=== PATIENT | female | born 1935 | race Caucasian/White ===

== ENCOUNTER 2017-06-22 13:38 | Inpatient (IN) | payer MEDICARE, BC ==
--- NOTE | 2017-06-22 13:47 | EDM.PDOC ---
ED HPI GENERAL MEDICAL PROBLEM - General Chief Complaint: General Stated Complaint: WEAK Time Seen by Provider: 06/22/17 13:38 Source of Information: Reports: Patient History Limitations: Reports: No Limitations - History of Present Illness INITIAL COMMENTS - FREE TEXT/NARRATIVE: HISTORY AND PHYSICAL: History of present illness: [Patient presents to the emergency room complaining of rectal bleeding. She has been taking Excedrin on and off for the past week for headache and muscle and joint aches and pains. Yesterday she wasn't feeling very well and had several episodes of blood in her stools. She has had blood in her stools today but to a lesser extent. She does not take any blood thinners. She has been prescribed aspirin 81 mg daily which she does not take. She has had some upset stomach and loose stools which are not unusual for her. She denies fever and chills. She's had no chest pain, no new shortness of breath or difficulty breathing. She has a history of COPD and wears 4 L of oxygen at home. Took some Immodium yesterday to slow down the loose stools, but had a couple of loose stools this morning. Follows regularly with Dr. Monge and last saw him 2-3 weeks ago for regular checkup.] Review of systems: As per history of present illness and below otherwise all systems reviewed and negative. Past medical history: As per history of present illness and as reviewed below otherwise noncontributory. Surgical history: As per history of present illness and as reviewed below otherwise noncontributory. Social history: No reported history of drug or alcohol abuse. Family history: As per history of present illness and as reviewed below otherwise noncontributory. Physical exam: HEENT: Atraumatic, normocephalic. Oral mucous membranes are pink and moist. Throat is clear, no lymphadenopathy. Lungs: Crackles are appreciated in right lung rankin. Left lung is clear to auscultation. Heart: S1S2, regular rate and rhythm. Abdomen: Bowel sounds are hyperactive. Abdomen is soft, nondistended. Mild TTP over lower abdomen. Negative for masses, guarding and rebound. Negative for costovertebral tenderness. Pelvis: Stable nontender. Genitourinary: Deferred. Rectal: Normal sphincter tone. dry stool caked to buttocks. SFOB positive. Extremities: Atraumatic. No cyanosis or edema to feet or lower legs. Neurovascular unremarkable. Neuro: Awake, alert, oriented. Motor and sensory unremarkable throughout. Exam nonfocal. Psych is alert and oriented. Interacts with examiner appropriately. Diagnostics: [CBC, CMP, UA, EKG, chest x-ray, PT/INR, troponin] Therapeutics: [NS at 125mL/hour, Protonix 80mg IV, Flagyl 500 mg IV, Cipro 400 mg IV] Impression: [colitis abdominal pain elevated lactate] Plan: [White blood cell count 11.5, hemoglobin 10.4 which is stable for patient. Previous records show hemoglobin between 10 and 11 during the last year. Troponin negative. Lactate 2.1. CT abdomen and pelvis shows thickening of the colonic wall indicating colitis. Cipro and Flagyl were started in the ER. Patient's condition and diagnostics are reviewed with Dr. Bethel Gentile who agrees to accept for inpatient admission. Patient is in agreement with today's plan. ] Definitive disposition and diagnosis as appropriate pending reevaluation and review of above. - Related Data Allergies Allergy/AdvReac Type Severity Reaction Status Date / Time morphine Allergy Cannot Verified 06/22/17 13:46 Remember Beef Containing Products AdvReac unknown Verified 06/22/17 14:16 pork derived (porcine) AdvReac unknown Verified 06/22/17 14:16 wheat AdvReac unknown Verified 06/22/17 14:16 Home Meds: Home Meds Benazepril/Hydrochlorothiazide [Lotensin HCT 20-25 MG] 0.5 tab PO DAILY [History] Fluticasone/Salmeterol [Advair Diskus 100-50] 1 puff IH BID 07/10/16 [History] Furosemide 20 mg PO DAILY PRN 07/10/16 [History] Ipratropium [place] 2 sprays NASBOTH TID 07/10/16 [History] Ipratropium [Atrovent HFA] 2 puff IH QID 07/10/16 [History] Iron Ps Cmplx/Vit B12/Fa [Poly-Iron 150 Forte] 150 mg PO DAILY 07/10/16 [History ] Levalbuterol Tartrate [Xopenex Hfa] 2 puff IH QID 07/10/16 [History] Montelukast [Singulair] 10 mg PO BEDTIME 07/10/16 [History] Sertraline [Zoloft] 100 mg PO DAILY 07/10/16 [History] Zolpidem [Ambien] 5 mg PO BEDTIME 07/10/16 [History] Docusate Sodium [Colace] 100 mg PO DAILY PRN #14 cap 07/11/16 [Rx] Mirtazapine [Remeron] 15 mg PO BEDTIME #20 tablet 07/11/16 [Rx] Past Medical History HEENT History: Reports: Impaired Vision Cardiovascular History: Reports: Hypertension Respiratory History: Reports: COPD, Pneumonia, Recurrent Gastrointestinal History: Reports: Diverticulosis, GERD [employer] History: Reports: Endocrine/Metabolic History: Reports: Diabetes, Type II Oncologic (Cancer) History: Reports: Other (See Below) Other Oncologic History: uterus - Past Surgical History Female Surgical History: Reports: Hysterectomy Social & Family History - Family History Family Medical History: Noncontributory HEENT: Reports: Impaired Vision Cardiac: Reports: DC OBGYN: Reports: Musculoskeletal: Reports: Arthritis Neurological: Reports: Parkinson's Oncologic: Reports: Breast, Colon - Tobacco Use Smoking Status *Q: Never Smoker Second Hand Smoke Exposure: No - Caffeine Use Caffeine Use: Reports: Coffee - Alcohol Use Days Per Week of Alcohol Use: 0 - Recreational Drug Use Recreational Drug Use: No - Living Situation & Occupation Living situation: Reports: Alone, Assisted Living Occupation: Retired ED ROS GENERAL - Review of Systems Review Of Systems: ROS reveals no pertinent complaints other than HPI. ED EXAM, GENERAL - Physical Exam Exam: See Below Course - Vital Signs Last Recorded V/S: Last Vital Signs Temp 98.4 F 06/22/17 14:30 Pulse 88 06/22/17 16:38 Resp 18 06/22/17 14:30 BP 132/81 06/22/17 16:38 Pulse Ox 98 06/22/17 14:30 - Orders/Labs/Meds Orders: Active Orders 24 hr Category Date Time Status EKG Documentation Completion [RC] STAT Care 06/22/17 13:48 Active Abdomen Pelvis w Cont [CT] Stat Exams 06/22/17 15:30 Taken Chest 2V [CR] Stat Exams 06/22/17 13:49 Taken UA W/MICROSCOPIC [URIN] Stat Lab 06/22/17 13:49 Uncollected Ciprofloxacin in D5W [Cipro in D5W 400 MG/200 ML] 400 Med 06/22/17 18:00 Ordered mg Premix Bag 1 bag IV Q12H Sodium Chloride 0.9% [Normal Saline] 1,000 ml Med 06/22/17 14:16 Active IV STAT Sodium Chloride 0.9% [Saline Flush] Med 06/22/17 13:48 Active 10 ml FLUSH ASDIRECTED PRN Sodium Chloride 0.9% [Saline Flush] Med 06/22/17 13:48 Active 2.5 ml FLUSH ASDIRECTED PRN metroNIDAZOLE/Normal Saline [Flagyl 500 MG in NS 100 ML Med 06/22/17 17:57 Ordered ] 500 mg Premix Bag 1 bag IV ONETIME Saline Lock Insert [OM.PC] Stat Oth 06/22/17 13:48 Ordered Medication Orders Sodium Chloride (Normal Saline) 1,000 mls @ 125 mls/hr IV STAT ONE Stop: 06/22/17 22:15 Last Admin: 06/22/17 14:25 Dose: 125 mls/hr Ciprofloxacin/Dextrose 400 mg/ (Premix) 200 mls @ 200 mls/hr IV Q12H [place] Metronidazole 500 mg/ Premix 100 mls @ 100 mls/hr IV ONETIME ONE Stop: 06/22/17 18:56 Sodium Chloride (Saline Flush) 10 ml FLUSH ASDIRECTED PRN PRN Reason: Keep Vein Open Sodium Chloride (Saline Flush) 2.5 ml FLUSH ASDIRECTED PRN PRN Reason: Keep Vein Open Labs: Laboratory Tests 06/22/17 06/22/17 06/22/17 Range/Units 14:00 14:00 14:00 WBC 11.51 H (4.0-11.0) K/uL RBC 3.30 L (4.30-5.90) M/uL Hgb 10.4 L (12.0-16.0) g/dL Hct 33.2 L (36.0-46.0) % MCV 100.6 H (80.0-98.0) fL MCH 31.5 (27.0-32.0) pg MCHC 31.3 (31.0-37.0) g/dL RDW Std Deviation 47.4 (28.0-62.0) fl RDW Coeff of Carmen 13 (11.0-15.0) % Plt Count 172 (150-400) K/uL MPV 11.40 (7.40-12.00) fL Neut % (Auto) 83.2 H (48.0-80.0) % Lymph % (Auto) 11.1 L (16.0-40.0) % [place] % (Auto) 5.3 (0.0-15.0) % Eos % (Auto) 0.3 (0.0-7.0) % Baso % (Auto) 0.1 (0.0-1.5) % Neut # (Auto) 9.6 H (1.4-5.7) K/uL Lymph # (Auto) 1.3 (0.6-2.4) K/uL [place] # (Auto) 0.6 (0.0-0.8) K/uL Eos # (Auto) 0.0 (0.0-0.7) K/uL Baso # (Auto) 0.0 (0.0-0.1) K/uL Nucleated RBC % 0.0 /100WBC Nucleated RBCs # 0 K/uL INR 0.95 (0.86-1.11) Lactate (0.20-2.00) mmol/L Sodium 138 (136-146) mmol/L Potassium 3.9 (3.5-5.1) mmol/L Chloride 98 (98-110) mmol/L Carbon Dioxide 32 H (21-31) mmol/L BUN 27 H (6.0-23.0) mg/dL Creatinine 0.8 (0.6-1.5) mg/dL Est Cr Clr Drug Dosing 36.86 mL/min Estimated GFR (MDRD) > 60.0 ml/min Glucose 152 H (60-110) mg/dL Calcium 9.9 (8.8-10.8) mg/dL Total Bilirubin 0.3 (0.1-1.5) mg/dL AST 17 (5-40) IU/L ALT 11 (8-54) IU/L Alkaline Phosphatase 51 (40-150) Troponin I (0.0-0.29) NG/ML Total Protein 7.3 (6.0-8.0) g/dL Albumin 3.6 (3.4-4.8) g/dL Globulin 3.7 H (2.0-3.5) g/dL Albumin/Globulin Ratio 1.0 L (1.3-2.8) Blood Type Antibody Screen 06/22/17 06/22/17 06/22/17 Range/Units 14:00 14:00 14:36 WBC (4.0-11.0) K/uL RBC (4.30-5.90) M/uL Hgb (12.0-16.0) g/dL Hct (36.0-46.0) % MCV (80.0-98.0) fL MCH (27.0-32.0) pg MCHC (31.0-37.0) g/dL RDW Std Deviation (28.0-62.0) fl RDW Coeff of Carmen (11.0-15.0) % Plt Count (150-400) K/uL MPV (7.40-12.00) fL Neut % (Auto) (48.0-80.0) % Lymph % (Auto) (16.0-40.0) % [place] % (Auto) (0.0-15.0) % Eos % (Auto) (0.0-7.0) % Baso % (Auto) (0.0-1.5) % Neut # (Auto) (1.4-5.7) K/uL Lymph # (Auto) (0.6-2.4) K/uL [place] # (Auto) (0.0-0.8) K/uL Eos # (Auto) (0.0-0.7) K/uL Baso # (Auto) (0.0-0.1) K/uL Nucleated RBC % /100WBC Nucleated RBCs # K/uL INR (0.86-1.11) Lactate 2.1 H (0.20-2.00) mmol/L Sodium (136-146) mmol/L Potassium (3.5-5.1) mmol/L Chloride (98-110) mmol/L Carbon Dioxide (21-31) mmol/L BUN (6.0-23.0) mg/dL Creatinine (0.6-1.5) mg/dL Est Cr Clr Drug Dosing mL/min Estimated GFR (MDRD) ml/min Glucose (60-110) mg/dL Calcium (8.8-10.8) mg/dL Total Bilirubin (0.1-1.5) mg/dL AST (5-40) IU/L ALT (8-54) IU/L Alkaline Phosphatase (40-150) Troponin I < 0.10 (0.0-0.29) NG/ML Total Protein (6.0-8.0) g/dL Albumin (3.4-4.8) g/dL Globulin (2.0-3.5) g/dL Albumin/Globulin Ratio (1.3-2.8) Blood Type O POSITIVE Antibody Screen NEGATIVE Meds: Medications Generic Name Dose Route Start Last Admin Trade Name Freq PRN Reason Stop Dose Admin Sodium Chloride 1,000 mls @ 125 mls/hr 06/22/17 14:16 06/22/17 14:25 Normal Saline IV 06/22/17 22:15 125 mls/hr STAT ONE Administration Ciprofloxacin/Dextrose 400 mg/ 200 mls @ 200 mls/hr 06/22/17 18:00 Premix IV Q12H [place] Metronidazole 500 mg/ Premix 100 mls @ 100 mls/hr 06/22/17 17:57 IV 06/22/17 18:56 ONETIME ONE Sodium Chloride 10 ml 06/22/17 13:48 Saline Flush FLUSH ASDIRECTED PRN Keep Vein Open Sodium Chloride 2.5 ml 06/22/17 13:48 Saline Flush FLUSH ASDIRECTED PRN Keep Vein Open Discontinued Medications Generic Name Dose Route Start Last Admin Trade Name Harshq PRN Reason Stop Dose Admin Iopamidol 70 ml 06/22/17 15:42 06/22/17 16:25 Isovue-370 (76%) IVPUSH 06/22/17 15:43 70 ml ONETIME STA Administration Pantoprazole Sodium 80 mg 06/22/17 14:16 06/22/17 14:26 Protonix Iv IVPUSH 06/22/17 14:17 80 mg .BOLUS ONE Administration Departure - Departure Time of Disposition: 18:02 Disposition: Admitted As Inpatient 64 Condition: Fair Clinical Impression: Colitis - Discharge Information Referrals: PCP,None [Primary Care Provider] - Forms: ED Department Discharge - My Orders Last 24 Hours: My Active Orders 06/22/17 13:48 EKG Documentation Completion [RC] STAT Sodium Chloride 0.9% [Saline Flush] 10 ml FLUSH ASDIRECTED PRN Sodium Chloride 0.9% [Saline Flush] 2.5 ml FLUSH ASDIRECTED PRN Saline Lock Insert [OM.PC] Stat 06/22/17 13:49 Chest 2V [CR] Stat UA W/MICROSCOPIC [URIN] Stat 06/22/17 14:16 Sodium Chloride 0.9% [Normal Saline] 1,000 ml IV STAT 06/22/17 15:30 Abdomen Pelvis w Cont [CT] Stat 06/22/17 17:57 metroNIDAZOLE/Normal Saline [Flagyl 500 MG in NS 100 ML] 500 mg Premix Bag 1 bag IV ONETIME 06/22/17 18:00 Ciprofloxacin in D5W [Cipro in D5W 400 MG/200 ML] 400 mg Premix Bag 1 bag IV Q12H - Assessment/Plan Last 24 Hours: My Active Orders 06/22/17 13:48 EKG Documentation Completion [RC] STAT Sodium Chloride 0.9% [Saline Flush] 10 ml FLUSH ASDIRECTED PRN Sodium Chloride 0.9% [Saline Flush] 2.5 ml FLUSH ASDIRECTED PRN Saline Lock Insert [OM.PC] Stat 06/22/17 13:49 Chest 2V [CR] Stat UA W/MICROSCOPIC [URIN] Stat 06/22/17 14:16 Sodium Chloride 0.9% [Normal Saline] 1,000 ml IV STAT 06/22/17 15:30 Abdomen Pelvis w Cont [CT] Stat 06/22/17 17:57 metroNIDAZOLE/Normal Saline [Flagyl 500 MG in NS 100 ML] 500 mg Premix Bag 1 bag IV ONETIME 06/22/17 18:00 Ciprofloxacin in D5W [Cipro in D5W 400 MG/200 ML] 400 mg Premix Bag 1 bag IV Q12H
[2017-06-22] MEDS ORDERED: Sodium Chloride 0.9% 10 ML Syringe FLUSH PRN (13:48)
[2017-06-22] MEDS ORDERED: Sodium Chloride 0.9% 2.5 ML Syringe FLUSH PRN (13:48)
[2017-06-22] MEDS ORDERED: Pantoprazole 40 MG Vial IVPUSH ONE (14:16)
[2017-06-22] MEDS ORDERED: Sodium Chloride 0.9% 1,000 ML IV ONE (14:16)
[2017-06-22 14:35] LABS: CHLORIDE,CL 98 mmol/L (98-110); SODIUM,NA 138 mmol/L (136-146)
[2017-06-22] MEDS ORDERED: Iopamidol 755 Mg/ML 100 ML Bottle IVPUSH STA (15:42)
[2017-06-22] MEDS ORDERED: metroNIDAZOLE/Normal Saline 500 MG in Premix Bag 1 BAG IV ONE (17:57)
[2017-06-22] MEDS ORDERED: Ciprofloxacin in D5W 400 MG in Premix Bag 1 BAG IV SCH ×4 (18:00→20:30)
[2017-06-22] MEDS ORDERED: Ondansetron 4 MG Tab.DIS PO PRN (19:17)
[2017-06-22] MEDS ORDERED: Acetaminophen 325 MG Tab PO PRN (19:17)
[2017-06-22] MEDS ORDERED: Temazepam 15 MG Cap PO PRN (19:17)
[2017-06-22] MEDS ORDERED: Docusate Sodium 100 MG Cap PO PRN (19:21)
[2017-06-22] MEDS ORDERED: Albuterol/Ipratropium 3.0-0.5 MG/3 ML Neb Soln NEB PRN (19:23)
[2017-06-22] MEDS ORDERED: metroNIDAZOLE/Normal Saline 500 MG in Premix Bag 1 BAG IV SCH (19:30)
[2017-06-22] MEDS: Fluticasone/Salmeterol 100-50 MCG Inhalation Powder 14/Diskus INH SCH (20:20)
[2017-06-22] MEDS: Ipratropium 12.9 GM Inhaler INH SCH (20:21)
[2017-06-22] MEDS: Mirtazapine 15 MG Tab PO SCH (20:55)
--- NOTE | 2017-06-22 22:27 | PCM.HP ---
H&P History of Present Illness - General Date of Service: 06/22/17 Admit Problem/Dx: Admission Diagnosis/Problem Admission Diagnosis/Problem Colitis Source of Information: Patient, Provider - History of Present Illness Initial Comments - Free Text/Narative: She presented to the ED with recent large bloody diarrheal stool. She was noted on CT scanning to have evidence of colitis. She has had slight abdominal cramping but denies "pain". no fever no vomiting. she reports that her outpatient attending physician is Dr Monge. - Related Data Allergies/Adverse Reactions: Allergies Allergy/AdvReac Type Severity Reaction Status Date / Time morphine Allergy Cannot Verified 06/22/17 13:46 Remember Beef Containing Products AdvReac unknown Verified 06/22/17 14:16 pork derived (porcine) AdvReac unknown Verified 06/22/17 14:16 wheat AdvReac unknown Verified 06/22/17 14:16 Home Medications: Home Meds Benazepril/Hydrochlorothiazide [Lotensin HCT 20-25 MG] 0.5 tab PO DAILY [History] Fluticasone/Salmeterol [Advair Diskus 100-50] 1 puff IH BID 07/10/16 [History] Furosemide 20 mg PO DAILY PRN 07/10/16 [History] Ipratropium [place] 2 sprays NASBOTH TID 07/10/16 [History] Ipratropium [Atrovent HFA] 2 puff IH QID 07/10/16 [History] Iron Ps Cmplx/Vit B12/Fa [Poly-Iron 150 Forte] 150 mg PO DAILY 07/10/16 [History ] Levalbuterol Tartrate [Xopenex Hfa] 2 puff IH QID 07/10/16 [History] Montelukast [Singulair] 10 mg PO BEDTIME 07/10/16 [History] Sertraline [Zoloft] 100 mg PO DAILY 07/10/16 [History] Zolpidem [Ambien] 5 mg PO BEDTIME 07/10/16 [History] Docusate Sodium [Colace] 100 mg PO DAILY PRN #14 cap 07/11/16 [Rx] Mirtazapine [Remeron] 15 mg PO BEDTIME #20 tablet 07/11/16 [Rx] Past Medical History HEENT History: Reports: Cataract, Impaired Vision Cardiovascular History: Reports: Hypertension Respiratory History: Reports: COPD, Pneumonia, Recurrent Gastrointestinal History: Reports: Diverticulosis, GERD Genitourinary History: Reports: UTI, Recurrent [employer] History: Reports: Neurological History: Denies: Alzheimers Disease, MS Psychiatric History: Reports: Depression Endocrine/Metabolic History: Reports: Diabetes, Type II Oncologic (Cancer) History: Reports: Other (See Below) Other Oncologic History: uterus - Past Surgical History HEENT Surgical History: Reports: Cataract Surgery Female Surgical History: Reports: Hysterectomy Social & Family History - Family History Family Medical History: Noncontributory HEENT: Reports: Impaired Vision Cardiac: Reports: PA Respiratory: Reports: None GI: Reports: None OBGYN: Reports: Musculoskeletal: Reports: Arthritis Neurological: Reports: Parkinson's Psychiatric: Reports: Depression Dermatologic: Reports: None Oncologic: Reports: Breast, Colon - Tobacco Use Smoking Status *Q: Never Smoker Second Hand Smoke Exposure: No - Caffeine Use Caffeine Use: Reports: Coffee - Alcohol Use Days Per Week of Alcohol Use: 0 - Recreational Drug Use Recreational Drug Use: No - Living Situation & Occupation Living situation: Reports: Alone, Assisted Living Occupation: Retired H&P Review of Systems - Review of Systems: Review Of Systems: See Below General: Denies: Fever, Chills HEENT: Reports: Post Nasal Drip, Sinus Congestion Pulmonary: Reports: Cough Cardiovascular: Denies: Chest Pain, Palpitations Gastrointestinal: Reports: Bloody Stool. Denies: Abdominal Pain, Distension, Hematemesis, Hematochezia, Melena Genitourinary: Denies: Dysuria, Frequency, Burning Skin: Denies: Jaundice Psychiatric: Denies: Confusion Neurological: Denies: Dizziness, Headache Review of Systems Comment:: she notes periods of LE edema treated with diuretics. Exam - Exam Exam: See Below - Vital Signs Vital Signs: Last Vital Signs Temp 98.2 F 06/22/17 20:00 Pulse 81 06/22/17 20:00 Resp 16 06/22/17 20:00 BP 138/71 06/22/17 20:00 Pulse Ox 96 06/22/17 20:00 Weight: 44.452 kg - Exam HEENT: EOMI, Mucosa Moist & Goodman Lungs: Clear to Auscultation, Normal Respiratory Effort, Other (scattered crackles) Cardiovascular: Regular Rate, Regular Rhythm GI/Abdominal Exam: Soft, Non-Tender. No: Distended, Guarding, Rigid, Rebound, Tender (Female) Exam: Deferred Rectal (Female) Exam: Deferred, Heme + Stool (as per ED provider) Extremities: No Pedal Edema - Patient Data Result Diagrams: 06/22/17 14:00 06/22/17 14:00 *Q Meaningful Use (ADM) - VTE *Q VTE Criteria *Q: - Stroke *Q Stroke Criteria *Q: - AMI *Q AMI Criteria *Q: - Problem List (1) GI bleed SNOMED Code(s): 12259976 ICD Code: K92.2 - GASTROINTESTINAL HEMORRHAGE, UNSPECIFIED Status: Acute Current Visit: Yes (2) Colitis SNOMED Code(s): 51225771 ICD Code: K52.9 - NONINFECTIVE GASTROENTERITIS AND COLITIS, UNSPECIFIED Status: Acute Current Visit: Yes (3) History of COPD SNOMED Code(s): 259819916 ICD Code: Z87.09 - PERSONAL HISTORY OF OTHER DISEASES OF THE RESPIRATORY SYSTEM Status: Acute Current Visit: Yes (4) URI (upper respiratory infection) SNOMED Code(s): 51632913 ICD Code: J06.9 - ACUTE UPPER RESPIRATORY INFECTION, UNSPECIFIED Status: Acute Current Visit: Yes (5) COPD exacerbation SNOMED Code(s): 131574593, 764992200 ICD Code: J44.1 - CHRONIC OBSTRUCTIVE PULMONARY DISEASE W (ACUTE) EXACERBATION Status: Acute Current Visit: Yes Problem List Initiated/Reviewed/Updated: Yes Orders Last 24hrs: Active Orders 24 hr Category Date Time Status Antiembolic Devices [RC] PER UNIT ROUTINE Care 06/22/17 19:18 Active Oxygen Therapy [RC] PRN Care 06/22/17 19:17 Active RT Aerosol Therapy [RC] ASDIRECTED Care 06/22/17 19:24 Active VTE/DVT Education [RC] PER UNIT ROUTINE Care 06/22/17 19:17 Active Vital Signs [RC] Q4H Care 06/22/17 19:17 Active Full Liquid Diet [DIET] Diet 06/22/17 Dinner Active BASIC METABOLIC PANEL,BMP [CHEM] AM Lab 06/23/17 05:11 Ordered BASIC METABOLIC PANEL,BMP [CHEM] AM Lab 06/24/17 05:11 Ordered BASIC METABOLIC PANEL,BMP [CHEM] AM Lab 06/25/17 05:11 Ordered CBC WITH AUTO DIFF [HEME] AM Lab 06/23/17 05:11 Ordered CBC WITH AUTO DIFF [HEME] AM Lab 06/24/17 05:11 Ordered CBC WITH AUTO DIFF [HEME] AM Lab 06/25/17 05:11 Ordered MAGNESIUM [CHEM] AM Lab 06/23/17 05:11 Ordered Acetaminophen [Tylenol] Med 06/22/17 19:17 Active 650 mg PO Q4H PRN Albuterol/Ipratropium [DuoNeb 3.0-0.5 MG/3 ML] Med 06/22/17 19:23 Active 3 ml NEB Q4HRRT PRN Benazepril [Lotensin] Med 06/23/17 09:00 Active 10 mg PO DAILY Ciprofloxacin in D5W [Cipro in D5W 400 MG/200 ML] 400 Med 06/22/17 20:30 Active mg Premix Bag 1 bag IV Q12H Docusate Sodium [Colace] Med 06/22/17 19:21 Active 100 mg PO DAILY PRN Fluticasone/Salmeterol [Advair Diskus 100-50] Med 06/22/17 21:00 Active 1 puff INH BID Hydrochlorothiazide Med 06/23/17 09:00 Active 12.5 mg PO DAILY Ipratropium [place] Med 06/22/17 22:00 Pending 2 sprays NASBOTH TID Ipratropium [Atrovent HFA] Med 06/22/17 21:00 Active 0 gm INH QIDRT Mirtazapine [Remeron] Med 06/22/17 21:00 Active 15 mg PO BEDTIME Ondansetron [Zofran ODT] Med 06/22/17 19:17 Active 4 mg PO Q4H PRN Sertraline [Zoloft] Med 06/23/17 09:00 Active 100 mg PO DAILY Temazepam [Restoril] Med 06/22/17 19:17 Active 15 mg PO BEDTIME PRN Zaleplon [Sonata] Med 06/22/17 21:00 Active 5 mg PO BEDTIME metroNIDAZOLE/Normal Saline [Flagyl 500 MG in NS 100 ML Med 06/23/17 00:00 Active ] 500 mg Premix Bag 1 bag IV QID Sequential Compression Device [OM.PC] Per Unit Routine Oth 06/22/17 19:17 Ordered Resuscitation Status Routine Resus Stat 06/22/17 19:17 Ordered Medication Orders Acetaminophen (Tylenol) 650 mg PO Q4H PRN PRN Reason: Pain (Mild 1-3)/fever Albuterol/Ipratropium (Duoneb 3.0-0.5 Mg/3 Ml) 3 ml NEB Q4HRRT PRN PRN Reason: Wheezing Benazepril HCl (Lotensin) 10 mg PO DAILY [facility] Docusate Sodium (Colace) 100 mg PO DAILY PRN PRN Reason: Constipation Hydrochlorothiazide (Hydrochlorothiazide) 12.5 mg PO DAILY [facility] Metronidazole 500 mg/ Premix 100 mls @ 100 mls/hr IV QID [place] Ciprofloxacin/Dextrose 400 mg/ (Premix) 200 mls @ 200 mls/hr IV Q12H [facility] Last Admin: 06/22/17 20:55 Dose: 200 mls/hr Ipratropium [place] (Atrovent Hfa) 0 gm INH QIDRT [facility] Last Admin: 06/22/17 20:21 Dose: 2 mdi Mirtazapine (Remeron) 15 mg PO BEDTIME [facility] Last Admin: 06/22/17 20:55 Dose: 15 mg Non-Formulary Medication (Ipratropium [place]) 2 sprays NASBOTH TID [facility] Ondansetron HCl (Zofran Odt) 4 mg PO Q4H PRN PRN Reason: nausea, able to take PO Fluticasone/Salmeterol (Advair Diskus 100-50) 1 puff INH BID [facility] Last Admin: 06/22/17 20:20 Dose: 1 diskus Sertraline HCl (Zoloft) 100 mg PO DAILY [facility] Sodium Chloride (Saline Flush) 10 ml FLUSH ASDIRECTED PRN PRN Reason: Keep Vein Open Sodium Chloride (Saline Flush) 2.5 ml FLUSH ASDIRECTED PRN PRN Reason: Keep Vein Open Temazepam (Restoril) 15 mg PO BEDTIME PRN PRN Reason: Sleep Zaleplon (Sonata) 5 mg PO BEDTIME [facility] Last Admin: 06/22/17 20:55 Dose: 5 mg Assessment/Plan Comment:: admit to inpatient duonebs antibiotics monitor cbc anticipate discharge Friday or Friday. Bethel Gentile MD
[2017-06-22] MEDS: IPRATROPIUM BROMIDE NASBOTH SCH (23:22)
[2017-06-22] MEDS: Albuterol/Ipratropium 3.0-0.5 MG/3 ML Neb Soln NEB SCH ×2 (23:30→23:37)
[2017-06-22] MEDS: metroNIDAZOLE/Normal Saline 500 MG in Premix Bag 1 BAG IV SCH (23:33)
[2017-06-23] MEDS: Sodium Chloride 0.9% 1,000 ML IV SCH (00:47)
[2017-06-23] MEDS: metroNIDAZOLE/Normal Saline 500 MG in Premix Bag 1 BAG IV SCH ×4 (05:46→23:58)
[2017-06-23] MEDS ORDERED: Ciprofloxacin in D5W 200 MG in Premix Bag 1 BAG IV SCH ×2 (06:00)
[2017-06-23 06:09] LABS: CHLORIDE,CL 104 mmol/L (98-110); SODIUM,NA 140 mmol/L (136-146)
[2017-06-23] MEDS: Ipratropium 12.9 GM Inhaler INH SCH ×2 (06:18→10:33)
[2017-06-23] MEDS: Fluticasone/Salmeterol 100-50 MCG Inhalation Powder 14/Diskus INH SCH ×2 (08:36→21:20)
[2017-06-23] MEDS: Albuterol/Ipratropium 3.0-0.5 MG/3 ML Neb Soln NEB SCH ×2 (08:36→13:48)
[2017-06-23] MEDS: Benazepril 10 MG Tab PO SCH (08:55)
[2017-06-23] MEDS: Hydrochlorothiazide 12.5 MG Cap PO SCH (08:57)
[2017-06-23] MEDS: Sertraline 100 MG Tab PO SCH (08:58)
[2017-06-23] MEDS: IPRATROPIUM BROMIDE NASBOTH SCH ×2 (08:59→15:23)
[2017-06-23] MEDS ORDERED: Levofloxacin/Dextrose 5%-Water 500 MG in Premix Bag 1 BAG IV SCH (09:00)
[2017-06-23] MEDS ORDERED: Magnesium Sulfate/Water 4 GM in Premix Bag 1 BAG IV ONE (10:18)
--- NOTE | 2017-06-23 14:18 | PCM.PN ---
- General Info Date of Service: 06/23/17 Subjective Update: no recurrence of bloody diarrhea - Patient Data Vitals - Most Recent: Last Vital Signs Temp 96.9 F 06/23/17 12:00 Pulse 80 06/23/17 12:00 Resp 20 06/23/17 12:00 BP 123/74 06/23/17 12:00 Pulse Ox 95 06/23/17 12:00 Weight - Most Recent: 44.452 kg I&O - Last 24 Hours: Intake & Output 06/22/17 06/23/17 06/23/17 22:59 06:59 14:59 Intake Total 300 1650 100 Output Total 300 Balance 300 1350 100 Lab Results Last 24 Hours: Laboratory Results - last 24 hr 06/23/17 06/23/17 06/23/17 Range/Units 04:55 04:55 04:55 WBC 9.38 (4.0-11.0) K/uL RBC 2.96 L (4.30-5.90) M/uL Hgb 9.3 L (12.0-16.0) g/dL Hct 30.1 L (36.0-46.0) % MCV 101.7 H (80.0-98.0) fL MCH 31.4 (27.0-32.0) pg MCHC 30.9 L (31.0-37.0) g/dL RDW Std Deviation 47.9 (28.0-62.0) fl RDW Coeff of Carmen 13 (11.0-15.0) % Plt Count 144 L (150-400) K/uL MPV 11.20 (7.40-12.00) fL Neut % (Auto) 80.8 H (48.0-80.0) % Lymph % (Auto) 12.8 L (16.0-40.0) % [place] % (Auto) 5.5 (0.0-15.0) % Eos % (Auto) 0.7 (0.0-7.0) % Baso % (Auto) 0.2 (0.0-1.5) % Neut # (Auto) 7.6 H (1.4-5.7) K/uL Lymph # (Auto) 1.2 (0.6-2.4) K/uL [place] # (Auto) 0.5 (0.0-0.8) K/uL Eos # (Auto) 0.1 (0.0-0.7) K/uL Baso # (Auto) 0.0 (0.0-0.1) K/uL Nucleated RBC % 0.0 /100WBC Nucleated RBCs # 0 K/uL Lactate 0.6 (0.20-2.00) mmol/L Sodium 140 (136-146) mmol/L Potassium 3.8 (3.5-5.1) mmol/L Chloride 104 (98-110) mmol/L Carbon Dioxide 30 (21-31) mmol/L BUN 16 (6.0-23.0) mg/dL Creatinine 0.7 (0.6-1.5) mg/dL Est Cr Clr Drug Dosing 41.98 mL/min Estimated GFR (MDRD) > 60.0 ml/min Glucose 91 (60-110) mg/dL Calcium 8.8 (8.8-10.8) mg/dL Magnesium 1.2 L (1.5-2.3) mEq/L Urine Color Urine Appearance Urine pH (5.0-8.0) Ur Specific [place] (1.001-1.035) Urine Protein (NEGATIVE) mg/dL Urine Glucose (UA) (NEGATIVE) mg/dL Urine Ketones (NEGATIVE) mg/dL Urine Occult Blood (NEGATIVE) Urine Nitrite (NEGATIVE) Urine Bilirubin (NEGATIVE) Urine Urobilinogen (<2.0) EU/dL Ur Leukocyte Esterase (NEGATIVE) Urine RBC (0-2/HPF) Urine WBC (0-5/HPF) Ur Epithelial Cells (NONE-FEW) Urine Bacteria (NEGATIVE) Urine Mucus (NONE-MOD) 06/23/17 Range/Units 08:45 WBC (4.0-11.0) K/uL RBC (4.30-5.90) M/uL Hgb (12.0-16.0) g/dL Hct (36.0-46.0) % MCV (80.0-98.0) fL MCH (27.0-32.0) pg MCHC (31.0-37.0) g/dL RDW Std Deviation (28.0-62.0) fl RDW Coeff of Carmen (11.0-15.0) % Plt Count (150-400) K/uL MPV (7.40-12.00) fL Neut % (Auto) (48.0-80.0) % Lymph % (Auto) (16.0-40.0) % [place] % (Auto) (0.0-15.0) % Eos % (Auto) (0.0-7.0) % Baso % (Auto) (0.0-1.5) % Neut # (Auto) (1.4-5.7) K/uL Lymph # (Auto) (0.6-2.4) K/uL [place] # (Auto) (0.0-0.8) K/uL Eos # (Auto) (0.0-0.7) K/uL Baso # (Auto) (0.0-0.1) K/uL Nucleated RBC % /100WBC Nucleated RBCs # K/uL Lactate (0.20-2.00) mmol/L Sodium (136-146) mmol/L Potassium (3.5-5.1) mmol/L Chloride (98-110) mmol/L Carbon Dioxide (21-31) mmol/L BUN (6.0-23.0) mg/dL Creatinine (0.6-1.5) mg/dL Est Cr Clr Drug Dosing mL/min Estimated GFR (MDRD) ml/min Glucose (60-110) mg/dL Calcium (8.8-10.8) mg/dL Magnesium (1.5-2.3) mEq/L Urine Color YELLOW Urine Appearance CLEAR Urine pH 5.5 (5.0-8.0) Ur Specific [place] 1.010 (1.001-1.035) Urine Protein NEGATIVE (NEGATIVE) mg/dL Urine Glucose (UA) NEGATIVE (NEGATIVE) mg/dL Urine Ketones NEGATIVE (NEGATIVE) mg/dL Urine Occult Blood NEGATIVE (NEGATIVE) Urine Nitrite NEGATIVE (NEGATIVE) Urine Bilirubin NEGATIVE (NEGATIVE) Urine Urobilinogen 0.2 (<2.0) EU/dL Ur Leukocyte Esterase NEGATIVE (NEGATIVE) Urine RBC NONE SEEN (0-2/HPF) Urine WBC 0-2 (0-5/HPF) Ur Epithelial Cells OCCASIONAL (NONE-FEW) Urine Bacteria RARE (NEGATIVE) Urine Mucus LIGHT (NONE-MOD) Med Orders - Current: Current Medications Acetaminophen (Tylenol) 650 mg PO Q4H PRN PRN Reason: Pain (Mild 1-3)/fever Last Admin: 06/23/17 00:52 Dose: 650 mg Benazepril HCl (Lotensin) 10 mg PO DAILY [facility] Last Admin: 06/23/17 08:55 Dose: 10 mg Docusate Sodium (Colace) 100 mg PO DAILY PRN PRN Reason: Constipation Hydrochlorothiazide (Hydrochlorothiazide) 12.5 mg PO DAILY [facility] Last Admin: 06/23/17 08:57 Dose: 12.5 mg Metronidazole 500 mg/ Premix 100 mls @ 100 mls/hr IV QID [facility] Last Admin: 06/23/17 13:00 Dose: 100 mls/hr Levofloxacin/Dextrose 250 mg/ (Premix) 50 mls @ 50 mls/hr IV DAILY [facility] Sodium Chloride (Normal Saline) 1,000 mls @ 75 mls/hr IV ASDIRECTED [facility] Last Admin: 06/23/17 00:47 Dose: 75 mls/hr Levalbuterol HCl (Xopenex) 1.25 mg NEB BID [facility] Mirtazapine (Remeron) 15 mg PO BEDTIME [facility] Last Admin: 06/22/17 20:55 Dose: 15 mg (Ipratropium Bradner 2 Sprays)Own Med 2 sprays NASBOTH TID [facility] Last Admin: 06/23/17 08:59 Dose: Not Given Ondansetron HCl (Zofran Odt) 4 mg PO Q4H PRN PRN Reason: nausea, able to take PO Fluticasone/Salmeterol (Advair Diskus 100-50) 1 puff INH BID [facility] Last Admin: 06/23/17 08:36 Dose: 1 puff Sertraline HCl (Zoloft) 100 mg PO DAILY [facility] Last Admin: 06/23/17 08:58 Dose: 100 mg Sodium Chloride (Saline Flush) 10 ml FLUSH ASDIRECTED PRN PRN Reason: Keep Vein Open Sodium Chloride (Saline Flush) 2.5 ml FLUSH ASDIRECTED PRN PRN Reason: Keep Vein Open Temazepam (Restoril) 15 mg PO BEDTIME PRN PRN Reason: Sleep Zaleplon (Sonata) 5 mg PO BEDTIME [facility] Last Admin: 06/22/17 20:55 Dose: 5 mg Discontinued Medications Albuterol/Ipratropium (Duoneb 3.0-0.5 Mg/3 Ml) 3 ml NEB Q4HRRT PRN PRN Reason: Wheezing Albuterol/Ipratropium (Duoneb 3.0-0.5 Mg/3 Ml) 3 ml NEB Q6HRRT [facility] Last Admin: 06/23/17 13:48 Dose: Not Given Sodium Chloride (Normal Saline) 1,000 mls @ 125 mls/hr IV STAT ONE Stop: 06/22/17 22:15 Last Admin: 06/22/17 14:25 Dose: 125 mls/hr Ciprofloxacin/Dextrose 400 mg/ (Premix) 200 mls @ 200 mls/hr IV Q12H [facility] Last Admin: 06/22/17 22:11 Dose: Not Given Metronidazole 500 mg/ Premix 100 mls @ 100 mls/hr IV ONETIME ONE Stop: 06/22/17 18:56 Last Admin: 06/22/17 18:54 Dose: 100 mls/hr Ciprofloxacin/Dextrose 200 mg/ (Premix) 100 mls @ 100 mls/hr IV Q12H [facility] Metronidazole 500 mg/ Premix 100 mls @ 100 mls/hr IV QID [facility] Ciprofloxacin/Dextrose 400 mg/ (Premix) 200 mls @ 200 mls/hr IV Q12H [facility] Last Admin: 06/22/17 20:55 Dose: 200 mls/hr Levofloxacin/Dextrose 500 mg/ (Premix) 100 mls @ 100 mls/hr IV Q24H [facility] Stop: 06/23/17 09:59 Last Admin: 06/23/17 08:49 Dose: 100 mls/hr Magnesium Sulfate 4 gm/ Premix 100 mls @ 50 mls/hr IV ONETIME ONE Stop: 06/23/17 12:17 Last Admin: 06/23/17 10:47 Dose: 50 mls/hr Iopamidol (Isovue-370 (76%)) 70 ml IVPUSH ONETIME STA Stop: 06/22/17 15:43 Last Admin: 06/22/17 16:25 Dose: 70 ml Ipratropium Bradner (Atrovent Hfa) 0 gm INH QIDRT [facility] Last Admin: 06/23/17 10:33 Dose: 2 puff Pantoprazole Sodium (Protonix Iv) 80 mg IVPUSH .BOLUS ONE Stop: 06/22/17 14:17 Last Admin: 06/22/17 14:26 Dose: 80 mg - Exam General: Alert, Oriented, Cooperative Neck: Supple Lungs: Rhonchi (faint diffuse rhonchi) GI/Abdominal Exam: Soft, Non-Tender - Problem List & Annotations (1) GI bleed SNOMED Code(s): 06954510 Code(s): K92.2 - GASTROINTESTINAL HEMORRHAGE, UNSPECIFIED Status: Acute Current Visit: Yes (2) Colitis SNOMED Code(s): 68932412 Code(s): K52.9 - NONINFECTIVE GASTROENTERITIS AND COLITIS, UNSPECIFIED Status: Acute Current Visit: Yes (3) History of COPD SNOMED Code(s): 401510703 Code(s): Z87.09 - PERSONAL HISTORY OF OTHER DISEASES OF THE RESPIRATORY SYSTEM Status: Acute Current Visit: Yes (4) URI (upper respiratory infection) SNOMED Code(s): 30852244 Code(s): J06.9 - ACUTE UPPER RESPIRATORY INFECTION, UNSPECIFIED Status: Acute Current Visit: Yes (5) COPD exacerbation SNOMED Code(s): 803815316, 989768245 Code(s): J44.1 - CHRONIC OBSTRUCTIVE PULMONARY DISEASE W (ACUTE) EXACERBATION Status: Acute Current Visit: Yes - Problem List Review Problem List Initiated/Reviewed/Updated: Yes - My Orders Last 24 Hours: My Active Orders 06/22/17 19:17 Oxygen Therapy [RC] PRN VTE/DVT Education [RC] PER UNIT ROUTINE Vital Signs [RC] Q4H Acetaminophen [Tylenol] 650 mg PO Q4H PRN Ondansetron [Zofran ODT] 4 mg PO Q4H PRN Temazepam [Restoril] 15 mg PO BEDTIME PRN Sequential Compression Device [OM.PC] Per Unit Routine Resuscitation Status Routine 06/22/17 19:18 Antiembolic Devices [RC] Q12H 06/22/17 19:21 Docusate Sodium [Colace] 100 mg PO DAILY PRN 06/22/17 21:00 Fluticasone/Salmeterol [Advair Diskus 100-50] 1 puff INH BID Mirtazapine [Remeron] 15 mg PO BEDTIME Zaleplon [Sonata] 5 mg PO BEDTIME 06/22/17 22:00 Ipratropium Bradner 2 sprays NASBOTH TID 06/22/17 23:30 Sodium Chloride 0.9% [Normal Saline] 1,000 ml IV ASDIRECTED 06/22/17 Dinner Full Liquid Diet [DIET] 06/23/17 00:00 metroNIDAZOLE/Normal Saline [Flagyl 500 MG in NS 100 ML] 500 mg Premix Bag 1 bag IV QID 06/23/17 09:00 Benazepril [Lotensin] 10 mg PO DAILY Hydrochlorothiazide 12.5 mg PO DAILY Sertraline [Zoloft] 100 mg PO DAILY 06/23/17 14:16 RT Aerosol Therapy [RC] ASDIRECTED 06/23/17 21:00 Levalbuterol HCl [Xopenex] 1.25 mg NEB BID 06/24/17 05:11 BASIC METABOLIC PANEL,BMP [CHEM] AM CBC WITH AUTO DIFF [HEME] AM COMPREHENSIVE METABOLIC PN,CMP [CHEM] AM MAGNESIUM [CHEM] AM 06/24/17 09:00 Levofloxacin/Dextrose 5%-Water [Levaquin in D5W 250 MG/50 ML] 250 mg Premix Bag 1 bag IV DAILY 06/25/17 05:11 BASIC METABOLIC PANEL,BMP [CHEM] AM CBC WITH AUTO DIFF [HEME] AM - Assessment Assessment:: change to xopenex as per her request anticipated discharge home on Friday Bethel Gentile MD - Plan Plan:: admit to inpatient duonebs antibiotics monitor cbc anticipate discharge Friday or Friday. Bethel Gentile MD
--- NOTE | 2017-06-23 16:52 | CR ---
EXAM DATE: 06/22/17 PATIENT'S AGE: 82 Patient: VIDAL SMITH Facility: [place], [place] Site . Site : 1935 Study: XRay Chest [id number]/17/2017 4:27:01 PM Ordering Physician: Doctor Guillory Final Report: INDICATION: Shortness of Breath HISTORY: Shortness of breath. COMPARISON: 07/10/2016. TECHNIQUE: Chest, 2 views. FINDINGS: Lungs are hyperinflated, particularly at the left lung base. Cylindrical bronchiectasis with bronchial wall thickening bilaterally. No pneumothorax. The central airway is normal. Bowel gas pattern is within normal limits in the upper abdomen. Osseous structures are intact. IMPRESSION: Stable exam when compared with 07/10/2016. Dictated by Blaise Starr MD @ 06/22/2017 4:52:32 PM Dictated by: Blaise Starr MD @ 06/22/2017 16:52:43 (Electronic Signature) Report Signed by Proxy. [facility] THROAT HOSPITALAubrey
--- NOTE | 2017-06-23 16:54 | CT ---
EXAM DATE: 06/22/17 PATIENT'S AGE: 82 Patient: VIDAL SMITH Facility: [place], [place] Site . Site : 1935 Study: CT Abdomen/Pelvis [id number] w cont-06/22/2017 4:30:52 PM Ordering Physician: Doctor Guillory Final Report: INDICATION: Rectal Bleeding, History of Diverticulitis HISTORY: Rectal bleeding. Prior diverticulitis. COMPARISON: CT of the abdomen and pelvis 07/10/2016. TECHNIQUE: CT of the abdomen and pelvis. 70 cc of Isovue-370 IV. Coronal/sagittal reconstruction images. FINDINGS: Lung bases: No pleural or pericardial effusion. Moderate size hiatal hernia. Arterial, including coronary artery, calcifications. Marked varicose bronchiectasis, with mucus plugging, bronchial wall thickening, and chronic atelectasis in the left lower lobe, medial basilar segment. These findings are similar to 07/10/2016. No basilar pneumothorax. Abdomen/pelvis: No solid hepatic mass. Hepatic morphology is normal. Mild intrahepatic biliary dilatation. This is similar to previous. Large, bilateral renal cysts. Symmetric nephrograms. No perinephric fluid collection. Tiny calculus in the left kidney, lower pole, measuring 2-3 mm on image 64, series 201. No adrenal mass. No pancreatic mass or pancreatic duct dilation. No glandular atrophy. Urinary bladder is normal. Uterus appears surgically absent. No adnexal mass. Extensive colonic diverticulosis. There is wall thickening present about the splenic flexure. This is also seen in the descending colon. This is seen best on series 201, image 69. No pneumatosis or portal venous gas. No transition point to indicate a mechanical small bowel or colonic obstruction. Moderate arterial calcifications. No abdominal aortic aneurysm. The DEANNA is patent proximally. The celiac axis and SMA are patent. There is no abdominal or pelvic lymphadenopathy by size criteria. The bone windows demonstrate a chronic appearing fracture of the left superior/ inferior pubic rami. These were present previously. Diffuse osteopenia. The fracture involves the anterior column of the left acetabulum, and this is stable. Degenerative changes throughout the endplates of the thoracolumbar spine. Multilevel degenerative disc disease, with endplate sclerosis and disc height loss. IMPRESSION: 1. Colonic wall thickening. This is seen about the splenic flexure and descending colon. 2. This could be infectious colitis. Ischemic colitis is not excluded, particularly given the watershed distribution. There is moderate atherosclerotic plaque in the abdominal aorta. Visceral artery branches are patent proximally. Suggest correlation with lactate levels. 3. No pneumatosis or portal venous gas. No extraluminal gas or drainable fluid collection. 4. Cylindrical bronchiectasis, with chronic atelectasis at the left lung base, stable. Dictated by Blaise Starr MD @ 06/22/2017 5:01:54 PM Dictated by: Blaise Starr MD @ 06/22/2017 17:02:13 (Electronic Signature) Report Signed by Proxy. RAMANDEEP
[2017-06-23] MEDS: Levalbuterol HCl 0.63 MG/3 ML Neb NEB SCH (21:20)
[2017-06-23] MEDS: Mirtazapine 15 MG Tab PO SCH (21:43)
[2017-06-24] MEDS: Sodium Chloride 0.9% 1,000 ML IV SCH (01:02)
[2017-06-24] MEDS: metroNIDAZOLE/Normal Saline 500 MG in Premix Bag 1 BAG IV SCH ×2 (05:38→11:51)
[2017-06-24 05:55] LABS: CHLORIDE,CL 104 mmol/L (98-110); SODIUM,NA 140 mmol/L (136-146)
[2017-06-24] MEDS: IPRATROPIUM BROMIDE NASBOTH SCH ×2 (06:03→07:33)
[2017-06-24] MEDS ORDERED: Levofloxacin/Dextrose 5%-Water 250 MG in Premix Bag 1 BAG IV SCH (09:00)
[2017-06-24] MEDS: Benazepril 10 MG Tab PO SCH (09:00)
[2017-06-24] MEDS: Levalbuterol HCl 0.63 MG/3 ML Neb NEB SCH (09:21)
[2017-06-24] MEDS: Fluticasone/Salmeterol 100-50 MCG Inhalation Powder 14/Diskus INH SCH (09:23)
[2017-06-24] MEDS: Sertraline 100 MG Tab PO SCH (09:28)
[2017-06-24] MEDS: Hydrochlorothiazide 12.5 MG Cap PO SCH (09:28)
[2017-06-24] MEDS ORDERED: Magnesium Sulfate/Water 2 GM in Premix Bag 1 BAG IV ONE (14:18)
--- NOTE | 2017-06-24 14:32 | PCM.DCSUM1 ---
Discharge Summary - Hospital Course Brief History: she was admitted with bloody diarrhea. Colitis was noted on CT scanning. - Discharge Data Discharge Date: 06/24/17 Discharge Disposition: Home, Self-Care 01 Condition: Fair - Discharge Diagnosis/Problem(s) (1) GI bleed SNOMED Code(s): 78867926 ICD Code: K92.2 - GASTROINTESTINAL HEMORRHAGE, UNSPECIFIED Status: Acute Current Visit: Yes (2) Colitis SNOMED Code(s): 17330940 ICD Code: K52.9 - NONINFECTIVE GASTROENTERITIS AND COLITIS, UNSPECIFIED Status: Acute Current Visit: Yes (3) History of COPD SNOMED Code(s): 074767830 ICD Code: Z87.09 - PERSONAL HISTORY OF OTHER DISEASES OF THE RESPIRATORY SYSTEM Status: Acute Current Visit: Yes (4) URI (upper respiratory infection) SNOMED Code(s): 81700543 ICD Code: J06.9 - ACUTE UPPER RESPIRATORY INFECTION, UNSPECIFIED Status: Acute Current Visit: Yes (5) COPD exacerbation SNOMED Code(s): 213215426, 555221985 ICD Code: J44.1 - CHRONIC OBSTRUCTIVE PULMONARY DISEASE W (ACUTE) EXACERBATION Status: Acute Current Visit: Yes - Patient Summary/Data Consults: Consultations 06/24/17 14:19 Consult to Home Care [Consult to Home Health] [CONS] Routine Hospital Course: she was treated with metronidazole and levaquin. Her gross rectal bleeding and diarrhea have stopped and she feels much better at discharge. Her Hg is 9. 1 at discharge. She will be discharged on home care as she cannot get out of the house except with great difficulty due to general debility. - Discharge Plan Prescriptions/Med Rec: Ciprofloxacin HCl [Cipro] 250 mg PO BID #14 tablet metroNIDAZOLE [Flagyl] 500 mg PO Q8H #21 tablet Home Medications: Home Meds Benazepril/Hydrochlorothiazide [Lotensin HCT 20-25 MG] 0.5 tab PO DAILY [History] Fluticasone/Salmeterol [Advair Diskus 100-50] 1 puff IH BID 07/10/16 [History] Furosemide 20 mg PO DAILY PRN 07/10/16 [History] Ipratropium Sedan 2 sprays NASBOTH TID 07/10/16 [History] Ipratropium [Atrovent HFA] 2 puff IH QID 07/10/16 [History] Iron Ps Cmplx/Vit B12/Fa [Poly-Iron 150 Forte] 150 mg PO DAILY 07/10/16 [History ] Levalbuterol Tartrate [Xopenex Hfa] 2 puff IH QID 07/10/16 [History] Montelukast [Singulair] 10 mg PO BEDTIME 07/10/16 [History] Sertraline [Zoloft] 100 mg PO DAILY 07/10/16 [History] Zolpidem [Ambien] 5 mg PO BEDTIME 07/10/16 [History] Docusate Sodium [Colace] 100 mg PO DAILY PRN #14 cap 07/11/16 [Rx] Mirtazapine [Remeron] 15 mg PO BEDTIME #20 tablet 07/11/16 [Rx] Ciprofloxacin HCl [Cipro] 250 mg PO BID #14 tablet 06/24/17 [Rx] metroNIDAZOLE [Flagyl] 500 mg PO Q8H #21 tablet 06/24/17 [Rx] Patient Handouts: Colitis, Ciprofloxacin tablets, Metronidazole tablets or capsules Referrals: [facility] [Outside] Kirt Monge MD [Ordering Only Provider] - 06/27/17 8:30 am - Patient Data Vitals - Most Recent: Last Vital Signs Temp 98 F 06/24/17 12:00 Pulse 63 06/24/17 12:00 Resp 20 06/24/17 12:00 BP 122/58 L 06/24/17 12:00 Pulse Ox 97 06/24/17 12:00 Weight - Most Recent: 44.452 kg I&O - Last 24 hours: Intake & Output 06/23/17 06/24/17 06/24/17 22:59 06:59 14:59 Intake Total 1590 380 150 Output Total 900 502 Balance 690 -122 150 Lab Results - Last 24 hrs: Laboratory Results - last 24 hr 06/23/17 06/24/17 06/24/17 Range/Units 21:28 05:20 05:20 WBC 7.45 (4.0-11.0) K/uL RBC 2.85 L (4.30-5.90) M/uL Hgb 9.1 L (12.0-16.0) g/dL Hct 28.8 L (36.0-46.0) % MCV 101.1 H (80.0-98.0) fL MCH 31.9 (27.0-32.0) pg MCHC 31.6 (31.0-37.0) g/dL RDW Std Deviation 46.5 (28.0-62.0) fl RDW Coeff of Carmen 13 (11.0-15.0) % Plt Count 149 L (150-400) K/uL MPV 10.90 (7.40-12.00) fL Neut % (Auto) 76.2 (48.0-80.0) % Lymph % (Auto) 15.8 L (16.0-40.0) % [place] % (Auto) 6.8 (0.0-15.0) % Eos % (Auto) 1.1 (0.0-7.0) % Baso % (Auto) 0.1 (0.0-1.5) % Neut # (Auto) 5.7 (1.4-5.7) K/uL Lymph # (Auto) 1.2 (0.6-2.4) K/uL [place] # (Auto) 0.5 (0.0-0.8) K/uL Eos # (Auto) 0.1 (0.0-0.7) K/uL Baso # (Auto) 0.0 (0.0-0.1) K/uL Nucleated RBC % 0.0 /100WBC Nucleated RBCs # 0 K/uL Sodium 140 (136-146) mmol/L Potassium 4.2 (3.5-5.1) mmol/L Chloride 104 (98-110) mmol/L Carbon Dioxide 33 H (21-31) mmol/L BUN 13 (6.0-23.0) mg/dL Creatinine 0.6 (0.6-1.5) mg/dL Est Cr Clr Drug Dosing 48.98 mL/min Estimated GFR (MDRD) > 60.0 ml/min Glucose 67 (60-110) mg/dL POC Glucose 104 (60-110) mg/dL Calcium 8.7 L (8.8-10.8) mg/dL Magnesium 1.4 L (1.5-2.3) mEq/L Total Bilirubin 0.2 (0.1-1.5) mg/dL AST 13 (5-40) IU/L ALT 8 (8-54) IU/L Alkaline Phosphatase 37 L (40-150) Total Protein 5.8 L (6.0-8.0) g/dL Albumin 2.9 L (3.4-4.8) g/dL Globulin 2.9 (2.0-3.5) g/dL Albumin/Globulin Ratio 1.0 L (1.3-2.8) 06/24/17 Range/Units 06:10 WBC (4.0-11.0) K/uL RBC (4.30-5.90) M/uL Hgb (12.0-16.0) g/dL Hct (36.0-46.0) % MCV (80.0-98.0) fL MCH (27.0-32.0) pg MCHC (31.0-37.0) g/dL RDW Std Deviation (28.0-62.0) fl RDW Coeff of Carmen (11.0-15.0) % Plt Count (150-400) K/uL MPV (7.40-12.00) fL Neut % (Auto) (48.0-80.0) % Lymph % (Auto) (16.0-40.0) % [place] % (Auto) (0.0-15.0) % Eos % (Auto) (0.0-7.0) % Baso % (Auto) (0.0-1.5) % Neut # (Auto) (1.4-5.7) K/uL Lymph # (Auto) (0.6-2.4) K/uL [place] # (Auto) (0.0-0.8) K/uL Eos # (Auto) (0.0-0.7) K/uL Baso # (Auto) (0.0-0.1) K/uL Nucleated RBC % /100WBC Nucleated RBCs # K/uL Sodium (136-146) mmol/L Potassium (3.5-5.1) mmol/L Chloride (98-110) mmol/L Carbon Dioxide (21-31) mmol/L BUN (6.0-23.0) mg/dL Creatinine (0.6-1.5) mg/dL Est Cr Clr Drug Dosing mL/min Estimated GFR (MDRD) ml/min Glucose (60-110) mg/dL POC Glucose 84 (60-110) mg/dL Calcium (8.8-10.8) mg/dL Magnesium (1.5-2.3) mEq/L Total Bilirubin (0.1-1.5) mg/dL AST (5-40) IU/L ALT (8-54) IU/L Alkaline Phosphatase (40-150) Total Protein (6.0-8.0) g/dL Albumin (3.4-4.8) g/dL Globulin (2.0-3.5) g/dL Albumin/Globulin Ratio (1.3-2.8) Med Orders - Current: Current Medications Acetaminophen (Tylenol) 650 mg PO Q4H PRN PRN Reason: Pain (Mild 1-3)/fever Last Admin: 06/23/17 00:52 Dose: 650 mg Benazepril HCl (Lotensin) 10 mg PO DAILY [facility] Last Admin: 06/24/17 09:00 Dose: 10 mg Docusate Sodium (Colace) 100 mg PO DAILY PRN PRN Reason: Constipation Hydrochlorothiazide (Hydrochlorothiazide) 12.5 mg PO DAILY [facility] Last Admin: 06/24/17 09:28 Dose: 12.5 mg Metronidazole 500 mg/ Premix 100 mls @ 100 mls/hr IV QID [facility] Last Admin: 06/24/17 11:51 Dose: 100 mls/hr Levofloxacin/Dextrose 250 mg/ (Premix) 50 mls @ 50 mls/hr IV DAILY [facility] Last Admin: 06/24/17 08:07 Dose: 50 mls/hr Sodium Chloride (Normal Saline) 1,000 mls @ 75 mls/hr IV ASDIRECTED [facility] Last Admin: 06/24/17 01:02 Dose: 75 mls/hr Magnesium Sulfate 2 gm/ Premix 50 mls @ 50 mls/hr IV ONETIME ONE Stop: 06/24/17 15:17 Levalbuterol HCl (Xopenex) 1.25 mg NEB BID [facility] Last Admin: 06/24/17 09:21 Dose: 0.63 mg Mirtazapine (Remeron) 15 mg PO BEDTIME [facility] Last Admin: 06/23/17 21:43 Dose: 15 mg (Ipratropium Sedan 2 Sprays)Own Med 2 sprays NASBOTH TID [facility] Last Admin: 06/24/17 07:33 Dose: Not Given Ondansetron HCl (Zofran Odt) 4 mg PO Q4H PRN PRN Reason: nausea, able to take PO Fluticasone/Salmeterol (Advair Diskus 100-50) 1 puff INH BID [facility] Last Admin: 06/24/17 09:23 Dose: 1 inhalation Sertraline HCl (Zoloft) 100 mg PO DAILY [facility] Last Admin: 06/24/17 09:28 Dose: 100 mg Sodium Chloride (Saline Flush) 10 ml FLUSH ASDIRECTED PRN PRN Reason: Keep Vein Open Sodium Chloride (Saline Flush) 2.5 ml FLUSH ASDIRECTED PRN PRN Reason: Keep Vein Open Temazepam (Restoril) 15 mg PO BEDTIME PRN PRN Reason: Sleep Zaleplon (Sonata) 5 mg PO BEDTIME [facility] Last Admin: 06/23/17 21:43 Dose: 5 mg Discontinued Medications Albuterol/Ipratropium (Duoneb 3.0-0.5 Mg/3 Ml) 3 ml NEB Q4HRRT PRN PRN Reason: Wheezing Albuterol/Ipratropium (Duoneb 3.0-0.5 Mg/3 Ml) 3 ml NEB Q6HRRT [facility] Last Admin: 06/23/17 13:48 Dose: Not Given Sodium Chloride (Normal Saline) 1,000 mls @ 125 mls/hr IV STAT ONE Stop: 06/22/17 22:15 Last Admin: 06/22/17 14:25 Dose: 125 mls/hr Ciprofloxacin/Dextrose 400 mg/ (Premix) 200 mls @ 200 mls/hr IV Q12H [facility] Last Admin: 06/22/17 22:11 Dose: Not Given Metronidazole 500 mg/ Premix 100 mls @ 100 mls/hr IV ONETIME ONE Stop: 06/22/17 18:56 Last Admin: 06/22/17 18:54 Dose: 100 mls/hr Ciprofloxacin/Dextrose 200 mg/ (Premix) 100 mls @ 100 mls/hr IV Q12H [facility] Metronidazole 500 mg/ Premix 100 mls @ 100 mls/hr IV QID [facility] Ciprofloxacin/Dextrose 400 mg/ (Premix) 200 mls @ 200 mls/hr IV Q12H [facility] Last Admin: 06/22/17 20:55 Dose: 200 mls/hr Levofloxacin/Dextrose 500 mg/ (Premix) 100 mls @ 100 mls/hr IV Q24H [facility] Stop: 06/23/17 09:59 Last Admin: 06/23/17 08:49 Dose: 100 mls/hr Magnesium Sulfate 4 gm/ Premix 100 mls @ 50 mls/hr IV ONETIME ONE Stop: 06/23/17 12:17 Last Admin: 06/23/17 10:47 Dose: 50 mls/hr Iopamidol (Isovue-370 (76%)) 70 ml IVPUSH ONETIME STA Stop: 06/22/17 15:43 Last Admin: 06/22/17 16:25 Dose: 70 ml Ipratropium Sedan (Atrovent Hfa) 0 gm INH QIDRT [facility] Last Admin: 06/23/17 10:33 Dose: 2 puff Pantoprazole Sodium (Protonix Iv) 80 mg IVPUSH .BOLUS ONE Stop: 06/22/17 14:17 Last Admin: 06/22/17 14:26 Dose: 80 mg *Q Meaningful Use (DIS) - VTE *Q VTE Criteria *Q: - Stroke *Q Stroke Criteria *Q: - AMI *Q AMI Criteria *Q:
[2017-06-24 16:05] VITALS: BP 117/59
== END 2017-06-24 16:30 | disposition home or self-care (01) | DRG 378 ==
LOC: MW.ED 13:38 → MW.MS 18:02
PROVIDERS: ADMIT Family Medicine; ATTEND Family Medicine
DX: K92.2 Gastrointestinal hemorrhage, unspecified (principal); J44.9 Chronic obstructive pulmonary disease, unspecified; J44.1 Chronic obstructive pulmonary disease with (acute) exacerbation; K52.9 Noninfective gastroenteritis and colitis, unspecified; Z99.81 Dependence on supplemental oxygen; J06.9 Acute upper respiratory infection, unspecified; I10 Essential (primary) hypertension; F32.9 Major depressive disorder, single episode, unspecified; E11.9 Type 2 diabetes mellitus without complications; Z79.899 Other long term (current) drug therapy; Z88.5 Allergy status to narcotic agent
CPT/HCPCS: 36415; 71020; 74177; 80053; 83605; 84484; 85025; 85610; 86850; 86900; 86901; 93005; 96361; 96375; 99285; C9113; J7040; Q9967; 80048; 81001; 82962; 83735; 94640; 94664; 96365; 96374; 99283; A9270-GY; J0744; J1956; J3475

== ENCOUNTER 2017-08-27 16:05 | Inpatient (IN) | payer MEDICARE, BC ==
[2017-08-27] MEDS ORDERED: Levofloxacin/Dextrose 5%-Water 750 MG in Premix Bag 1 BAG IV ONE (16:09)
[2017-08-27] MEDS ORDERED: methylPREDNISolone Sodium Succinate 125 MG/2 ML SDV IVPUSH ONE (16:09)
[2017-08-27] MEDS ORDERED: Sodium Chloride 0.9% 10 ML Syringe FLUSH PRN ×2 (16:09→18:22)
[2017-08-27] MEDS ORDERED: Sodium Chloride 0.9% 2.5 ML Syringe FLUSH PRN ×2 (16:09→18:22)
[2017-08-27] MEDS ORDERED: Albuterol/Ipratropium 3.0-0.5 MG/3 ML Neb Soln NEB ONE (16:09)
--- NOTE | 2017-08-27 16:14 | EDM.PDOC ---
ED HPI GENERAL MEDICAL PROBLEM - General Stated Complaint: CHEST PAIN Time Seen by Provider: 08/27/17 16:07 - History of Present Illness INITIAL COMMENTS - FREE TEXT/NARRATIVE: HISTORY AND PHYSICAL: History of present illness: Patient is an 82-year-old female history of advanced COPD who is on 5 L per nasal cannula O2 was sent from the clinic for shortness of breath and low oxygen saturations patient states Clinic was concerned about possible pneumonia patient has had no reported fever chills nausea vomiting she denies chest pain or other concern she is somewhat poor historian due to advanced age Review of systems: As per history of present illness and below otherwise all systems reviewed and negative. Past medical history: As per history of present illness and as reviewed below otherwise noncontributory. Surgical history: As per history of present illness and as reviewed below otherwise noncontributory. Social history: No reported history of drug or alcohol abuse. Family history: As per history of present illness and as reviewed below otherwise noncontributory. Physical exam: HEENT: Atraumatic, normocephalic, pupils reactive, negative for scleral icterus , mucous membranes moist, throat clear, neck supple, nontender, trachea midline. Lungs: Coarse bilaterally markedly diminished with [place] for wheezing, breath sounds equal bilaterally, chest nontender. Heart: S1S2, regular, negative for clicks, rubs, or JVD. Abdomen: Soft, nondistended, nontender. Negative for masses or hepatosplenomegaly. Negative for costovertebral tenderness. Pelvis: Stable nontender. Genitourinary: Deferred. Rectal: Deferred. Extremities: Atraumatic, negative for cords or calf pain. Neurovascular unremarkable. Neuro: Awake, alert, follows commands and moves all extremities limited grossly nonfocal exam Diagnostics: CBC CMP PT/INR troponin blood culture 2 UA urine culture ABG chest x-ray EKG Therapeutics: IV O2 monitor Solu-Medrol 125 mg IV Levaquin 750 mg IV albuterol ipratropium nebulizer Impression: #1 COPD with acute exacerbation #2 rule out pneumonia Definitive disposition and diagnosis as appropriate pending reevaluation and review of above. - Related Data Allergies Allergy/AdvReac Type Severity Reaction Status Date / Time morphine Allergy Cannot Verified 08/27/17 16:22 Remember Beef Containing Products AdvReac unknown Verified 08/27/17 16:22 pork derived (porcine) AdvReac unknown Verified 08/27/17 16:22 wheat AdvReac unknown Verified 08/27/17 16:22 Home Meds: Home Meds Benazepril/Hydrochlorothiazide [Lotensin HCT 20-25 MG] 0.5 tab PO DAILY [History] Fluticasone/Salmeterol [Advair Diskus 100-50] 1 puff IH BID 07/10/16 [History] Furosemide 20 mg PO DAILY PRN 07/10/16 [History] Ipratropium [place] 2 sprays NASBOTH TID 07/10/16 [History] Ipratropium [Atrovent HFA] 2 puff IH QID 07/10/16 [History] Iron Ps Cmplx/Vit B12/Fa [Poly-Iron 150 Forte] 150 mg PO DAILY 07/10/16 [History ] Levalbuterol Tartrate [Xopenex Hfa] 2 puff IH QID 07/10/16 [History] Montelukast [Singulair] 10 mg PO BEDTIME 07/10/16 [History] Sertraline [Zoloft] 100 mg PO DAILY 07/10/16 [History] Zolpidem [Ambien] 5 mg PO BEDTIME 07/10/16 [History] Docusate Sodium [Colace] 100 mg PO DAILY PRN #14 cap 07/11/16 [Rx] Mirtazapine [Remeron] 15 mg PO BEDTIME #20 tablet 07/11/16 [Rx] Ciprofloxacin HCl [Cipro] 250 mg PO BID #14 tablet 06/24/17 [Rx] metroNIDAZOLE [Flagyl] 500 mg PO Q8H #21 tablet 06/24/17 [Rx] Past Medical History HEENT History: Reports: Cataract, Impaired Vision Cardiovascular History: Reports: Hypertension Respiratory History: Reports: COPD, Pneumonia, Recurrent Gastrointestinal History: Reports: Diverticulosis, GERD Genitourinary History: Reports: UTI, Recurrent 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: Psychiatric History: Reports: Depression Endocrine/Metabolic History: Reports: Diabetes, Type II Oncologic (Cancer) History: Reports: Other (See Below) Other Oncologic History: uterus - Past Surgical History HEENT Surgical History: Reports: Cataract Surgery Female Surgical History: Reports: Hysterectomy Social & Family History - Family History Family Medical History: Noncontributory HEENT: Reports: Impaired Vision Cardiac: Reports: [place] Respiratory: Reports: None GI: Reports: None OBGYN: Reports: Musculoskeletal: Reports: Arthritis Neurological: Reports: Parkinson's Psychiatric: Reports: Depression Dermatologic: Reports: None Oncologic: Reports: Breast, Colon - Tobacco Use Smoking Status *Q: Never Smoker Second Hand Smoke Exposure: No - Caffeine Use Caffeine Use: Reports: Coffee - Alcohol Use Days Per Week of Alcohol Use: 0 - Recreational Drug Use Recreational Drug Use: No - Living Situation & Occupation Living situation: Reports: Alone, Assisted Living Occupation: Retired ED ROS GENERAL - Review of Systems Review Of Systems: ROS reveals no pertinent complaints other than HPI. ED EXAM, GENERAL - Physical Exam Exam: See Below (See dictation) Course - Vital Signs Last Recorded V/S: Last Vital Signs Temp 36.7 C 08/27/17 16:23 Pulse 88 08/27/17 16:23 Resp 20 08/27/17 16:23 BP 171/99 H 08/27/17 16:23 Pulse Ox 78 L 08/27/17 16:23 - Orders/Labs/Meds Orders: Active Orders 24 hr Category Date Time Status Cardiac Monitoring [RC] . DIRECTED Care 08/27/17 16:08 Active EKG Documentation Completion [RC] STAT Care 08/27/17 16:08 Active Oxygen Therapy, ED [RC] ASDIRECTED Care 08/27/17 16:08 Active RT Aerosol Therapy [RC] ASDIRECTED Care 08/27/17 16:09 Active Chest 1V Frontal [CR] Stat Exams 08/27/17 16:09 Taken COMPREHENSIVE METABOLIC PN,CMP [CHEM] Stat Lab 08/27/17 16:26 Received CULTURE BLOOD [BC] Stat Lab 08/27/17 16:17 Received CULTURE BLOOD [BC] Stat Lab 08/27/17 16:26 Received CULTURE URINE [RM] Stat Lab 08/27/17 16:08 Uncollected INFLUENZA A+B AG SCREEN [RM] Stat Lab 08/27/17 16:54 Ordered TROPONIN I [CHEM] Stat Lab 08/27/17 16:26 Received TYPE AND SCREEN [BBK] Stat Lab 08/27/17 16:17 Received UA W/MICROSCOPIC [URIN] Stat Lab 08/27/17 16:08 Uncollected Levofloxacin/Dextrose 5%-Water [Levaquin in D5W 750 MG/ Med 08/27/17 16:09 Active 150 ML] 750 mg Premix Bag 1 bag IV ONETIME Sodium Chloride 0.9% [Normal Saline] 1,000 ml Med 08/27/17 16:15 Active IV STAT Sodium Chloride 0.9% [Saline Flush] Med 08/27/17 16:09 Active 10 ml FLUSH ASDIRECTED PRN Sodium Chloride 0.9% [Saline Flush] Med 08/27/17 16:09 Active 2.5 ml FLUSH ASDIRECTED PRN Blood Culture x2 Reflex Set [OM.PC] Stat Oth 08/27/17 16:08 Ordered Saline Lock Insert [OM.PC] Stat Oth 08/27/17 16:08 Ordered Medication Orders Levofloxacin/Dextrose 750 mg/ (Premix) 150 mls @ 100 mls/hr IV ONETIME ONE Stop: 08/27/17 17:38 Last Admin: 08/27/17 16:21 Dose: 100 mls/hr Sodium Chloride (Normal Saline) 1,000 mls @ 125 mls/hr IV STAT COUNT INCLUDES THE [facility] Last Admin: 08/27/17 16:21 Dose: 125 mls/hr Sodium Chloride (Saline Flush) 10 ml FLUSH ASDIRECTED PRN PRN Reason: Keep Vein Open Sodium Chloride (Saline Flush) 2.5 ml FLUSH ASDIRECTED PRN PRN Reason: Keep Vein Open Labs: Laboratory Tests 08/27/17 08/27/17 08/27/17 Range/Units 16:26 16:26 16:26 WBC 9.44 (4.0-11.0) K/uL RBC 3.23 L (4.30-5.90) M/uL Hgb 10.3 L (12.0-16.0) g/dL Hct 32.5 L (36.0-46.0) % MCV 100.6 H (80.0-98.0) fL MCH 31.9 (27.0-32.0) pg MCHC 31.7 (31.0-37.0) g/dL RDW Std Deviation 47.5 (28.0-62.0) fl RDW Coeff of Carmen 13 (11.0-15.0) % Plt Count 196 (150-400) K/uL MPV 11.50 (7.40-12.00) fL Neut % (Auto) 79.5 (48.0-80.0) % Lymph % (Auto) 7.7 L (16.0-40.0) % [place]cer % (Auto) 12.4 (0.0-15.0) % Eos % (Auto) 0.2 (0.0-7.0) % Baso % (Auto) 0.2 (0.0-1.5) % Neut # (Auto) 7.5 H (1.4-5.7) K/uL Lymph # (Auto) 0.7 (0.6-2.4) K/uL [place]cer # (Auto) 1.2 H (0.0-0.8) K/uL Eos # (Auto) 0.0 (0.0-0.7) K/uL Baso # (Auto) 0.0 (0.0-0.1) K/uL Nucleated RBC % 0.0 /100WBC Nucleated RBCs # 0 K/uL INR 0.94 (0.86-1.11) ABG pH (7.35-7.45) ABG pCO2 (35-45) mmHG ABG pO2 (75-100) mmHG ABG HCO3 (22-26) mEq/L ABG Total CO2 ABG Base Excess (-2.0-2.0) B-Natriuretic Peptide 78 (<100) PG/ML 08/27/17 Range/Units 16:32 WBC (4.0-11.0) K/uL RBC (4.30-5.90) M/uL Hgb (12.0-16.0) g/dL Hct (36.0-46.0) % MCV (80.0-98.0) fL MCH (27.0-32.0) pg MCHC (31.0-37.0) g/dL RDW Std Deviation (28.0-62.0) fl RDW Coeff of Carmen (11.0-15.0) % Plt Count (150-400) K/uL MPV (7.40-12.00) fL Neut % (Auto) (48.0-80.0) % Lymph % (Auto) (16.0-40.0) % [place] % (Auto) (0.0-15.0) % Eos % (Auto) (0.0-7.0) % Baso % (Auto) (0.0-1.5) % Neut # (Auto) (1.4-5.7) K/uL Lymph # (Auto) (0.6-2.4) K/uL Mercer # (Auto) (0.0-0.8) K/uL Eos # (Auto) (0.0-0.7) K/uL Baso # (Auto) (0.0-0.1) K/uL Nucleated RBC % /100WBC Nucleated RBCs # K/uL INR (0.86-1.11) ABG pH 7.344 L (7.35-7.45) ABG pCO2 65 H (35-45) mmHG ABG pO2 128 H (75-100) mmHG ABG HCO3 36 H (22-26) mEq/L ABG Total CO2 33.7 ABG Base Excess 8.2 H (-2.0-2.0) B-Natriuretic Peptide (<100) PG/ML Meds: Medications Generic Name Dose Route Start Last Admin Trade Name Freq PRN Reason Stop Dose Admin Levofloxacin/Dextrose 750 mg/ 150 mls @ 100 mls/hr 08/27/17 16:09 08/27/17 16 :21 Premix IV 08/27/17 17:38 100 mls/hr ONETIME ONE Administration Sodium Chloride 1,000 mls @ 125 mls/hr 08/27/17 16:15 08/27/17 16:21 Normal Saline IV 125 mls/hr STAT CONRADO Administration Sodium Chloride 10 ml 08/27/17 16:09 Saline Flush FLUSH ASDIRECTED PRN Keep Vein Open Sodium Chloride 2.5 ml 08/27/17 16:09 Saline Flush FLUSH ASDIRECTED PRN Keep Vein Open Discontinued Medications Generic Name Dose Route Start Last Admin Trade Name Freq PRN Reason Stop Dose Admin Albuterol/Ipratropium 3 ml 08/27/17 16:09 08/27/17 16:36 Duoneb 3.0-0.5 Mg/3 Ml NEB 08/27/17 16:10 3 ml ONETIME ONE Administration Methylprednisolone Sodium Succinate 125 mg 08/27/17 16:09 08/27/17 16:21 Solu-Medrol IVPUSH 08/27/17 16:10 125 mg ONETIME ONE Administration Departure - Departure Time of Disposition: 16:57 Disposition: Refer to Observation Condition: Fair Clinical Impression: COPD exacerbation - Discharge Information - My Orders Last 24 Hours: My Active Orders 08/27/17 16:08 Cardiac Monitoring [RC] . DIRECTED EKG Documentation Completion [RC] STAT Oxygen Therapy, ED [RC] ASDIRECTED CULTURE URINE [RM] Stat UA W/MICROSCOPIC [URIN] Stat Blood Culture x2 Reflex Set [OM.PC] Stat Saline Lock Insert [OM.PC] Stat 08/27/17 16:09 RT Aerosol Therapy [RC] ASDIRECTED Chest 1V Frontal [CR] Stat Levofloxacin/Dextrose 5%-Water [Levaquin in D5W 750 MG/150 ML] 750 mg Premix Bag 1 bag IV ONETIME Sodium Chloride 0.9% [Saline Flush] 10 ml FLUSH ASDIRECTED PRN Sodium Chloride 0.9% [Saline Flush] 2.5 ml FLUSH ASDIRECTED PRN 08/27/17 16:15 Sodium Chloride 0.9% [Normal Saline] 1,000 ml IV STAT 08/27/17 16:17 CULTURE BLOOD [BC] Stat TYPE AND SCREEN [BBK] Stat 08/27/17 16:26 COMPREHENSIVE METABOLIC PN,CMP [CHEM] Stat CULTURE BLOOD [BC] Stat TROPONIN I [CHEM] Stat 08/27/17 16:54 INFLUENZA A+B AG SCREEN [RM] Stat - Assessment/Plan Last 24 Hours: My Active Orders 08/27/17 16:08 Cardiac Monitoring [RC] . DIRECTED EKG Documentation Completion [RC] STAT Oxygen Therapy, ED [RC] ASDIRECTED CULTURE URINE [RM] Stat UA W/MICROSCOPIC [URIN] Stat Blood Culture x2 Reflex Set [OM.PC] Stat Saline Lock Insert [OM.PC] Stat 08/27/17 16:09 RT Aerosol Therapy [RC] ASDIRECTED Chest 1V Frontal [CR] Stat Levofloxacin/Dextrose 5%-Water [Levaquin in D5W 750 MG/150 ML] 750 mg Premix Bag 1 bag IV ONETIME Sodium Chloride 0.9% [Saline Flush] 10 ml FLUSH ASDIRECTED PRN Sodium Chloride 0.9% [Saline Flush] 2.5 ml FLUSH ASDIRECTED PRN 08/27/17 16:15 Sodium Chloride 0.9% [Normal Saline] 1,000 ml IV STAT 08/27/17 16:17 CULTURE BLOOD [BC] Stat TYPE AND SCREEN [BBK] Stat 08/27/17 16:26 COMPREHENSIVE METABOLIC PN,CMP [CHEM] Stat CULTURE BLOOD [BC] Stat TROPONIN I [CHEM] Stat 08/27/17 16:54 INFLUENZA A+B AG SCREEN [RM] Stat
[2017-08-27] MEDS ORDERED: Sodium Chloride 0.9% 1,000 ML IV SCH (16:15)
[2017-08-27 16:57] LABS: CHLORIDE,CL 91 mmol/L (98-110); SODIUM,NA 131 mmol/L (136-146)
[2017-08-27] MEDS ORDERED: Acetaminophen 325 MG Tab PO PRN (18:22)
[2017-08-27] MEDS ORDERED: Fluticasone Propionate Nasal Spray 16 GM Bottle NAS PRN (18:28)
--- NOTE | 2017-08-27 18:30 | PCM.HP ---
H&P History of Present Illness - General Date of Service: 08/27/17 Admit Problem/Dx: sob , severe hypoxia in the 70% Source of Information: Family History Limitations: Reports: Respiratory Distress - History of Present Illness Initial Comments - Free Text/Narative: Patient 82 years old female presented to [facility] sent from the doctors office due to respiratory distress, wheezing and hypoxia in the 70%. Her symptoms started few days ago and were progressively getting worse. Patient history is limited due to respiratory distress. had cough , wheezing , no fever, generalized weakness Onset of Symptoms: Reports: Gradual Duration of Symptoms: Reports: Day(s): - Related Data Allergies/Adverse Reactions: Allergies Allergy/AdvReac Type Severity Reaction Status Date / Time morphine Allergy Cannot Verified 08/27/17 16:22 Remember Beef Containing Products AdvReac unknown Verified 08/27/17 16:22 pork derived (porcine) AdvReac unknown Verified 08/27/17 16:22 wheat AdvReac unknown Verified 08/27/17 16:22 Home Medications: Home Meds Benazepril/Hydrochlorothiazide [Lotensin HCT 20-25 MG] 0.5 tab PO DAILY [History] Fluticasone/Salmeterol [Advair Diskus 100-50] 1 puff IH BID 07/10/16 [History] Furosemide 20 mg PO DAILY PRN 07/10/16 [History] Ipratropium [Atrovent HFA] 2 puff IH QID 07/10/16 [History] Iron Ps Cmplx/Vit B12/Fa [Poly-Iron 150 Forte] 150 mg PO DAILY 07/10/16 [History ] Levalbuterol Tartrate [Xopenex Hfa] 2 puff IH QID 07/10/16 [History] Montelukast [Singulair] 10 mg PO BEDTIME 07/10/16 [History] Sertraline [Zoloft] 100 mg PO DAILY 07/10/16 [History] Zolpidem [Ambien] 5 mg PO BEDTIME 07/10/16 [History] Fluticasone Propionate 1 spray NASBOTH BID PRN 08/27/17 [History] Mirtazapine [Remeron] 45 mg PO BEDTIME 08/27/17 [History] Past Medical History HEENT History: Reports: Cataract, Impaired Vision Cardiovascular History: Reports: Hypertension Respiratory History: Reports: COPD, Pneumonia, Recurrent Gastrointestinal History: Reports: Diverticulosis, GERD Genitourinary History: Reports: UTI, Recurrent 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: Psychiatric History: Reports: Depression Endocrine/Metabolic History: Reports: Diabetes, Type II Oncologic (Cancer) History: Reports: Other (See Below) Other Oncologic History: uterus - Past Surgical History HEENT Surgical History: Reports: Cataract Surgery Female Surgical History: Reports: Hysterectomy Social & Family History - Family History Family Medical History: Noncontributory HEENT: Reports: Impaired Vision Cardiac: Reports: [place] Respiratory: Reports: None GI: Reports: None OBGYN: Reports: Musculoskeletal: Reports: Arthritis Neurological: Reports: Parkinson's Psychiatric: Reports: Depression Dermatologic: Reports: None Oncologic: Reports: Breast, Colon - Tobacco Use Smoking Status *Q: Never Smoker Second Hand Smoke Exposure: No - Caffeine Use Caffeine Use: Reports: Coffee - Alcohol Use Days Per Week of Alcohol Use: 0 - Recreational Drug Use Recreational Drug Use: No - Living Situation & Occupation Living situation: Reports: Alone, Assisted Living Occupation: Retired H&P Review of Systems - Review of Systems: Review Of Systems: See Below General: Reports: Weakness HEENT: Reports: No Symptoms Pulmonary: Reports: Shortness of Breath, Wheezing, Cough Cardiovascular: Reports: Dyspnea on Exertion, Blood Pressure Problem Gastrointestinal: Reports: No Symptoms Genitourinary: Reports: No Symptoms Musculoskeletal: Reports: No Symptoms Skin: Reports: No Symptoms Psychiatric: Reports: No Symptoms Neurological: Reports: No Symptoms Hematologic/Lymphatic: Reports: No Symptoms Immunologic: Reports: No Symptoms Exam - Exam Exam: See Below - Vital Signs Vital Signs: Last Vital Signs Temp 98.0 F 08/27/17 16:23 Pulse 90 08/27/17 17:00 Resp 20 08/27/17 17:00 BP 127/72 08/27/17 17:00 Pulse Ox 94 L 08/27/17 17:00 Weight: 100 lb 15.547 oz - Exam Quality Assessment: Supplemental Oxygen General: Alert, Oriented, Severe Distress HEENT: Conjunctiva Clear Neck: Supple Lungs: Decreased Breath Sounds, Wheezing Cardiovascular: Regular Rate, Normal S1, Normal S2 GI/Abdominal Exam: Normal Bowel Sounds, Non-Tender, No Organomegaly, No Distention, No Abnormal Bruit - Patient Data Result Diagrams: 08/27/17 16:26 08/27/17 16:26 *Q Meaningful Use (ADM) - VTE *Q VTE Criteria *Q: - Stroke *Q Stroke Criteria *Q: - AMI *Q AMI Criteria *Q: - Problem List (1) COPD with acute exacerbation SNOMED Code(s): 930644338 ICD Code: J44.1 - CHRONIC OBSTRUCTIVE PULMONARY DISEASE W (ACUTE) EXACERBATION Status: Acute Current Visit: Yes (2) Respiratory failure with hypoxia and hypercapnia SNOMED Code(s): 70611116 ICD Code: J96.91 - RESPIRATORY FAILURE, UNSPECIFIED WITH HYPOXIA; J96.92 - RESPIRATORY FAILURE, UNSPECIFIED WITH HYPERCAPNIA Status: Acute Current Visit: Yes (3) Pneumonia SNOMED Code(s): 967369306 ICD Code: J18.9 - PNEUMONIA, UNSPECIFIED ORGANISM Status: Acute Current Visit: Yes Problem List Initiated/Reviewed/Updated: Yes Orders Last 24hrs: Active Orders 24 hr Category Date Time Status Patient Status [ADT] Routine ADT 08/27/17 18:22 Ordered Antiembolic Devices [RC] PER UNIT ROUTINE Care 08/27/17 18:27 Ordered Bedrest Bedside Commode [RC] ASDIRECTED Care 08/27/17 18:22 Ordered Oxygen Therapy [RC] PRN Care 08/27/17 18:22 Ordered Pulse Oximetry [RC] CONTINUOUS Care 08/27/17 18:24 Ordered VTE/DVT Education [RC] PER UNIT ROUTINE Care 08/27/17 18:22 Ordered Vital Signs [RC] Q4H Care 08/27/17 18:22 Ordered 2 Gram Sodium Diet [DIET] Diet 08/27/17 Dinner Ordered CBC W/O DIFF,HEMOGRAM [HEME] AM Lab 08/28/17 05:11 Ordered CBC W/O DIFF,HEMOGRAM [HEME] AM Lab 08/29/17 05:11 Ordered CBC W/O DIFF,HEMOGRAM [HEME] AM Lab 08/30/17 05:11 Ordered CBC W/O DIFF,HEMOGRAM [HEME] AM Lab 08/31/17 05:11 Ordered COMPREHENSIVE METABOLIC PN,CMP [CHEM] AM Lab 08/28/17 05:11 Ordered COMPREHENSIVE METABOLIC PN,CMP [CHEM] AM Lab 08/29/17 05:11 Ordered COMPREHENSIVE METABOLIC PN,CMP [CHEM] AM Lab 08/30/17 05:11 Ordered COMPREHENSIVE METABOLIC PN,CMP [CHEM] AM Lab 08/31/17 05:11 Ordered COMPREHENSIVE METABOLIC PN,CMP [CHEM] AM Lab 09/01/17 05:11 Ordered CULTURE SPUTUM + SMEAR [RM] Stat Lab 08/27/17 18:22 Uncollected Acetaminophen [Tylenol] Med 08/27/17 18:22 Ordered 650 mg PO Q4H PRN Benazepril/Hydrochlorothiazide Med 08/28/17 09:00 Ordered 0.5 tab PO DAILY Fluticasone Propionate [Flonase] Med 08/27/17 18:28 Ordered 1 spray [place] BID PRN Fluticasone/Salmeterol [Advair Diskus 100-50] Med 08/27/17 21:00 Ordered 1 puff INH BID Iron Ps Cmplx/Vit B12/Fa [Poly-Iron 150 Forte] Med 08/28/17 09:00 Ordered 150 mg PO DAILY Levalbuterol Tartrate [Xopenex Hfa] Med 08/28/17 00:00 Ordered 2 puff IH QID Mirtazapine [Remeron] Med 08/27/17 21:00 Ordered 45 mg PO BEDTIME Montelukast [Singulair] Med 08/27/17 21:00 Ordered 10 mg PO BEDTIME Sertraline [Zoloft] Med 08/28/17 09:00 Ordered 100 mg PO DAILY Sodium Chloride 0.9% [Saline Flush] Med 08/27/17 18:22 Ordered 10 ml FLUSH ASDIRECTED PRN Sodium Chloride 0.9% [Saline Flush] Med 08/27/17 18:22 Ordered 2.5 ml FLUSH ASDIRECTED PRN Zolpidem Med 08/27/17 21:00 Ordered 5 mg PO BEDTIME Peripheral IV Insertion Adult [OM.PC] Routine Oth 08/27/17 18:22 Ordered Saline Lock Insert [OM.PC] Routine Oth 08/27/17 18:22 Ordered Sequential Compression Device [OM.PC] Per Unit Routine Oth 08/27/17 18:24 Ordered Resuscitation Status Routine Resus Stat 08/27/17 18:22 Ordered Medication Orders Sodium Chloride (Normal Saline) 1,000 mls @ 125 mls/hr IV STAT CONRADO Last Admin: 08/27/17 16:21 Dose: 125 mls/hr Sodium Chloride (Saline Flush) 10 ml FLUSH ASDIRECTED PRN PRN Reason: Keep Vein Open Sodium Chloride (Saline Flush) 2.5 ml FLUSH ASDIRECTED PRN PRN Reason: Keep Vein Open CXr possible pneumonia- f/up official report Assessment/Plan Comment:: respiratory failure hypoxic and hypercarbic- COPD exac Possible pneumonia Depression Plan: admit patient to medical floor, bipap 12/5 , titrate fi O2 to maintain O2 sat 89 -91, solumedrol 60 mg iv q 6h , duoneb neb treatment, levaquin 750 mg iv q 48 h , BCtimes 2 , sputum cx and gram stain for depression/anxiety- will continue with Zoloft as per home dosages Dvt prof: heparin sq
[2017-08-27] MEDS ORDERED: FLU Vacc QS 2017-18 (36mos UP)/PF 60 MCG/0.5 ML Syringe IM ONE (19:45)
[2017-08-27] MEDS ORDERED: Albuterol 0.083% 2.5 MG/3 ML Neb Soln NEB PRN (20:44)
[2017-08-27] MEDS: Montelukast 10 MG Tab PO SCH (20:55)
[2017-08-27] MEDS: Mirtazapine 15 MG Tab PO SCH (20:55)
[2017-08-27] MEDS: Fluticasone/Salmeterol 100-50 MCG Inhalation Powder 14/Diskus INH SCH (22:00)
[2017-08-27] MEDS: methylPREDNISolone Sodium Succinate 40 MG/1 ML SDV IVPUSH SCH (22:56)
[2017-08-28] MEDS: methylPREDNISolone Sodium Succinate 40 MG/1 ML SDV IVPUSH SCH ×2 (04:55→22:13)
[2017-08-28 05:35] LABS: CHLORIDE,CL 94 mmol/L (98-110); SODIUM,NA 135 mmol/L (136-146)
--- NOTE | 2017-08-28 07:49 | PCM.SN ---
- Free Text/Narrative Note: Called by RT as they have been unsuccessful at obtaining ABG. Lt radial artery was palpated, site was cleaned with alcohol swab, needle was introduced into Lt radial artery 0.75mL of blood was obtained. Gauze pressure dressing placed and secured with tape.
[2017-08-28] MEDS: Iron Polysaccharides Complex 150 MG Cap PO SCH (10:29)
[2017-08-28] MEDS: Benazepril 10 MG Tab PO SCH (10:29)
[2017-08-28] MEDS: Hydrochlorothiazide 12.5 MG Cap PO SCH (10:29)
[2017-08-28] MEDS: Sertraline 100 MG Tab PO SCH (10:29)
[2017-08-28] MEDS: methylPREDNISolone Sodium Succinate 125 MG/2 ML SDV IVPUSH SCH ×3 (10:30→21:36)
[2017-08-28] MEDS: Fluticasone/Salmeterol 100-50 MCG Inhalation Powder 14/Diskus INH SCH ×2 (11:48→20:27)
[2017-08-28] MEDS: LEVALBUTEROL TARTRATE INH SCH ×5 (17:53→23:10)
[2017-08-28] MEDS: Insulin Aspart 100 Units/ML 3 ML Pen SUBCUT SCH ×2 (18:00→20:55)
--- NOTE | 2017-08-28 19:10 | PCM.PN ---
- General Info Date of Service: 08/28/17 Admission Dx/Problem (Free Text): Patient breathing improved. She was changed from BIPAP to o2 on NC , titrated down to 2 liters during the course of the day.Cxr showes no pneumonia, bronchiectasis and emphysema - Review of Systems General: Reports: No Symptoms HEENT: Reports: No Symptoms Pulmonary: Reports: Shortness of Breath, Cough, Sputum (white), Wheezing Cardiovascular: Reports: No Symptoms Gastrointestinal: Reports: No Symptoms Genitourinary: Reports: No Symptoms Musculoskeletal: Reports: No Symptoms Neurological: Reports: No Symptoms Psychiatric: Reports: No Symptoms - Patient Data Vitals - Most Recent: Last Vital Signs Temp 98.6 F 08/28/17 12:00 Pulse 95 08/28/17 12:00 Resp 24 H 08/28/17 12:00 BP 111/63 08/28/17 12:00 Pulse Ox 94 L 08/28/17 12:00 Weight - Most Recent: 100 lb 15.547 oz Lab Results Last 24 Hours: Laboratory Results - last 24 hr 08/27/17 08/28/17 08/28/17 Range/Units 21:36 04:52 04:52 WBC 8.21 (4.0-11.0) K/uL RBC 3.30 L (4.30-5.90) M/uL Hgb 10.3 L (12.0-16.0) g/dL Hct 32.8 L (36.0-46.0) % MCV 99.4 H (80.0-98.0) fL MCH 31.2 (27.0-32.0) pg MCHC 31.4 (31.0-37.0) g/dL RDW Std Deviation 46.3 (28.0-62.0) fl RDW Coeff of Carmen 13 (11.0-15.0) % Plt Count 208 (150-400) K/uL MPV 11.40 (7.40-12.00) fL Nucleated RBC % 0.0 /100WBC Nucleated RBCs # 0 K/uL ABG pH (7.35-7.45) ABG pCO2 (35-45) mmHG ABG pO2 (75-100) mmHG ABG HCO3 (22-26) mEq/L ABG Total CO2 ABG Base Excess (-2.0-2.0) Sodium 135 L (136-146) mmol/L Potassium 5.0 (3.5-5.1) mmol/L Chloride 94 L (98-110) mmol/L Carbon Dioxide 32 H (21-31) mmol/L BUN 21 (6.0-23.0) mg/dL Creatinine 0.7 (0.6-1.5) mg/dL Est Cr Clr Drug Dosing 42.97 mL/min Estimated GFR (MDRD) > 60.0 ml/min Glucose 139 H (60-110) mg/dL POC Glucose 115 H (60-110) mg/dL Calcium 9.5 (8.8-10.8) mg/dL Total Bilirubin 0.2 (0.1-1.5) mg/dL AST 14 (5-40) IU/L ALT 15 (8-54) IU/L Alkaline Phosphatase 65 (40-150) Total Protein 7.1 (6.0-8.0) g/dL Albumin 3.3 L (3.4-4.8) g/dL Globulin 3.8 H (2.0-3.5) g/dL Albumin/Globulin Ratio 0.9 L (1.3-2.8) Urine Color Urine Appearance Urine pH (5.0-8.0) Ur Specific [place] (1.001-1.035) Urine Protein (NEGATIVE) mg/dL Urine Glucose (UA) (NEGATIVE) mg/dL Urine Ketones (NEGATIVE) mg/dL Urine Occult Blood (NEGATIVE) Urine Nitrite (NEGATIVE) Urine Bilirubin (NEGATIVE) Urine Urobilinogen (<2.0) EU/dL Ur Leukocyte Esterase (NEGATIVE) Urine RBC (0-2/HPF) Urine WBC (0-5/HPF) Ur Epithelial Cells (NONE-FEW) Urine Bacteria (NEGATIVE) 08/28/17 08/28/17 08/28/17 Range/Units 06:00 07:40 08:45 WBC (4.0-11.0) K/uL RBC (4.30-5.90) M/uL Hgb (12.0-16.0) g/dL Hct (36.0-46.0) % MCV (80.0-98.0) fL MCH (27.0-32.0) pg MCHC (31.0-37.0) g/dL RDW Std Deviation (28.0-62.0) fl RDW Coeff of Carmen (11.0-15.0) % Plt Count (150-400) K/uL MPV (7.40-12.00) fL Nucleated RBC % /100WBC Nucleated RBCs # K/uL ABG pH 7.393 (7.35-7.45) ABG pCO2 58 H (35-45) mmHG ABG pO2 83 (75-100) mmHG ABG HCO3 36 H (22-26) mEq/L ABG Total CO2 33.3 ABG Base Excess 9.1 H (-2.0-2.0) Sodium (136-146) mmol/L Potassium (3.5-5.1) mmol/L Chloride (98-110) mmol/L Carbon Dioxide (21-31) mmol/L BUN (6.0-23.0) mg/dL Creatinine (0.6-1.5) mg/dL Est Cr Clr Drug Dosing mL/min Estimated GFR (MDRD) ml/min Glucose (60-110) mg/dL POC Glucose 130 H (60-110) mg/dL Calcium (8.8-10.8) mg/dL Total Bilirubin (0.1-1.5) mg/dL AST (5-40) IU/L ALT (8-54) IU/L Alkaline Phosphatase (40-150) Total Protein (6.0-8.0) g/dL Albumin (3.4-4.8) g/dL Globulin (2.0-3.5) g/dL Albumin/Globulin Ratio (1.3-2.8) Urine Color YELLOW Urine Appearance CLEAR Urine pH 5.5 (5.0-8.0) Ur Specific [place] 1.020 (1.001-1.035) Urine Protein NEGATIVE (NEGATIVE) mg/dL Urine Glucose (UA) NEGATIVE (NEGATIVE) mg/dL Urine Ketones NEGATIVE (NEGATIVE) mg/dL Urine Occult Blood NEGATIVE (NEGATIVE) Urine Nitrite NEGATIVE (NEGATIVE) Urine Bilirubin NEGATIVE (NEGATIVE) Urine Urobilinogen 0.2 (<2.0) EU/dL Ur Leukocyte Esterase NEGATIVE (NEGATIVE) Urine RBC 0-2 (0-2/HPF) Urine WBC 0-3 (0-5/HPF) Ur Epithelial Cells FEW (NONE-FEW) Urine Bacteria FEW (NEGATIVE) 11/23/17 11/23/17 Range/Units 11:09 17:13 WBC (4.0-11.0) K/uL RBC (4.30-5.90) M/uL Hgb (12.0-16.0) g/dL Hct (36.0-46.0) % MCV (80.0-98.0) fL MCH (27.0-32.0) pg MCHC (31.0-37.0) g/dL RDW Std Deviation (28.0-62.0) fl RDW Coeff of Carmen (11.0-15.0) % Plt Count (150-400) K/uL MPV (7.40-12.00) fL Nucleated RBC % /100WBC Nucleated RBCs # K/uL ABG pH (7.35-7.45) ABG pCO2 (35-45) mmHG ABG pO2 (75-100) mmHG ABG HCO3 (22-26) mEq/L ABG Total CO2 ABG Base Excess (-2.0-2.0) Sodium (136-146) mmol/L Potassium (3.5-5.1) mmol/L Chloride (98-110) mmol/L Carbon Dioxide (21-31) mmol/L BUN (6.0-23.0) mg/dL Creatinine (0.6-1.5) mg/dL Est Cr Clr Drug Dosing mL/min Estimated GFR (MDRD) ml/min Glucose (60-110) mg/dL POC Glucose 203 H 156 H (60-110) mg/dL Calcium (8.8-10.8) mg/dL Total Bilirubin (0.1-1.5) mg/dL AST (5-40) IU/L ALT (8-54) IU/L Alkaline Phosphatase (40-150) Total Protein (6.0-8.0) g/dL Albumin (3.4-4.8) g/dL Globulin (2.0-3.5) g/dL Albumin/Globulin Ratio (1.3-2.8) Urine Color Urine Appearance Urine pH (5.0-8.0) Ur Specific [place] (1.001-1.035) Urine Protein (NEGATIVE) mg/dL Urine Glucose (UA) (NEGATIVE) mg/dL Urine Ketones (NEGATIVE) mg/dL Urine Occult Blood (NEGATIVE) Urine Nitrite (NEGATIVE) Urine Bilirubin (NEGATIVE) Urine Urobilinogen (<2.0) EU/dL Ur Leukocyte Esterase (NEGATIVE) Urine RBC (0-2/HPF) Urine WBC (0-5/HPF) Ur Epithelial Cells (NONE-FEW) Urine Bacteria (NEGATIVE) Catalino Results Last 24 Hours: Microbiology 08/28/17 11:10 Gram Stain - Preliminary Sputum - Expectorated Med Orders - Current: Current Medications Acetaminophen (Tylenol) 650 mg PO Q4H PRN PRN Reason: Pain (Mild 1-3)/fever Albuterol (Proventil Neb Soln) 2.5 mg NEB Q4H PRN PRN Reason: Wheezing Benazepril HCl (Lotensin) 10 mg PO DAILY [facility] Last Admin: 08/28/17 10:29 Dose: 10 mg Fluticasone Propionate (Flonase) 0 gm CHINEDU BID PRN PRN Reason: nose Hydrochlorothiazide (Hydrochlorothiazide) 12.5 mg PO DAILY [facility] Last Admin: 08/28/17 10:29 Dose: 12.5 mg Levofloxacin/Dextrose 750 mg/ (Premix) 150 mls @ 100 mls/hr IV Q48H [facility] Insulin Aspart (Novolog) 0 unit SUBCUT QIDACANDBED [facility] PRN Reason: Protocol Last Admin: 08/28/17 18:00 Dose: 2 units Methylprednisolone Sodium Succinate (Solu-Medrol) 60 mg IVPUSH Q6H [facility] Last Admin: 08/28/17 17:05 Dose: 60 mg Mirtazapine (Remeron) 45 mg PO BEDTIME [facility] Last Admin: 08/27/17 20:55 Dose: 45 mg Montelukast Sodium (Singulair) 10 mg PO BEDTIME [facility] Last Admin: 08/27/17 20:55 Dose: 10 mg Levalbuterol Tartrate [Xopenex Hfa] 2 Puff 1 each INH QID [facility] Last Admin: 08/28/17 17:56 Dose: Not Given Polysaccharide Iron Complex (Ferrex 150) 150 mg PO DAILY [facility] Last Admin: 08/28/17 10:29 Dose: 150 mg Fluticasone/Salmeterol (Advair Diskus 100-50) 0 puff INH BID [facility] Last Admin: 08/28/17 11:48 Dose: 1 puff Sertraline HCl (Zoloft) 100 mg PO DAILY [facility] Last Admin: 08/28/17 10:29 Dose: 100 mg Sodium Chloride (Saline Flush) 10 ml FLUSH ASDIRECTED PRN PRN Reason: Keep Vein Open Sodium Chloride (Saline Flush) 2.5 ml FLUSH ASDIRECTED PRN PRN Reason: Keep Vein Open Zaleplon (Sonata) 5 mg PO BEDTIME [facility] Last Admin: 08/27/17 20:55 Dose: 5 mg Discontinued Medications Albuterol/Ipratropium (Duoneb 3.0-0.5 Mg/3 Ml) 3 ml NEB ONETIME ONE Stop: 08/27/17 16:10 Last Admin: 08/27/17 16:36 Dose: 3 ml Levofloxacin/Dextrose 750 mg/ (Premix) 150 mls @ 100 mls/hr IV ONETIME ONE Stop: 08/27/17 17:38 Last Admin: 08/27/17 16:21 Dose: 100 mls/hr Sodium Chloride (Normal Saline) 1,000 mls @ 125 mls/hr IV STAT [facility] Last Admin: 08/27/17 16:21 Dose: 125 mls/hr Influenza Virus Vaccine (Pharmacy To Dose - Influenza Vaccine) 1 each IM ONETIME ONE Stop: 08/27/17 19:39 Influenza Virus Vaccine (Fluarix Quad [id number]) 60 mcg IM .ONCE ONE Stop: 08/27/17 19:46 Methylprednisolone Sodium Succinate (Solu-Medrol) 125 mg IVPUSH ONETIME ONE Stop: 08/27/17 16:10 Last Admin: 08/27/17 16:21 Dose: 125 mg Methylprednisolone Sodium Succinate (Solu-Medrol) 60 mg IVPUSH Q6H [facility] Last Admin: 08/28/17 04:55 Dose: 60 mg Sodium Chloride (Saline Flush) 10 ml FLUSH ASDIRECTED PRN PRN Reason: Keep Vein Open Sodium Chloride (Saline Flush) 2.5 ml FLUSH ASDIRECTED PRN PRN Reason: Keep Vein Open - Exam Quality Assessment: Supplemental Oxygen General: Alert, Oriented, Cooperative HEENT: Pupils Equal, Pupils Reactive Neck: Supple, Trachea Midline Lungs: Clear to Auscultation, Normal Respiratory Effort, Decreased Breath Sounds , Wheezing Cardiovascular: Regular Rate, Regular Rhythm, No Murmurs GI/Abdominal Exam: Normal Bowel Sounds, Soft, Non-Tender, No Distention, No Abnormal Bruit Back Exam: Normal Inspection Skin: Warm, Dry Neurological: No New Focal Deficit Psy/Mental Status: Alert - Problem List & Annotations (1) COPD with acute exacerbation SNOMED Code(s): 715504807 Code(s): J44.1 - CHRONIC OBSTRUCTIVE PULMONARY DISEASE W (ACUTE) EXACERBATION Status: Acute Current Visit: Yes (2) Respiratory failure with hypoxia and hypercapnia SNOMED Code(s): 12835713 Code(s): J96.91 - RESPIRATORY FAILURE, UNSPECIFIED WITH HYPOXIA; J96.92 - RESPIRATORY FAILURE, UNSPECIFIED WITH HYPERCAPNIA Status: Acute Current Visit: Yes (3) Pneumonia SNOMED Code(s): 054325547 Code(s): J18.9 - PNEUMONIA, UNSPECIFIED ORGANISM Status: Acute Current Visit: Yes (4) Bronchiectasis SNOMED Code(s): 17529733 Code(s): J47.9 - BRONCHIECTASIS, UNCOMPLICATED Status: Acute Current Visit: Yes - Problem List Review Problem List Initiated/Reviewed/Updated: Yes - My Orders Last 24 Hours: My Active Orders 08/27/17 18:22 Patient Status [ADT] Routine Bedrest Bedside Commode [RC] ASDIRECTED Oxygen Therapy [RC] PRN VTE/DVT Education [RC] PER UNIT ROUTINE Vital Signs [RC] Q4H Acetaminophen [Tylenol] 650 mg PO Q4H PRN Sodium Chloride 0.9% [Saline Flush] 10 ml FLUSH ASDIRECTED PRN Sodium Chloride 0.9% [Saline Flush] 2.5 ml FLUSH ASDIRECTED PRN Peripheral IV Insertion Adult [OM.PC] Routine Saline Lock Insert [OM.PC] Routine Resuscitation Status Routine 08/27/17 18:24 Pulse Oximetry [RC] CONTINUOUS Sequential Compression Device [OM.PC] Per Unit Routine 08/27/17 18:27 Antiembolic Devices [RC] PER UNIT ROUTINE 08/27/17 18:28 Fluticasone Propionate [Flonase] 0 gm CHINEDU BID PRN 08/27/17 18:32 BIPAP Adult [RT BiPAP/CPAP] [RC] ASDIRECTED 08/27/17 20:23 Accu Check [Blood Glucose Check, Bedside] [RC] QIDACANDBED 08/27/17 20:44 Albuterol [Proventil Neb Soln] 2.5 mg NEB Q4H PRN 08/27/17 20:45 RT Aerosol Therapy [RC] ASDIRECTED 08/27/17 21:00 Fluticasone/Salmeterol [Advair Diskus 100-50] 0 puff INH BID Mirtazapine [Remeron] 45 mg PO BEDTIME Montelukast [Singulair] 10 mg PO BEDTIME Zaleplon [Sonata] 5 mg PO BEDTIME 08/28/17 00:00 Patient's Own Medication [Ptom] 1 each INH QID 08/28/17 09:00 Benazepril [Lotensin] 10 mg PO DAILY Hydrochlorothiazide 12.5 mg PO DAILY Iron Polysaccharides Complex [Ferrex 150] 150 mg PO DAILY Sertraline [Zoloft] 100 mg PO DAILY 08/28/17 10:00 methylPREDNISolone Sod Succ [Solu-MEDROL] 60 mg IVPUSH Q6H 08/28/17 11:10 CULTURE SPUTUM + SMEAR [RM] Stat 08/28/17 17:00 Insulin Aspart [NovoLOG] See Protocol SUBCUT QIDACANDBED 08/29/17 05:11 CBC W/O DIFF,HEMOGRAM [HEME] AM COMPREHENSIVE METABOLIC PN,CMP [CHEM] AM 08/29/17 16:00 Levofloxacin/Dextrose 5%-Water [Levaquin in D5W 750 MG/150 ML] 750 mg Premix Bag 1 bag IV Q48H 08/30/17 05:11 CBC W/O DIFF,HEMOGRAM [HEME] AM COMPREHENSIVE METABOLIC PN,CMP [CHEM] AM 08/31/17 05:11 CBC W/O DIFF,HEMOGRAM [HEME] AM COMPREHENSIVE METABOLIC PN,CMP [CHEM] AM 09/01/17 05:11 COMPREHENSIVE METABOLIC PN,CMP [CHEM] AM - Plan Plan:: respiratory failure hypoxic and hypercarbic- Chronic hypercarbic respiratory failure COPD exac Bronchiectasis Depression Plan: improving respiratory failuretitrate fi O2 to maintain O2 sat 89-91, taper solumedrol to 40mg iv q 8h , duoneb neb treatment, levaquin 750 mg iv q 48 h, BCtimes 2 neg day 1, sputum cx pending and gram stain no growth, influenza negative for depression/anxiety- will continue with Zoloft as per home dosages Dvt prof: heparin sq
[2017-08-28] MEDS: Mirtazapine 15 MG Tab PO SCH (20:26)
[2017-08-28] MEDS: Montelukast 10 MG Tab PO SCH (20:27)
[2017-08-29] MEDS: LEVALBUTEROL TARTRATE INH SCH ×2 (05:08→12:47)
[2017-08-29] MEDS: methylPREDNISolone Sodium Succinate 40 MG/1 ML SDV IVPUSH SCH (05:08)
[2017-08-29 06:10] LABS: CHLORIDE,CL 95 mmol/L (98-110); SODIUM,NA 137 mmol/L (136-146)
[2017-08-29] MEDS: Insulin Aspart 100 Units/ML 3 ML Pen SUBCUT SCH ×2 (06:36→11:23)
[2017-08-29 08:45] VITALS: BP 140/75
[2017-08-29] MEDS: Sertraline 100 MG Tab PO SCH (08:47)
[2017-08-29] MEDS: Iron Polysaccharides Complex 150 MG Cap PO SCH (08:47)
[2017-08-29] MEDS: Hydrochlorothiazide 12.5 MG Cap PO SCH (08:47)
[2017-08-29] MEDS: Benazepril 10 MG Tab PO SCH (08:48)
[2017-08-29] MEDS: Fluticasone/Salmeterol 100-50 MCG Inhalation Powder 14/Diskus INH SCH (09:06)
--- NOTE | 2017-08-29 11:14 | CR ---
EXAM DATE: 08/27/17 PATIENT'S AGE: 82 Patient: VIDAL SMITH Facility: [place], [place] Site . Site : [id number] Study: XRay Chest [id number]/22/2017 4:52:55 PM Ordering Physician: Vanesa Valentin Final Report: INDICATION: Chest pain and shortness of breath. COMPARISON: 06/22/2017. FINDINGS/IMPRESSION: Unchanged pulmonary hyperexpansion consistent with chronic obstructive pulmonary disease. Stable mild interstitial scarring in the lung apices and bronchiectasis and scarring of the right lung base. No definite acute infiltrates suggestive of pneumonia. Stable cardiomediastinal contour. Diffuse osteopenia with spinal and shoulder degenerative changes, as before. Dictated by Semaj Napier MD @ 08/27/2017 5:31:45 PM Dictated by: Semaj Napier MD @ 08/27/2017 17:32:00 (Electronic Signature) Report Signed by Proxy. [facility], [place]
[2017-08-29] MEDS ORDERED: Levofloxacin/Dextrose 5%-Water 750 MG in Premix Bag 1 BAG IV SCH (16:00)
--- NOTE | 2017-09-12 08:30 | PCM.DCSUM1 ---
<Gabriella Talavera - Last Filed: 09/12/17 08:41> Discharge Summary - Hospital Course Free Text/Narrative:: 82 years old female presented to ER a sent from the doctors office due to respiratory distress, wheezing and hypoxia in the 70%. Her symptoms started few days ago and were progressively getting worse. Patient history is limited due to respiratory distress. had cough , wheezing , no fever, generalized weakness. She was placed on BIPAP where her breathing improved. She was changed from BIPAP to o2 on NC , titrated down to 2 liters during the course of the day and eventually saturations have improved greater than 90%. CBC, BMP, UA unremarkable. ABG showed respiratory alkalosis. CXR did not reveal pneumonia, bronchiectasis and emphysema. She was discharged with Levaquin and prednisone x 5 days for copd exacerbation. She is to follow up with PCP - Discharge Data Discharge Date: 08/29/17 Discharge Disposition: Home, Self-Care 01 Condition: Good - Patient Instructions Diet: Regular Diet as Tolerated Activity: As Tolerated Driving: Do Not Drive Notify Provider of: Fever, Increased Pain, Swelling and Redness, Drainage, Nausea and/or Vomiting - Discharge Plan Home Medications: Home Meds Azithromycin 500 mg PO DAILY 10/09/17 [History] Fluticasone Propionate [Flovent] 1 puff IH BID 10/09/17 [History] Fluticasone/Salmeterol [Advair Diskus 100-50] 1 puff INH BID 10/09/17 [History] Ipratropium [Atrovent 0.06% Nasal [place]] 15 ml .XX 10/09/17 [History] Ipratropium [Atrovent HFA] 17 mcg INH QID 10/09/17 [History] Iron Polysaccharide Complex [Poly-Iron] 150 mg PO DAILY 10/09/17 [History] Levalbuterol Tartrate [Xopenex Hfa] 2 puff INH QID 10/09/17 [History] Mirtazapine 45 mg PO BEDTIME 10/09/17 [History] Montelukast [Singulair] 10 mg PO BEDTIME 10/09/17 [History] Sertraline [Zoloft] 100 mg PO DAILY 10/09/17 [History] Patient Handouts: Chronic Obstructive Pulmonary Disease Exacerbation, Easy-to- Read, Chronic Obstructive Pulmonary Disease, [id number], Prednisone tablets Forms: ED Department Discharge Referrals: Kirt Monge MD [Primary Care Provider] - - General Info Date of Service: 08/29/17 Subjective Update: She was seen and examined by Dr. Brantley Functional Status: Reports: Pain Controlled, Tolerating Diet - Review of Systems General: Reports: No Symptoms HEENT: Reports: No Symptoms Pulmonary: Reports: Shortness of Breath (improved.) Cardiovascular: Reports: No Symptoms Gastrointestinal: Reports: No Symptoms Genitourinary: Reports: No Symptoms Musculoskeletal: Reports: No Symptoms Skin: Reports: No Symptoms Neurological: Reports: No Symptoms Psychiatric: Reports: No Symptoms - Patient Data Vitals - Most Recent: Last Vital Signs Temp 98.2 F 08/29/17 08:00 Pulse 67 08/29/17 08:00 Resp 18 08/29/17 08:00 BP 140/75 08/29/17 08:48 Pulse Ox 100 08/29/17 08:00 Weight - Most Recent: 101 lb 6.602 oz Med Orders - Current: Current Medications Discontinued Medications Acetaminophen (Tylenol) 650 mg PO Q4H PRN PRN Reason: Pain (Mild 1-3)/fever Albuterol (Proventil Neb Soln) 2.5 mg NEB Q4H PRN PRN Reason: Wheezing Albuterol/Ipratropium (Duoneb 3.0-0.5 Mg/3 Ml) 3 ml NEB ONETIME ONE Stop: 08/27/17 16:10 Last Admin: 08/27/17 16:36 Dose: 3 ml Benazepril HCl (Lotensin) 10 mg PO DAILY [facility] Last Admin: 08/29/17 08:48 Dose: 10 mg Fluticasone Propionate (Flonase) 0 gm CHINEDU BID PRN PRN Reason: nose Hydrochlorothiazide (Hydrochlorothiazide) 12.5 mg PO DAILY [facility] Last Admin: 08/29/17 08:47 Dose: 12.5 mg Levofloxacin/Dextrose 750 mg/ (Premix) 150 mls @ 100 mls/hr IV ONETIME ONE Stop: 08/27/17 17:38 Last Admin: 08/27/17 16:21 Dose: 100 mls/hr Sodium Chloride (Normal Saline) 1,000 mls @ 125 mls/hr IV STAT [facility] Last Admin: 08/27/17 16:21 Dose: 125 mls/hr Levofloxacin/Dextrose 750 mg/ (Premix) 150 mls @ 100 mls/hr IV Q48H [facility] Influenza Virus Vaccine (Pharmacy To Dose - Influenza Vaccine) 1 each IM ONETIME ONE Stop: 08/27/17 19:39 Influenza Virus Vaccine (Fluarix Quad 9832-6950) 60 mcg IM .ONCE ONE Stop: 08/27/17 19:46 Insulin Aspart (Novolog) 0 unit SUBCUT QIDACANDBED [facility] PRN Reason: Protocol Last Admin: 08/29/17 11:23 Dose: Not Given Methylprednisolone Sodium Succinate (Solu-Medrol) 125 mg IVPUSH ONETIME ONE Stop: 08/27/17 16:10 Last Admin: 08/27/17 16:21 Dose: 125 mg Methylprednisolone Sodium Succinate (Solu-Medrol) 60 mg IVPUSH Q6H [facility] Last Admin: 08/28/17 04:55 Dose: 60 mg Methylprednisolone Sodium Succinate (Solu-Medrol) 60 mg IVPUSH Q6H [facility] Last Admin: 08/28/17 21:36 Dose: 60 mg Methylprednisolone Sodium Succinate (Solu-Medrol) 40 mg IVPUSH Q8H [facility] Last Admin: 08/29/17 05:08 Dose: 40 mg Mirtazapine (Remeron) 45 mg PO BEDTIME [facility] Last Admin: 08/28/17 20:26 Dose: 45 mg Montelukast Sodium (Singulair) 10 mg PO BEDTIME [facility] Last Admin: 08/28/17 20:27 Dose: 10 mg Levalbuterol Tartrate [Xopenex Hfa] 2 Puff 1 each INH QID [facility] Last Admin: 08/29/17 12:47 Dose: Not Given Polysaccharide Iron Complex (Ferrex 150) 150 mg PO DAILY [facility] Last Admin: 08/29/17 08:47 Dose: 150 mg Fluticasone/Salmeterol (Advair Diskus 100-50) 0 puff INH BID [facility] Last Admin: 08/29/17 09:06 Dose: 1 puff Sertraline HCl (Zoloft) 100 mg PO DAILY [facility] Last Admin: 08/29/17 08:47 Dose: 100 mg Sodium Chloride (Saline Flush) 10 ml FLUSH ASDIRECTED PRN PRN Reason: Keep Vein Open Sodium Chloride (Saline Flush) 2.5 ml FLUSH ASDIRECTED PRN PRN Reason: Keep Vein Open Sodium Chloride (Saline Flush) 10 ml FLUSH ASDIRECTED PRN PRN Reason: Keep Vein Open Sodium Chloride (Saline Flush) 2.5 ml FLUSH ASDIRECTED PRN PRN Reason: Keep Vein Open Zaleplon (Sonata) 5 mg PO BEDTIME [facility] Last Admin: 08/28/17 20:26 Dose: 5 mg - Exam General: Reports: Alert, Oriented HEENT: Reports: Pupils Equal, EOMI Lungs: Reports: Decreased Breath Sounds Cardiovascular: Reports: Regular Rate, Regular Rhythm GI/Abdominal Exam: Normal Bowel Sounds, Soft Back Exam: Reports: Normal Inspection Extremities: Normal Inspection Skin: Reports: Warm, Dry Neurological: Reports: No New Focal Deficit Psy/Mental Status: Reports: Alert *Q Meaningful Use (DIS) - VTE *Q VTE Criteria *Q: - Stroke *Q Stroke Criteria *Q: - AMI *Q AMI Criteria *Q: <Danielle Brantley - Last Filed: 10/10/17 15:54> Discharge Summary - Hospital Course Free Text/Narrative:: During her hospitalization patient also received steroids and antibiotics . Patient seen and examined and discussed with resident. Agree with discharge summary. - Discharge Diagnosis/Problem(s) (1) COPD with acute exacerbation SNOMED Code(s): 334863772 ICD Code: J44.1 - CHRONIC OBSTRUCTIVE PULMONARY DISEASE W (ACUTE) EXACERBATION Status: Acute (2) Respiratory failure with hypoxia and hypercapnia SNOMED Code(s): 72340255 ICD Code: J96.91 - RESPIRATORY FAILURE, UNSPECIFIED WITH HYPOXIA; J96.92 - RESPIRATORY FAILURE, UNSPECIFIED WITH HYPERCAPNIA Status: Acute (3) Pneumonia SNOMED Code(s): 285474756 ICD Code: J18.9 - PNEUMONIA, UNSPECIFIED ORGANISM Status: Acute (4) Bronchiectasis SNOMED Code(s): 91692398 ICD Code: J47.9 - BRONCHIECTASIS, UNCOMPLICATED Status: Acute - Patient Data Vitals - Most Recent: Last Vital Signs Temp 98.2 F 08/29/17 08:00 Pulse 67 08/29/17 08:00 Resp 18 08/29/17 08:00 BP 140/75 08/29/17 08:48 Pulse Ox 100 08/29/17 08:00 Med Orders - Current: Current Medications Discontinued Medications Acetaminophen (Tylenol) 650 mg PO Q4H PRN PRN Reason: Pain (Mild 1-3)/fever Albuterol (Proventil Neb Soln) 2.5 mg NEB Q4H PRN PRN Reason: Wheezing Albuterol/Ipratropium (Duoneb 3.0-0.5 Mg/3 Ml) 3 ml NEB ONETIME ONE Stop: 08/27/17 16:10 Last Admin: 08/27/17 16:36 Dose: 3 ml Benazepril HCl (Lotensin) 10 mg PO DAILY [facility] Last Admin: 08/29/17 08:48 Dose: 10 mg Fluticasone Propionate (Flonase) 0 gm CHINEDU BID PRN PRN Reason: nose Hydrochlorothiazide (Hydrochlorothiazide) 12.5 mg PO DAILY [facility] Last Admin: 08/29/17 08:47 Dose: 12.5 mg Levofloxacin/Dextrose 750 mg/ (Premix) 150 mls @ 100 mls/hr IV ONETIME ONE Stop: 08/27/17 17:38 Last Admin: 08/27/17 16:21 Dose: 100 mls/hr Sodium Chloride (Normal Saline) 1,000 mls @ 125 mls/hr IV STAT [facility] Last Admin: 08/27/17 16:21 Dose: 125 mls/hr Levofloxacin/Dextrose 750 mg/ (Premix) 150 mls @ 100 mls/hr IV Q48H [facility] Influenza Virus Vaccine (Pharmacy To Dose - Influenza Vaccine) 1 each IM ONETIME ONE Stop: 08/27/17 19:39 Influenza Virus Vaccine (Fluarix Quad [id number]) 60 mcg IM .ONCE ONE Stop: 08/27/17 19:46 Insulin Aspart (Novolog) 0 unit SUBCUT QIDACANDBED [facility] PRN Reason: Protocol Last Admin: 08/29/17 11:23 Dose: Not Given Methylprednisolone Sodium Succinate (Solu-Medrol) 125 mg IVPUSH ONETIME ONE Stop: 08/27/17 16:10 Last Admin: 08/27/17 16:21 Dose: 125 mg Methylprednisolone Sodium Succinate (Solu-Medrol) 60 mg IVPUSH Q6H [facility] Last Admin: 08/28/17 04:55 Dose: 60 mg Methylprednisolone Sodium Succinate (Solu-Medrol) 60 mg IVPUSH Q6H [facility] Last Admin: 08/28/17 21:36 Dose: 60 mg Methylprednisolone Sodium Succinate (Solu-Medrol) 40 mg IVPUSH Q8H [facility] Last Admin: 08/29/17 05:08 Dose: 40 mg Mirtazapine (Remeron) 45 mg PO BEDTIME [facility] Last Admin: 08/28/17 20:26 Dose: 45 mg Montelukast Sodium (Singulair) 10 mg PO BEDTIME [facility] Last Admin: 08/28/17 20:27 Dose: 10 mg Levalbuterol Tartrate [Xopenex Hfa] 2 Puff 1 each INH QID [facility] Last Admin: 08/29/17 12:47 Dose: Not Given Polysaccharide Iron Complex (Ferrex 150) 150 mg PO DAILY [facility] Last Admin: 08/29/17 08:47 Dose: 150 mg Fluticasone/Salmeterol (Advair Diskus 100-50) 0 puff INH BID [facility] Last Admin: 08/29/17 09:06 Dose: 1 puff Sertraline HCl (Zoloft) 100 mg PO DAILY [facility] Last Admin: 08/29/17 08:47 Dose: 100 mg Sodium Chloride (Saline Flush) 10 ml FLUSH ASDIRECTED PRN PRN Reason: Keep Vein Open Sodium Chloride (Saline Flush) 2.5 ml FLUSH ASDIRECTED PRN PRN Reason: Keep Vein Open Sodium Chloride (Saline Flush) 10 ml FLUSH ASDIRECTED PRN PRN Reason: Keep Vein Open Sodium Chloride (Saline Flush) 2.5 ml FLUSH ASDIRECTED PRN PRN Reason: Keep Vein Open Zaleplon (Sonata) 5 mg PO BEDTIME [facility] Last Admin: 08/28/17 20:26 Dose: 5 mg *Q Meaningful Use (DIS) - VTE *Q VTE Criteria *Q: - Stroke *Q Stroke Criteria *Q: - AMI *Q AMI Criteria *Q:
== END 2017-08-29 12:40 | disposition home or self-care (01) | DRG 190 ==
LOC: MW.ED 16:05 → MW.MS 17:25 → UNDOADMIN 17:39 → MW.MS 17:39
PROVIDERS: ADMIT Internal Medicine; ATTEND Internal Medicine
DX: J44.0 Chronic obstructive pulmonary disease with (acute) lower respiratory infection (principal); J18.9 Pneumonia, unspecified organism; J96.91 Respiratory failure, unspecified with hypoxia; J96.92 Respiratory failure, unspecified with hypercapnia; J44.1 Chronic obstructive pulmonary disease with (acute) exacerbation; J47.9 Bronchiectasis, uncomplicated; I10 Essential (primary) hypertension; F32.9 Major depressive disorder, single episode, unspecified; E11.9 Type 2 diabetes mellitus without complications; Z79.899 Other long term (current) drug therapy; Z88.5 Allergy status to narcotic agent
CPT/HCPCS: 36415; 36600; 71010; 80053; 82803; 83880; 84484; 85025; 85610; 86850; 86900; 86901; 87040 ×2; 87804 ×2; 93005; 94640; 96365; 96375; 99285; J1956; J2930; J7040; 81001; 82962; 85027; 87070; 87077; 87086; 87205; 94660; 99283; A9270-GY; J1815-GY; J2920

== ENCOUNTER 2017-10-09 09:41 | Emergency (ER) | payer MEDICARE, BC ==
[2017-10-09] MEDS ORDERED: Albuterol/Ipratropium 3.0-0.5 MG/3 ML Neb Soln NEB ONE (10:28)
[2017-10-09] MEDS ORDERED: Sodium Chloride 0.9% 2.5 ML Syringe FLUSH PRN (10:28)
[2017-10-09] MEDS ORDERED: Sodium Chloride 0.9% 10 ML Syringe FLUSH PRN (10:28)
--- NOTE | 2017-10-09 10:34 | EDM.PDOC ---
ED HPI GENERAL MEDICAL PROBLEM - General Chief Complaint: Cardiovascular Problem Stated Complaint: HIGH BP Time Seen by Provider: 10/09/17 10:15 - History of Present Illness INITIAL COMMENTS - FREE TEXT/NARRATIVE: HISTORY AND PHYSICAL: History of present illness: The patient is an 82-year-old female who follows at [facility] and has a long-standing history of COPD and chronic prednisone use who presents with daughter with complaints of profound generalized weakness and malaise and increased cough productive of phlegm occasionally. The patient always has a chronic cough but this seems to be worse over the last several weeks but she has not had any documented fevers. She uses home O2 regularly and does not feel increasing shortness of breath with the cough. The patient was admitted here over and placed on antibiotics at that time and discharged home on Levaquin and finished and she is currently on Zithromax which was ordered by her provider Dr. Monge, in which she started yesterday. The daughter was under the understanding that she had been on antibiotics before this course of Zithromax but the patient says that she was only on antibiotics after discharge from the hospitalization in August. The patient is very hard of hearing and is able to provide a history and the daughter is less informative than the patient. She is not having any chest pain no sore throat or runny nose no abdominal pain no vomiting or diarrhea but the patient has had a very poor by mouth intake in general. She is not falling she is not lightheaded or dizzy she is not passing out and her weakness is generalized with no focality. The patient does treatments at home for her COPD has not change that regimen. Patient is on chronic oxygen therapy at home at 5 L. There was also some concern about elevated blood pressure at home although her blood pressures here are normal. The patient did not get her influenza vaccine this year Review of systems: As per history of present illness and below otherwise all systems reviewed and negative. Past medical history: As per history of present illness and as reviewed below otherwise noncontributory. Surgical history: As per history of present illness and as reviewed below otherwise noncontributory. Social history: No reported history of drug or alcohol abuse. Family history: As per history of present illness and as reviewed below otherwise noncontributory. Physical exam: General: Well-developed thin frail female who is speaking without breathlessness and her cough is very harsh in the ER. Vital signs reviewed by me. HEENT: Atraumatic, normocephalic, pupils reactive, negative for conjunctival pallor or scleral icterus, mucous membranes moist, throat clear, neck supple, nontender, trachea midline. Lungs: Coarse breath sounds and rhonchi bilaterally with no stridor and no discrete wheezing, diminished breath sounds in the bases but breath sounds equal bilaterally, chest nontender. Heart: S1S2, regular rate and rhythm no overt murmurs Abdomen: Soft, nondistended, nontender. Negative for masses or hepatosplenomegaly. Negative for costovertebral tenderness. Pelvis: Stable nontender. Genitourinary: Deferred. Rectal: Deferred. Extremities: Atraumatic, negative for cords or calf pain. Neurovascular unremarkable. Trace pedal edema bilaterally but no leg asymmetry Neuro: Awake, alert, oriented. Cranial nerves II through XII unremarkable. Cerebellum unremarkable. Motor and sensory unremarkable throughout. Exam nonfocal. Back: There is thoracic kyphosis noted but no midline step-offs tenderness or defects of the thoracic or lumbar spine Diagnostics: EKG CBC CMP chest x-ray lactic acid magnesium level influenza Therapeutics: IV O2 monitor DuoNeb magnesium orally Hb today is 9.8 and this is compared to one performed on August 29 which was 10.2. I discussed all testing results with the patient and daughter at bedside and also contacted Dottie at home health to inform her of today's events. The patient does not have any criteria for admission at this time as she is at her baseline vital sign status she has no evidence of pneumonia on chest x-ray and her labs are all doing well. Aside from the harsh cough that she has had for several weeks she has no new finding except generalized weakness and malaise and some anorexia. I stressed to her and her daughter the need for small bites of food and hydration throughout the day and need to continue her home medications. We have scheduled an appointment with her provider at [facility], Dr. Monge, for tomorrow at 3:30 PM so that he can evaluate the patient himself and be better able to direct home health with her care at home. The patient and daughter are comfortable with this care plan. Impression: Generalized weakness/anorexia, history of COPD with chronic cough Definitive disposition and diagnosis as appropriate pending reevaluation and review of above. - Related Data Allergies Allergy/AdvReac Type Severity Reaction Status Date / Time morphine Allergy Cannot Verified 10/09/17 09:54 Remember Beef Containing Products AdvReac unknown Verified 10/09/17 09:54 pork derived (porcine) AdvReac unknown Verified 10/09/17 09:54 wheat AdvReac unknown Verified 10/09/17 09:54 Home Meds: Home Meds Azithromycin 500 mg PO DAILY 10/09/17 [History] Fluticasone Propionate [Flovent] 1 puff IH BID 10/09/17 [History] Fluticasone/Salmeterol [Advair Diskus 100-50] 1 puff INH BID 10/09/17 [History] Ipratropium [Atrovent 0.06% Nasal [place]] 15 ml .XX 10/09/17 [History] Ipratropium [Atrovent HFA] 17 mcg INH QID 10/09/17 [History] Iron Polysaccharide Complex [Poly-Iron] 150 mg PO DAILY 10/09/17 [History] Levalbuterol Tartrate [Xopenex Hfa] 2 puff INH QID 10/09/17 [History] Mirtazapine 45 mg PO BEDTIME 10/09/17 [History] Montelukast [Singulair] 10 mg PO BEDTIME 10/09/17 [History] Sertraline [Zoloft] 100 mg PO DAILY 10/09/17 [History] Past Medical History HEENT History: Reports: Cataract, Impaired Vision Cardiovascular History: Reports: Hypertension Respiratory History: Reports: COPD, Pneumonia, Recurrent Gastrointestinal History: Reports: Diverticulosis, GERD Genitourinary History: Reports: UTI, Recurrent MACHINE [employer] History: Reports: Psychiatric History: Reports: Depression Endocrine/Metabolic History: Reports: Diabetes, Type II Oncologic (Cancer) History: Reports: Other (See Below) Other Oncologic History: uterus - Past Surgical History HEENT Surgical History: Reports: Cataract Surgery Female Surgical History: Reports: Hysterectomy Social & Family History - Family History Family Medical History: Noncontributory HEENT: Reports: Impaired Vision Cardiac: Reports: OR Respiratory: Reports: None GI: Reports: None OBGYN: Reports: Musculoskeletal: Reports: Arthritis Neurological: Reports: Parkinson's Psychiatric: Reports: Depression Dermatologic: Reports: None Oncologic: Reports: Breast, Colon - Tobacco Use Smoking Status *Q: Never Smoker Second Hand Smoke Exposure: No - Caffeine Use Caffeine Use: Reports: Coffee - Alcohol Use Days Per Week of Alcohol Use: 0 - Recreational Drug Use Recreational Drug Use: No - Living Situation & Occupation Living situation: Reports: Alone, Assisted Living Occupation: Retired ED ROS GENERAL - Review of Systems Review Of Systems: ROS reveals no pertinent complaints other than HPI. ED EXAM, GENERAL - Physical Exam Exam: See Below (see dictation) Course - Vital Signs Last Recorded V/S: Last Vital Signs Temp 37.1 C 10/09/17 09:54 Pulse 75 10/09/17 09:54 Resp 18 10/09/17 09:54 BP 121/63 10/09/17 09:54 Pulse Ox 97 10/09/17 10:25 - Orders/Labs/Meds Orders: Active Orders 24 hr Category Date Time Status Cardiac Monitoring [RC] . DIRECTED Care 10/09/17 10:25 Active EKG Documentation Completion [RC] STAT Care 10/09/17 10:11 Active EKG Documentation Completion [RC] STAT Care 10/09/17 10:25 Active Oxygen Therapy, ED [RC] ASDIRECTED Care 10/09/17 10:25 Active Pulse Oximetry [RC] ASDIRECTED Care 10/09/17 10:25 Active RT Aerosol Therapy [RC] ASDIRECTED Care 10/09/17 10:28 Active Sodium Chloride 0.9% [Saline Flush] Med 10/09/17 10:28 Active 10 ml FLUSH ASDIRECTED PRN Sodium Chloride 0.9% [Saline Flush] Med 10/09/17 10:28 Active 2.5 ml FLUSH ASDIRECTED PRN Saline Lock Insert [OM.PC] Stat Oth 10/09/17 10:25 Ordered Medication Orders Sodium Chloride (Saline Flush) 10 ml FLUSH ASDIRECTED PRN PRN Reason: Keep Vein Open Last Admin: 10/09/17 10:42 Dose: 10 ml Sodium Chloride (Saline Flush) 2.5 ml FLUSH ASDIRECTED PRN PRN Reason: Keep Vein Open Last Admin: 10/09/17 10:42 Dose: 2.5 ml Labs: Laboratory Tests 10/09/17 10/09/17 10/09/17 Range/Units 09:52 10:28 10:28 WBC 9.53 (4.0-11.0) K/uL RBC 3.22 L (4.30-5.90) M/uL Hgb 9.8 L (12.0-16.0) g/dL Hct 31.4 L (36.0-46.0) % MCV 97.5 (80.0-98.0) fL MCH 30.4 (27.0-32.0) pg MCHC 31.2 (31.0-37.0) g/dL RDW Std Deviation 50.1 (28.0-62.0) fl RDW Coeff of Carmen 14 (11.0-15.0) % Plt Count 285 (150-400) K/uL MPV 10.50 (7.40-12.00) fL Neut % (Auto) 87.2 H (48.0-80.0) % Lymph % (Auto) 8.8 L (16.0-40.0) % [place] % (Auto) 3.8 (0.0-15.0) % Eos % (Auto) 0.1 (0.0-7.0) % Baso % (Auto) 0.1 (0.0-1.5) % Neut # (Auto) 8.3 H (1.4-5.7) K/uL Lymph # (Auto) 0.8 (0.6-2.4) K/uL [place] # (Auto) 0.4 (0.0-0.8) K/uL Eos # (Auto) 0.0 (0.0-0.7) K/uL Baso # (Auto) 0.0 (0.0-0.1) K/uL Nucleated RBC % 0.0 /100WBC Nucleated RBCs # 0 K/uL Lactate (0.20-2.00) mmol/L Sodium 139 (136-146) mmol/L Potassium 3.8 (3.5-5.1) mmol/L Chloride 93 L (98-110) mmol/L Carbon Dioxide 38 H (21-31) mmol/L BUN 11 (6.0-23.0) mg/dL Creatinine 0.7 (0.6-1.5) mg/dL Est Cr Clr Drug Dosing 38.56 mL/min Estimated GFR (MDRD) > 60.0 ml/min Glucose 98 (60-110) mg/dL POC Glucose 119 H (60-110) mg/dL Calcium 9.5 (8.8-10.8) mg/dL Magnesium 1.3 L (1.5-2.3) mEq/L Total Bilirubin 0.4 (0.1-1.5) mg/dL AST 24 (5-40) IU/L ALT 16 (8-54) IU/L Alkaline Phosphatase 51 (40-150) Total Protein 7.3 (6.0-8.0) g/dL Albumin 3.2 L (3.4-4.8) g/dL Globulin 4.1 H (2.0-3.5) g/dL Albumin/Globulin Ratio 0.8 L (1.3-2.8) 10/09/17 Range/Units 10:28 WBC (4.0-11.0) K/uL RBC (4.30-5.90) M/uL Hgb (12.0-16.0) g/dL Hct (36.0-46.0) % MCV (80.0-98.0) fL MCH (27.0-32.0) pg MCHC (31.0-37.0) g/dL RDW Std Deviation (28.0-62.0) fl RDW Coeff of Carmen (11.0-15.0) % Plt Count (150-400) K/uL MPV (7.40-12.00) fL Neut % (Auto) (48.0-80.0) % Lymph % (Auto) (16.0-40.0) % [place] % (Auto) (0.0-15.0) % Eos % (Auto) (0.0-7.0) % Baso % (Auto) (0.0-1.5) % Neut # (Auto) (1.4-5.7) K/uL Lymph # (Auto) (0.6-2.4) K/uL [place] # (Auto) (0.0-0.8) K/uL Eos # (Auto) (0.0-0.7) K/uL Baso # (Auto) (0.0-0.1) K/uL Nucleated RBC % /100WBC Nucleated RBCs # K/uL Lactate 1.0 (0.20-2.00) mmol/L Sodium (136-146) mmol/L Potassium (3.5-5.1) mmol/L Chloride (98-110) mmol/L Carbon Dioxide (21-31) mmol/L BUN (6.0-23.0) mg/dL Creatinine (0.6-1.5) mg/dL Est Cr Clr Drug Dosing mL/min Estimated GFR (MDRD) ml/min Glucose (60-110) mg/dL POC Glucose (60-110) mg/dL Calcium (8.8-10.8) mg/dL Magnesium (1.5-2.3) mEq/L Total Bilirubin (0.1-1.5) mg/dL AST (5-40) IU/L ALT (8-54) IU/L Alkaline Phosphatase (40-150) Total Protein (6.0-8.0) g/dL Albumin (3.4-4.8) g/dL Globulin (2.0-3.5) g/dL Albumin/Globulin Ratio (1.3-2.8) Meds: Medications Generic Name Dose Route Start Last Admin Trade Name Freq PRN Reason Stop Dose Admin Sodium Chloride 10 ml 10/09/17 10:28 10/09/17 10:42 Saline Flush FLUSH 10 ml ASDIRECTED PRN Administration Keep Vein Open Sodium Chloride 2.5 ml 10/09/17 10:28 10/09/17 10:42 Saline Flush FLUSH 2.5 ml ASDIRECTED PRN Administration Keep Vein Open Discontinued Medications Generic Name Dose Route Start Last Admin Trade Name Freq PRN Reason Stop Dose Admin Albuterol/Ipratropium 3 ml 10/09/17 10:28 10/09/17 10:39 Duoneb 3.0-0.5 Mg/3 Ml NEB 10/09/17 10:29 3 ml ONETIME ONE Administration Levalbuterol HCl Confirm 10/09/17 10:41 Xopenex Administered 10/09/17 10:42 Dose 1.25 mg .ROUTE .STK-MED ONE Departure - Departure Time of Disposition: 12:18 Disposition: Home, Self-Care 01 Condition: Good Clinical Impression: Generalized weakness, History of COPD Referrals: PCP,None [Primary Care Provider] - Forms: ED Department Discharge Additional Instructions: The following information is given to patients seen in the emergency department who are being discharged to home. This information is to outline your options for follow-up care. We provide all patients seen in our emergency department with a follow-up referral. The need for follow-up, as well as the timing and circumstances, are variable depending upon the specifics of your emergency department visit. If you don't have a primary care physician on staff, we will provide you with a referral. We always advise you to contact your personal physician following an emergency department visit to inform them of the circumstance of the visit and for follow-up with them and/or the need for any referrals to a consulting specialist. The emergency department will also refer you to a specialist when appropriate. This referral assures that you have the opportunity for followup care with a specialist. All of these measure are taken in an effort to provide you with optimal care, which includes your followup. Under all circumstances we always encourage you to contact your private physician who remains a resource for coordinating your care. When calling for followup care, please make the office aware that this follow-up is from your recent emergency room visit. If for any reason you are refused follow-up, please contact the [facility] emergency department at and ask to speak to the emergency department charge nurse. [address] [place] [address] Please continue all of your home medications and try to push sips of fluid and small bites of food as much as you can as we discussed. You have an appointment tomorrow , Friday , at [facility] with Dr. Monge at 3:30 PM. Return to ER as needed and as discussed. Please also remember that home health was contacted and are aware of your workup and your discharge home. They're also aware that you have an appointment with your provider tomorrow. Please bring all of the discharge papers you are given here today to your appointment with your provider tomorrow. - My Orders Last 24 Hours: My Active Orders 10/09/17 10:11 EKG Documentation Completion [RC] STAT 10/09/17 10:25 Cardiac Monitoring [RC] . DIRECTED EKG Documentation Completion [RC] STAT Oxygen Therapy, ED [RC] ASDIRECTED Pulse Oximetry [RC] ASDIRECTED Saline Lock Insert [OM.PC] Stat 10/09/17 10:28 RT Aerosol Therapy [RC] ASDIRECTED Sodium Chloride 0.9% [Saline Flush] 10 ml FLUSH ASDIRECTED PRN Sodium Chloride 0.9% [Saline Flush] 2.5 ml FLUSH ASDIRECTED PRN - Assessment/Plan Last 24 Hours: My Active Orders 10/09/17 10:11 EKG Documentation Completion [RC] STAT 10/09/17 10:25 Cardiac Monitoring [RC] . DIRECTED EKG Documentation Completion [RC] STAT Oxygen Therapy, ED [RC] ASDIRECTED Pulse Oximetry [RC] ASDIRECTED Saline Lock Insert [OM.PC] Stat 10/09/17 10:28 RT Aerosol Therapy [RC] ASDIRECTED Sodium Chloride 0.9% [Saline Flush] 10 ml FLUSH ASDIRECTED PRN Sodium Chloride 0.9% [Saline Flush] 2.5 ml FLUSH ASDIRECTED PRN
[2017-10-09] MEDS ORDERED: Levalbuterol HCl 1.25 MG/0.5 ML Neb ONE (10:41)
[2017-10-09 11:08] LABS: CHLORIDE,CL 93 mmol/L (98-110); SODIUM,NA 139 mmol/L (136-146)
--- NOTE | 2017-10-09 11:26 | CR ---
EXAMINATION: Two-view chest (PA and Lateral views). HISTORY: Shortness of breath. FINDINGS: The trachea is midline. The cardiomediastinal silhouette is within normal limits. No pulmonary infilt rates, effusions or pneumothorax. Chronic appearing scarring noted within the right lung base. Chroni c interstitial prominence and hyperinflation otherwise noted. Small to moderate hiatal hernia. Osseous structures appear osteopenic. IMPRESSION: No acute cardiopulmonary process.
[2017-10-09] MEDS ORDERED: Magnesium Oxide 400 MG Tab PO ONE (12:21)
[2017-10-09 12:59] VITALS: BP 127/70
== END 2017-10-09 12:30 | disposition home or self-care (01) ==
LOC: MW.ED 09:41
DX: R53.1 Weakness (principal); I10 Essential (primary) hypertension; J44.9 Chronic obstructive pulmonary disease, unspecified; F32.9 Major depressive disorder, single episode, unspecified; E11.9 Type 2 diabetes mellitus without complications; M40.204 Unspecified kyphosis, thoracic region; Z79.899 Other long term (current) drug therapy; Z88.5 Allergy status to narcotic agent; Z91.018 Allergy to other foods
CPT/HCPCS: 36415; 71046; 80053; 82962; 83605; 83735; 85025; 87804; 93005; 94640; 99285; A9270; 99284

== ENCOUNTER 2019-10-26 09:57 | Inpatient (IN) | payer MEDICARE, BC ==
[2019-10-26] MEDS ORDERED: methylPREDNISolone Sodium Succinate 125 MG/2 ML SDV IVPUSH ONE (10:22)
[2019-10-26] MEDS ORDERED: Sodium Chloride 0.9% 2.5 ML Syringe FLUSH PRN (10:22)
[2019-10-26] MEDS ORDERED: Sodium Chloride 0.9% 10 ML Syringe FLUSH PRN (10:22)
[2019-10-26] MEDS ORDERED: Albuterol/Ipratropium 3.0-0.5 MG/3 ML Neb Soln NEB ONE (10:22)
[2019-10-26 10:54] LABS: BLOOD UREA NITROGEN,BUN 21 mg/dL (7.0-18.0); CARBON DIOXIDE,CO2 36.3 mmol/L (21.0-32.0); CHLORIDE,CL 100 mmol/L (98-107); GLUCOSE RANDOM 162 mg/dL (74-106); POTASSIUM,K 4.1 mmol/L (3.5-5.1); SODIUM,NA 143 mmol/L (136-145)
[2019-10-26] MEDS ORDERED: cefTRIAXone 1 GM in Sodium Chloride 0.9% 50 ML IV ONE (11:32)
[2019-10-26] MEDS ORDERED: Sodium Chloride 0.9% 1,000 ML IV ONE (11:37)
--- NOTE | 2019-10-26 11:42 | CR ---
Chest: AP view of the chest was obtained. Comparison: Prior chest x-ray of 10/09/17. Tortuous thoracic aorta is noted. Moderately large hiatal hernia is seen. Lungs show no acute parenchymal change. Chronic rotator cuff tear noted within the right shoulder. Bony structures are osteopenic. Calcified nodule is noted within the right lung base. Impression: 1. Findings as noted above. 2. Nothing acute is appreciated. Diagnostic code #2 This report was dictated in [place] Standard Time
[2019-10-26] MEDS ORDERED: Azithromycin 500 MG in Sodium Chloride 0.9% 250 ML IV SCH (11:45)
--- NOTE | 2019-10-26 12:10 | EDM.PDOC ---
ED HPI GENERAL MEDICAL PROBLEM - General Chief Complaint: Respiratory Problem Stated Complaint: HARD TIME BREATHING Time Seen by Provider: 10/26/19 10:07 Source of Information: Reports: Patient - History of Present Illness INITIAL COMMENTS - FREE TEXT/NARRATIVE: Patient is chronic COPD patient is on home oxygen on 4 L all the time complaining of increased shortness of breath x4 days with productive cough and increased respiratory distress in the last 24 hours came in with low pulse oximetry reading of 84% on 4 L oxygen with severe respiratory distress. Positive productive cough no recent admission to hospital. Have her flu shot. Eyes chest pain. Denies any cardiac history. Denies any fever chills nausea vomiting or any GI symptoms. Denies any abdominal pain. 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: Oxygen - Related Data Allergies Allergy/AdvReac Type Severity Reaction Status Date / Time morphine Allergy Cannot Verified 10/26/19 14:28 Remember Beef Containing Products AdvReac unknown Verified 10/26/19 14:28 pork derived (porcine) AdvReac unknown Verified 10/26/19 14:28 wheat AdvReac unknown Verified 10/26/19 14:28 Home Meds: Home Meds Fluticasone Propionate [Flovent] 1 spray NASBOTH BID 10/09/17 [History] Fluticasone/Salmeterol [Advair Diskus 100-50] 1 puff INH BID 10/09/17 [History] Ipratropium [Atrovent 0.06% Nasal [place]] 2 sprays NASBOTH TID PRN 10/09/17 [ History] Levalbuterol Tartrate [Xopenex Hfa] 2 inh INH QID 10/09/17 [History] Mirtazapine 45 mg PO BEDTIME 10/09/17 [History] Montelukast [Singulair] 10 mg PO BEDTIME 10/09/17 [History] Sertraline [Zoloft] 100 mg PO DAILY 10/09/17 [History] Furosemide 20 mg PO DAILY PRN 04/10/19 [History] Ipratropium [Atrovent HFA] 35.2 mcg INH Q6H 04/10/19 [History] Iron Polysaccharide Complex [Iferex 150] 150 mg PO DAILY 04/10/19 [History] Past Medical History HEENT History: Reports: Cataract, Impaired Vision Cardiovascular History: Reports: Hypertension Respiratory History: Reports: COPD, Pneumonia, Recurrent Other Respiratory History: on home 02 at 5liters/min via nasal cannula Gastrointestinal History: Reports: Diverticulosis, GERD Genitourinary History: Reports: UTI, Recurrent 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: Neurological History: Reports: Other (See Below) Other Neuro History: "mini" stroke Psychiatric History: Reports: Depression Endocrine/Metabolic History: Reports: Diabetes, Type II Other Endocrine/Metabolic History: low blood sugar Oncologic (Cancer) History: Reports: Uterine Other Oncologic History: uterus - Infectious Disease History Infectious Disease History: Reports: Chicken Pox, Measles - Past Surgical History HEENT Surgical History: Reports: Cataract Surgery Female Surgical History: Reports: Hysterectomy Neurological Surgical History: Reports: None Social & Family History - Family History Family Medical History: Noncontributory HEENT: Reports: Impaired Vision Cardiac: Reports: [place] Respiratory: Reports: None GI: Reports: None OBGYN: Reports: Musculoskeletal: Reports: Arthritis Neurological: Reports: Parkinson's Psychiatric: Reports: Depression Dermatologic: Reports: None Oncologic: Reports: Breast, Colon - Tobacco Use Smoking Status *Q: Never Smoker - Caffeine Use Caffeine Use: Reports: None - Recreational Drug Use Recreational Drug Use: No - Living Situation & Occupation Living situation: Reports: Alone, Assisted Living Occupation: Retired ED ROS GENERAL - Review of Systems Review Of Systems: See Below Constitutional: Reports: Chills, Malaise, Weakness, Fatigue, Weight Loss HEENT: Reports: No Symptoms Respiratory: Reports: Shortness of Breath, Wheezing, Cough, Sputum Cardiovascular: Reports: No Symptoms GI/Abdominal: Reports: No Symptoms : Reports: No Symptoms Musculoskeletal: Reports: No Symptoms Skin: Reports: No Symptoms Neurological: Reports: No Symptoms Immunologic: Reports: No Symptoms ED EXAM, GENERAL - Physical Exam Exam: See Below Exam Limited By: No Limitations General Appearance: Anxious, Moderate Distress Ears: Normal External Exam, Normal Canal, Hearing Grossly Normal, Normal TMs Ear Exam: Bilateral Ear: Auricle Normal, Canal Normal, TM normal Throat/Mouth: Normal Inspection Head: Atraumatic, Normocephalic Neck: Normal Inspection, Supple, Non-Tender, Full Range of Motion Respiratory/Chest: Rhonchi, Wheezing, Other (Bilateral wheezing with rhonchi and productive cough) Cardiovascular: Normal Peripheral Pulses, Regular Rate, Rhythm, No Edema, No JVD , No Murmur GI/Abdominal: Normal Bowel Sounds, Soft, Non-Tender Extremities: Normal Inspection Neurological: Alert, Oriented, CN II-XII Intact, Normal Cognition Psychiatric: Normal Affect Skin Exam: Warm, Dry EKG INTERPRETATION EKG Date: 10/26/19 Rhythm: NSR [place]: Normal P-Wave: Present QRS: Normal ST-T: Normal Course - Vital Signs Last Recorded V/S: Last Vital Signs Temp 97.9 F 10/27/19 04:43 Pulse 71 10/27/19 04:43 Resp 19 10/27/19 04:43 BP 162/84 H 10/27/19 04:43 Pulse Ox 98 10/27/19 04:43 - Orders/Labs/Meds Orders: Active Orders 24 hr Category Date Time Status CULTURE BLOOD [BC] Stat Lab 10/26/19 10:41 Ordered CULTURE BLOOD [BC] Stat Lab 10/26/19 10:41 Ordered Azithromycin [Zithromax] 500 mg Med 10/26/19 11:45 Active Sodium Chloride 0.9% [Normal Saline (AdvBag)] 250 ml IV ONETIME Sodium Chloride 0.9% [Saline Flush] Med 10/26/19 10:22 Active 10 ml FLUSH ASDIRECTED PRN Sodium Chloride 0.9% [Saline Flush] Med 10/26/19 10:22 Active 2.5 ml FLUSH ASDIRECTED PRN Saline Lock Insert [OM.PC] Stat Oth 10/26/19 10:22 Ordered Medication Orders Acetaminophen (Tylenol) 650 mg PO Q6H PRN PRN Reason: Pain (Mild 1-3)/fever Last Admin: 10/26/19 23:17 Dose: 650 mg Albuterol/Ipratropium (Duoneb 3.0-0.5 Mg/3 Ml) 3 ml NEB Q4HRRT PRN PRN Reason: Wheezing Azithromycin 500 mg/ Sodium (Chloride) 250 mls @ 250 mls/hr IV ONETIME [place] Last Admin: 10/26/19 13:05 Dose: 250 mls/hr Ceftriaxone Sodium 1 gm/ (Sodium Chloride) 50 mls @ 100 mls/hr IV Q24H [place] Azithromycin 500 mg/ Sodium (Chloride) 250 mls @ 250 mls/hr IV Q24H [facility] Methylprednisolone Sodium Succinate (Solu-Medrol) 125 mg IV DAILY [facility] Montelukast Sodium (Singulair) 10 mg PO BEDTIME [facility] Last Admin: 10/26/19 20:28 Dose: 10 mg Sertraline HCl (Zoloft) 100 mg PO DAILY [facility] Sodium Chloride (Saline Flush) 10 ml FLUSH ASDIRECTED PRN PRN Reason: Keep Vein Open Last Admin: 10/26/19 10:39 Dose: 10 ml Sodium Chloride (Saline Flush) 2.5 ml FLUSH ASDIRECTED PRN PRN Reason: Keep Vein Open Last Admin: 10/26/19 10:39 Dose: 2.5 ml Labs: Laboratory Tests 10/26/19 10/26/19 10/26/19 Range/Units 10:08 10:08 10:08 WBC 16.91 H (4.0-11.0) K/uL RBC 3.71 L (4.30-5.90) M/uL Hgb 11.3 L (12.0-16.0) g/dL Hct 38.3 (36.0-46.0) % MCV 103.2 H (80.0-98.0) fL MCH 30.5 (27.0-32.0) pg MCHC 29.5 L (31.0-37.0) g/dL RDW Std Deviation 50.9 (28.0-62.0) fl RDW Coeff of Carmen 14 (11.0-15.0) % Plt Count 190 (150-400) K/uL MPV 11.70 (7.40-12.00) fL Neut % (Auto) 86.5 H (48.0-80.0) % Lymph % (Auto) 9.5 L (16.0-40.0) % [place] % (Auto) 3.7 (0.0-15.0) % Eos % (Auto) 0.2 (0.0-7.0) % Baso % (Auto) 0.1 (0.0-1.5) % Neut # (Auto) 14.6 H (1.4-5.7) K/uL Lymph # (Auto) 1.6 (0.6-2.4) K/uL [place] # (Auto) 0.6 (0.0-0.8) K/uL Eos # (Auto) 0.0 (0.0-0.7) K/uL Baso # (Auto) 0.0 (0.0-0.1) K/uL Nucleated RBC % 0.0 /100WBC Nucleated RBCs # 0 K/uL ABG pH (7.35-7.45) ABG pCO2 (35-45) mmHG ABG pO2 (75-100) mmHG ABG HCO3 (22-26) mEq/L ABG Total CO2 ABG Base Excess (-2.0-2.0) Lactate 3.9 H* (0.20-2.00) mmol/L Sodium 143 (136-145) mmol/L Potassium 4.1 (3.5-5.1) mmol/L Chloride 100 (98-107) mmol/L Carbon Dioxide 36.3 H (21.0-32.0) mmol/L BUN 21 H (7.0-18.0) mg/dL Creatinine 0.8 (0.6-1.0) mg/dL Est Cr Clr Drug Dosing 36.15 mL/min Estimated GFR (MDRD) > 60.0 ml/min Glucose 162 H (74-106) mg/dL Calcium 10.0 (8.5-10.1) mg/dL Total Bilirubin 0.5 (0.2-1.0) mg/dL AST 20 (15-37) IU/L ALT 23 (14-63) IU/L Alkaline Phosphatase 55 (46-116) U/L Troponin I < 0.050 (0.000-0.056) ng/mL Total Protein 7.8 (6.4-8.2) g/dL Albumin 3.4 (3.4-5.0) g/dL Globulin 4.4 H (2.6-4.0) g/dL Albumin/Globulin Ratio 0.8 L (0.9-1.6) 10/26/19 Range/Units 10:44 WBC (4.0-11.0) K/uL RBC (4.30-5.90) M/uL Hgb (12.0-16.0) g/dL Hct (36.0-46.0) % MCV (80.0-98.0) fL MCH (27.0-32.0) pg MCHC (31.0-37.0) g/dL RDW Std Deviation (28.0-62.0) fl RDW Coeff of Carmen (11.0-15.0) % Plt Count (150-400) K/uL MPV (7.40-12.00) fL Neut % (Auto) (48.0-80.0) % Lymph % (Auto) (16.0-40.0) % [place] % (Auto) (0.0-15.0) % Eos % (Auto) (0.0-7.0) % Baso % (Auto) (0.0-1.5) % Neut # (Auto) (1.4-5.7) K/uL Lymph # (Auto) (0.6-2.4) K/uL [place] # (Auto) (0.0-0.8) K/uL Eos # (Auto) (0.0-0.7) K/uL Baso # (Auto) (0.0-0.1) K/uL Nucleated RBC % /100WBC Nucleated RBCs # K/uL ABG pH 7.384 (7.35-7.45) ABG pCO2 62 H (35-45) mmHG ABG pO2 168 H (75-100) mmHG ABG HCO3 37 H (22-26) mEq/L ABG Total CO2 34.7 ABG Base Excess 10.3 H (-2.0-2.0) Lactate (0.20-2.00) mmol/L Sodium (136-145) mmol/L Potassium (3.5-5.1) mmol/L Chloride (98-107) mmol/L Carbon Dioxide (21.0-32.0) mmol/L BUN (7.0-18.0) mg/dL Creatinine (0.6-1.0) mg/dL Est Cr Clr Drug Dosing mL/min Estimated GFR (MDRD) ml/min Glucose (74-106) mg/dL Calcium (8.5-10.1) mg/dL Total Bilirubin (0.2-1.0) mg/dL AST (15-37) IU/L ALT (14-63) IU/L Alkaline Phosphatase (46-116) U/L Troponin I (0.000-0.056) ng/mL Total Protein (6.4-8.2) g/dL Albumin (3.4-5.0) g/dL Globulin (2.6-4.0) g/dL Albumin/Globulin Ratio (0.9-1.6) Meds: Medications Generic Name Dose Route Start Last Admin Trade Name Harshq PRN Reason Stop Dose Admin Acetaminophen 650 mg 10/26/19 14:16 10/26/19 23:17 Tylenol PO 650 mg Q6H PRN Administration Pain (Mild 1-3)/fever Albuterol/Ipratropium 3 ml 10/26/19 14:14 Duoneb 3.0-0.5 Mg/3 Ml NEB Q4HRRT PRN Wheezing Azithromycin 500 mg/ Sodium 250 mls @ 250 mls/hr 10/26/19 11:45 10/26/19 13: 05 Chloride IV 250 mls/hr ONETIME [place] Administration Ceftriaxone Sodium 1 gm/ 50 mls @ 100 mls/hr 10/27/19 12:00 Sodium Chloride IV Q24H [facility] Azithromycin 500 mg/ Sodium 250 mls @ 250 mls/hr 10/27/19 12:30 Chloride IV Q24H [facility] Methylprednisolone Sodium Succinate 125 mg 10/27/19 09:00 Solu-Medrol IV DAILY [facility] Montelukast Sodium 10 mg 10/26/19 21:00 10/26/19 20:28 Singulair PO 10 mg BEDTIME [facility] Administration Sertraline HCl 100 mg 10/27/19 09:00 Zoloft PO DAILY [facility] Sodium Chloride 10 ml 10/26/19 10:22 10/26/19 10:39 Saline Flush FLUSH 10 ml ASDIRECTED PRN Administration Keep Vein Open Sodium Chloride 2.5 ml 10/26/19 10:22 10/26/19 10:39 Saline Flush FLUSH 2.5 ml ASDIRECTED PRN Administration Keep Vein Open Discontinued Medications Generic Name Dose Route Start Last Admin Trade Name Ella PRN Reason Stop Dose Admin Albuterol/Ipratropium 3 ml 10/26/19 10:22 10/26/19 10:39 Duoneb 3.0-0.5 Mg/3 Ml NEB 10/26/19 10:23 3 ml ONETIME ONE Administration Ceftriaxone Sodium 1 gm/ 50 mls @ 100 mls/hr 10/26/19 11:32 10/26/19 11:49 Sodium Chloride IV 10/26/19 12:01 100 mls/hr ONETIME ONE Administration Sodium Chloride 1,000 mls @ 999 mls/hr 10/26/19 11:37 10/26/19 11:49 Normal Saline IV 10/26/19 12:37 999 mls/hr .Bolus ONE Administration Influenza Virus Vaccine 1 each 10/26/19 13:50 Pharmacy To Dose - Influenza Vaccine IM 10/26/19 13:51 ONETIME ONE Influenza Virus Vaccine 180 mcg 10/26/19 14:00 Fluzone High-Dose 2018- Syringe IM 10/26/19 14:01 .ONCE ONE Methylprednisolone Sodium Succinate 125 mg 10/26/19 10:22 10/26/19 10:39 Solu-Medrol IVPUSH 10/26/19 10:23 125 mg ONETIME ONE Administration Departure - Departure Time of Disposition: 11:58 Disposition: Admitted As Inpatient 64 Condition: Fair Clinical Impression: COPD exacerbation, Pneumonia - Discharge Information Sepsis Event Note - Evaluation Sepsis Screening Result: No Definite Risk - Focused Exam Date Exam was Performed: 10/27/19 Time Exam was Performed: 07:21 - My Orders Last 24 Hours: My Active Orders 10/26/19 10:41 CULTURE BLOOD [BC] Stat CULTURE BLOOD [BC] Stat 10/26/19 11:45 Azithromycin [Zithromax] 500 mg Sodium Chloride 0.9% [Normal Saline (AdvBag)] 250 ml IV ONETIME - Assessment/Plan Last 24 Hours: My Active Orders 10/26/19 10:41 CULTURE BLOOD [BC] Stat CULTURE BLOOD [BC] Stat 10/26/19 11:45 Azithromycin [Zithromax] 500 mg Sodium Chloride 0.9% [Normal Saline (AdvBag)] 250 ml IV ONETIME
[2019-10-26] MEDS ORDERED: Albuterol/Ipratropium 3.0-0.5 MG/3 ML Neb Soln NEB PRN (14:14)
--- NOTE | 2019-10-26 14:26 | PCM.HP.2 ---
H&P History of Present Illness - General Date of Service: 10/26/19 Admit Problem/Dx: Admission Diagnosis/Problem Admission Diagnosis/Problem COPD with acute lower respiratory infection - History of Present Illness Initial Comments - Free Text/Narative: 84 yo female with pmh of oxygen dependent COPD who presents with several day history of shortness of breath and productive cough. Patient believes she has a pneumonia. In the ED she was noted to be in respiratory distress and satting 84% on 4 L NC with Heart rate in the 110s. She was given solumedrol, Rocephin, Azithromycin, duonebs and a liter of fluid. She responded quickly to treatment with improvement in her dyspnea and tachycardia. - Related Data Allergies/Adverse Reactions: Allergies Allergy/AdvReac Type Severity Reaction Status Date / Time morphine Allergy Cannot Verified 10/26/19 10:16 Remember Beef Containing Products AdvReac unknown Verified 10/26/19 10:16 pork derived (porcine) AdvReac unknown Verified 10/26/19 10:16 wheat AdvReac unknown Verified 10/26/19 10:16 Home Medications: Home Meds Fluticasone Propionate [Flovent] 1 puff IH BID 10/09/17 [History] Fluticasone/Salmeterol [Advair Diskus 100-50] 1 puff INH BID 10/09/17 [History] Ipratropium [Atrovent 0.06% Nasal [place]] 34 mcg INH QID 10/09/17 [History] Levalbuterol Tartrate [Xopenex Hfa] 90 mcg INH QID 10/09/17 [History] Mirtazapine 45 mg PO BEDTIME 10/09/17 [History] Montelukast [Singulair] 10 mg PO BEDTIME 10/09/17 [History] Sertraline [Zoloft] 100 mg PO DAILY 10/09/17 [History] Erythromycin Base [Erythromycin 0.5% Ophth Oint] 1 applic EYEBOTH BEDTIME [History] Furosemide 20 mg PO DAILY PRN 04/10/19 [History] Ipratropium [Atrovent HFA] 35.2 mcg INH Q6H 04/10/19 [History] Iron Polysaccharide Complex [Iferex 150] 150 mg PO DAILY 04/10/19 [History] Midodrine 2.5 mg PO BID 04/10/19 [History] predniSONE [Prednisone] 3 tab PO DAILY 04/10/19 [History] Past Medical History HEENT History: Reports: Cataract, Impaired Vision Cardiovascular History: Reports: Hypertension Respiratory History: Reports: COPD, Pneumonia, Recurrent Other Respiratory History: on home 02 at 5liters/min via nasal cannula Gastrointestinal History: Reports: Diverticulosis, GERD Genitourinary History: Reports: UTI, Recurrent 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: Neurological History: Reports: Other (See Below) Other Neuro History: "mini" stroke Psychiatric History: Reports: Depression Endocrine/Metabolic History: Reports: Diabetes, Type II Other Endocrine/Metabolic History: low blood sugar Immunologic History: Reports: None Oncologic (Cancer) History: Reports: Uterine Other Oncologic History: uterus Dermatologic History: Reports: Melanoma - Infectious Disease History Infectious Disease History: Reports: Chicken Pox, Measles - Past Surgical History HEENT Surgical History: Reports: Cataract Surgery Female Surgical History: Reports: Hysterectomy Neurological Surgical History: Reports: None Social & Family History - Family History Family Medical History: Noncontributory HEENT: Reports: Impaired Vision Cardiac: Reports: [place] Respiratory: Reports: None GI: Reports: None OBGYN: Reports: Musculoskeletal: Reports: Arthritis Neurological: Reports: Parkinson's Psychiatric: Reports: Depression Dermatologic: Reports: None Oncologic: Reports: Breast, Colon - Tobacco Use Smoking Status *Q: Never Smoker Second Hand Smoke Exposure: No - Caffeine Use Caffeine Use: Reports: None - Recreational Drug Use Recreational Drug Use: No - Living Situation & Occupation Living situation: Reports: Alone, Assisted Living Occupation: Retired H&P Review of Systems - Review of Systems: Review Of Systems: Comprehensive ROS is negative, except as noted in HPI. Exam - Exam Exam: See Below - Vital Signs Vital Signs: Last Vital Signs Temp 37.2 C 10/26/19 12:12 Pulse 76 10/26/19 13:00 Resp 18 10/26/19 13:00 BP 124/73 10/26/19 13:00 Pulse Ox 99 10/26/19 13:00 Weight: 39.417 kg - Exam General: Alert, Oriented HEENT: Mucosa Moist & [place] Neck: Supple Lungs: Normal Respiratory Effort, Wheezing Cardiovascular: Regular Rate, Regular Rhythm Extremities: Non-Tender, No Pedal Edema Skin: Warm, Dry, Intact - Patient Data Lab Results Last 24 hrs: Laboratory Results - last 24 hr 10/26/19 10/26/19 10/26/19 Range/Units 10:08 10:08 10:08 WBC 16.91 H (4.0-11.0) K/uL RBC 3.71 L (4.30-5.90) M/uL Hgb 11.3 L (12.0-16.0) g/dL Hct 38.3 (36.0-46.0) % MCV 103.2 H (80.0-98.0) fL MCH 30.5 (27.0-32.0) pg MCHC 29.5 L (31.0-37.0) g/dL RDW Std Deviation 50.9 (28.0-62.0) fl RDW Coeff of Carmen 14 (11.0-15.0) % Plt Count 190 (150-400) K/uL MPV 11.70 (7.40-12.00) fL Neut % (Auto) 86.5 H (48.0-80.0) % Lymph % (Auto) 9.5 L (16.0-40.0) % [place] % (Auto) 3.7 (0.0-15.0) % Eos % (Auto) 0.2 (0.0-7.0) % Baso % (Auto) 0.1 (0.0-1.5) % Neut # (Auto) 14.6 H (1.4-5.7) K/uL Lymph # (Auto) 1.6 (0.6-2.4) K/uL [place] # (Auto) 0.6 (0.0-0.8) K/uL Eos # (Auto) 0.0 (0.0-0.7) K/uL Baso # (Auto) 0.0 (0.0-0.1) K/uL Nucleated RBC % 0.0 /100WBC Nucleated RBCs # 0 K/uL ABG pH (7.35-7.45) ABG pCO2 (35-45) mmHG ABG pO2 (75-100) mmHG ABG HCO3 (22-26) mEq/L ABG Total CO2 ABG Base Excess (-2.0-2.0) Lactate 3.9 H* (0.20-2.00) mmol/L Sodium 143 (136-145) mmol/L Potassium 4.1 (3.5-5.1) mmol/L Chloride 100 (98-107) mmol/L Carbon Dioxide 36.3 H (21.0-32.0) mmol/L BUN 21 H (7.0-18.0) mg/dL Creatinine 0.8 (0.6-1.0) mg/dL Est Cr Clr Drug Dosing 36.15 mL/min Estimated GFR (MDRD) > 60.0 ml/min Glucose 162 H (74-106) mg/dL Calcium 10.0 (8.5-10.1) mg/dL Total Bilirubin 0.5 (0.2-1.0) mg/dL AST 20 (15-37) IU/L ALT 23 (14-63) IU/L Alkaline Phosphatase 55 (46-116) U/L Troponin I < 0.050 (0.000-0.056) ng/mL Total Protein 7.8 (6.4-8.2) g/dL Albumin 3.4 (3.4-5.0) g/dL Globulin 4.4 H (2.6-4.0) g/dL Albumin/Globulin Ratio 0.8 L (0.9-1.6) 10/26/19 Range/Units 10:44 WBC (4.0-11.0) K/uL RBC (4.30-5.90) M/uL Hgb (12.0-16.0) g/dL Hct (36.0-46.0) % MCV (80.0-98.0) fL MCH (27.0-32.0) pg MCHC (31.0-37.0) g/dL RDW Std Deviation (28.0-62.0) fl RDW Coeff of Carmen (11.0-15.0) % Plt Count (150-400) K/uL MPV (7.40-12.00) fL Neut % (Auto) (48.0-80.0) % Lymph % (Auto) (16.0-40.0) % [place] % (Auto) (0.0-15.0) % Eos % (Auto) (0.0-7.0) % Baso % (Auto) (0.0-1.5) % Neut # (Auto) (1.4-5.7) K/uL Lymph # (Auto) (0.6-2.4) K/uL [place] # (Auto) (0.0-0.8) K/uL Eos # (Auto) (0.0-0.7) K/uL Baso # (Auto) (0.0-0.1) K/uL Nucleated RBC % /100WBC Nucleated RBCs # K/uL ABG pH 7.384 (7.35-7.45) ABG pCO2 62 H (35-45) mmHG ABG pO2 168 H (75-100) mmHG ABG HCO3 37 H (22-26) mEq/L ABG Total CO2 34.7 ABG Base Excess 10.3 H (-2.0-2.0) Lactate (0.20-2.00) mmol/L Sodium (136-145) mmol/L Potassium (3.5-5.1) mmol/L Chloride (98-107) mmol/L Carbon Dioxide (21.0-32.0) mmol/L BUN (7.0-18.0) mg/dL Creatinine (0.6-1.0) mg/dL Est Cr Clr Drug Dosing mL/min Estimated GFR (MDRD) ml/min Glucose (74-106) mg/dL Calcium (8.5-10.1) mg/dL Total Bilirubin (0.2-1.0) mg/dL AST (15-37) IU/L ALT (14-63) IU/L Alkaline Phosphatase (46-116) U/L Troponin I (0.000-0.056) ng/mL Total Protein (6.4-8.2) g/dL Albumin (3.4-5.0) g/dL Globulin (2.6-4.0) g/dL Albumin/Globulin Ratio (0.9-1.6) Result Diagrams: 10/26/19 10:08 10/26/19 10:08 [place] Results Last 24 hrs: Microbiology 10/26/19 10:10 Influenza Type A Antigen Screen - Final Nasopharyngeal Swab NEGATIVE INFLUENZA A VIRUS AG REFERENCE RANGE: NEGATIVE Influenza Type B Antigen Screen - Final NEGATIVE INFLUENZA B VIRUS AG REFERENCE RANGE: NEGATIVE Sepsis Event Note - Evaluation Sepsis Screening Result: No Definite Risk - Focused Exam Vital Signs: Vital Signs Temp Pulse Resp BP Pulse Ox 10/26/19 13:00 76 18 124/73 99 10/26/19 12:12 37.2 C 94 16 162/84 H 95 10/26/19 12:00 36.1 C 81 20 117/58 L 97 10/26/19 11:30 89 18 154/70 H 98 10/26/19 11:00 86 20 117/75 99 10/26/19 10:45 86 20 122/74 99 10/26/19 10:30 85 22 H 115/65 98 10/26/19 10:13 36.1 C 116 H 35 H 151/86 H 88 L Date Exam was Performed: 10/26/19 Time Exam was Performed: 14:18 Problem List Initiated/Reviewed/Updated: Yes Orders Last 24hrs: Active Orders 24 hr Category Date Time Status Admission Status [Patient Status] [ADT] Stat ADT 10/26/19 11:52 Active Antiembolic Devices [RC] PER UNIT ROUTINE Care 10/26/19 14:16 Ordered Influenza Vaccine Charge [RC] .DISCHARGE Care 10/26/19 13:50 Active Oxygen Therapy [RC] PRN Care 10/26/19 14:16 Ordered RT Aerosol Therapy [RC] ASDIRECTED Care 10/26/19 14:15 Ordered Up ad [place] [RC] ASDIRECTED Care 10/26/19 14:16 Ordered VTE/DVT Education [RC] PER UNIT ROUTINE Care 10/26/19 14:16 Ordered Vital Signs [RC] Q4H Care 10/26/19 14:16 Ordered Regular Diet [DIET] Diet 10/26/19 Breakfast Ordered BASIC METABOLIC PANEL,BMP [CHEM] AM Lab 10/27/19 05:11 Ordered CBC WITH AUTO DIFF [HEME] AM Lab 10/27/19 05:11 Ordered CULTURE BLOOD [BC] Stat Lab 10/26/19 10:41 Ordered CULTURE BLOOD [BC] Stat Lab 10/26/19 10:41 Ordered LACTIC ACID,WHOLE BLOOD [BG] Q6H Lab 10/26/19 15:00 Ordered LACTIC ACID,WHOLE BLOOD [BG] Q6H Lab 10/26/19 21:00 Ordered LACTIC ACID,WHOLE BLOOD [BG] Q6H Lab 10/27/19 03:00 Ordered LACTIC ACID,WHOLE BLOOD [BG] Q6H Lab 10/27/19 09:00 Ordered Acetaminophen [Tylenol] Med 10/26/19 14:16 Ordered 650 mg PO Q6H PRN Albuterol/Ipratropium [DuoNeb 3.0-0.5 MG/3 ML] Med 10/26/19 14:14 Ordered 3 ml NEB Q4HRRT PRN Azithromycin [Zithromax] Med 10/27/19 12:00 Ordered 500 mg IV Q24H Azithromycin [Zithromax] 500 mg Med 10/26/19 11:45 Active Sodium Chloride 0.9% [Normal Saline (AdvBag)] 250 ml IV ONETIME Montelukast [Singulair] Med 10/26/19 21:00 Ordered 10 mg PO BEDTIME Sertraline [Zoloft] Med 10/27/19 09:00 Ordered 100 mg PO DAILY Sodium Chloride 0.9% [Saline Flush] Med 10/26/19 10:22 Active 10 ml FLUSH ASDIRECTED PRN Sodium Chloride 0.9% [Saline Flush] Med 10/26/19 10:22 Active 2.5 ml FLUSH ASDIRECTED PRN cefTRIAXone [Rocephin] 1 gm Med 10/27/19 12:00 Ordered Sodium Chloride 0.9% [Normal Saline] 50 ml IV Q24H methylPREDNISolone Sod Succ [Solu-MEDROL] Med 10/27/19 09:00 Ordered 125 mg IV DAILY Saline Lock Insert [OM.PC] Stat Oth 10/26/19 10:22 Ordered Sequential Compression Device [OM.PC] Per Unit Routine Oth 10/26/19 14:16 Ordered Resuscitation Status Routine Resus Stat 10/26/19 14:16 Ordered Medication Orders Acetaminophen (Tylenol) 650 mg PO Q6H PRN PRN Reason: Pain (Mild 1-3)/fever Albuterol/Ipratropium (Duoneb 3.0-0.5 Mg/3 Ml) 3 ml NEB Q4HRRT PRN PRN Reason: Wheezing Azithromycin (Zithromax) 500 mg IV Q24H [facility] Azithromycin 500 mg/ Sodium (Chloride) 250 mls @ 250 mls/hr IV ONETIME [facility] Last Admin: 10/26/19 13:05 Dose: 250 mls/hr Ceftriaxone Sodium 1 gm/ (Sodium Chloride) 50 mls @ 100 mls/hr IV Q24H [facility] Methylprednisolone Sodium Succinate (Solu-Medrol) 125 mg IV DAILY [facility] Montelukast Sodium (Singulair) 10 mg PO BEDTIME [facility] Sertraline HCl (Zoloft) 100 mg PO DAILY [facility] Sodium Chloride (Saline Flush) 10 ml FLUSH ASDIRECTED PRN PRN Reason: Keep Vein Open Last Admin: 10/26/19 10:39 Dose: 10 ml Sodium Chloride (Saline Flush) 2.5 ml FLUSH ASDIRECTED PRN PRN Reason: Keep Vein Open Last Admin: 10/26/19 10:39 Dose: 2.5 ml Assessment/Plan Comment:: 84 yo female admitted for pneumonia with COPD exacerbation. We will treat with Rocephin, Azithromycin, duonebs, and solumedrol. We will wean supplemental oxygen as tolerated and trend her lactic acid.
[2019-10-26] MEDS: Montelukast 10 MG Tab PO SCH (20:28)
[2019-10-26] MEDS: Acetaminophen 325 MG Tab PO PRN (23:17)
[2019-10-27 05:53] LABS: BLOOD UREA NITROGEN,BUN 20 mg/dL (7.0-18.0); CARBON DIOXIDE,CO2 38.8 mmol/L (21.0-32.0); CHLORIDE,CL 107 mmol/L (98-107); GLUCOSE RANDOM 94 mg/dL (74-106); POTASSIUM,K 3.9 mmol/L (3.5-5.1); SODIUM,NA 145 mmol/L (136-145)
[2019-10-27] MEDS: Sertraline 100 MG Tab PO SCH (09:00)
[2019-10-27] MEDS: methylPREDNISolone Sodium Succinate 125 MG/2 ML SDV IV SCH (09:00)
--- NOTE | 2019-10-27 09:07 | PCM.PN ---
- General Info Date of Service: 10/27/19 Subjective Update: Patient reports she feels better but doesn't think she is ready to go home yet. Oxygen use down to 3 L but patient feels like she needs more. Oxygen sat was check and she was 86%, so oxygen was increased. Reports at home she uses 5-6 L. No fever and white count resolved. Eating and drinking ok. - Review of Systems General: Reports: No Symptoms HEENT: Reports: No Symptoms Pulmonary: Reports: Wheezing Cardiovascular: Reports: No Symptoms Gastrointestinal: Reports: No Symptoms Genitourinary: Reports: No Symptoms Musculoskeletal: Reports: No Symptoms Skin: Reports: No Symptoms Neurological: Reports: No Symptoms Psychiatric: Reports: No Symptoms - Patient Data Vitals - Most Recent: Last Vital Signs Temp 97.9 F 10/27/19 04:43 Pulse 71 10/27/19 04:43 Resp 19 10/27/19 04:43 BP 162/84 H 10/27/19 04:43 Pulse Ox 98 10/27/19 04:43 Weight - Most Recent: 39.417 kg I&O - Last 24 Hours: Intake & Output 10/26/19 10/27/19 10/27/19 22:59 06:59 14:59 Intake Total 400 Output Total 300 Balance 100 Lab Results Last 24 Hours: Laboratory Results - last 24 hr 10/26/19 10/26/19 10/26/19 Range/Units 10:08 10:08 10:08 WBC 16.91 H (4.0-11.0) K/uL RBC 3.71 L (4.30-5.90) M/uL Hgb 11.3 L (12.0-16.0) g/dL Hct 38.3 (36.0-46.0) % MCV 103.2 H (80.0-98.0) fL MCH 30.5 (27.0-32.0) pg MCHC 29.5 L (31.0-37.0) g/dL RDW Std Deviation 50.9 (28.0-62.0) fl RDW Coeff of Carmen 14 (11.0-15.0) % Plt Count 190 (150-400) K/uL MPV 11.70 (7.40-12.00) fL Neut % (Auto) 86.5 H (48.0-80.0) % Lymph % (Auto) 9.5 L (16.0-40.0) % [place] % (Auto) 3.7 (0.0-15.0) % Eos % (Auto) 0.2 (0.0-7.0) % Baso % (Auto) 0.1 (0.0-1.5) % Neut # (Auto) 14.6 H (1.4-5.7) K/uL Lymph # (Auto) 1.6 (0.6-2.4) K/uL [place] # (Auto) 0.6 (0.0-0.8) K/uL Eos # (Auto) 0.0 (0.0-0.7) K/uL Baso # (Auto) 0.0 (0.0-0.1) K/uL Nucleated RBC % 0.0 /100WBC Nucleated RBCs # 0 K/uL ABG pH (7.35-7.45) ABG pCO2 (35-45) mmHG ABG pO2 (75-100) mmHG ABG HCO3 (22-26) mEq/L ABG Total CO2 ABG Base Excess (-2.0-2.0) Lactate 3.9 H* (0.20-2.00) mmol/L Sodium 143 (136-145) mmol/L Potassium 4.1 (3.5-5.1) mmol/L Chloride 100 (98-107) mmol/L Carbon Dioxide 36.3 H (21.0-32.0) mmol/L BUN 21 H (7.0-18.0) mg/dL Creatinine 0.8 (0.6-1.0) mg/dL Est Cr Clr Drug Dosing 36.15 mL/min Estimated GFR (MDRD) > 60.0 ml/min Glucose 162 H (74-106) mg/dL Calcium 10.0 (8.5-10.1) mg/dL Total Bilirubin 0.5 (0.2-1.0) mg/dL AST 20 (15-37) IU/L ALT 23 (14-63) IU/L Alkaline Phosphatase 55 (46-116) U/L Troponin I < 0.050 (0.000-0.056) ng/mL Total Protein 7.8 (6.4-8.2) g/dL Albumin 3.4 (3.4-5.0) g/dL Globulin 4.4 H (2.6-4.0) g/dL Albumin/Globulin Ratio 0.8 L (0.9-1.6) 10/26/19 10/26/19 10/27/19 Range/Units 10:44 14:53 05:00 WBC 7.49 (4.0-11.0) K/uL RBC 3.13 L (4.30-5.90) M/uL Hgb 9.6 L (12.0-16.0) g/dL Hct 31.9 L (36.0-46.0) % MCV 101.9 H (80.0-98.0) fL MCH 30.7 (27.0-32.0) pg MCHC 30.1 L (31.0-37.0) g/dL RDW Std Deviation 50.1 (28.0-62.0) fl RDW Coeff of Carmen 14 (11.0-15.0) % Plt Count 140 L (150-400) K/uL MPV 11.50 (7.40-12.00) fL Neut % (Auto) 77.0 (48.0-80.0) % Lymph % (Auto) 17.8 (16.0-40.0) % [place] % (Auto) 4.7 (0.0-15.0) % Eos % (Auto) 0.4 (0.0-7.0) % Baso % (Auto) 0.1 (0.0-1.5) % Neut # (Auto) 5.8 H (1.4-5.7) K/uL Lymph # (Auto) 1.3 (0.6-2.4) K/uL [place] # (Auto) 0.4 (0.0-0.8) K/uL Eos # (Auto) 0.0 (0.0-0.7) K/uL Baso # (Auto) 0.0 (0.0-0.1) K/uL Nucleated RBC % 0.0 /100WBC Nucleated RBCs # 0 K/uL ABG pH 7.384 (7.35-7.45) ABG pCO2 62 H (35-45) mmHG ABG pO2 168 H (75-100) mmHG ABG HCO3 37 H (22-26) mEq/L ABG Total CO2 34.7 ABG Base Excess 10.3 H (-2.0-2.0) Lactate 0.7 (0.20-2.00) mmol/L Sodium (136-145) mmol/L Potassium (3.5-5.1) mmol/L Chloride (98-107) mmol/L Carbon Dioxide (21.0-32.0) mmol/L BUN (7.0-18.0) mg/dL Creatinine (0.6-1.0) mg/dL Est Cr Clr Drug Dosing mL/min Estimated GFR (MDRD) ml/min Glucose (74-106) mg/dL Calcium (8.5-10.1) mg/dL Total Bilirubin (0.2-1.0) mg/dL AST (15-37) IU/L ALT (14-63) IU/L Alkaline Phosphatase (46-116) U/L Troponin I (0.000-0.056) ng/mL Total Protein (6.4-8.2) g/dL Albumin (3.4-5.0) g/dL Globulin (2.6-4.0) g/dL Albumin/Globulin Ratio (0.9-1.6) 10/27/19 Range/Units 05:00 WBC (4.0-11.0) K/uL RBC (4.30-5.90) M/uL Hgb (12.0-16.0) g/dL Hct (36.0-46.0) % MCV (80.0-98.0) fL MCH (27.0-32.0) pg MCHC (31.0-37.0) g/dL RDW Std Deviation (28.0-62.0) fl RDW Coeff of Carmen (11.0-15.0) % Plt Count (150-400) K/uL MPV (7.40-12.00) fL Neut % (Auto) (48.0-80.0) % Lymph % (Auto) (16.0-40.0) % [place] % (Auto) (0.0-15.0) % Eos % (Auto) (0.0-7.0) % Baso % (Auto) (0.0-1.5) % Neut # (Auto) (1.4-5.7) K/uL Lymph # (Auto) (0.6-2.4) K/uL [place] # (Auto) (0.0-0.8) K/uL Eos # (Auto) (0.0-0.7) K/uL Baso # (Auto) (0.0-0.1) K/uL Nucleated RBC % /100WBC Nucleated RBCs # K/uL ABG pH (7.35-7.45) ABG pCO2 (35-45) mmHG ABG pO2 (75-100) mmHG ABG HCO3 (22-26) mEq/L ABG Total CO2 ABG Base Excess (-2.0-2.0) Lactate (0.20-2.00) mmol/L Sodium 145 (136-145) mmol/L Potassium 3.9 (3.5-5.1) mmol/L Chloride 107 (98-107) mmol/L Carbon Dioxide 38.8 H (21.0-32.0) mmol/L BUN 20 H (7.0-18.0) mg/dL Creatinine 0.5 L (0.6-1.0) mg/dL Est Cr Clr Drug Dosing 50.26 mL/min Estimated GFR (MDRD) > 60.0 ml/min Glucose 94 (74-106) mg/dL Calcium 8.9 (8.5-10.1) mg/dL Total Bilirubin (0.2-1.0) mg/dL AST (15-37) IU/L ALT (14-63) IU/L Alkaline Phosphatase (46-116) U/L Troponin I (0.000-0.056) ng/mL Total Protein (6.4-8.2) g/dL Albumin (3.4-5.0) g/dL Globulin (2.6-4.0) g/dL Albumin/Globulin Ratio (0.9-1.6) [place] Results Last 24 Hours: Microbiology 10/26/19 10:10 Influenza Type A Antigen Screen - Final Nasopharyngeal Swab NEGATIVE INFLUENZA A VIRUS AG REFERENCE RANGE: NEGATIVE Influenza Type B Antigen Screen - Final NEGATIVE INFLUENZA B VIRUS AG REFERENCE RANGE: NEGATIVE Med Orders - Current: Current Medications Acetaminophen (Tylenol) 650 mg PO Q6H PRN PRN Reason: Pain (Mild 1-3)/fever Last Admin: 01/21/20 23:17 Dose: 650 mg Albuterol/Ipratropium (Duoneb 3.0-0.5 Mg/3 Ml) 3 ml NEB Q6HR [place] Azithromycin 500 mg/ Sodium (Chloride) 250 mls @ 250 mls/hr IV ONETIME [facility] Last Admin: 10/26/19 13:05 Dose: 250 mls/hr Ceftriaxone Sodium 1 gm/ (Sodium Chloride) 50 mls @ 100 mls/hr IV Q24H [facility] Azithromycin 500 mg/ Sodium (Chloride) 250 mls @ 250 mls/hr IV Q24H [facility] Methylprednisolone Sodium Succinate (Solu-Medrol) 125 mg IV DAILY [facility] Last Admin: 10/27/19 09:00 Dose: 125 mg Montelukast Sodium (Singulair) 10 mg PO BEDTIME [facility] Last Admin: 10/26/19 20:28 Dose: 10 mg Sertraline HCl (Zoloft) 100 mg PO DAILY [facility] Last Admin: 10/27/19 09:00 Dose: 100 mg Sodium Chloride (Saline Flush) 10 ml FLUSH ASDIRECTED PRN PRN Reason: Keep Vein Open Last Admin: 10/26/19 10:39 Dose: 10 ml Sodium Chloride (Saline Flush) 2.5 ml FLUSH ASDIRECTED PRN PRN Reason: Keep Vein Open Last Admin: 10/26/19 10:39 Dose: 2.5 ml Discontinued Medications Albuterol/Ipratropium (Duoneb 3.0-0.5 Mg/3 Ml) 3 ml NEB ONETIME ONE Stop: 10/26/19 10:23 Last Admin: 10/26/19 10:39 Dose: 3 ml Albuterol/Ipratropium (Duoneb 3.0-0.5 Mg/3 Ml) 3 ml NEB Q4HRRT PRN PRN Reason: Wheezing Last Admin: 10/27/19 08:21 Dose: 3 ml Ceftriaxone Sodium 1 gm/ (Sodium Chloride) 50 mls @ 100 mls/hr IV ONETIME ONE Stop: 10/26/19 12:01 Last Admin: 10/26/19 11:49 Dose: 100 mls/hr Sodium Chloride (Normal Saline) 1,000 mls @ 999 mls/hr IV .Bolus ONE Stop: 10/26/19 12:37 Last Admin: 10/26/19 11:49 Dose: 999 mls/hr Influenza Virus Vaccine (Pharmacy To Dose - Influenza Vaccine) 1 each IM ONETIME ONE Stop: 10/26/19 13:51 Influenza Virus Vaccine (Fluzone High-Dose Syringe) 180 mcg IM .ONCE ONE Stop: 10/26/19 14:01 Methylprednisolone Sodium Succinate (Solu-Medrol) 125 mg IVPUSH ONETIME ONE Stop: 10/26/19 10:23 Last Admin: 10/26/19 10:39 Dose: 125 mg - Exam Quality Assessment: Supplemental Oxygen General: Alert, Oriented, Cooperative Lungs: Normal Respiratory Effort, Wheezing Cardiovascular: Regular Rate, Regular Rhythm GI/Abdominal Exam: Normal Bowel Sounds, Soft, Non-Tender, No Distention Extremities: No Pedal Edema Skin: Warm, Intact Neurological: No New Focal Deficit Psy/Mental Status: Alert, Normal Affect, Normal Mood Sepsis Event Note - Evaluation Sepsis Screening Result: No Definite Risk - Focused Exam Vital Signs: Vital Signs Temp Pulse Resp BP Pulse Ox 10/27/19 04:43 97.9 F 71 19 162/84 H 98 10/27/19 00:22 97.6 F 79 20 125/72 96 Date Exam was Performed: 10/27/19 Time Exam was Performed: 11:21 - Problem List Review Problem List Initiated/Reviewed/Updated: Yes - My Orders Last 24 Hours: My Active Orders 10/27/19 12:00 Albuterol/Ipratropium [DuoNeb 3.0-0.5 MG/3 ML] 3 ml NEB Q6HR - Plan Plan:: 1. Acute on chronic hypoxic respiratory failure secondary to COPD and pneumonia - Very wheezy on exam, changed duonebs to scheduled, patient reports she does neb treatments at home twice daily. Continue Rocephin, Azithromycin, and Solumedrol. 2. Depression- continue home sertraline.
[2019-10-27] MEDS: cefTRIAXone 1 GM in Sodium Chloride 0.9% 50 ML IV SCH (11:57)
[2019-10-27] MEDS ORDERED: Azithromycin 500 MG Vial IV SCH (12:00)
[2019-10-27] MEDS: Albuterol/Ipratropium 3.0-0.5 MG/3 ML Neb Soln NEB SCH ×3 (12:27→23:00)
[2019-10-27] MEDS: Azithromycin 500 MG in Sodium Chloride 0.9% 250 ML IV SCH (12:45)
[2019-10-27] MEDS: Enoxaparin 30 MG/0.3 ML Syringe SUBCUT SCH (12:46)
[2019-10-27] MEDS: Montelukast 10 MG Tab PO SCH (20:17)
[2019-10-28] MEDS: Acetaminophen 325 MG Tab PO PRN ×2 (02:24→15:57)
[2019-10-28] MEDS: Albuterol/Ipratropium 3.0-0.5 MG/3 ML Neb Soln NEB SCH ×3 (05:47→18:13)
[2019-10-28 06:41] LABS: BLOOD UREA NITROGEN,BUN 16 mg/dL (7.0-18.0); CARBON DIOXIDE,CO2 37.5 mmol/L (21.0-32.0); CHLORIDE,CL 104 mmol/L (98-107); GLUCOSE RANDOM 115 mg/dL (74-106); POTASSIUM,K 3.8 mmol/L (3.5-5.1); SODIUM,NA 145 mmol/L (136-145)
[2019-10-28] MEDS ORDERED: Furosemide 20 MG Tab PO PRN (08:30)
--- NOTE | 2019-10-28 08:49 | PCM.PN ---
- General Info Date of Service: 10/28/19 Subjective Update: Patient reports her breathing is a little better but she feels very weak. She requires assistance to get to bedside commode. BP running high, denies chest pain. Reports lots of sinus congestion which is draining States her and her son think it would be best if she went to [place] for rehab. - Review of Systems General: Reports: No Symptoms HEENT: Reports: No Symptoms Pulmonary: Reports: Shortness of Breath, Cough, Wheezing Cardiovascular: Reports: No Symptoms Gastrointestinal: Reports: No Symptoms Genitourinary: Reports: No Symptoms Musculoskeletal: Reports: No Symptoms Skin: Reports: No Symptoms Neurological: Reports: No Symptoms Psychiatric: Reports: No Symptoms - Patient Data Vitals - Most Recent: Last Vital Signs Temp 98.5 F 10/28/19 07:32 Pulse 77 10/28/19 07:32 Resp 16 10/28/19 07:32 BP 193/93 H 10/28/19 07:32 Pulse Ox 97 10/28/19 07:32 Weight - Most Recent: 39.417 kg I&O - Last 24 Hours: Intake & Output 10/27/19 10/28/19 10/28/19 22:59 06:59 14:59 Intake Total 180 300 Balance 180 300 Lab Results Last 24 Hours: Laboratory Results - last 24 hr 10/28/19 10/28/19 Range/Units 06:14 06:14 WBC 9.29 (4.0-11.0) K/uL RBC 3.30 L (4.30-5.90) M/uL Hgb 10.2 L (12.0-16.0) g/dL Hct 34.1 L (36.0-46.0) % MCV 103.3 H (80.0-98.0) fL MCH 30.9 (27.0-32.0) pg MCHC 29.9 L (31.0-37.0) g/dL RDW Std Deviation 50.2 (28.0-62.0) fl RDW Coeff of Carmen 13 (11.0-15.0) % Plt Count 171 (150-400) K/uL MPV 11.40 (7.40-12.00) fL Neut % (Auto) 70.5 (48.0-80.0) % Lymph % (Auto) 22.5 (16.0-40.0) % [place] % (Auto) 6.5 (0.0-15.0) % Eos % (Auto) 0.3 (0.0-7.0) % Baso % (Auto) 0.2 (0.0-1.5) % Neut # (Auto) 6.6 H (1.4-5.7) K/uL Lymph # (Auto) 2.1 (0.6-2.4) K/uL [place] # (Auto) 0.6 (0.0-0.8) K/uL Eos # (Auto) 0.0 (0.0-0.7) K/uL Baso # (Auto) 0.0 (0.0-0.1) K/uL Nucleated RBC % 0.0 /100WBC Nucleated RBCs # 0 K/uL Sodium 145 (136-145) mmol/L Potassium 3.8 (3.5-5.1) mmol/L Chloride 104 (98-107) mmol/L Carbon Dioxide 37.5 H (21.0-32.0) mmol/L BUN 16 (7.0-18.0) mg/dL Creatinine 0.6 (0.6-1.0) mg/dL Est Cr Clr Drug Dosing 41.88 mL/min Estimated GFR (MDRD) > 60.0 ml/min Glucose 115 H (74-106) mg/dL Calcium 9.0 (8.5-10.1) mg/dL Med Orders - Current: Current Medications Acetaminophen (Tylenol) 650 mg PO Q6H PRN PRN Reason: Pain (Mild 1-3)/fever Last Admin: 10/28/19 02:24 Dose: 650 mg Albuterol/Ipratropium (Duoneb 3.0-0.5 Mg/3 Ml) 3 ml NEB Q6HR [facility] Last Admin: 10/28/19 05:47 Dose: 3 ml Enoxaparin Sodium (Lovenox) 30 mg SUBCUT Q24H [facility] Last Admin: 10/27/19 12:46 Dose: 30 mg Furosemide (Lasix) 20 mg PO DAILY PRN PRN Reason: Edema Guaifenesin (Mucinex) 600 mg PO BID [facility] Ceftriaxone Sodium 1 gm/ (Sodium Chloride) 50 mls @ 100 mls/hr IV Q24H [facility] Last Admin: 10/27/19 11:57 Dose: 100 mls/hr Azithromycin 500 mg/ Sodium (Chloride) 250 mls @ 250 mls/hr IV Q24H [facility] Last Admin: 10/27/19 12:45 Dose: 250 mls/hr Methylprednisolone Sodium Succinate (Solu-Medrol) 125 mg IV DAILY [facility] Last Admin: 10/27/19 09:00 Dose: 125 mg Montelukast Sodium (Singulair) 10 mg PO BEDTIME [facility] Last Admin: 10/27/19 20:17 Dose: 10 mg Sertraline HCl (Zoloft) 100 mg PO DAILY [facility] Last Admin: 10/27/19 09:00 Dose: 100 mg Sodium Chloride (Saline Flush) 10 ml FLUSH ASDIRECTED PRN PRN Reason: Keep Vein Open Last Admin: 10/26/19 10:39 Dose: 10 ml Sodium Chloride (Saline Flush) 2.5 ml FLUSH ASDIRECTED PRN PRN Reason: Keep Vein Open Last Admin: 10/26/19 10:39 Dose: 2.5 ml Discontinued Medications Albuterol/Ipratropium (Duoneb 3.0-0.5 Mg/3 Ml) 3 ml NEB ONETIME ONE Stop: 10/26/19 10:23 Last Admin: 10/26/19 10:39 Dose: 3 ml Albuterol/Ipratropium (Duoneb 3.0-0.5 Mg/3 Ml) 3 ml NEB Q4HRRT PRN PRN Reason: Wheezing Last Admin: 10/27/19 08:21 Dose: 3 ml Azithromycin 500 mg/ Sodium (Chloride) 250 mls @ 250 mls/hr IV ONETIME [facility] Last Admin: 10/26/19 13:05 Dose: 250 mls/hr Ceftriaxone Sodium 1 gm/ (Sodium Chloride) 50 mls @ 100 mls/hr IV ONETIME ONE Stop: 10/26/19 12:01 Last Admin: 10/26/19 11:49 Dose: 100 mls/hr Sodium Chloride (Normal Saline) 1,000 mls @ 999 mls/hr IV .Bolus ONE Stop: 10/26/19 12:37 Last Admin: 10/26/19 11:49 Dose: 999 mls/hr Influenza Virus Vaccine (Pharmacy To Dose - Influenza Vaccine) 1 each IM ONETIME ONE Stop: 10/26/19 13:51 Influenza Virus Vaccine (Fluzone High-Dose Syringe) 180 mcg IM .ONCE ONE Stop: 10/26/19 14:01 Methylprednisolone Sodium Succinate (Solu-Medrol) 125 mg IVPUSH ONETIME ONE Stop: 10/26/19 10:23 Last Admin: 10/26/19 10:39 Dose: 125 mg - Exam Quality Assessment: Supplemental Oxygen General: Alert, Oriented, Cooperative Lungs: Normal Respiratory Effort, Wheezing Cardiovascular: Regular Rate, Regular Rhythm GI/Abdominal Exam: Normal Bowel Sounds, Soft, Non-Tender, No Distention Extremities: No Pedal Edema Skin: Warm, Dry, Other (pressure ulcer sacrum) Neurological: No New Focal Deficit Psy/Mental Status: Alert, Normal Affect, Normal Mood Sepsis Event Note - Evaluation Sepsis Screening Result: No Definite Risk - Focused Exam Vital Signs: Vital Signs Temp Pulse Resp BP Pulse Ox 10/28/19 07:32 98.5 F 77 16 193/93 H 97 10/28/19 04:55 96.6 F 73 18 190/93 H 99 10/27/19 23:02 98.7 F 85 20 180/88 H 91 L Date Exam was Performed: 10/28/19 Time Exam was Performed: 10:54 - Problem List Review Problem List Initiated/Reviewed/Updated: Yes - My Orders Last 24 Hours: My Active Orders 10/27/19 12:00 Albuterol/Ipratropium [DuoNeb 3.0-0.5 MG/3 ML] 3 ml NEB Q6HR 10/27/19 17:50 Consult to Physical Therapy [PT Evaluation and Treatment] [CONS] Routine 10/28/19 08:30 Furosemide [Lasix] 20 mg PO DAILY PRN 10/28/19 09:00 guaiFENesin [Mucinex] 600 mg PO BID - Plan Plan:: 1. Acute on chronic hypoxic respiratory failure secondary to COPD and pneumonia - Still wheezy on exam, changed duonebs to scheduled, patient reports she does neb treatments at home twice daily. Increase Solumedrol to BID. Continue Rocephin, Azithromycin. 2. Depression- continue home sertraline. 3. HTN- resume home lasix and start lisinopril 10 mg.
[2019-10-28] MEDS: Sertraline 100 MG Tab PO SCH (08:56)
[2019-10-28] MEDS: guaiFENesin 600 MG Tab.ER PO SCH ×2 (08:57→20:56)
[2019-10-28] MEDS: methylPREDNISolone Sodium Succinate 125 MG/2 ML SDV IV SCH ×2 (09:02→20:56)
[2019-10-28] MEDS ORDERED: Sodium Chloride 0.9% 50 ML ONE (11:08)
[2019-10-28] MEDS: Lisinopril 10 MG Tab PO SCH (11:18)
[2019-10-28] MEDS: Furosemide 20 MG Tab PO SCH (11:22)
[2019-10-28] MEDS: cefTRIAXone 1 GM in Sodium Chloride 0.9% 50 ML IV SCH (11:26)
[2019-10-28] MEDS: Azithromycin 500 MG in Sodium Chloride 0.9% 250 ML IV SCH (12:47)
[2019-10-28] MEDS: Enoxaparin 30 MG/0.3 ML Syringe SUBCUT SCH (12:54)
[2019-10-28] MEDS: Montelukast 10 MG Tab PO SCH (20:56)
[2019-10-29] MEDS: Albuterol/Ipratropium 3.0-0.5 MG/3 ML Neb Soln NEB SCH ×4 (00:24→17:59)
[2019-10-29 06:31] LABS: BLOOD UREA NITROGEN,BUN 20 mg/dL (7.0-18.0); CARBON DIOXIDE,CO2 38.6 mmol/L (21.0-32.0); CHLORIDE,CL 103 mmol/L (98-107); GLUCOSE RANDOM 136 mg/dL (74-106); POTASSIUM,K 3.7 mmol/L (3.5-5.1); SODIUM,NA 143 mmol/L (136-145)
[2019-10-29] MEDS: Sertraline 100 MG Tab PO SCH (09:42)
[2019-10-29] MEDS: guaiFENesin 600 MG Tab.ER PO SCH ×2 (09:42→20:39)
[2019-10-29] MEDS: Furosemide 20 MG Tab PO SCH (09:43)
[2019-10-29] MEDS: methylPREDNISolone Sodium Succinate 125 MG/2 ML SDV IV SCH ×2 (09:43→20:40)
[2019-10-29] MEDS: Lisinopril 10 MG Tab PO SCH (09:43)
--- NOTE | 2019-10-29 10:33 | PCM.PN ---
- General Info Date of Service: 10/29/19 Subjective Update: Patient reports feeling better but becomes very short of breath with activity. Reported diarrhea yesterday, Cdiff studies negative, others pending, still has diarrhea. Eating and drinking without issue. - Review of Systems General: Reports: No Symptoms HEENT: Reports: No Symptoms Pulmonary: Reports: Shortness of Breath Cardiovascular: Reports: No Symptoms Gastrointestinal: Reports: Diarrhea. Denies: Abdominal Pain, Nausea, Vomiting Genitourinary: Reports: No Symptoms Musculoskeletal: Reports: No Symptoms Skin: Reports: No Symptoms Neurological: Reports: No Symptoms Psychiatric: Reports: No Symptoms - Patient Data Vitals - Most Recent: Last Vital Signs Temp 98.2 F 10/29/19 08:00 Pulse 79 10/29/19 08:00 Resp 12 10/29/19 08:00 BP 162/80 H 10/29/19 09:43 Pulse Ox 92 L 10/29/19 08:00 Weight - Most Recent: 39.417 kg I&O - Last 24 Hours: Intake & Output 10/28/19 10/29/19 10/29/19 22:59 06:59 14:59 Intake Total 477 200 Output Total 450 550 Balance 27 -350 Lab Results Last 24 Hours: Laboratory Results - last 24 hr 10/29/19 10/29/19 Range/Units 05:50 05:50 WBC 4.70 (4.0-11.0) K/uL RBC 3.21 L (4.30-5.90) M/uL Hgb 9.7 L (12.0-16.0) g/dL Hct 32.1 L (36.0-46.0) % MCV 100.0 H (80.0-98.0) fL MCH 30.2 (27.0-32.0) pg MCHC 30.2 L (31.0-37.0) g/dL RDW Std Deviation 48.8 (28.0-62.0) fl RDW Coeff of Carmen 13 (11.0-15.0) % Plt Count 153 (150-400) K/uL MPV 11.80 (7.40-12.00) fL Neut % (Auto) 83.6 H (48.0-80.0) % Lymph % (Auto) 12.8 L (16.0-40.0) % [place] % (Auto) 3.6 (0.0-15.0) % Eos % (Auto) 0.0 (0.0-7.0) % Baso % (Auto) 0.0 (0.0-1.5) % Neut # (Auto) 3.9 (1.4-5.7) K/uL Lymph # (Auto) 0.6 (0.6-2.4) K/uL [place] # (Auto) 0.2 (0.0-0.8) K/uL Eos # (Auto) 0.0 (0.0-0.7) K/uL Baso # (Auto) 0.0 (0.0-0.1) K/uL Nucleated RBC % 0.0 /100WBC Nucleated RBCs # 0 K/uL Sodium 143 (136-145) mmol/L Potassium 3.7 (3.5-5.1) mmol/L Chloride 103 (98-107) mmol/L Carbon Dioxide 38.6 H (21.0-32.0) mmol/L BUN 20 H (7.0-18.0) mg/dL Creatinine 0.4 L (0.6-1.0) mg/dL Est Cr Clr Drug Dosing 62.82 mL/min Estimated GFR (MDRD) > 60.0 ml/min Glucose 136 H (74-106) mg/dL Calcium 9.1 (8.5-10.1) mg/dL [place] Results Last 24 Hours: Microbiology 10/28/19 16:20 C. difficile Antigen & Toxins A,B - Final Stool / Feces Med Orders - Current: Current Medications Acetaminophen (Tylenol) 650 mg PO Q6H PRN PRN Reason: Pain (Mild 1-3)/fever Last Admin: 10/28/19 15:57 Dose: 650 mg Albuterol/Ipratropium (Duoneb 3.0-0.5 Mg/3 Ml) 3 ml NEB Q6HR [facility] Last Admin: 10/29/19 05:47 Dose: 3 ml Enoxaparin Sodium (Lovenox) 30 mg SUBCUT Q24H [facility] Last Admin: 10/28/19 12:54 Dose: 30 mg Furosemide (Lasix) 20 mg PO DAILY [facility] Last Admin: 10/29/19 09:43 Dose: 20 mg Guaifenesin (Mucinex) 600 mg PO BID [facility] Last Admin: 10/29/19 09:42 Dose: 600 mg Ceftriaxone Sodium 1 gm/ (Sodium Chloride) 50 mls @ 100 mls/hr IV Q24H [facility] Last Admin: 10/28/19 11:26 Dose: 100 mls/hr Azithromycin 500 mg/ Sodium (Chloride) 250 mls @ 250 mls/hr IV Q24H [facility] Last Admin: 10/28/19 12:47 Dose: 250 mls/hr Lisinopril (Prinivil) 10 mg PO DAILY [facility] Last Admin: 10/29/19 09:43 Dose: 10 mg Methylprednisolone Sodium Succinate (Solu-Medrol) 125 mg IV BID [facility] Last Admin: 10/29/19 09:43 Dose: 125 mg Montelukast Sodium (Singulair) 10 mg PO BEDTIME [facility] Last Admin: 10/28/19 20:56 Dose: 10 mg Sertraline HCl (Zoloft) 100 mg PO DAILY [facility] Last Admin: 10/29/19 09:42 Dose: 100 mg Sodium Chloride (Saline Flush) 10 ml FLUSH ASDIRECTED PRN PRN Reason: Keep Vein Open Last Admin: 10/26/19 10:39 Dose: 10 ml Sodium Chloride (Saline Flush) 2.5 ml FLUSH ASDIRECTED PRN PRN Reason: Keep Vein Open Last Admin: 10/26/19 10:39 Dose: 2.5 ml Discontinued Medications Albuterol/Ipratropium (Duoneb 3.0-0.5 Mg/3 Ml) 3 ml NEB ONETIME ONE Stop: 10/26/19 10:23 Last Admin: 10/26/19 10:39 Dose: 3 ml Albuterol/Ipratropium (Duoneb 3.0-0.5 Mg/3 Ml) 3 ml NEB Q4HRRT PRN PRN Reason: Wheezing Last Admin: 10/27/19 08:21 Dose: 3 ml Furosemide (Lasix) 20 mg PO DAILY PRN PRN Reason: Edema Azithromycin 500 mg/ Sodium (Chloride) 250 mls @ 250 mls/hr IV ONETIME [facility] Last Admin: 10/26/19 13:05 Dose: 250 mls/hr Ceftriaxone Sodium 1 gm/ (Sodium Chloride) 50 mls @ 100 mls/hr IV ONETIME ONE Stop: 10/26/19 12:01 Last Admin: 10/26/19 11:49 Dose: 100 mls/hr Sodium Chloride (Normal Saline) 1,000 mls @ 999 mls/hr IV .Bolus ONE Stop: 10/26/19 12:37 Last Admin: 10/26/19 11:49 Dose: 999 mls/hr Sodium Chloride (Normal Saline) Confirm Administered Dose 50 mls @ as directed .ROUTE .STK-MED ONE Stop: 10/28/19 11:09 Last Admin: 10/28/19 11:32 Dose: Not Given Influenza Virus Vaccine (Pharmacy To Dose - Influenza Vaccine) 1 each IM ONETIME ONE Stop: 10/26/19 13:51 Influenza Virus Vaccine (Fluzone High-Dose Syringe) 180 mcg IM .ONCE ONE Stop: 10/26/19 14:01 Methylprednisolone Sodium Succinate (Solu-Medrol) 125 mg IVPUSH ONETIME ONE Stop: 10/26/19 10:23 Last Admin: 10/26/19 10:39 Dose: 125 mg Methylprednisolone Sodium Succinate (Solu-Medrol) 125 mg IV DAILY [place]RADO Last Admin: 10/28/19 09:02 Dose: 125 mg - Exam Quality Assessment: Supplemental Oxygen General: Alert, Oriented Lungs: Wheezing Cardiovascular: Regular Rate, Regular Rhythm GI/Abdominal Exam: Normal Bowel Sounds, Soft, Non-Tender, No Distention Extremities: No Pedal Edema Skin: Warm, Dry, Intact Neurological: No New Focal Deficit Psy/Mental Status: Alert, Normal Affect, Normal Mood Sepsis Event Note - Evaluation Sepsis Screening Result: No Definite Risk - Focused Exam Vital Signs: Vital Signs Temp Pulse Resp BP BP Pulse Ox 10/29/19 09:43 162/80 H 10/29/19 08:00 98.2 F 79 12 177/100 H 92 L 10/29/19 04:54 98.1 F 79 24 H 176/92 H 99 10/29/19 00:37 97.2 F 82 22 H 179/87 H 95 Date Exam was Performed: 10/29/19 Time Exam was Performed: 10:30 - Problem List Review Problem List Initiated/Reviewed/Updated: Yes - Plan Plan:: 1. Acute on chronic hypoxic respiratory failure secondary to COPD and pneumonia - Still wheezy on exam, continue scheduled duonebs and solumedrol bid. Continue Rocephin, Azithromycin. 2. Depression- continue home sertraline. 3. HTN- continue lasix and lisinopril 4. Diarrhea- Cdiff negative, other studies pending, already being treated with Azithromycin which would cover Campylobacter. Will have Imodium prn.
[2019-10-29] MEDS ORDERED: Lisinopril 10 MG Tab PO ONE (11:27)
[2019-10-29] MEDS: Enoxaparin 30 MG/0.3 ML Syringe SUBCUT SCH (12:16)
[2019-10-29] MEDS: cefTRIAXone 1 GM in Sodium Chloride 0.9% 50 ML IV SCH (12:19)
[2019-10-29] MEDS: Azithromycin 500 MG in Sodium Chloride 0.9% 250 ML IV SCH (13:31)
[2019-10-29] MEDS: Montelukast 10 MG Tab PO SCH (20:39)
[2019-10-30] MEDS: Acetaminophen 325 MG Tab PO PRN (00:53)
[2019-10-30] MEDS: Albuterol/Ipratropium 3.0-0.5 MG/3 ML Neb Soln NEB SCH ×4 (06:11→17:28)
[2019-10-30 06:44] LABS: BLOOD UREA NITROGEN,BUN 23 mg/dL (7.0-18.0); CARBON DIOXIDE,CO2 41.8 mmol/L (21.0-32.0); CHLORIDE,CL 104 mmol/L (98-107); GLUCOSE RANDOM 124 mg/dL (74-106); POTASSIUM,K 4.2 mmol/L (3.5-5.1); SODIUM,NA 146 mmol/L (136-145)
[2019-10-30] MEDS: Sertraline 100 MG Tab PO SCH (10:25)
[2019-10-30] MEDS: guaiFENesin 600 MG Tab.ER PO SCH ×2 (10:25→20:27)
[2019-10-30] MEDS: Furosemide 20 MG Tab PO SCH (10:25)
[2019-10-30] MEDS: Lisinopril 10 MG Tab PO SCH (10:26)
[2019-10-30] MEDS: methylPREDNISolone Sodium Succinate 125 MG/2 ML SDV IV SCH ×2 (10:27→20:28)
--- NOTE | 2019-10-30 12:33 | PCM.PN ---
- General Info Date of Service: 10/30/19 - Review of Systems Systems Review Comment:: feeling better, dyspnea on exertion improving. - Patient Data Vitals - Most Recent: Last Vital Signs Temp 36.3 C 10/30/19 11:41 Pulse 70 10/30/19 11:41 Resp 18 10/30/19 11:41 BP 178/108 H 10/30/19 11:41 Pulse Ox 91 L 10/30/19 11:41 Weight - Most Recent: 40.9 kg I&O - Last 24 Hours: Intake & Output 10/29/19 10/30/19 10/30/19 22:59 06:59 14:59 Intake Total 1020 300 Output Total 100 Balance 1020 200 Lab Results Last 24 Hours: Laboratory Results - last 24 hr 10/30/19 10/30/19 Range/Units 06:10 06:10 WBC 5.58 (4.0-11.0) K/uL RBC 3.40 L (4.30-5.90) M/uL Hgb 10.4 L (12.0-16.0) g/dL Hct 34.2 L (36.0-46.0) % MCV 100.6 H (80.0-98.0) fL MCH 30.6 (27.0-32.0) pg MCHC 30.4 L (31.0-37.0) g/dL RDW Std Deviation 48.8 (28.0-62.0) fl RDW Coeff of Carmen 14 (11.0-15.0) % Plt Count 177 (150-400) K/uL MPV 11.80 (7.40-12.00) fL Neut % (Auto) 77.0 (48.0-80.0) % Lymph % (Auto) 17.6 (16.0-40.0) % [place] % (Auto) 5.4 (0.0-15.0) % Eos % (Auto) 0.0 (0.0-7.0) % Baso % (Auto) 0.0 (0.0-1.5) % Neut # (Auto) 4.3 (1.4-5.7) K/uL Lymph # (Auto) 1.0 (0.6-2.4) K/uL [place] # (Auto) 0.3 (0.0-0.8) K/uL Eos # (Auto) 0.0 (0.0-0.7) K/uL Baso # (Auto) 0.0 (0.0-0.1) K/uL Nucleated RBC % 0.0 /100WBC Nucleated RBCs # 0 K/uL Sodium 146 H (136-145) mmol/L Potassium 4.2 (3.5-5.1) mmol/L Chloride 104 (98-107) mmol/L Carbon Dioxide 41.8 H (21.0-32.0) mmol/L BUN 23 H (7.0-18.0) mg/dL Creatinine 0.6 (0.6-1.0) mg/dL Est Cr Clr Drug Dosing 41.88 mL/min Estimated GFR (MDRD) > 60.0 ml/min Glucose 124 H (74-106) mg/dL Calcium 9.7 (8.5-10.1) mg/dL [place] Results Last 24 Hours: Microbiology 10/26/19 11:11 Aerobic Blood Culture - Preliminary Blood NO GROWTH AFTER 4 DAYS Anaerobic Blood Culture - Preliminary NO GROWTH AFTER 4 DAYS 10/26/19 10:08 Aerobic Blood Culture - Preliminary Blood - Venous NO GROWTH AFTER 4 DAYS Anaerobic Blood Culture - Preliminary 10/28/19 12:20 Shiga Toxin I & II - Final Stool / Feces Med Orders - Current: Current Medications Acetaminophen (Tylenol) 650 mg PO Q6H PRN PRN Reason: Pain (Mild 1-3)/fever Last Admin: 10/30/19 00:53 Dose: 650 mg Albuterol/Ipratropium (Duoneb 3.0-0.5 Mg/3 Ml) 3 ml NEB Q6HR [facility] Last Admin: 10/30/19 12:06 Dose: 3 ml Enoxaparin Sodium (Lovenox) 30 mg SUBCUT Q24H [facility] Last Admin: 10/29/19 12:16 Dose: 30 mg Furosemide (Lasix) 20 mg PO DAILY [facility] Last Admin: 10/30/19 10:25 Dose: 20 mg Guaifenesin (Mucinex) 600 mg PO BID [facility] Last Admin: 10/30/19 10:25 Dose: 600 mg Ceftriaxone Sodium 1 gm/ (Sodium Chloride) 50 mls @ 100 mls/hr IV Q24H [facility] Last Admin: 10/29/19 12:19 Dose: 100 mls/hr Azithromycin 500 mg/ Sodium (Chloride) 250 mls @ 250 mls/hr IV Q24H [facility] Last Admin: 10/29/19 13:31 Dose: 250 mls/hr Vancomycin HCl 0.75 gm/ Sodium (Chloride) 250 mls @ 166.667 mls/hr IV Q24H [facility] Last Admin: 10/30/19 10:34 Dose: 166.667 mls/hr Lisinopril (Prinivil) 20 mg PO DAILY [facility] Last Admin: 10/30/19 10:26 Dose: 20 mg Methylprednisolone Sodium Succinate (Solu-Medrol) 125 mg IV BID [facility] Last Admin: 10/30/19 10:27 Dose: 125 mg Montelukast Sodium (Singulair) 10 mg PO BEDTIME [facility] Last Admin: 10/29/19 20:39 Dose: 10 mg Sertraline HCl (Zoloft) 100 mg PO DAILY [facility] Last Admin: 10/30/19 10:25 Dose: 100 mg Sodium Chloride (Saline Flush) 10 ml FLUSH ASDIRECTED PRN PRN Reason: Keep Vein Open Last Admin: 10/26/19 10:39 Dose: 10 ml Sodium Chloride (Saline Flush) 2.5 ml FLUSH ASDIRECTED PRN PRN Reason: Keep Vein Open Last Admin: 10/26/19 10:39 Dose: 2.5 ml Discontinued Medications Albuterol/Ipratropium (Duoneb 3.0-0.5 Mg/3 Ml) 3 ml NEB ONETIME ONE Stop: 10/26/19 10:23 Last Admin: 10/26/19 10:39 Dose: 3 ml Albuterol/Ipratropium (Duoneb 3.0-0.5 Mg/3 Ml) 3 ml NEB Q4HRRT PRN PRN Reason: Wheezing Last Admin: 10/27/19 08:21 Dose: 3 ml Furosemide (Lasix) 20 mg PO DAILY PRN PRN Reason: Edema Azithromycin 500 mg/ Sodium (Chloride) 250 mls @ 250 mls/hr IV ONETIME [facility] Last Admin: 10/26/19 13:05 Dose: 250 mls/hr Ceftriaxone Sodium 1 gm/ (Sodium Chloride) 50 mls @ 100 mls/hr IV ONETIME ONE Stop: 10/26/19 12:01 Last Admin: 01/21/20 11:49 Dose: 100 mls/hr Sodium Chloride (Normal Saline) 1,000 mls @ 999 mls/hr IV .Bolus ONE Stop: 10/26/19 12:37 Last Admin: 10/26/19 11:49 Dose: 999 mls/hr Sodium Chloride (Normal Saline) Confirm Administered Dose 50 mls @ as directed .ROUTE .STK-MED ONE Stop: 10/28/19 11:09 Last Admin: 10/28/19 11:32 Dose: Not Given Influenza Virus Vaccine (Pharmacy To Dose - Influenza Vaccine) 1 each IM ONETIME ONE Stop: 10/26/19 13:51 Influenza Virus Vaccine (Fluzone High-Dose Syringe) 180 mcg IM .ONCE ONE Stop: 10/26/19 14:01 Lisinopril (Prinivil) 10 mg PO DAILY [facility] Last Admin: 10/29/19 09:43 Dose: 10 mg Lisinopril (Prinivil) 10 mg PO ONETIME ONE Stop: 10/29/19 11:28 Last Admin: 10/29/19 12:18 Dose: 10 mg Methylprednisolone Sodium Succinate (Solu-Medrol) 125 mg IVPUSH ONETIME ONE Stop: 10/26/19 10:23 Last Admin: 10/26/19 10:39 Dose: 125 mg Methylprednisolone Sodium Succinate (Solu-Medrol) 125 mg IV DAILY [facility] Last Admin: 10/28/19 09:02 Dose: 125 mg Vancomycin HCl (Pharmacy To Dose - Vancomycin) 1 dose .XX ASDIRECTED [facility] - Exam General: Alert, Oriented Neck: Supple Lungs: Wheezing Cardiovascular: Regular Rate, Regular Rhythm GI/Abdominal Exam: Soft, Non-Tender Extremities: Non-Tender, No Pedal Edema Skin: Warm, Dry, Intact Neurological: No New Focal Deficit Sepsis Event Note - Evaluation Sepsis Screening Result: No Definite Risk - Focused Exam Vital Signs: Vital Signs Temp Pulse Resp BP BP Pulse Ox Pulse Ox 10/30/19 11:41 36.3 C 70 18 178/108 H 91 L 10/30/19 10:27 94 L 10/30/19 10:26 142/89 H 10/30/19 08:00 37.1 C 83 12 174/96 H 91 L 10/30/19 05:00 95 10/30/19 03:20 36.4 C 79 20 177/77 H 100 Date Exam was Performed: 10/30/19 Time Exam was Performed: 12:30 - Problem List Review Problem List Initiated/Reviewed/Updated: Yes - My Orders Last 24 Hours: My Active Orders 10/29/19 12:43 Discontinue Telemetry Monitoring [Cardiac Monitoring Discontinue] [RC] Click to Edit 10/30/19 10:00 Vancomycin 0.75 gm Sodium Chloride 0.9% [Normal Saline] 250 ml IV Q24H 11/02/19 09:30 VANCOMYCIN TROUGH [CHEM] Routine - Plan Plan:: 84 yo female admitted for COPD exacerbation and pneumonia. We will continue solumedrol ,duonebs. Haja is on Rocephin and azithromycin, She did have 1/ 4 BC grow out spencer positive cocci but this is likely a contaminate.
[2019-10-30] MEDS: cefTRIAXone 1 GM in Sodium Chloride 0.9% 50 ML IV SCH (12:45)
[2019-10-30] MEDS: Enoxaparin 30 MG/0.3 ML Syringe SUBCUT SCH (12:56)
[2019-10-30] MEDS: Azithromycin 500 MG in Sodium Chloride 0.9% 250 ML IV SCH (13:26)
[2019-10-30] MEDS: Montelukast 10 MG Tab PO SCH (20:27)
[2019-10-31] MEDS: Albuterol/Ipratropium 3.0-0.5 MG/3 ML Neb Soln NEB SCH ×4 (00:30→17:52)
[2019-10-31 07:32] LABS: BLOOD UREA NITROGEN,BUN 22 mg/dL (7.0-18.0); CARBON DIOXIDE,CO2 43.4 mmol/L (21.0-32.0); CHLORIDE,CL 103 mmol/L (98-107); GLUCOSE RANDOM 117 mg/dL (74-106); POTASSIUM,K 3.9 mmol/L (3.5-5.1); SODIUM,NA 145 mmol/L (136-145)
[2019-10-31] MEDS ORDERED: Loperamide 2 MG Cap PO PRN (07:57)
[2019-10-31] MEDS: methylPREDNISolone Sodium Succinate 125 MG/2 ML SDV IV SCH ×2 (08:28→21:02)
[2019-10-31] MEDS: Lisinopril 10 MG Tab PO SCH (08:28)
[2019-10-31] MEDS: Furosemide 20 MG Tab PO SCH (08:28)
[2019-10-31] MEDS: guaiFENesin 600 MG Tab.ER PO SCH ×2 (08:28→21:02)
[2019-10-31] MEDS: Sertraline 100 MG Tab PO SCH (08:28)
--- NOTE | 2019-10-31 08:48 | PCM.PN ---
- General Info Date of Service: 10/31/19 Subjective Update: Patient reports improvement in breathing but still gets winded when ambulating to bathroom. Still has diarrhea, stool studies negative thus far. Reports eating and drinking fine. - Review of Systems General: Reports: No Symptoms HEENT: Reports: No Symptoms Pulmonary: Reports: Shortness of Breath Cardiovascular: Reports: No Symptoms Gastrointestinal: Reports: No Symptoms Genitourinary: Reports: No Symptoms Musculoskeletal: Reports: No Symptoms Skin: Reports: No Symptoms Neurological: Reports: No Symptoms Psychiatric: Reports: No Symptoms - Patient Data Vitals - Most Recent: Last Vital Signs Temp 98.4 F 10/31/19 07:00 Pulse 87 10/31/19 07:00 Resp 20 10/31/19 07:00 BP 184/96 H 10/31/19 08:28 Pulse Ox 91 L 10/31/19 07:00 Weight - Most Recent: 40.9 kg I&O - Last 24 Hours: Intake & Output 10/30/19 10/31/19 10/31/19 22:59 06:59 14:59 Intake Total 930 400 Output Total 300 200 Balance 630 200 Lab Results Last 24 Hours: Laboratory Results - last 24 hr 10/31/19 10/31/19 Range/Units 07:11 07:11 WBC 5.71 (4.0-11.0) K/uL RBC 3.45 L (4.30-5.90) M/uL Hgb 10.7 L (12.0-16.0) g/dL Hct 34.7 L (36.0-46.0) % MCV 100.6 H (80.0-98.0) fL MCH 31.0 (27.0-32.0) pg MCHC 30.8 L (31.0-37.0) g/dL RDW Std Deviation 49.5 (28.0-62.0) fl RDW Coeff of Carmen 14 (11.0-15.0) % Plt Count 159 (150-400) K/uL MPV 11.80 (7.40-12.00) fL Neut % (Auto) 71.6 (48.0-80.0) % Lymph % (Auto) 21.0 (16.0-40.0) % [place] % (Auto) 7.4 (0.0-15.0) % Eos % (Auto) 0.0 (0.0-7.0) % Baso % (Auto) 0.0 (0.0-1.5) % Neut # (Auto) 4.1 (1.4-5.7) K/uL Lymph # (Auto) 1.2 (0.6-2.4) K/uL [place] # (Auto) 0.4 (0.0-0.8) K/uL Eos # (Auto) 0.0 (0.0-0.7) K/uL Baso # (Auto) 0.0 (0.0-0.1) K/uL Nucleated RBC % 0.0 /100WBC Nucleated RBCs # 0 K/uL Sodium 145 (136-145) mmol/L Potassium 3.9 (3.5-5.1) mmol/L Chloride 103 (98-107) mmol/L Carbon Dioxide 43.4 H (21.0-32.0) mmol/L BUN 22 H (7.0-18.0) mg/dL Creatinine 0.5 L (0.6-1.0) mg/dL Est Cr Clr Drug Dosing 52.15 mL/min Estimated GFR (MDRD) > 60.0 ml/min Glucose 117 H (74-106) mg/dL Calcium 9.3 (8.5-10.1) mg/dL [place] Results Last 24 Hours: Microbiology 10/26/19 10:08 Aerobic Blood Culture - Preliminary Blood - Venous NO GROWTH AFTER 4 DAYS Anaerobic Blood Culture - Preliminary 10/26/19 11:11 Aerobic Blood Culture - Preliminary Blood NO GROWTH AFTER 4 DAYS Anaerobic Blood Culture - Preliminary NO GROWTH AFTER 4 DAYS 10/28/19 12:20 Shiga Toxin I & II - Final Stool / Feces Med Orders - Current: Current Medications Acetaminophen (Tylenol) 650 mg PO Q6H PRN PRN Reason: Pain (Mild 1-3)/fever Last Admin: 10/30/19 00:53 Dose: 650 mg Albuterol/Ipratropium (Duoneb 3.0-0.5 Mg/3 Ml) 3 ml NEB Q6HR [facility] Last Admin: 10/31/19 06:02 Dose: 3 ml Enoxaparin Sodium (Lovenox) 30 mg SUBCUT Q24H [facility] Last Admin: 10/30/19 12:56 Dose: 30 mg Furosemide (Lasix) 20 mg PO DAILY [facility] Last Admin: 10/31/19 08:28 Dose: 20 mg Guaifenesin (Mucinex) 600 mg PO BID [facility] Last Admin: 10/31/19 08:28 Dose: 600 mg Ceftriaxone Sodium 1 gm/ (Sodium Chloride) 50 mls @ 100 mls/hr IV Q24H [facility] Last Admin: 10/30/19 12:45 Dose: 100 mls/hr Azithromycin 500 mg/ Sodium (Chloride) 250 mls @ 250 mls/hr IV Q24H [facility] Last Admin: 10/30/19 13:26 Dose: 250 mls/hr Vancomycin HCl 0.75 gm/ Sodium (Chloride) 250 mls @ 166.667 mls/hr IV Q24H [facility] Last Admin: 10/30/19 10:34 Dose: 166.667 mls/hr Lisinopril (Prinivil) 20 mg PO DAILY [facility] Last Admin: 10/31/19 08:28 Dose: 20 mg Loperamide HCl (Imodium) 2 mg PO Q4H PRN PRN Reason: Diarrhea Methylprednisolone Sodium Succinate (Solu-Medrol) 125 mg IV BID [facility] Last Admin: 10/31/19 08:28 Dose: 125 mg Montelukast Sodium (Singulair) 10 mg PO BEDTIME [facility] Last Admin: 10/30/19 20:27 Dose: 10 mg Sertraline HCl (Zoloft) 100 mg PO DAILY [facility] Last Admin: 10/31/19 08:28 Dose: 100 mg Sodium Chloride (Saline Flush) 10 ml FLUSH ASDIRECTED PRN PRN Reason: Keep Vein Open Last Admin: 10/26/19 10:39 Dose: 10 ml Sodium Chloride (Saline Flush) 2.5 ml FLUSH ASDIRECTED PRN PRN Reason: Keep Vein Open Last Admin: 10/26/19 10:39 Dose: 2.5 ml Discontinued Medications Albuterol/Ipratropium (Duoneb 3.0-0.5 Mg/3 Ml) 3 ml NEB ONETIME ONE Stop: 10/26/19 10:23 Last Admin: 10/26/19 10:39 Dose: 3 ml Albuterol/Ipratropium (Duoneb 3.0-0.5 Mg/3 Ml) 3 ml NEB Q4HRRT PRN PRN Reason: Wheezing Last Admin: 10/27/19 08:21 Dose: 3 ml Furosemide (Lasix) 20 mg PO DAILY PRN PRN Reason: Edema Azithromycin 500 mg/ Sodium (Chloride) 250 mls @ 250 mls/hr IV ONETIME [facility] Last Admin: 10/26/19 13:05 Dose: 250 mls/hr Ceftriaxone Sodium 1 gm/ (Sodium Chloride) 50 mls @ 100 mls/hr IV ONETIME ONE Stop: 10/26/19 12:01 Last Admin: 10/26/19 11:49 Dose: 100 mls/hr Sodium Chloride (Normal Saline) 1,000 mls @ 999 mls/hr IV .Bolus ONE Stop: 10/26/19 12:37 Last Admin: 10/26/19 11:49 Dose: 999 mls/hr Sodium Chloride (Normal Saline) Confirm Administered Dose 50 mls @ as directed .ROUTE .STK-MED ONE Stop: 10/28/19 11:09 Last Admin: 10/28/19 11:32 Dose: Not Given Influenza Virus Vaccine (Pharmacy To Dose - Influenza Vaccine) 1 each IM ONETIME ONE Stop: 10/26/19 13:51 Influenza Virus Vaccine (Fluzone High-Dose Syringe) 180 mcg IM .ONCE ONE Stop: 10/26/19 14:01 Lisinopril (Prinivil) 10 mg PO DAILY [facility] Last Admin: 10/29/19 09:43 Dose: 10 mg Lisinopril (Prinivil) 10 mg PO ONETIME ONE Stop: 10/29/19 11:28 Last Admin: 10/29/19 12:18 Dose: 10 mg Methylprednisolone Sodium Succinate (Solu-Medrol) 125 mg IVPUSH ONETIME ONE Stop: 10/26/19 10:23 Last Admin: 10/26/19 10:39 Dose: 125 mg Methylprednisolone Sodium Succinate (Solu-Medrol) 125 mg IV DAILY [facility] Last Admin: 10/28/19 09:02 Dose: 125 mg Vancomycin HCl (Pharmacy To Dose - Vancomycin) 1 dose .XX ASDIRECTED [facility] - Exam Quality Assessment: Supplemental Oxygen General: Alert, Oriented, Cooperative Lungs: Other (improved, minimal wheezing, does have increased respiratory effort after ambulation) GI/Abdominal Exam: Normal Bowel Sounds, Soft, Non-Tender, No Distention Extremities: No Pedal Edema Skin: Warm, Dry, Intact Neurological: No New Focal Deficit Psy/Mental Status: Alert, Normal Affect, Normal Mood Sepsis Event Note - Evaluation Sepsis Screening Result: No Definite Risk - Focused Exam Vital Signs: Vital Signs Temp Pulse Resp BP BP Pulse Ox Pulse Ox 10/31/19 08:28 184/96 H 10/31/19 07:05 166/83 H 10/31/19 07:00 98.4 F 87 20 189/95 H 91 L 10/31/19 06:00 95 10/31/19 03:00 97.8 F 72 18 171/76 H 95 10/30/19 23:00 98.0 F 81 19 187/81 H 89 L Date Exam was Performed: 10/31/19 Time Exam was Performed: 10:19 - Problem List Review Problem List Initiated/Reviewed/Updated: Yes - My Orders Last 24 Hours: My Active Orders 10/30/19 09:00 lisinopriL [Prinivil] 20 mg PO DAILY 10/31/19 07:57 Loperamide [Imodium] 2 mg PO Q4H PRN - Plan Plan:: 1. Acute on chronic hypoxic respiratory failure secondary to COPD and pneumonia - improving- continue scheduled duonebs and solumedrol bid. Transition to oral medications- amoxicillin and azithromycin. 1/4 positive blood cultures growing gram positive cocci in clusters (likely contaminate). 2. Depression- continue home sertraline. 3. HTN- continue lasix and lisinopril 4. Diarrhea- Cdiff/Shiga negative, Imodium prn.
[2019-10-31] MEDS: Azithromycin 250 MG Tab PO SCH (10:38)
[2019-10-31] MEDS: Amoxicillin 500 MG Cap PO SCH ×2 (11:00→18:16)
[2019-10-31] MEDS: Enoxaparin 30 MG/0.3 ML Syringe SUBCUT SCH (13:30)
[2019-10-31] MEDS ORDERED: Sodium Chloride 0.65% Nasal Spray 45 ML Bottle NAS PRN (18:41)
[2019-10-31] MEDS: Montelukast 10 MG Tab PO SCH (21:02)
[2019-11-01] MEDS: Albuterol/Ipratropium 3.0-0.5 MG/3 ML Neb Soln NEB SCH ×3 (00:36→11:18)
[2019-11-01] MEDS: Amoxicillin 500 MG Cap PO SCH ×2 (01:35→11:00)
[2019-11-01 06:38] LABS: BLOOD UREA NITROGEN,BUN 22 mg/dL (7.0-18.0); CARBON DIOXIDE,CO2 41.4 mmol/L (21.0-32.0); CHLORIDE,CL 101 mmol/L (98-107); GLUCOSE RANDOM 139 mg/dL (74-106); POTASSIUM,K 3.6 mmol/L (3.5-5.1); SODIUM,NA 144 mmol/L (136-145)
[2019-11-01] MEDS: Furosemide 20 MG Tab PO SCH (10:18)
[2019-11-01] MEDS: guaiFENesin 600 MG Tab.ER PO SCH (10:18)
[2019-11-01] MEDS: Lisinopril 10 MG Tab PO SCH (10:19)
[2019-11-01] MEDS: methylPREDNISolone Sodium Succinate 125 MG/2 ML SDV IV SCH (10:19)
[2019-11-01] MEDS: Sertraline 100 MG Tab PO SCH (10:19)
[2019-11-01] MEDS: Azithromycin 250 MG Tab PO SCH (10:59)
--- NOTE | 2019-11-01 11:38 | PCM.DCSUM1 ---
<Brandy Murray - Last Filed: 11/01/19 12:37> Discharge Summary - Hospital Course HPI Initial Comments: Admission Date: 10/26/19 Discharge Date: Admission Diagnosis: 1. Acute on Chronic hypoxic respiratory failure secondary to COPD exacerbation and pneumonia 2. Depression Discharge Diagnosis: 1. Acute on Chronic hypoxic respiratory failure secondary to COPD exacerbation and pneumonia 2. Depression 3. HTN 4. Weakness 5. Diarrhea-improved Procedures: None Consults: None Hospital Course: The patient is a 84 year old female with oxygen dependent COPD who presented to the ER with increased shortness of breath and productive cough. In the ER was found to by hypoxic with O2 sat 84% on 4 L and tachycardic with HR of 110. She was given a liter of fluid, solumedrol and antibiotics (Rocephin/azithromycin). Work up showed leukocytosis of 16.9 and elevated lactate. Troponin was negative and CXR showed no acute cardiopulmonary process. She was admitted to the medical floor. She was continued on antibiotics, fluids, IV steroids and placed on scheduled duonebs. Her lactate was trended and resolved. She was continued on her home sertraline for depression. Her blood pressure was elevated, her Lasix was restarted and she was started on lisinopril. Her blood pressure is likely elevated due to acute illness and steriod use. She may be able to be weaned off at a later date. She reported weakness, trouble ambulating and was requiring assistance to ambulate. Was evaluated and treated by PT. She did developed diarrhea, Cdiff and Shiga was negative. By day of discharge, her breathing improved and she wanted to go to [place]. Disposition: [facility] Discharge Condition: vitals stable, tolerating oral diet, ambulating with assistance, symptom improvement Discharge Instructions: regular diet as tolerated, activity as tolerated, take medications as prescribed. Symptoms to report to physician include fever/chills , chest pain, shortness of breath, abdominal pain, erythema, drainage/discharge , or not improving as expected. Discharge Medications: Fluticasone Propionate [Flovent] 1 spray NASBOTH BID Fluticasone/Salmeterol [Advair Diskus 100-50] 1 puff INH BID Ipratropium [Atrovent 0.06% Nasal [place]] 2 sprays NASBOTH TID PRN Levalbuterol Tartrate [Xopenex Hfa] 2 inh INH QID Mirtazapine 45 mg PO BEDTIME Montelukast [Singulair] 10 mg PO BEDTIME Sertraline [Zoloft] 100 mg PO DAILY Furosemide 20 mg PO DAILY PRN Ipratropium [Atrovent HFA] 35.2 mcg INH Q6H Iron Polysaccharide Complex [Iferex 150] 150 mg PO DAILY Albuterol/Ipratropium [DuoNeb 3.0-0.5 MG/3 ML] 3 ml NEB Q6HR PRN 7 Days Amoxicillin 1,000 mg PO Q8HR 3 Days Azithromycin [Zithromax] 250 mg PO Q24H 3 Days Lisinopril [Zestril] 20 mg PO DAILY Loperamide [Imodium] 2 mg PO Q4H PRN predniSONE [Prednisone] 40 mg PO DAILY Follow-up: Dr. Vega will follow at [facility]. Diagnosis: Stroke: No - Discharge Data Discharge Date: 11/01/19 Discharge Disposition: DC/Tfer to [facility] 03 Condition: Stable - Referral to Home Health Primary Care Physician: Kirt Monge MD - Patient Summary/Data Consults: Consultations 10/27/19 17:50 Consult to Physical Therapy [PT Evaluation and Treatment] [CONS] Routine - Patient Instructions Diet: Regular Diet as Tolerated Activity: As Tolerated Activity, Other: PT/OT Showering/Bathing: May Shower Notify Provider of: Fever, Increased Pain, Swelling and Redness, Drainage, Nausea and/or Vomiting Other/Special Instructions: Additional symptoms include chest pain, shortness of breath, or abdominal pain. - Discharge Plan *PRESCRIPTION DRUG MONITORING PROGRAM REVIEWED*: No *COPY OF PRESCRIPTION DRUG MONITORING REPORT IN PATIENT MARELY: No Prescriptions/Med Rec: Albuterol/Ipratropium [DuoNeb 3.0-0.5 MG/3 ML] 3 ml NEB Q6HR PRN 7 Days #30 neb PRN Reason: Shortness Of Breath Amoxicillin 1,000 mg PO Q8HR 3 Days #18 capsule Azithromycin [Zithromax] 250 mg PO Q24H 3 Days #3 tablet Lisinopril [Zestril] 20 mg PO DAILY 7 Days #7 tablet Loperamide [Imodium] 2 mg PO Q4H PRN 7 Days #42 cap PRN Reason: Diarrhea predniSONE [Prednisone] 40 mg PO DAILY 3 Days #6 tablet Home Medications: Home Meds Fluticasone Propionate [Flovent] 1 spray NASBOTH BID 10/09/17 [History] Fluticasone/Salmeterol [Advair Diskus 100-50] 1 puff INH BID 10/09/17 [History] Ipratropium [Atrovent 0.06% Nasal [place]] 2 sprays NASBOTH TID PRN 10/09/17 [ History] Levalbuterol Tartrate [Xopenex Hfa] 2 inh INH QID 10/09/17 [History] Mirtazapine 45 mg PO BEDTIME 10/09/17 [History] Montelukast [Singulair] 10 mg PO BEDTIME 10/09/17 [History] Sertraline [Zoloft] 100 mg PO DAILY 10/09/17 [History] Furosemide 20 mg PO DAILY PRN 04/10/19 [History] Ipratropium [Atrovent HFA] 35.2 mcg INH Q6H 04/10/19 [History] Iron Polysaccharide Complex [Iferex 150] 150 mg PO DAILY 04/10/19 [History] Albuterol/Ipratropium [DuoNeb 3.0-0.5 MG/3 ML] 3 ml NEB Q6HR PRN 7 Days #30 neb 11/01/19 [Rx] Amoxicillin 1,000 mg PO Q8HR 3 Days #18 capsule 11/01/19 [Rx] Azithromycin [Zithromax] 250 mg PO Q24H 3 Days #3 tablet 11/01/19 [Rx] Lisinopril [Zestril] 20 mg PO DAILY 7 Days #7 tablet 11/01/19 [Rx] Loperamide [Imodium] 2 mg PO Q4H PRN 7 Days #42 cap 11/01/19 [Rx] predniSONE [Prednisone] 40 mg PO DAILY 3 Days #6 tablet 11/01/19 [Rx] Oxygen Therapy Mode: Nasal Cannula Oxygen Flow Rate (L/min): 2 Maintain SpO2% greater than: 88 Patient Handouts: Loperamide tablets or capsules, Amoxicillin capsules or tablets, Azithromycin tablets, Lisinopril tablets, Albuterol; Ipratropium solution for inhalation, Prednisone tablets Referrals: Xander Vega MD [Physician] - - Discharge Summary/Plan Comment DC Time >30 min.: No - Patient Data Vitals - Most Recent: Last Vital Signs Temp 98 F 11/01/19 07:05 Pulse 88 11/01/19 07:20 Resp 18 11/01/19 07:20 BP 154/81 H 11/01/19 10:19 Pulse Ox 93 L 11/01/19 07:20 Weight - Most Recent: 40.9 kg I&O - Last 24 hours: Intake & Output 10/31/19 11/01/19 11/01/19 22:59 06:59 14:59 Intake Total 400 400 Output Total 0 200 Balance 400 200 Lab Results - Last 24 hrs: Laboratory Results - last 24 hr 11/01/19 11/01/19 Range/Units 05:50 05:50 WBC 5.20 (4.0-11.0) K/uL RBC 3.61 L (4.30-5.90) M/uL Hgb 11.1 L (12.0-16.0) g/dL Hct 36.3 (36.0-46.0) % MCV 100.6 H (80.0-98.0) fL MCH 30.7 (27.0-32.0) pg MCHC 30.6 L (31.0-37.0) g/dL RDW Std Deviation 49.9 (28.0-62.0) fl RDW Coeff of Carmen 14 (11.0-15.0) % Plt Count 185 (150-400) K/uL MPV 12.10 H (7.40-12.00) fL Neut % (Auto) 77.2 (48.0-80.0) % Lymph % (Auto) 16.5 (16.0-40.0) % [place] % (Auto) 6.3 (0.0-15.0) % Eos % (Auto) 0.0 (0.0-7.0) % Baso % (Auto) 0.0 (0.0-1.5) % Neut # (Auto) 4.0 (1.4-5.7) K/uL Lymph # (Auto) 0.9 (0.6-2.4) K/uL [place] # (Auto) 0.3 (0.0-0.8) K/uL Eos # (Auto) 0.0 (0.0-0.7) K/uL Baso # (Auto) 0.0 (0.0-0.1) K/uL Nucleated RBC % 0.0 /100WBC Nucleated RBCs # 0 K/uL Sodium 144 (136-145) mmol/L Potassium 3.6 (3.5-5.1) mmol/L Chloride 101 (98-107) mmol/L Carbon Dioxide 41.4 H (21.0-32.0) mmol/L BUN 22 H (7.0-18.0) mg/dL Creatinine 0.6 (0.6-1.0) mg/dL Est Cr Clr Drug Dosing 43.46 mL/min Estimated GFR (MDRD) > 60.0 ml/min Glucose 139 H (74-106) mg/dL Calcium 9.2 (8.5-10.1) mg/dL ARIANA Results - Last 24 hrs: Microbiology 10/28/19 12:20 Stool Culture - Preliminary Stool / Feces Shiga Toxin I & II - Final 10/26/19 11:11 Aerobic Blood Culture - Final Blood NO GROWTH AFTER 5 DAYS Anaerobic Blood Culture - Final NO GROWTH AFTER 5 DAYS 10/26/19 10:08 Aerobic Blood Culture - Final Blood - Venous NO GROWTH AFTER 5 DAYS Anaerobic Blood Culture - Preliminary Med Orders - Current: Current Medications Acetaminophen (Tylenol) 650 mg PO Q6H PRN PRN Reason: Pain (Mild 1-3)/fever Last Admin: 10/30/19 00:53 Dose: 650 mg Albuterol/Ipratropium (Duoneb 3.0-0.5 Mg/3 Ml) 3 ml NEB Q6HR [facility] Last Admin: 11/01/19 11:18 Dose: 3 ml Amoxicillin (Amoxil) 1,000 mg PO Q8H [facility] Last Admin: 11/01/19 11:00 Dose: 1,000 mg Azithromycin (Zithromax) 250 mg PO Q24H [facility] Last Admin: 11/01/19 10:59 Dose: 250 mg Enoxaparin Sodium (Lovenox) 30 mg SUBCUT Q24H [facility] Last Admin: 10/31/19 13:30 Dose: 30 mg Furosemide (Lasix) 20 mg PO DAILY [facility] Last Admin: 11/01/19 10:18 Dose: 20 mg Guaifenesin (Mucinex) 600 mg PO BID [facility] Last Admin: 11/01/19 10:18 Dose: 600 mg Lisinopril (Prinivil) 20 mg PO DAILY [facility] Last Admin: 11/01/19 10:19 Dose: 20 mg Loperamide HCl (Imodium) 2 mg PO Q4H PRN PRN Reason: Diarrhea Methylprednisolone Sodium Succinate (Solu-Medrol) 125 mg IV BID [facility] Last Admin: 11/01/19 10:19 Dose: 125 mg Montelukast Sodium (Singulair) 10 mg PO BEDTIME [facility] Last Admin: 10/31/19 21:02 Dose: 10 mg Sertraline HCl (Zoloft) 100 mg PO DAILY [facility] Last Admin: 11/01/19 10:19 Dose: 100 mg Sodium Chloride (Saline Flush) 10 ml FLUSH ASDIRECTED PRN PRN Reason: Keep Vein Open Last Admin: 10/26/19 10:39 Dose: 10 ml Sodium Chloride (Saline Flush) 2.5 ml FLUSH ASDIRECTED PRN PRN Reason: Keep Vein Open Last Admin: 10/26/19 10:39 Dose: 2.5 ml Sodium Chloride ([place] Nasal Wat[place]) 0 ml CHINEDU Q2H PRN PRN Reason: Other Discontinued Medications Albuterol/Ipratropium (Duoneb 3.0-0.5 Mg/3 Ml) 3 ml NEB ONETIME ONE Stop: 10/26/19 10:23 Last Admin: 10/26/19 10:39 Dose: 3 ml Albuterol/Ipratropium (Duoneb 3.0-0.5 Mg/3 Ml) 3 ml NEB Q4HRRT PRN PRN Reason: Wheezing Last Admin: 10/27/19 08:21 Dose: 3 ml Furosemide (Lasix) 20 mg PO DAILY PRN PRN Reason: Edema Azithromycin 500 mg/ Sodium (Chloride) 250 mls @ 250 mls/hr IV ONETIME [facility] Last Admin: 10/26/19 13:05 Dose: 250 mls/hr Ceftriaxone Sodium 1 gm/ (Sodium Chloride) 50 mls @ 100 mls/hr IV ONETIME ONE Stop: 10/26/19 12:01 Last Admin: 10/26/19 11:49 Dose: 100 mls/hr Sodium Chloride (Normal Saline) 1,000 mls @ 999 mls/hr IV .Bolus ONE Stop: 10/26/19 12:37 Last Admin: 10/26/19 11:49 Dose: 999 mls/hr Ceftriaxone Sodium 1 gm/ (Sodium Chloride) 50 mls @ 100 mls/hr IV Q24H [facility] Last Admin: 10/30/19 12:45 Dose: 100 mls/hr Azithromycin 500 mg/ Sodium (Chloride) 250 mls @ 250 mls/hr IV Q24H [facility] Last Admin: 10/30/19 13:26 Dose: 250 mls/hr Sodium Chloride (Normal Saline) Confirm Administered Dose 50 mls @ as directed .ROUTE .STK-MED ONE Stop: 10/28/19 11:09 Last Admin: 10/28/19 11:32 Dose: Not Given Vancomycin HCl 0.75 gm/ Sodium (Chloride) 250 mls @ 166.667 mls/hr IV Q24H [facility] Last Admin: 10/31/19 10:17 Dose: Not Given Influenza Virus Vaccine (Pharmacy To Dose - Influenza Vaccine) 1 each IM ONETIME ONE Stop: 10/26/19 13:51 Influenza Virus Vaccine (Fluzone High-Dose Syringe) 180 mcg IM .ONCE ONE Stop: 10/26/19 14:01 Lisinopril (Prinivil) 10 mg PO DAILY [facility] Last Admin: 10/29/19 09:43 Dose: 10 mg Lisinopril (Prinivil) 10 mg PO ONETIME ONE Stop: 10/29/19 11:28 Last Admin: 10/29/19 12:18 Dose: 10 mg Methylprednisolone Sodium Succinate (Solu-Medrol) 125 mg IVPUSH ONETIME ONE Stop: 10/26/19 10:23 Last Admin: 10/26/19 10:39 Dose: 125 mg Methylprednisolone Sodium Succinate (Solu-Medrol) 125 mg IV DAILY [facility] Last Admin: 10/28/19 09:02 Dose: 125 mg Vancomycin HCl (Pharmacy To Dose - Vancomycin) 1 dose .XX ASDIRECTED [facility] <Ginny Ramirez - Last Filed: 11/13/19 22:03> Discharge Summary - Referral to Home Health Primary Care Physician: Kirt Monge MD - Patient Summary/Data Consults: Consultations 10/27/19 17:50 Consult to Physical Therapy [PT Evaluation and Treatment] [CONS] Routine - Discharge Summary/Plan Comment Discharge Summary/Plan Comment: I have seen and evaluated the patient and agree with the residents note unless specified in my note - Patient Data Vitals - Most Recent: Last Vital Signs Temp 36.6 C 11/01/19 11:00 Pulse 91 11/01/19 11:00 Resp 16 11/01/19 11:00 BP 142/84 H 11/01/19 11:00 Pulse Ox 91 L 11/01/19 11:00 Med Orders - Current: Current Medications Discontinued Medications Acetaminophen (Tylenol) 650 mg PO Q6H PRN PRN Reason: Pain (Mild 1-3)/fever Last Admin: 11/01/19 12:43 Dose: 650 mg Albuterol/Ipratropium (Duoneb 3.0-0.5 Mg/3 Ml) 3 ml NEB ONETIME ONE Stop: 10/26/19 10:23 Last Admin: 10/26/19 10:39 Dose: 3 ml Albuterol/Ipratropium (Duoneb 3.0-0.5 Mg/3 Ml) 3 ml NEB Q4HRRT PRN PRN Reason: Wheezing Last Admin: 10/27/19 08:21 Dose: 3 ml Albuterol/Ipratropium (Duoneb 3.0-0.5 Mg/3 Ml) 3 ml NEB Q6HR [facility] Last Admin: 11/01/19 11:18 Dose: 3 ml Amoxicillin (Amoxil) 1,000 mg PO Q8H [facility] Last Admin: 11/01/19 11:00 Dose: 1,000 mg Azithromycin (Zithromax) 250 mg PO Q24H [facility] Last Admin: 11/01/19 10:59 Dose: 250 mg Enoxaparin Sodium (Lovenox) 30 mg SUBCUT Q24H [facility] Last Admin: 11/01/19 12:44 Dose: 30 mg Furosemide (Lasix) 20 mg PO DAILY PRN PRN Reason: Edema Furosemide (Lasix) 20 mg PO DAILY [facility] Last Admin: 11/01/19 10:18 Dose: 20 mg Guaifenesin (Mucinex) 600 mg PO BID [facility] Last Admin: 11/01/19 10:18 Dose: 600 mg Azithromycin 500 mg/ Sodium (Chloride) 250 mls @ 250 mls/hr IV ONETIME [facility] Last Admin: 10/26/19 13:05 Dose: 250 mls/hr Ceftriaxone Sodium 1 gm/ (Sodium Chloride) 50 mls @ 100 mls/hr IV ONETIME ONE Stop: 10/26/19 12:01 Last Admin: 10/26/19 11:49 Dose: 100 mls/hr Sodium Chloride (Normal Saline) 1,000 mls @ 999 mls/hr IV .Bolus ONE Stop: 10/26/19 12:37 Last Admin: 10/26/19 11:49 Dose: 999 mls/hr Ceftriaxone Sodium 1 gm/ (Sodium Chloride) 50 mls @ 100 mls/hr IV Q24H [facility] Last Admin: 10/30/19 12:45 Dose: 100 mls/hr Azithromycin 500 mg/ Sodium (Chloride) 250 mls @ 250 mls/hr IV Q24H [facility] Last Admin: 10/30/19 13:26 Dose: 250 mls/hr Sodium Chloride (Normal Saline) Confirm Administered Dose 50 mls @ as directed .ROUTE .STK-MED ONE Stop: 10/28/19 11:09 Last Admin: 10/28/19 11:32 Dose: Not Given Vancomycin HCl 0.75 gm/ Sodium (Chloride) 250 mls @ 166.667 mls/hr IV Q24H [facility] Last Admin: 10/31/19 10:17 Dose: Not Given Influenza Virus Vaccine (Pharmacy To Dose - Influenza Vaccine) 1 each IM ONETIME ONE Stop: 10/26/19 13:51 Influenza Virus Vaccine (Fluzone High-Dose Syringe) 180 mcg IM .ONCE ONE Stop: 10/26/19 14:01 Lisinopril (Prinivil) 10 mg PO DAILY [facility] Last Admin: 10/29/19 09:43 Dose: 10 mg Lisinopril (Prinivil) 10 mg PO ONETIME ONE Stop: 10/29/19 11:28 Last Admin: 10/29/19 12:18 Dose: 10 mg Lisinopril (Prinivil) 20 mg PO DAILY [facility] Last Admin: 11/01/19 10:19 Dose: 20 mg Loperamide HCl (Imodium) 2 mg PO Q4H PRN PRN Reason: Diarrhea Last Admin: 11/01/19 12:43 Dose: 2 mg Methylprednisolone Sodium Succinate (Solu-Medrol) 125 mg IVPUSH ONETIME ONE Stop: 10/26/19 10:23 Last Admin: 10/26/19 10:39 Dose: 125 mg Methylprednisolone Sodium Succinate (Solu-Medrol) 125 mg IV DAILY [facility] Last Admin: 10/28/19 09:02 Dose: 125 mg Methylprednisolone Sodium Succinate (Solu-Medrol) 125 mg IV BID [facility] Last Admin: 11/01/19 10:19 Dose: 125 mg Montelukast Sodium (Singulair) 10 mg PO BEDTIME [facility] Last Admin: 10/31/19 21:02 Dose: 10 mg Sertraline HCl (Zoloft) 100 mg PO DAILY [facility] Last Admin: 11/01/19 10:19 Dose: 100 mg Sodium Chloride (Saline Flush) 10 ml FLUSH ASDIRECTED PRN PRN Reason: Keep Vein Open Last Admin: 10/26/19 10:39 Dose: 10 ml Sodium Chloride (Saline Flush) 2.5 ml FLUSH ASDIRECTED PRN PRN Reason: Keep Vein Open Last Admin: 10/26/19 10:39 Dose: 2.5 ml Sodium Chloride ([place] Nasal [place]) 0 ml CHINEDU Q2H PRN PRN Reason: Other Vancomycin HCl (Pharmacy To Dose - Vancomycin) 1 dose .XX ASDIRECTED [facility]
[2019-11-01] MEDS: Acetaminophen 325 MG Tab PO PRN (12:43)
[2019-11-01] MEDS: Enoxaparin 30 MG/0.3 ML Syringe SUBCUT SCH (12:44)
[2019-11-01 13:50] VITALS: BP 142/84; PULSE 91
== END 2019-11-01 13:20 | DRG 193 ==
LOC: MW.ED 09:57 → MW.MS 11:52 → UNDOADMIN 12:11
PROVIDERS: ADMIT Internal Medicine; ATTEND Internal Medicine
DX: J18.9 Pneumonia, unspecified organism (principal); J96.21 Acute and chronic respiratory failure with hypoxia; J44.0 Chronic obstructive pulmonary disease with (acute) lower respiratory infection; Z87.01 Personal history of pneumonia (recurrent); H54.7 Unspecified visual loss; J44.1 Chronic obstructive pulmonary disease with (acute) exacerbation; F32.9 Major depressive disorder, single episode, unspecified; R19.7 Diarrhea, unspecified; I10 Essential (primary) hypertension; Z85.42 Personal history of malignant neoplasm of other parts of uterus; Z86.73 Personal history of transient ischemic attack (TIA), and cerebral infarction without residual deficits; K21.9 Gastro-esophageal reflux disease without esophagitis; E11.9 Type 2 diabetes mellitus without complications; Z88.5 Allergy status to narcotic agent; Z91.018 Allergy to other foods; Z79.52 Long term (current) use of systemic steroids; Z79.899 Other long term (current) drug therapy; Z98.49 Cataract extraction status, unspecified eye; Z90.710 Acquired absence of both cervix and uterus
CPT/HCPCS: 36415; 36600; 71045; 80053; 82803; 83605; 84484; 85025; 87040 ×2; 87077; 87804 ×2; 93005; 94640; 96374; 96375; 99285; J0696; J2930; J7030; J7050; 80048; 87045; 87046; 87324; 87899; 94667; 97110-GP; 97161-GP; 97530-GP; 99284; A9270-GY; J0456; J1650; J3370; J7620-GY

== ENCOUNTER 2019-12-10 12:01 | Emergency (ER) | payer MEDICARE, BC ==
[2019-12-10] MEDS ORDERED: Albuterol/Ipratropium 3.0-0.5 MG/3 ML Neb Soln NEB ONE (12:33)
[2019-12-10] MEDS ORDERED: Dexamethasone 4 MG Tab PO ONE (12:33)
[2019-12-10] MEDS ORDERED: Albuterol 0.083% 2.5 MG/3 ML Neb Soln NEB ONE (12:33)
[2019-12-10] MEDS ORDERED: Azithromycin 250 MG Tab PO STA (12:37)
--- NOTE | 2019-12-10 13:18 | CR ---
Chest: Frontal view of the chest was obtained utilizing portable technique. Comparison: Prior chest x-ray of 10/26/19. Heart size is felt to be slightly enlarged. Hiatal hernia is noted. Tortuous thoracic aorta is present. Lung markings are increased which appear chronic. No acute parenchymal change is seen. Degenerative change is noted within the left shoulder. Chronic rotator cuff tear is seen within the right shoulder. Bony structures are osteopenic. Impression: 1. Findings as noted above. 2. Nothing acute is definitely appreciated. Diagnostic code #2 This report was dictated in [place] Standard Time
[2019-12-10 13:27] LABS: BLOOD UREA NITROGEN,BUN 34 mg/dL (7.0-18.0); CARBON DIOXIDE,CO2 37.3 mmol/L (21.0-32.0); CHLORIDE,CL 103 mmol/L (98-107); GLUCOSE RANDOM 134 mg/dL (74-106); SODIUM,NA 143 mmol/L (136-145)
--- NOTE | 2019-12-10 14:25 | EDM.PDOC ---
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 Patient uses supplemental oxygen 4 L per minute by nasal cannula at baseline. * PE risk factors: denies a history of DVT, PE, or shortness of breath that is similar to prior COPD exacerbations. * CHF: denies orthopnea or noncompliance with diuretic usage. M/S/F/SocHx notable for: please see HPI; remainder reviewed with patient and in chart. ROS: Negative constitutional, eye, cardiovascular, pulmonary, GI, , MSK, skin , neurologic, psychiatric, endocrine unless noted in the HPI. Exam Gen: Pleasant, non-toxic appearing, resting comfortably. HEENT: NC, AT, PEERL, EOMI, trachea midline. Resp: Clear to auscultation bilaterally, normal work of breathing. Card: RRR with no M/R/G, no crackles in lung bases, no pedal edema, no JVD appreciated. GI: NT/ND Vascular: Both ankles, calves, and thighs of equal size, no calf tenderness to palpation bilaterally. MSK: No chest wall TTP. No visible deformities, strength and tone WNL. Skin: Normal color with no visible lesions. Neuro: alert and oriented 3, no facial asymmetry, vision and hearing WNL. Psych: Mood and affect appropriate. Labs / Imaging (pertinent): WBC 9.07, HB 11, sodium 143, potassium 5.0, troponin <0.050 EKG: SR at 86 bpm, no MA segment depressions, no new ST segment changes, new LBBB, or T-wave changes that would suggest acute ischemia. CXR: nothing acute is definitely appreciated. MDM Previous chart, nursing note, and vitals reviewed. 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 DDx: pneumonia, reactive airway disease / COPD / Asthma, bronchitis, pneumothorax, anxiety, PE, CHF, pleural effusion, pericardial effusion, ACS. Evaluation: * Pneumonia - as the CXR is without focal infiltrate and the patient is afebrile and without significant sputum production, doubt pneumonia. * Reactive airway disease / COPD / Asthma - patient with wheezing, minimally increased work of breathing, given her underlying RAD suspect her sensation shortness breath is secondary to a mild exacerbation. Management as below. * Bronchitis - doubt given the lack of productive cough or systemic symptoms. * Pneumothorax - no evidence by CXR. * Anxiety - patient clinically without evidence of appreciable anxiety on exam. * PE - low clinical suspicion given history and alternate diagnosis, further risk stratification (e.g.) Well's not indicated. * CHF - no evidence by auscultation, CXR, and absence of pedal edema. * Pleural effusion - CXR without evidence of effusions. * Pericardial effusion - doubt pericardial effusion given an alternate diagnosis , the lack of cardiomegaly on CXR and normal heart sounds. * ACS - doubt ACS given a non-ischemic EKG and a negative troponin greater than six hours from maximal symptom onset. ED Course: 1 DuoNeb, 3 ML albuterol, 500 mg azithromycin, and 10 mg dexamethasone given for symptomatic treatment. Patient with normal SaO2 and normal work of breathing on her baseline for LPM by [place]. Disposition: discharge with PCP follow-up recommended. RX for Zofran and prednisone provided. Impression: COPD exacerbation. - Related Data Allergies Allergy/AdvReac Type Severity Reaction Status Date / Time morphine Allergy Cannot Verified 12/10/19 12:32 Remember Home Meds: Home Meds Fluticasone/Salmeterol [Advair Diskus 100-50] 1 puff INH BID 10/09/17 [History] Ipratropium [Atrovent 0.06% Nasal [place]] 2 sprays NASBOTH Q8H PRN 10/09/17 [ History] Levalbuterol Tartrate [Xopenex Hfa] 2 inh INH QID 10/09/17 [History] Mirtazapine 45 mg PO BEDTIME 10/09/17 [History] Montelukast [Singulair] 10 mg PO BEDTIME 10/09/17 [History] Sertraline [Zoloft] 100 mg PO QAM 10/09/17 [History] Furosemide 20 mg PO QAM 04/10/19 [History] Ipratropium [Atrovent HFA] 2 puff INH Q6H 04/10/19 [History] Iron Polysaccharide Complex [Iferex 150] 150 mg PO QAM 04/10/19 [History] Albuterol/Ipratropium [DuoNeb 3.0-0.5 MG/3 ML] 3 ml NEB Q6HR PRN 7 Days #30 neb 11/01/19 [Rx] Loperamide [Imodium] 2 mg PO Q4H PRN 7 Days #42 cap 11/01/19 [Rx] Acetaminophen [Arthritis Pain Relief] 650 mg PO Q4H PRN 12/10/19 [History] Azithromycin 250 mg PO DAILY #4 tablet 12/10/19 [Rx] Fluticasone Furoate [Flonase Sensimist] 1 spray NASBOTH BID 12/10/19 [History] Lisinopril [Zestril] 20 mg PO QAM 12/10/19 [History] Nut.Sup,Spec.Frm,L-Fr,Iron/Fos [Twocal HN] 3 oz PO BID 12/10/19 [History] predniSONE [Prednisone] 40 mg PO DAILY #8 tablet 12/10/19 [Rx] Past Medical History HEENT History: Reports: Cataract, Impaired Vision Cardiovascular History: Reports: Hypertension Respiratory History: Reports: COPD, Pneumonia, Recurrent Other Respiratory History: on home 02 at 5liters/min via nasal cannula Gastrointestinal History: Reports: Diverticulosis, GERD Genitourinary History: Reports: UTI, Recurrent 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: Reports: Neurological History: Reports: Other (See Below) Other Neuro History: "mini" stroke Psychiatric History: Reports: Depression Endocrine/Metabolic History: Reports: Diabetes, Type II Other Endocrine/Metabolic History: low blood sugar Immunologic History: Reports: None Oncologic (Cancer) History: Reports: Uterine Other Oncologic History: uterus Dermatologic History: Reports: Melanoma - Infectious Disease History Infectious Disease History: Reports: Chicken Pox, Measles - Past Surgical History HEENT Surgical History: Reports: Cataract Surgery Female Surgical History: Reports: Hysterectomy Neurological Surgical History: Reports: None Social & Family History - Family History Family Medical History: Noncontributory HEENT: Reports: Impaired Vision Cardiac: Reports: [place] Respiratory: Reports: None GI: Reports: None OBGYN: Reports: Musculoskeletal: Reports: Arthritis Neurological: Reports: Parkinson's Psychiatric: Reports: Depression Dermatologic: Reports: None Oncologic: Reports: Breast, Colon - Tobacco Use Smoking Status *Q: Never Smoker - Caffeine Use Caffeine Use: Reports: None - Recreational Drug Use Recreational Drug Use: No - Living Situation & Occupation Living situation: Reports: Alone, Assisted Living Occupation: Retired ED ROS GENERAL - Review of Systems Review Of Systems: See Below ED EXAM, GENERAL - Physical Exam Exam: See Below Course - Vital Signs Last Recorded V/S: Last Vital Signs Temp 37.1 C 12/10/19 12:32 Pulse 83 12/10/19 13:57 Resp 16 12/10/19 13:57 BP 104/64 12/10/19 13:57 Pulse Ox 94 L 12/10/19 13:57 - Orders/Labs/Meds Orders: Active Orders 24 hr Category Date Time Status EKG 12 Lead [EKG Documentation Completion] [RC] STAT Care 12/10/19 12:33 Active RT Aerosol Therapy [RC] ASDIRECTED Care 12/10/19 12:33 Active Labs: Laboratory Tests 12/10/19 12/10/19 Range/Units 12:50 12:50 WBC 9.07 (4.0-11.0) K/uL RBC 3.56 L (4.30-5.90) M/uL Hgb 11.0 L (12.0-16.0) g/dL Hct 37.4 (36.0-46.0) % MCV 105.1 H (80.0-98.0) fL MCH 30.9 (27.0-32.0) pg MCHC 29.4 L (31.0-37.0) g/dL RDW Std Deviation 49.1 (28.0-62.0) fl RDW Coeff of Carmen 13 (11.0-15.0) % Plt Count 135 L (150-400) K/uL MPV 12.80 H (7.40-12.00) fL Neut % (Auto) 85.5 H (48.0-80.0) % Lymph % (Auto) 10.3 L (16.0-40.0) % [place] % (Auto) 3.9 (0.0-15.0) % Eos % (Auto) 0.2 (0.0-7.0) % Baso % (Auto) 0.1 (0.0-1.5) % Neut # (Auto) 7.8 H (1.4-5.7) K/uL Lymph # (Auto) 0.9 (0.6-2.4) K/uL [place] # (Auto) 0.4 (0.0-0.8) K/uL Eos # (Auto) 0.0 (0.0-0.7) K/uL Baso # (Auto) 0.0 (0.0-0.1) K/uL Nucleated RBC % 0.0 /100WBC Nucleated RBCs # 0 K/uL Sodium 143 (136-145) mmol/L Potassium 5.0 (3.5-5.1) mmol/L Chloride 103 (98-107) mmol/L Carbon Dioxide 37.3 H (21.0-32.0) mmol/L BUN 34 H (7.0-18.0) mg/dL Creatinine 0.7 (0.6-1.0) mg/dL Est Cr Clr Drug Dosing TNP Estimated GFR (MDRD) > 60.0 ml/min Glucose 134 H (74-106) mg/dL Calcium 9.7 (8.5-10.1) mg/dL Troponin I < 0.050 (0.000-0.056) ng/mL Meds: Medications Discontinued Medications Generic Name Dose Route Start Last Admin Trade Name Freq PRN Reason Stop Dose Admin Albuterol 2.5 mg 12/10/19 12:33 12/10/19 13:03 Proventil [facility] Soln [facility] 12/10/19 12:34 2.5 mg ONETIME ONE Administration Albuterol/Ipratropium 3 ml 12/10/19 12:33 12/10/19 12:44 Duoneb 3.0-0.5 Mg/3 Ml [facility] 12/10/19 12:34 3 ml ONETIME ONE Administration Azithromycin 500 mg 12/10/19 12:37 12/10/19 12:49 Zithromax PO 12/10/19 12:38 500 mg NOW STA Administration Dexamethasone 10 mg 12/10/19 12:33 12/10/19 12:49 Dexamethasone PO 03/06/20 12:34 10 mg ONETIME ONE Administration Departure - Departure Time of Disposition: 14:20 Disposition: Home, Self-Care 01 Clinical Impression: COPD exacerbation - Discharge Information Prescriptions: Azithromycin 250 mg PO DAILY #4 tablet predniSONE [Prednisone] 40 mg PO DAILY #8 tablet Referrals: Kirt Monge MD [Primary Care Provider] - Sepsis Event Note - Evaluation Sepsis Screening Result: No Definite Risk - Focused Exam Vital Signs: Vital Signs Temp Pulse Resp BP Pulse Ox 12/10/19 13:57 83 16 104/64 94 L 12/10/19 12:32 37.1 C 87 20 103/73 90 L Date Exam was Performed: 12/10/19 Time Exam was Performed: 14:20 - My Orders Last 24 Hours: My Active Orders 12/10/19 12:33 EKG 12 Lead [EKG Documentation Completion] [RC] STAT RT Aerosol Therapy [RC] ASDIRECTED - Assessment/Plan Last 24 Hours: My Active Orders 12/10/19 12:33 EKG 12 Lead [EKG Documentation Completion] [RC] STAT RT Aerosol Therapy [RC] ASDIRECTED
[2019-12-10 14:51] VITALS: BP 100/72; PULSE 68
== END 2019-12-10 14:51 ==
LOC: MW.ED 12:01
DX: J44.1 Chronic obstructive pulmonary disease with (acute) exacerbation (principal); I11.0 Hypertensive heart disease with heart failure; I50.9 Heart failure, unspecified; E11.9 Type 2 diabetes mellitus without complications; F32.9 Major depressive disorder, single episode, unspecified; Z79.899 Other long term (current) drug therapy; Z88.5 Allergy status to narcotic agent; Z99.81 Dependence on supplemental oxygen; Z86.73 Personal history of transient ischemic attack (TIA), and cerebral infarction without residual deficits
CPT/HCPCS: 36415; 71045; 80048; 84484; 85025; 93005; 94640; 99285; A9270; J8540; 99284; J7620-GY

== ENCOUNTER 2020-01-07 14:20 | Observation (INO) | payer MEDICARE, BC ==
--- NOTE | 2020-01-07 14:32 | EDM.PDOC ---
ED HPI GENERAL MEDICAL PROBLEM - General Chief Complaint: Respiratory Problem Stated Complaint: BROUGHT IN FROM [facility] Time Seen by Provider: 01/07/20 14:29 Source of Information: Reports: Patient, [facility] Records History Limitations: Reports: No Limitations - History of Present Illness INITIAL COMMENTS - FREE TEXT/NARRATIVE: This 84 year old female is admitted to the ED from [facility] after being told that the patient oxygen sat was in the upper 70-80 on two liters of nasal oxygen. In talking with the patient, she states that her condition is baseline except that now she needs 4 liters of oxygen. With 4 liters of oxygen , her oxygen sat in the ED is 96%. The patient denies any fever of chills. She complains of a mild cough and congestion. Review of her medical records reveals that she has a history of COPD with EXH. Onset: Today Location: Reports: Chest - Related Data Allergies Allergy/AdvReac Type Severity Reaction Status Date / Time morphine Allergy Cannot Verified 01/07/20 15:49 Remember Home Meds: Home Meds Fluticasone/Salmeterol [Advair Diskus 100-50] 1 puff INH BID 10/09/17 [History] Ipratropium [Atrovent 0.06% Nasal [place]] 2 sprays NASBOTH Q8H PRN 10/09/17 [ History] Levalbuterol Tartrate [Xopenex Hfa] 2 inh INH QID 10/09/17 [History] Mirtazapine 45 mg PO BEDTIME 10/09/17 [History] Montelukast [Singulair] 10 mg PO BEDTIME 10/09/17 [History] Sertraline [Zoloft] 150 mg PO QAM 10/09/17 [History] Furosemide 20 mg PO QAM 04/10/19 [History] Ipratropium [Atrovent HFA] 2 puff INH Q6H 04/10/19 [History] Iron Polysaccharide Complex [Iferex 150] 150 mg PO QAM 04/10/19 [History] Loperamide [Imodium] 2 mg PO Q4H PRN 7 Days #42 cap 11/01/19 [Rx] Acetaminophen [Arthritis Pain Relief] 650 mg PO Q4H PRN 12/10/19 [History] Fluticasone Furoate [Flonase Sensimist] 1 spray NASBOTH BID 12/10/19 [History] Lisinopril [Zestril] 20 mg PO QAM 12/10/19 [History] Nut.Sup,Spec.Frm,L-Fr,Iron/Fos [Twocal HN] 3 oz PO BID 12/10/19 [History] Carbamide Peroxide [Debrox] 3 drop EARBOTH Q12H PRN 01/07/20 [History] Hypromellose [Genteal Mild] 1 drop EYEBOTH ASDIRECTED PRN 01/07/20 [History] Loperamide HCl [Imodium A-D] 2 mg PO BID 01/07/20 [History] diphenhydrAMINE [Benadryl] 50 mg PO Q6H PRN 01/07/20 [History] Past Medical History HEENT History: Reports: Cataract, Impaired Vision Cardiovascular History: Reports: Hypertension Respiratory History: Reports: COPD, Pneumonia, Recurrent Other Respiratory History: on home 02 at 5liters/min via nasal cannula Gastrointestinal History: Reports: Diverticulosis, GERD Genitourinary History: Reports: UTI, Recurrent PATIENT SERVICES REP History: Reports: Neurological History: Reports: Other (See Below) Other Neuro History: "mini" stroke Psychiatric History: Reports: Depression Endocrine/Metabolic History: Reports: Diabetes, Type II Other Endocrine/Metabolic History: low blood sugar Immunologic History: Reports: None Oncologic (Cancer) History: Reports: Uterine Other Oncologic History: uterus Dermatologic History: Reports: Melanoma - Infectious Disease History Infectious Disease History: Reports: Chicken Pox, Measles - Past Surgical History HEENT Surgical History: Reports: Cataract Surgery Female Surgical History: Reports: Hysterectomy Neurological Surgical History: Reports: None Social & Family History - Family History Family Medical History: Noncontributory HEENT: Reports: Impaired Vision Cardiac: Reports: [place] Respiratory: Reports: None GI: Reports: None OBGYN: Reports: Musculoskeletal: Reports: Arthritis Neurological: Reports: Parkinson's Psychiatric: Reports: Depression Dermatologic: Reports: None Oncologic: Reports: Breast, Colon - Caffeine Use Caffeine Use: Reports: None - Living Situation & Occupation Living situation: Reports: Alone, Assisted Living Occupation: Retired ED ROS GENERAL - Review of Systems Review Of Systems: See Below Constitutional: Reports: No Symptoms HEENT: Reports: No Symptoms (No acute changes) Respiratory: Reports: Shortness of Breath (that has gotten worse), Cough Cardiovascular: Reports: No Symptoms Endocrine: Reports: No Symptoms GI/Abdominal: Reports: No Symptoms : Reports: No Symptoms Musculoskeletal: Reports: No Symptoms Skin: Reports: No Symptoms ED EXAM, GENERAL - Physical Exam Exam: See Below Exam Limited By: No Limitations General Appearance: Alert, Mild Distress (to moderate distress) Ears: Normal External Exam (no acute changes), Normal Canal, Hearing Grossly Normal, Normal TMs Nose: Normal Inspection, Normal Mucosa, No Blood Throat/Mouth: Normal Inspection, Normal Oropharynx Head: Atraumatic, Normocephalic Neck: Normal Inspection, Supple Respiratory/Chest: Respiratory Distress (mild to moderate), Decreased Breath Sounds (throughout all lung rankin), Rhonchi (right base only), Wheezing ( wheezing noted over the entire posterior chest wall), Prolonged Expiration ( noted) Cardiovascular: Normal Peripheral Pulses, Regular Rate, Rhythm Peripheral Pulses: 2+: Dorsalis Pedis (L), Dorsalis Pedis (R), 3+: Carotid (L), Carotid (R) (with slight bruit), Radial (L), Radial (R) GI/Abdominal: Normal Bowel Sounds, Soft, Non-Tender, No Abnormal Bruit, No Mass (Female) Exam: Deferred Rectal (Female) Exam: Deferred Back Exam: Normal Inspection Extremities: Normal Inspection (but is somewhat emiceated). No: Harvinder's Sign Neurological: Alert, Oriented (to person, place and to her situation), CN II- XII Intact, Normal Reflexes, No Motor/Sensory Deficits Psychiatric: Flat Affect Skin Exam: Warm, Dry, Intact, Normal Color, No Rash Lymphatic: No Adenopathy Course - Vital Signs Text/Narrative:: I talked with Dr. Ambrose at 5:15PM. I discussed all of her diagnostic testing with Dr. Ambrose. The patient will be admitted for further evaluation and treatment. The patient agrees with the admission plan. Last Recorded V/S: Last Vital Signs Temp 97.9 F 01/07/20 14:25 Pulse 87 01/07/20 16:10 Resp 30 H 01/07/20 16:17 BP 152/79 H 01/07/20 16:10 Pulse Ox 94 L 01/07/20 16:17 - Orders/Labs/Meds Orders: Active Orders 24 hr Category Date Time Status RT Aerosol Therapy [RC] ASDIRECTED Care 01/07/20 15:24 Active Isolation [COMM] Routine Oth 01/07/20 14:39 Active Labs: Laboratory Tests 01/07/20 01/07/20 01/07/20 Range/Units 14:50 14:50 14:50 WBC 6.62 (4.0-11.0) K/uL RBC 3.58 L (4.30-5.90) M/uL Hgb 10.7 L (12.0-16.0) g/dL Hct 37.5 (36.0-46.0) % MCV 104.7 H (80.0-98.0) fL MCH 29.9 (27.0-32.0) pg MCHC 28.5 L (31.0-37.0) g/dL RDW Std Deviation 49.4 (28.0-62.0) fl RDW Coeff of Carmen 13 (11.0-15.0) % Plt Count 139 L (150-400) K/uL MPV 12.30 H (7.40-12.00) fL Neut % (Auto) 70.2 (48.0-80.0) % Lymph % (Auto) 20.5 (16.0-40.0) % [place] % (Auto) 7.9 (0.0-15.0) % Eos % (Auto) 1.1 (0.0-7.0) % Baso % (Auto) 0.3 (0.0-1.5) % Neut # (Auto) 4.7 (1.4-5.7) K/uL Lymph # (Auto) 1.4 (0.6-2.4) K/uL [place] # (Auto) 0.5 (0.0-0.8) K/uL Eos # (Auto) 0.1 (0.0-0.7) K/uL Baso # (Auto) 0.0 (0.0-0.1) K/uL Nucleated RBC % 0.0 /100WBC Nucleated RBCs # 0 K/uL Sodium 144 (136-145) mmol/L Potassium 4.6 (3.5-5.1) mmol/L Chloride 101 (98-107) mmol/L Carbon Dioxide 42.4 H (21.0-32.0) mmol/L BUN 35 H (7.0-18.0) mg/dL Creatinine 0.8 (0.6-1.0) mg/dL Est Cr Clr Drug Dosing 31.01 mL/min Estimated GFR (MDRD) > 60.0 ml/min Glucose 122 H (74-106) mg/dL Calcium 9.3 (8.5-10.1) mg/dL Magnesium 1.9 (1.8-2.4) mg/dL Total Bilirubin 0.2 (0.2-1.0) mg/dL AST 16 (15-37) IU/L ALT 22 (14-63) IU/L Alkaline Phosphatase 57 (46-116) U/L Troponin I < 0.050 (0.000-0.056) ng/mL B-Natriuretic Peptide 26 (<100) PG/ML Total Protein 7.2 (6.4-8.2) g/dL Albumin 3.2 L (3.4-5.0) g/dL Globulin 4.0 (2.6-4.0) g/dL Albumin/Globulin Ratio 0.8 L (0.9-1.6) Meds: Medications Discontinued Medications Generic Name Dose Route Start Last Admin Trade Name Freq PRN Reason Stop Dose Admin Albuterol/Ipratropium 3 ml 01/07/20 15:22 01/07/20 16:01 Duoneb 3.0-0.5 Mg/3 Ml NEB 01/07/20 15:23 3 ml ONETIME ONE Administration Azithromycin 500 mg 01/07/20 15:34 01/07/20 16:02 Zithromax PO 01/07/20 15:35 500 mg Q24H ONE Administration Magnesium Sulfate 1 gm/ Sodium 102 mls @ 204 mls/hr 01/07/20 15:30 01/07/20 16:07 Chloride IV 01/07/20 15:59 204 mls/hr ONETIME ONE Administration Magnesium Sulfate 1 gm 01/07/20 15:24 Magnesium Sulfate 50% IV 01/07/20 15:25 ONETIME ONE Methylprednisolone Sodium Succinate 125 mg 01/07/20 15:39 01/07/20 16:02 Solu-Medrol IVPUSH 01/07/20 15:40 125 mg ONETIME ONE Administration Departure - Departure Time of Disposition: 17:24 Disposition: Refer to Observation Condition: Fair Clinical Impression: COPD exacerbation - Discharge Information *PRESCRIPTION DRUG MONITORING PROGRAM REVIEWED*: Yes *COPY OF PRESCRIPTION DRUG MONITORING REPORT IN PATIENT MARELY: Yes Referrals: Brielle Danielle MD [Primary Care Provider] - Forms: ED Department Discharge Sepsis Event Note - Evaluation Sepsis Screening Result: No Definite Risk - Focused Exam Vital Signs: Vital Signs Temp Pulse Resp BP Pulse Ox 01/07/20 16:17 30 H 94 L 01/07/20 16:10 87 30 H 152/79 H 88 L 01/07/20 14:25 97.9 F 89 20 106/74 98 Date Exam was Performed: 01/07/20 Time Exam was Performed: 17:14 - My Orders Last 24 Hours: My Active Orders 01/07/20 14:39 Isolation [COMM] Routine 01/07/20 15:24 RT Aerosol Therapy [RC] ASDIRECTED - Assessment/Plan Last 24 Hours: My Active Orders 01/07/20 14:39 Isolation [COMM] Routine 01/07/20 15:24 RT Aerosol Therapy [RC] ASDIRECTED
--- NOTE | 2020-01-07 15:21 | CR ---
Chest: Portable view of the chest was obtained. Comparison: Prior chest x-ray of 12/10/19. Hiatal hernia is noted. Heart size is felt to be within normal limits. Tortuous thoracic aorta is seen. Curvilinear calcification within the right lung base is stable. No acute parenchymal change is seen. Bony structures are osteopenic. Degenerative change is noted within both shoulders with chronic rotator cuff tear noted within the right shoulder. Scoliosis is present within the spine. Impression: 1. Multiple findings as noted above. 2. Nothing acute is appreciated. Diagnostic code #2 Study was dictated in MDT
[2020-01-07] MEDS ORDERED: Albuterol/Ipratropium 3.0-0.5 MG/3 ML Neb Soln NEB ONE (15:22)
[2020-01-07] MEDS ORDERED: Magnesium Sulfate (4.06 MEQ/ML) 5 GM/10 ML SDV IV ONE (15:24)
[2020-01-07] MEDS ORDERED: Azithromycin 250 MG Tab PO ONE (15:34)
[2020-01-07 15:35] LABS: BLOOD UREA NITROGEN,BUN 35 mg/dL (7.0-18.0); CARBON DIOXIDE,CO2 42.4 mmol/L (21.0-32.0); CHLORIDE,CL 101 mmol/L (98-107); GLUCOSE RANDOM 122 mg/dL (74-106); POTASSIUM,K 4.6 mmol/L (3.5-5.1); SODIUM,NA 144 mmol/L (136-145)
[2020-01-07] MEDS ORDERED: methylPREDNISolone Sodium Succinate 125 MG/2 ML SDV IVPUSH ONE (15:39)
[2020-01-07] MEDS ORDERED: Acetaminophen 325 MG Tab PO PRN (18:24)
[2020-01-07] MEDS ORDERED: Ondansetron 4 MG Tab.DIS PO PRN (18:24)
[2020-01-07] MEDS ORDERED: Ondansetron 4 MG/2 ML SDV IVPUSH PRN (18:24)
--- NOTE | 2020-01-07 18:39 | PCM.HP.2 ---
H&P History of Present Illness - General Date of Service: 01/07/20 Admit Problem/Dx: Admission Diagnosis/Problem Admission Diagnosis/Problem COPD, Moderate chronic obstructive pulmonary disease Source of Information: Patient - History of Present Illness Initial Comments - Free Text/Narative: 84-year-old female [facility] home resident presents with mild cough, congestion and SOB. She has a PMH of COPD on home oxygen, HTN, GERD and DM type 2. Per chart review, patient was brought to the ER after finding that her oxygen saturation was in the low 80's on 2 L of oxygen via [place]. Patient reports that at [place] she uses 4-5 L of supplemental oxygen. Patient denies having any fevers, sore throat, blurry vision, chest pain, nausea, vomiting, abdominal pain , blood in stool, blood in urine, numbness or tingling in extremities. In the ER, CXR was unremarkable, CBC and CMP were unremarkable, troponin was normal, BNP was normal, influenza test negative and COVID19 test currently pending. She was given DuoNeb breathing treatment, IV magnesium, IV solumedrol and PO azithromycin. She was admitted for further evaluation and treatment. - Related Data Allergies/Adverse Reactions: Allergies Allergy/AdvReac Type Severity Reaction Status Date / Time morphine Allergy Cannot Verified 01/07/20 15:49 Remember Home Medications: Home Meds Fluticasone/Salmeterol [Advair Diskus 100-50] 1 puff INH BID 10/09/17 [History] Ipratropium [Atrovent 0.06% Nasal [place]] 2 sprays NASBOTH Q8H PRN 10/09/17 [ History] Levalbuterol Tartrate [Xopenex Hfa] 2 inh INH QID 10/09/17 [History] Mirtazapine 45 mg PO BEDTIME 10/09/17 [History] Montelukast [Singulair] 10 mg PO BEDTIME 10/09/17 [History] Sertraline [Zoloft] 150 mg PO QAM 10/09/17 [History] Furosemide 20 mg PO QAM 04/10/19 [History] Ipratropium [Atrovent HFA] 2 puff INH Q6H 04/10/19 [History] Iron Polysaccharide Complex [Iferex 150] 150 mg PO QAM 04/10/19 [History] Loperamide [Imodium] 2 mg PO Q4H PRN 7 Days #42 cap 11/01/19 [Rx] Acetaminophen [Arthritis Pain Relief] 650 mg PO Q4H PRN 12/10/19 [History] Fluticasone Furoate [Flonase Sensimist] 1 spray NASBOTH BID 12/10/19 [History] Lisinopril [Zestril] 20 mg PO QAM 12/10/19 [History] Nut.Sup,Spec.Frm,L-Fr,Iron/Fos [Twocal HN] 3 oz PO BID 12/10/19 [History] Carbamide Peroxide [Debrox] 3 drop EARBOTH Q12H PRN 01/07/20 [History] Hypromellose [Genteal Mild] 1 drop EYEBOTH ASDIRECTED PRN 01/07/20 [History] Loperamide HCl [Imodium A-D] 2 mg PO BID 01/07/20 [History] diphenhydrAMINE [Benadryl] 50 mg PO Q6H PRN 01/07/20 [History] Past Medical History HEENT History: Reports: Cataract, Impaired Vision Cardiovascular History: Reports: Hypertension Respiratory History: Reports: COPD, Pneumonia, Recurrent Other Respiratory History: on home 02 at 5liters/min via nasal cannula Gastrointestinal History: Reports: Diverticulosis, GERD Genitourinary History: Reports: UTI, Recurrent [employer] History: Reports: Neurological History: Reports: Other (See Below) Other Neuro History: "mini" stroke Psychiatric History: Reports: Depression Endocrine/Metabolic History: Reports: Diabetes, Type II Other Endocrine/Metabolic History: low blood sugar Immunologic History: Reports: None Oncologic (Cancer) History: Reports: Uterine Other Oncologic History: uterus Dermatologic History: Reports: Melanoma - Infectious Disease History Infectious Disease History: Reports: Chicken Pox, Measles - Past Surgical History HEENT Surgical History: Reports: Cataract Surgery Female Surgical History: Reports: Hysterectomy Neurological Surgical History: Reports: None Social & Family History - Family History Family Medical History: Noncontributory HEENT: Reports: Impaired Vision Cardiac: Reports: [place] Respiratory: Reports: None GI: Reports: None OBGYN: Reports: Musculoskeletal: Reports: Arthritis Neurological: Reports: Parkinson's Psychiatric: Reports: Depression Dermatologic: Reports: None Oncologic: Reports: Breast, Colon - Tobacco Use Smoking Status *Q: Never Smoker - Caffeine Use Caffeine Use: Reports: None - Recreational Drug Use Recreational Drug Use: No - Living Situation & Occupation Living situation: Reports: Alone, Assisted Living Occupation: Retired H&P Review of Systems - Review of Systems: Review Of Systems: Comprehensive ROS is negative, except as noted in HPI. Exam - Exam Exam: See Below - Vital Signs Vital Signs: Last Vital Signs Temp 97.9 F 01/07/20 14:25 Pulse 84 01/07/20 17:17 Resp 25 H 01/07/20 17:17 BP 104/62 01/07/20 17:17 Pulse Ox 95 01/07/20 17:17 Weight: 85 lb 12.8 oz - Exam General: Alert, Oriented, Cooperative, Other (NAD) HEENT: Conjunctiva Clear, EOMI, Pupils Equal, Pupils Reactive Neck: Supple, Trachea Midline Lungs: Normal Respiratory Effort, Other (scattered expiratory wheezes bilaterally) Cardiovascular: Regular Rate, Regular Rhythm GI/Abdominal Exam: Normal Bowel Sounds, Soft, Non-Tender, No Distention Extremities: Normal Inspection, No Pedal Edema Peripheral Pulses: 2+: Radial (L), Radial (R) Skin: Warm, Dry, Intact Neurological: Cranial Nerves Intact, Normal Speech, Normal Tone - Patient Data Lab Results Last 24 hrs: Laboratory Results - last 24 hr 01/07/20 01/07/20 01/07/20 Range/Units 14:50 14:50 14:50 WBC 6.62 (4.0-11.0) K/uL RBC 3.58 L (4.30-5.90) M/uL Hgb 10.7 L (12.0-16.0) g/dL Hct 37.5 (36.0-46.0) % MCV 104.7 H (80.0-98.0) fL MCH 29.9 (27.0-32.0) pg MCHC 28.5 L (31.0-37.0) g/dL RDW Std Deviation 49.4 (28.0-62.0) fl RDW Coeff of Carmen 13 (11.0-15.0) % Plt Count 139 L (150-400) K/uL MPV 12.30 H (7.40-12.00) fL Neut % (Auto) 70.2 (48.0-80.0) % Lymph % (Auto) 20.5 (16.0-40.0) % [place] % (Auto) 7.9 (0.0-15.0) % Eos % (Auto) 1.1 (0.0-7.0) % Baso % (Auto) 0.3 (0.0-1.5) % Neut # (Auto) 4.7 (1.4-5.7) K/uL Lymph # (Auto) 1.4 (0.6-2.4) K/uL [place] # (Auto) 0.5 (0.0-0.8) K/uL Eos # (Auto) 0.1 (0.0-0.7) K/uL Baso # (Auto) 0.0 (0.0-0.1) K/uL Nucleated RBC % 0.0 /100WBC Nucleated RBCs # 0 K/uL Sodium 144 (136-145) mmol/L Potassium 4.6 (3.5-5.1) mmol/L Chloride 101 (98-107) mmol/L Carbon Dioxide 42.4 H (21.0-32.0) mmol/L BUN 35 H (7.0-18.0) mg/dL Creatinine 0.8 (0.6-1.0) mg/dL Est Cr Clr Drug Dosing 31.01 mL/min Estimated GFR (MDRD) > 60.0 ml/min Glucose 122 H (74-106) mg/dL Calcium 9.3 (8.5-10.1) mg/dL Magnesium 1.9 (1.8-2.4) mg/dL Total Bilirubin 0.2 (0.2-1.0) mg/dL AST 16 (15-37) IU/L ALT 22 (14-63) IU/L Alkaline Phosphatase 57 (46-116) U/L Troponin I < 0.050 (0.000-0.056) ng/mL B-Natriuretic Peptide 26 (<100) PG/ML Total Protein 7.2 (6.4-8.2) g/dL Albumin 3.2 L (3.4-5.0) g/dL Globulin 4.0 (2.6-4.0) g/dL Albumin/Globulin Ratio 0.8 L (0.9-1.6) Result Diagrams: 01/07/20 14:50 01/07/20 14:50 [place] Results Last 24 hrs: Microbiology 01/07/20 16:10 Influenza Type A Antigen Screen - Final Nasopharyngeal Swab NEGATIVE INFLUENZA A VIRUS AG REFERENCE RANGE: NEGATIVE Influenza Type B Antigen Screen - Final NEGATIVE INFLUENZA B VIRUS AG REFERENCE RANGE: NEGATIVE Sepsis Event Note - Evaluation Sepsis Screening Result: No Definite Risk - Focused Exam Vital Signs: Vital Signs Temp Pulse Resp BP Pulse Ox 01/07/20 17:17 84 25 H 104/62 95 01/07/20 16:17 30 H 94 L 01/07/20 16:10 87 30 H 152/79 H 88 L 01/07/20 14:25 97.9 F 89 20 106/74 98 Date Exam was Performed: 01/07/20 Time Exam was Performed: 19:03 Problem List Initiated/Reviewed/Updated: Yes Orders Last 24hrs: Active Orders 24 hr Category Date Time Status Admission Status [Patient Status] [ADT] Stat ADT 01/07/20 17:22 Active Accu Check [Blood Glucose Check, Bedside] [RC] TIDAC Care 01/07/20 18:28 Active Oxygen Therapy [RC] PRN Care 01/07/20 18:24 Active RT Aerosol Therapy [RC] ASDIRECTED Care 01/07/20 15:24 Active RT Post Treatment Assessment [RC] Click to Edit Care 01/07/20 18:26 Active RT Pre-Treatment Assessment [RC] Click to Edit Care 01/07/20 18:26 Active Up ad [place] [RC] ASDIRECTED Care 01/07/20 18:24 Active VTE/DVT Education [RC] PER UNIT ROUTINE Care 01/07/20 18:24 Active Vital Signs [RC] Q4H Care 01/07/20 18:24 Active Consult to Wound Care Services [CONS] Routine Cons 01/07/20 18:28 Active PT Evaluation and Treatment [CONS] Routine Cons 01/07/20 18:24 Active [place] [employer] Diet [DIET] Diet 01/07/20 Lunch Active CBC WITH AUTO DIFF [HEME] AM Lab 01/08/20 05:11 Ordered COMPREHENSIVE METABOLIC PN,CMP [CHEM] AM Lab 01/08/20 05:11 Ordered Acetaminophen [Tylenol] Med 01/07/20 18:24 Active 650 mg PO Q4H PRN Albuterol/Ipratropium [Combivent Respimat] Med 01/07/20 18:30 Active 0 gm INH Q4H Azithromycin [Zithromax] Med 01/08/20 15:00 Active 250 mg PO Q24H Heparin Sodium Med 01/07/20 20:00 Active 5,000 units SUBCUT Q8H Insulin Aspart [NovoLOG] Med 01/08/20 07:30 Active See Protocol SUBCUT TIDAC Ondansetron [Zofran ODT] Med 01/07/20 18:24 Active 4 mg PO Q4H PRN Ondansetron [Zofran] Med 01/07/20 18:24 Active 4 mg IVPUSH Q4H PRN methylPREDNISolone Sod Succ [Solu-MEDROL] Med 01/08/20 09:00 Active 125 mg IVPUSH DAILY Isolation [COMM] Routine Oth 01/07/20 14:39 Active Medication Orders Acetaminophen (Tylenol) 650 mg PO Q4H PRN PRN Reason: Pain (Mild 1-3)/fever Albuterol/Ipratropium (Combivent Respimat) 0 gm INH Q4H [place] Azithromycin (Zithromax) 250 mg PO Q24H [place] Heparin Sodium (Porcine) (Heparin Sodium) 5,000 units SUBCUT Q8H [place] Insulin Aspart (Novolog) 0 unit SUBCUT TIDAC [place]; Protocol Methylprednisolone Sodium Succinate (Solu-Medrol) 125 mg IVPUSH DAILY [place] Ondansetron HCl (Zofran Odt) 4 mg PO Q4H PRN PRN Reason: nausea, able to take PO Ondansetron HCl (Zofran) 4 mg IVPUSH Q4H PRN PRN Reason: Nausea Assessment/Plan Comment:: Assessment and Plan: 1. Acute COPD exacerbation: - Admit to med/surg. Will treat with supplemental oxygen, combivent MDI q4, IV solumedrol 125 mg qd and PO azithromycin. CXR negative. Influenza test negative. COVID19 test currently pending. Patient on droplet precautions. 2. Diabetes mellitus type 2: - ADA diet, SSI. 3. Past medical history of: HTN and GERD: - Will resume home medications. 4. DVT prophylaxis: heparin.
[2020-01-07] MEDS ORDERED: diphenhydrAMINE 25 MG Cap PO PRN (19:04)
[2020-01-07] MEDS: Loperamide 2 MG Cap PO SCH (22:12)
[2020-01-07] MEDS: Mirtazapine 15 MG Tab PO SCH (22:12)
[2020-01-07] MEDS: Montelukast 10 MG Tab PO SCH (22:12)
[2020-01-07] MEDS: Heparin Sodium 5,000 Units/ML Vial SUBCUT SCH (22:13)
[2020-01-07] MEDS: Albuterol/Ipratropium 4 GM Inhalation Spray INH SCH ×2 (22:58→23:40)
[2020-01-08] MEDS: Albuterol/Ipratropium 4 GM Inhalation Spray INH SCH ×5 (03:30→21:32)
[2020-01-08] MEDS: Heparin Sodium 5,000 Units/ML Vial SUBCUT SCH ×3 (03:50→20:59)
[2020-01-08] MEDS: Insulin Aspart 100 Units/ML 3 ML Pen SUBCUT SCH ×4 (06:30→17:20)
[2020-01-08 06:57] LABS: BLOOD UREA NITROGEN,BUN 26 mg/dL (7.0-18.0); CHLORIDE,CL 105 mmol/L (98-107); GLUCOSE RANDOM 87 mg/dL (74-106); POTASSIUM,K 5.4 mmol/L (3.5-5.1); SODIUM,NA 146 mmol/L (136-145)
[2020-01-08 07:11] LABS: CARBON DIOXIDE,CO2 48.9 mmol/L (21.0-32.0)
--- NOTE | 2020-01-08 09:02 | PCM.PN ---
- General Info Date of Service: 01/08/20 Subjective Update: Reports breathing feels a bit better today. No fevers, chills, weakness, numbness/tingling in extremities, nausea or vomiting overnight. - Patient Data Vitals - Most Recent: Last Vital Signs Temp 97.5 F 01/08/20 08:00 Pulse 73 01/08/20 08:00 Resp 17 01/08/20 08:00 BP 103/49 L 01/08/20 08:00 Pulse Ox 95 01/08/20 08:00 Weight - Most Recent: 85 lb 12.8 oz I&O - Last 24 Hours: Intake & Output 01/07/20 01/08/20 01/08/20 22:59 06:59 14:59 Intake Total 120 Balance 120 Lab Results Last 24 Hours: Laboratory Results - last 24 hr 01/07/20 01/07/20 01/07/20 Range/Units 14:50 14:50 14:50 WBC 6.62 (4.0-11.0) K/uL RBC 3.58 L (4.30-5.90) M/uL Hgb 10.7 L (12.0-16.0) g/dL Hct 37.5 (36.0-46.0) % MCV 104.7 H (80.0-98.0) fL MCH 29.9 (27.0-32.0) pg MCHC 28.5 L (31.0-37.0) g/dL RDW Std Deviation 49.4 (28.0-62.0) fl RDW Coeff of Carmen 13 (11.0-15.0) % Plt Count 139 L (150-400) K/uL MPV 12.30 H (7.40-12.00) fL Neut % (Auto) 70.2 (48.0-80.0) % Lymph % (Auto) 20.5 (16.0-40.0) % [place] % (Auto) 7.9 (0.0-15.0) % Eos % (Auto) 1.1 (0.0-7.0) % Baso % (Auto) 0.3 (0.0-1.5) % Neut # (Auto) 4.7 (1.4-5.7) K/uL Lymph # (Auto) 1.4 (0.6-2.4) K/uL [place] # (Auto) 0.5 (0.0-0.8) K/uL Eos # (Auto) 0.1 (0.0-0.7) K/uL Baso # (Auto) 0.0 (0.0-0.1) K/uL Nucleated RBC % 0.0 /100WBC Nucleated RBCs # 0 K/uL Sodium 144 (136-145) mmol/L Potassium 4.6 (3.5-5.1) mmol/L Chloride 101 (98-107) mmol/L Carbon Dioxide 42.4 H (21.0-32.0) mmol/L BUN 35 H (7.0-18.0) mg/dL Creatinine 0.8 (0.6-1.0) mg/dL Est Cr Clr Drug Dosing 31.01 mL/min Estimated GFR (MDRD) > 60.0 ml/min Glucose 122 H (74-106) mg/dL POC Glucose (60-110) mg/dL Calcium 9.3 (8.5-10.1) mg/dL Magnesium 1.9 (1.8-2.4) mg/dL Total Bilirubin 0.2 (0.2-1.0) mg/dL AST 16 (15-37) IU/L ALT 22 (14-63) IU/L Alkaline Phosphatase 57 (46-116) U/L Troponin I < 0.050 (0.000-0.056) ng/mL B-Natriuretic Peptide 26 (<100) PG/ML Total Protein 7.2 (6.4-8.2) g/dL Albumin 3.2 L (3.4-5.0) g/dL Globulin 4.0 (2.6-4.0) g/dL Albumin/Globulin Ratio 0.8 L (0.9-1.6) 01/08/20 01/08/20 01/08/20 Range/Units 06:05 06:05 06:27 WBC 4.61 (4.0-11.0) K/uL RBC 3.54 L (4.30-5.90) M/uL Hgb 10.7 L (12.0-16.0) g/dL Hct 37.0 (36.0-46.0) % MCV 104.5 H (80.0-98.0) fL MCH 30.2 (27.0-32.0) pg MCHC 28.9 L (31.0-37.0) g/dL RDW Std Deviation 49.7 (28.0-62.0) fl RDW Coeff of Carmen 13 (11.0-15.0) % Plt Count 128 L (150-400) K/uL MPV 12.70 H (7.40-12.00) fL Neut % (Auto) 55.1 (48.0-80.0) % Lymph % (Auto) 34.9 (16.0-40.0) % [place] % (Auto) 8.7 (0.0-15.0) % Eos % (Auto) 1.1 (0.0-7.0) % Baso % (Auto) 0.2 (0.0-1.5) % Neut # (Auto) 2.5 (1.4-5.7) K/uL Lymph # (Auto) 1.6 (0.6-2.4) K/uL [place] # (Auto) 0.4 (0.0-0.8) K/uL Eos # (Auto) 0.1 (0.0-0.7) K/uL Baso # (Auto) 0.0 (0.0-0.1) K/uL Nucleated RBC % 0.0 /100WBC Nucleated RBCs # 0 K/uL Sodium 146 H (136-145) mmol/L Potassium 5.4 H (3.5-5.1) mmol/L Chloride 105 (98-107) mmol/L Carbon Dioxide 48.9 H (21.0-32.0) mmol/L BUN 26 H (7.0-18.0) mg/dL Creatinine 0.7 (0.6-1.0) mg/dL Est Cr Clr Drug Dosing 35.44 mL/min Estimated GFR (MDRD) > 60.0 ml/min Glucose 87 (74-106) mg/dL POC Glucose 92 (60-110) mg/dL Calcium 9.2 (8.5-10.1) mg/dL Magnesium (1.8-2.4) mg/dL Total Bilirubin 0.3 (0.2-1.0) mg/dL AST 14 L (15-37) IU/L ALT 19 (14-63) IU/L Alkaline Phosphatase 45 L (46-116) U/L Troponin I (0.000-0.056) ng/mL B-Natriuretic Peptide (<100) PG/ML Total Protein 6.4 (6.4-8.2) g/dL Albumin 2.7 L (3.4-5.0) g/dL Globulin 3.7 (2.6-4.0) g/dL Albumin/Globulin Ratio 0.7 L (0.9-1.6) [facility] Results Last 24 Hours: Microbiology 01/07/20 16:10 Influenza Type A Antigen Screen - Final Nasopharyngeal Swab NEGATIVE INFLUENZA A VIRUS AG REFERENCE RANGE: NEGATIVE Influenza Type B Antigen Screen - Final NEGATIVE INFLUENZA B VIRUS AG REFERENCE RANGE: NEGATIVE Med Orders - Current: Current Medications Acetaminophen (Tylenol) 650 mg PO Q4H PRN PRN Reason: Pain (Mild 1-3)/fever Albuterol/Ipratropium (Combivent Respimat) 0 gm INH Q4H [facility] Last Admin: 01/08/20 06:29 Dose: 1 puff Azithromycin (Zithromax) 250 mg PO Q24H [facility] Diphenhydramine HCl (Benadryl) 50 mg PO Q6H PRN PRN Reason: Itching Furosemide (Lasix) 20 mg PO QAM [facility] Heparin Sodium (Porcine) (Heparin Sodium) 5,000 units SUBCUT Q8H [facility] Last Admin: 01/08/20 03:50 Dose: Not Given Insulin Aspart (Novolog) 0 unit SUBCUT TIDAC [facility]; Protocol Last Admin: 01/08/20 06:30 Dose: Not Given Lisinopril (Prinivil) 20 mg PO QAM [facility] Loperamide HCl (Imodium) 2 mg PO BID [facility] Last Admin: 01/07/20 22:12 Dose: 2 mg Methylprednisolone Sodium Succinate (Solu-Medrol) 125 mg IVPUSH DAILY [facility] Mirtazapine (Remeron) 45 mg PO BEDTIME [facility] Last Admin: 01/07/20 22:12 Dose: 45 mg Montelukast Sodium (Singulair) 10 mg PO BEDTIME [facility] Last Admin: 01/07/20 22:12 Dose: 10 mg Ondansetron HCl (Zofran Odt) 4 mg PO Q4H PRN PRN Reason: nausea, able to take PO Ondansetron HCl (Zofran) 4 mg IVPUSH Q4H PRN PRN Reason: Nausea Polysaccharide Iron Complex (Ferrex 150) 150 mg PO QAM [facility] Sertraline HCl (Zoloft) 150 mg PO QAM [facility] Discontinued Medications Albuterol/Ipratropium (Duoneb 3.0-0.5 Mg/3 Ml) 3 ml NEB ONETIME ONE Stop: 01/07/20 15:23 Last Admin: 01/07/20 16:01 Dose: 3 ml Azithromycin (Zithromax) 500 mg PO Q24H ONE Stop: 01/07/20 15:35 Last Admin: 01/07/20 16:02 Dose: 500 mg Magnesium Sulfate 1 gm/ Sodium (Chloride) 102 mls @ 204 mls/hr IV ONETIME ONE Stop: 01/07/20 15:59 Last Admin: 01/07/20 16:07 Dose: 204 mls/hr Magnesium Sulfate (Magnesium Sulfate 50%) 1 gm IV ONETIME ONE Stop: 01/07/20 15:25 Methylprednisolone Sodium Succinate (Solu-Medrol) 125 mg IVPUSH ONETIME ONE Stop: 01/07/20 15:40 Last Admin: 01/07/20 16:02 Dose: 125 mg - Exam General: Alert, Oriented, Cooperative Lungs: Normal Respiratory Effort, Other (mild wheezes b/l) Cardiovascular: Regular Rate, Regular Rhythm GI/Abdominal Exam: Normal Bowel Sounds, Soft, Non-Tender, No Distention Extremities: Normal Inspection, No Pedal Edema Sepsis Event Note - Evaluation Sepsis Screening Result: No Definite Risk - Focused Exam Vital Signs: Vital Signs Temp Pulse Resp BP Pulse Ox 01/08/20 08:00 97.5 F 73 17 103/49 L 95 01/08/20 03:35 98.1 F 67 14 145/72 H 100 01/07/20 23:48 98 F 78 20 142/70 H 99 Date Exam was Performed: 01/08/20 Time Exam was Performed: 11:02 - Problem List Review Problem List Initiated/Reviewed/Updated: Yes - My Orders Last 24 Hours: My Active Orders 01/07/20 18:24 Oxygen Therapy [RC] PRN Up ad [place] [RC] ASDIRECTED VTE/DVT Education [RC] DAILY Vital Signs [RC] Q4H PT Evaluation and Treatment [CONS] Routine Acetaminophen [Tylenol] 650 mg PO Q4H PRN Ondansetron [Zofran ODT] 4 mg PO Q4H PRN Ondansetron [Zofran] 4 mg IVPUSH Q4H PRN 01/07/20 18:26 RT Post Treatment Assessment [RC] Click to Edit RT Pre-Treatment Assessment [RC] Click to Edit 01/07/20 18:28 Accu Check [Blood Glucose Check, Bedside] [RC] TIDAC Consult to Wound Care Services [CONS] Routine 01/07/20 18:30 Albuterol/Ipratropium [Combivent Respimat] 0 gm INH Q4H 01/07/20 18:51 Code Status [Resuscitation Status] Routine 01/07/20 18:53 Telemetry Monitoring [Cardiac Monitoring] [RC] Q8H 01/07/20 19:03 Isolation [COMM] Routine 01/07/20 19:04 diphenhydrAMINE [Benadryl] 50 mg PO Q6H PRN 01/07/20 20:00 Heparin Sodium 5,000 units SUBCUT Q8H 01/07/20 21:00 Loperamide [Imodium] 2 mg PO BID Mirtazapine [Remeron] 45 mg PO BEDTIME Montelukast [Singulair] 10 mg PO BEDTIME 01/07/20 Dinner Regular Diet [DIET] 01/08/20 07:27 EKG Documentation Completion [RC] STAT 01/08/20 07:30 Insulin Aspart [NovoLOG] See Protocol SUBCUT TIDAC 01/08/20 09:00 Furosemide [Lasix] 20 mg PO QAM Iron Polysaccharides Complex [Ferrex 150] 150 mg PO QAM Sertraline [Zoloft] 150 mg PO QAM lisinopriL [Prinivil] 20 mg PO QAM methylPREDNISolone Sod Succ [Solu-MEDROL] 125 mg IVPUSH DAILY 01/08/20 15:00 Azithromycin [Zithromax] 250 mg PO Q24H - Plan Plan:: Assessment and Plan: 1. Acute COPD exacerbation: - Continue supplemental oxygen, oxygen requirement at baseline is 2 L, will continue to wean as tolerated. Will space out Combivent to q6h [place] and continue IV solumedrol 125 mg qd and PO azithromycin. COVID19 test currently pending. 2. Hyperkalemia: - EKG unremarkable, patient is asymptomatic. Will recheck potassium level this afternoon. 3. Diabetes mellitus type 2: - ADA diet, SSI. 4. Past medical history of: HTN and GERD: - Will resume home medications. 5. DVT prophylaxis: heparin.
[2020-01-08] MEDS: methylPREDNISolone Sodium Succinate 125 MG/2 ML SDV IVPUSH SCH (09:14)
[2020-01-08] MEDS: Sertraline 100 MG Tab PO SCH (09:18)
[2020-01-08] MEDS: Furosemide 20 MG Tab PO SCH (09:18)
[2020-01-08] MEDS: Loperamide 2 MG Cap PO SCH ×2 (09:18→21:32)
[2020-01-08] MEDS: Iron Polysaccharides Complex 150 MG Cap PO SCH (09:18)
[2020-01-08] MEDS: Lisinopril 10 MG Tab PO SCH (09:22)
[2020-01-08] MEDS ORDERED: Azithromycin 250 MG Tab PO SCH (15:00)
[2020-01-08] MEDS: Mirtazapine 15 MG Tab PO SCH (21:31)
[2020-01-08] MEDS: Montelukast 10 MG Tab PO SCH (21:32)
[2020-01-09] MEDS: Heparin Sodium 5,000 Units/ML Vial SUBCUT SCH ×2 (04:13→11:38)
[2020-01-09] MEDS: Albuterol/Ipratropium 4 GM Inhalation Spray INH SCH ×2 (04:14→10:39)
[2020-01-09 06:59] LABS: BLOOD UREA NITROGEN,BUN 31 mg/dL (7.0-18.0); CARBON DIOXIDE,CO2 43.7 mmol/L (21.0-32.0); CHLORIDE,CL 105 mmol/L (98-107); GLUCOSE RANDOM 92 mg/dL (74-106); POTASSIUM,K 5.1 mmol/L (3.5-5.1); SODIUM,NA 145 mmol/L (136-145)
[2020-01-09] MEDS: Insulin Aspart 100 Units/ML 3 ML Pen SUBCUT SCH (07:38)
[2020-01-09] MEDS: methylPREDNISolone Sodium Succinate 125 MG/2 ML SDV IVPUSH SCH (08:48)
[2020-01-09] MEDS: Loperamide 2 MG Cap PO SCH (08:49)
[2020-01-09] MEDS: Sertraline 100 MG Tab PO SCH (08:49)
[2020-01-09] MEDS: Lisinopril 10 MG Tab PO SCH (08:50)
[2020-01-09] MEDS: Iron Polysaccharides Complex 150 MG Cap PO SCH (08:50)
[2020-01-09] MEDS: Furosemide 20 MG Tab PO SCH (08:51)
[2020-01-09 11:38] VITALS: BP 121/74; PULSE 83
--- NOTE | 2020-01-09 12:05 | PCM.DCSUM1 ---
Discharge Summary - Hospital Course Free Text/Narrative:: 84-year-old female [facility] home resident presents with mild cough, congestion and SOB. She has a PMH of COPD on home oxygen, HTN, GERD and DM type 2. Per chart review, patient was brought to the ER after finding that her oxygen saturation was in the low 80's on 2 L of oxygen via [place]. Patient reports that at [place] she uses 4-5 L of supplemental oxygen. Patient denies having any fevers, sore throat, blurry vision, chest pain, nausea, vomiting, abdominal pain , blood in stool, blood in urine, numbness or tingling in extremities. In the ER, CXR was unremarkable, CBC and CMP were unremarkable, troponin was normal, BNP was normal, influenza test negative and COVID19 test currently pending. She was given DuoNeb breathing treatment, IV magnesium, IV solumedrol and PO azithromycin. She was admitted for further evaluation and treatment. Patient received Azithromycin, Combivent, nd IV steroids daily, Patients breathing improved, she was back o 2L oxygen and sating 93% at rest. patients COVID results were still pending. Patient is medically stable for dc to [place]. Diagnosis: Stroke: No - Discharge Data Discharge Date: 01/09/20 Discharge Disposition: Home, Self-Care 01 Condition: Stable - Referral to Home Health Primary Care Physician: Brielle Danielle MD - Discharge Diagnosis/Problem(s) (1) COPD exacerbation SNOMED Code(s): 932062828 ICD Code: J44.1 - CHRONIC OBSTRUCTIVE PULMONARY DISEASE W (ACUTE) EXACERBATION Status: Acute Current Visit: Yes - Patient Summary/Data Consults: Consultations 01/07/20 18:24 PT Evaluation and Treatment [CONS] Routine 01/07/20 18:28 Consult to Wound Care Services [CONS] Routine - Patient Instructions Diet: Regular Diet as Tolerated Activity: As Tolerated Driving: Do Not Drive Showering/Bathing: May Shower Notify Provider of: Fever, Increased Pain, Swelling and Redness, Drainage, Nausea and/or Vomiting - Discharge Plan *PRESCRIPTION DRUG MONITORING PROGRAM REVIEWED*: Yes *COPY OF PRESCRIPTION DRUG MONITORING REPORT IN PATIENT MARELY: Yes Prescriptions/Med Rec: Azithromycin [Zithromax] 250 mg PO Q24H #3 tablet predniSONE [Prednisone] 40 mg PO DAILY #5 tablet Home Medications: Home Meds Fluticasone/Salmeterol [Advair Diskus 100-50] 1 puff INH BID 10/09/17 [History] Ipratropium [Atrovent 0.06% Nasal [place]] 2 sprays NASBOTH Q8H PRN 10/09/17 [ History] Levalbuterol Tartrate [Xopenex Hfa] 2 inh INH QID 10/09/17 [History] Mirtazapine 45 mg PO BEDTIME 10/09/17 [History] Montelukast [Singulair] 10 mg PO BEDTIME 10/09/17 [History] Sertraline [Zoloft] 150 mg PO QAM 10/09/17 [History] Furosemide 20 mg PO QAM 04/10/19 [History] Ipratropium [Atrovent HFA] 2 puff INH Q6H 04/10/19 [History] Iron Polysaccharide Complex [Iferex 150] 150 mg PO QAM 04/10/19 [History] Loperamide [Imodium] 2 mg PO Q4H PRN 7 Days #42 cap 11/01/19 [Rx] Acetaminophen [Arthritis Pain Relief] 650 mg PO Q4H PRN 12/10/19 [History] Fluticasone Furoate [Flonase Sensimist] 1 spray NASBOTH BID 12/10/19 [History] Lisinopril [Zestril] 20 mg PO QAM 12/10/19 [History] Nut.Sup,Spec.Frm,L-Fr,Iron/Fos [Twocal HN] 3 oz PO BID 12/10/19 [History] Carbamide Peroxide [Debrox] 3 drop EARBOTH Q12H PRN 01/07/20 [History] Hypromellose [Genteal Mild] 1 drop EYEBOTH .ASNEEDED PRN 01/07/20 [History] Ipratropium/Albuterol Sulfate [Iprat-Albut 0.5-3(2.5) mg/3 ml] 3 ml INH QID 12/23 [History] diphenhydrAMINE [Benadryl] 50 mg PO Q6H PRN 01/07/20 [History] Loperamide HCl [Loperamide] 2 mg PO BID 01/08/20 [History] Azithromycin [Zithromax] 250 mg PO Q24H #3 tablet 01/09/20 [Rx] predniSONE [Prednisone] 40 mg PO DAILY #5 tablet 01/09/20 [Rx] Oxygen Therapy Mode: Nasal Cannula Patient Handouts: Chronic Obstructive Pulmonary Disease, [id number], Azithromycin tablets, Prednisolone tablets Referrals: Brielle Danielle MD [Primary Care Provider] - - Discharge Summary/Plan Comment DC Time >30 min.: No - Patient Data Vitals - Most Recent: Last Vital Signs Temp 37.0 C 01/09/20 11:37 Pulse 83 01/09/20 11:37 Resp 18 01/09/20 11:37 BP 121/74 01/09/20 11:37 Pulse Ox 92 L 01/09/20 11:37 Weight - Most Recent: 38.918 kg I&O - Last 24 hours: Intake & Output 01/08/20 01/09/20 01/09/20 22:59 06:59 14:59 Intake Total 943 700 Output Total 750 400 Balance 193 300 Lab Results - Last 24 hrs: Laboratory Results - last 24 hr 01/08/20 01/08/20 01/09/20 Range/Units 15:07 16:58 06:00 WBC 5.41 (4.0-11.0) K/uL RBC 3.44 L (4.30-5.90) M/uL Hgb 10.3 L (12.0-16.0) g/dL Hct 35.3 L (36.0-46.0) % MCV 102.6 H (80.0-98.0) fL MCH 29.9 (27.0-32.0) pg MCHC 29.2 L (31.0-37.0) g/dL RDW Std Deviation 47.4 (28.0-62.0) fl RDW Coeff of Carmen 13 (11.0-15.0) % Plt Count 136 L (150-400) K/uL MPV 12.50 H (7.40-12.00) fL Neut % (Auto) 61.3 (48.0-80.0) % Lymph % (Auto) 30.7 (16.0-40.0) % [place] % (Auto) 7.2 (0.0-15.0) % Eos % (Auto) 0.6 (0.0-7.0) % Baso % (Auto) 0.2 (0.0-1.5) % Neut # (Auto) 3.3 (1.4-5.7) K/uL Lymph # (Auto) 1.7 (0.6-2.4) K/uL [place] # (Auto) 0.4 (0.0-0.8) K/uL Eos # (Auto) 0.0 (0.0-0.7) K/uL Baso # (Auto) 0.0 (0.0-0.1) K/uL Nucleated RBC % 0.0 /100WBC Nucleated RBCs # 0 K/uL Sodium (136-145) mmol/L Potassium 5.1 (3.5-5.1) mmol/L Chloride (98-107) mmol/L Carbon Dioxide (21.0-32.0) mmol/L BUN (7.0-18.0) mg/dL Creatinine (0.6-1.0) mg/dL Est Cr Clr Drug Dosing mL/min Estimated GFR (MDRD) ml/min Glucose (74-106) mg/dL POC Glucose 249 H (60-110) mg/dL Calcium (8.5-10.1) mg/dL Total Bilirubin (0.2-1.0) mg/dL AST (15-37) IU/L ALT (14-63) IU/L Alkaline Phosphatase (46-116) U/L Total Protein (6.4-8.2) g/dL Albumin (3.4-5.0) g/dL Globulin (2.6-4.0) g/dL Albumin/Globulin Ratio (0.9-1.6) 01/09/20 01/09/20 01/09/20 Range/Units 06:00 06:35 09:00 WBC (4.0-11.0) K/uL RBC (4.30-5.90) M/uL Hgb (12.0-16.0) g/dL Hct (36.0-46.0) % MCV (80.0-98.0) fL MCH (27.0-32.0) pg MCHC (31.0-37.0) g/dL RDW Std Deviation (28.0-62.0) fl RDW Coeff of Carmen (11.0-15.0) % Plt Count (150-400) K/uL MPV (7.40-12.00) fL Neut % (Auto) (48.0-80.0) % Lymph % (Auto) (16.0-40.0) % [place] % (Auto) (0.0-15.0) % Eos % (Auto) (0.0-7.0) % Baso % (Auto) (0.0-1.5) % Neut # (Auto) (1.4-5.7) K/uL Lymph # (Auto) (0.6-2.4) K/uL [place] # (Auto) (0.0-0.8) K/uL Eos # (Auto) (0.0-0.7) K/uL Baso # (Auto) (0.0-0.1) K/uL Nucleated RBC % /100WBC Nucleated RBCs # K/uL Sodium 145 (136-145) mmol/L Potassium 5.1 (3.5-5.1) mmol/L Chloride 105 (98-107) mmol/L Carbon Dioxide 43.7 H (21.0-32.0) mmol/L BUN 31 H (7.0-18.0) mg/dL Creatinine 0.8 (0.6-1.0) mg/dL Est Cr Clr Drug Dosing 31.01 mL/min Estimated GFR (MDRD) > 60.0 ml/min Glucose 92 (74-106) mg/dL POC Glucose 81 85 (60-110) mg/dL Calcium 9.3 (8.5-10.1) mg/dL Total Bilirubin 0.2 (0.2-1.0) mg/dL AST 12 L (15-37) IU/L ALT 18 (14-63) IU/L Alkaline Phosphatase 47 (46-116) U/L Total Protein 6.4 (6.4-8.2) g/dL Albumin 2.8 L (3.4-5.0) g/dL Globulin 3.6 (2.6-4.0) g/dL Albumin/Globulin Ratio 0.8 L (0.9-1.6) Med Orders - Current: Current Medications Acetaminophen (Tylenol) 650 mg PO Q4H PRN PRN Reason: Pain (Mild 1-3)/fever Albuterol/Ipratropium (Combivent Respimat) 0 gm INH Q6H [facility] Last Admin: 01/09/20 10:39 Dose: 1 puff Azithromycin (Zithromax) 250 mg PO Q24H [facility] Last Admin: 01/08/20 15:02 Dose: 250 mg Diphenhydramine HCl (Benadryl) 50 mg PO Q6H PRN PRN Reason: Itching [facility] Admin: 01/09/20 08:51 Dose: 20 mg Heparin Sodium (Porcine) (Heparin Sodium) 5,000 units SUBCUT Q8H [facility] Last Admin: 01/09/20 11:38 Dose: 5,000 units Lisinopril (Prinivil) [facility] [place] Last Admin: 01/09/20 08:50 Dose: 20 mg Loperamide HCl (Imodium) 2 mg PO BID [facility] Last Admin: 01/09/20 08:49 Dose: 2 mg Methylprednisolone Sodium Succinate (Solu-Medrol) 125 mg IVPUSH DAILY [facility] Last Admin: 01/09/20 08:48 Dose: 125 mg Mirtazapine (Remeron) 45 mg PO BEDTIME [facility] Last Admin: 01/08/20 21:31 Dose: 45 mg Montelukast Sodium (Singulair) 10 mg PO BEDTIME [facility] Last Admin: 01/08/20 21:32 Dose: 10 mg Ondansetron HCl (Zofran Odt) 4 mg PO Q4H PRN PRN Reason: nausea, able to take PO Ondansetron HCl (Zofran) 4 mg IVPUSH Q4H PRN PRN Reason: Nausea Polysaccharide Iron Complex (Ferrex 150) [address] [facility] Last Admin: 01/09/20 08:50 Dose: 150 mg Sertraline HCl (Zoloft) [address] [facility] Last Admin: 01/09/20 08:49 Dose: 150 mg Discontinued Medications Albuterol/Ipratropium (Duoneb 3.0-0.5 Mg/3 Ml) 3 ml NEB ONETIME ONE Stop: 01/07/20 15:23 Last Admin: 01/07/20 16:01 Dose: 3 ml Albuterol/Ipratropium (Combivent Respimat) 0 gm INH Q4H [facility] Last Admin: 01/08/20 06:29 Dose: 1 puff Azithromycin (Zithromax) 500 mg PO Q24H ONE Stop: 01/07/20 15:35 Last Admin: 01/07/20 16:02 Dose: 500 mg Magnesium Sulfate 1 gm/ Sodium (Chloride) 102 mls @ 204 mls/hr IV ONETIME ONE Stop: 01/07/20 15:59 Last Admin: 01/07/20 16:07 Dose: 204 mls/hr Insulin Aspart (Novolog) 0 unit [facility]UT [facility]; Protocol Last Admin: 01/09/20 07:38 Dose: Not Given Magnesium Sulfate (Magnesium Sulfate 50%) 1 gm IV ONETIME ONE Stop: 01/07/20 15:25 Methylprednisolone Sodium Succinate (Solu-Medrol) 125 mg IVPUSH ONETIME ONE Stop: 01/07/20 15:40 Last Admin: 01/07/20 16:02 Dose: 125 mg
== END 2020-01-09 14:20 ==
LOC: MW.ED 14:20 → MW.MS 17:39
PROVIDERS: ADMIT Internal Medicine; ATTEND Internal Medicine
DX: J44.1 Chronic obstructive pulmonary disease with (acute) exacerbation (principal); E87.5 Hyperkalemia; K21.9 Gastro-esophageal reflux disease without esophagitis; I10 Essential (primary) hypertension; E11.9 Type 2 diabetes mellitus without complications; F32.9 Major depressive disorder, single episode, unspecified; Z88.6 Allergy status to analgesic agent; Z79.899 Other long term (current) drug therapy; Z79.51 Long term (current) use of inhaled steroids; Z99.81 Dependence on supplemental oxygen
CPT/HCPCS: 36415; 71045; 80053; 82962; 83735; 83880; 84132; 84484; 85025; 87804; 93005; 96365; 96372; 96375; 96376; 97161; 99284; A9270; G0378; J1644; J1815; J2930; J3475; J7050; J7620-GY

== ENCOUNTER 2020-02-03 20:49 | Inpatient (IN) | payer MEDICARE, BC ==
[2020-02-03] MEDS ORDERED: Albuterol/Ipratropium 3.0-0.5 MG/3 ML Neb Soln NEB ONE (20:52)
[2020-02-03] MEDS ORDERED: methylPREDNISolone Sodium Succinate 125 MG/2 ML SDV IVPUSH ONE (20:52)
[2020-02-03] MEDS ORDERED: Levofloxacin/Dextrose 5%-Water 750 MG in Premix Bag 1 BAG IV ONE (20:53)
--- NOTE | 2020-02-03 20:56 | EDM.PDOC ---
ED HPI GENERAL MEDICAL PROBLEM - General Stated Complaint: LOW OXGENE Time Seen by Provider: 02/03/20 20:51 Source of Information: Reports: Patient, EMS, [facility] Records History Limitations: Reports: No Limitations - History of Present Illness INITIAL COMMENTS - FREE TEXT/NARRATIVE: Patient is an 84-year-old female with history of COPD who presents to ER with mild to moderate dyspnea. Symptoms began today and have been worsening over the past 1 hour. Has (+) occasional cough with clear sputum production. (-) hemoptysis Reports (+) wheezing (-) fever (-) chest pain (-) syncope. Patient is on 4L home oxygen 24 hours/day. Patient reports (+) orthopnea. (-) unilateral leg swelling (-) history of DVT. She resides at [facility].Per long-term, pt had a pulse ox of 83-84% today. Prior to arrival, treatment at long-term: duoneb x 2. Denies recent steroids. Pt was discharged from this facility 3 weeks ago and has been in 14 day quarantine isolation at the long-term. Was released from isolation 1 week ago. REVIEW OF SYSTEMS: Other than the symptoms associated with the present events, the following is reported with regard to recent health: General: (-) fever. HENT: (-) congestion. Respiratory: (+)dyspnea. Cardiovascular: (-) chest pain. GI: (-) abdominal pain. : (-) urinary complaints. Musculoskeletal: (-) other aches or pains. Endocrine: (-) generalized weakness. Neurological: (-) localized weakness. Skin: (-) rash PAST MEDICAL HISTORY: reviewed as per nursing notes SOCIAL HISTORY: reviewed as per nursing notes, MEDICATIONS: Per nurse's note ALLERGIES: Per nurse's note, reviewed by me PHYSICAL EXAMINATION: GENERALIZED APPEARANCE: well developed, well nourished in mild distress VITAL SIGNS: Per nurse's note, reviewed by me SKIN: Warm, dry; (-) cyanosis; (-) rash. HEAD: (-) scalp swelling, (-) tenderness. EYES: (-) conjunctival pallor, (-) scleral icterus. ENMT: (-) stridor; mucous membranes moist. NECK: (-) tenderness, (-) stiffness, CHEST AND RESPIRATORY: (-) rales, (-) rhonchi, (+) wheezes; breath sounds equal bilaterally. HEART AND CARDIOVASCULAR: tachycardic, regular rhythm (-) murmur, (-) gallop. ABDOMEN AND GI: Soft; (-) tenderness, (-) guarding, (-) rebound, (-) palpable masses, EXTREMITIES: (-) deformity, (-) edema. NEURO AND PSYCH: Alert. Cranial nerves grossly intact; strength symmetric. DIAGNOSTICS: EKG: st at 114 bpm pvc. nml axis. lafb. q wave ant. no acute st elevation CXR: Normal heart size and vascular pattern. There is a retrocardiac hiatal hernia with no change. Lungs are clear of new focal opacities. No new pulmonary consolidation. No effusions. Tortuous aorta. No pneumothorax. As read by Dr. Blackmon, radiologist Labs ordered and reviewed. EMERGENCY DEPARTMENT COURSE AND TREATMENT: Patient's condition improved during Emergency Department evaluation. Pt seen upon arrival. Report taken from EMS. Blood cultures x 2 ordered and given Levaquin after cultures. nebs ordered. Solumedrol 125 mg IV ordered. Had brief episode of hypotension. Given 1L NS with improvment. Labs and diagnostics ordered. ABG noted, pt started on BIPAP. Case d/w Dr. Ambrose who would like patient admitted to ICU inpatient. PLAN AND FOLLOW-UP: admit - Related Data Allergies Allergy/AdvReac Type Severity Reaction Status Date / Time morphine Allergy Cannot Verified 02/03/20 21:06 Remember Home Meds: Home Meds Fluticasone/Salmeterol [Advair Diskus 100-50] 1 puff INH BID 10/09/17 [History] Ipratropium [Atrovent 0.06% Nasal [place]] 2 sprays NASBOTH Q8H PRN 10/09/17 [ History] Levalbuterol Tartrate [Xopenex Hfa] 2 inh INH QID 10/09/17 [History] Mirtazapine 45 mg PO BEDTIME 10/09/17 [History] Montelukast [Singulair] 10 mg PO BEDTIME 10/09/17 [History] Sertraline [Zoloft] 150 mg PO QAM 10/09/17 [History] Furosemide 20 mg PO QAM 04/10/19 [History] Ipratropium [Atrovent HFA] 2 puff INH Q6H 04/10/19 [History] Iron Polysaccharide Complex [Iferex 150] 150 mg PO QAM 04/10/19 [History] Loperamide [Imodium] 2 mg PO Q4H PRN 7 Days #42 cap 11/01/19 [Rx] Acetaminophen [Arthritis Pain Relief] 650 mg PO Q4H PRN 12/10/19 [History] Fluticasone Furoate [Flonase Sensimist] 1 spray NASBOTH BID 12/10/19 [History] Nut.Sup,Spec.Frm,L-Fr,Iron/Fos [Twocal HN] 3 oz PO BID 12/10/19 [History] lisinopriL [Zestril] 20 mg PO QAM 12/10/19 [History] Carbamide Peroxide [Debrox] 3 drop EARBOTH Q12H PRN 01/07/20 [History] Hypromellose [Genteal Mild] 1 drop EYEBOTH .ASNEEDED PRN 01/07/20 [History] Ipratropium/Albuterol Sulfate [Iprat-Albut 0.5-3(2.5) mg/3 ml] 3 ml INH QID 12/23 [History] diphenhydrAMINE [Benadryl] 50 mg PO Q6H PRN 01/07/20 [History] Loperamide HCl [Loperamide] 2 mg PO BID 01/08/20 [History] Azithromycin [Zithromax] 250 mg PO Q24H #3 tablet 01/09/20 [Rx] predniSONE [Prednisone] 40 mg PO DAILY #5 tablet 01/09/20 [Rx] Past Medical History HEENT History: Reports: Cataract, Impaired Vision Cardiovascular History: Reports: Hypertension Respiratory History: Reports: COPD, Pneumonia, Recurrent Other Respiratory History: on home 02 at 5liters/min via nasal cannula Gastrointestinal History: Reports: Diverticulosis, GERD Genitourinary History: Reports: UTI, Recurrent TONGUE STITCHER History: Reports: Neurological History: Reports: Other (See Below) Other Neuro History: "mini" stroke Psychiatric History: Reports: Depression Endocrine/Metabolic History: Reports: Diabetes, Type II Other Endocrine/Metabolic History: low blood sugar Immunologic History: Reports: None Oncologic (Cancer) History: Reports: Uterine Other Oncologic History: uterus Dermatologic History: Reports: Melanoma - Infectious Disease History Infectious Disease History: Reports: Chicken Pox, Measles - Past Surgical History HEENT Surgical History: Reports: Cataract Surgery Female Surgical History: Reports: Hysterectomy Neurological Surgical History: Reports: None Social & Family History - Family History Family Medical History: Noncontributory HEENT: Reports: Impaired Vision Cardiac: Reports: MS Respiratory: Reports: None GI: Reports: None OBGYN: Reports: Musculoskeletal: Reports: Arthritis Neurological: Reports: Parkinson's Psychiatric: Reports: Depression Dermatologic: Reports: None Oncologic: Reports: Breast, Colon - Caffeine Use Caffeine Use: Reports: None - Living Situation & Occupation Living situation: Reports: Alone, Assisted Living Occupation: Retired ED ROS GENERAL - Review of Systems Review Of Systems: See Below (see dictation) ED EXAM, GENERAL - Physical Exam Exam: See Below (see dictation) Course - Vital Signs Last Recorded V/S: Last Vital Signs Temp 97.2 F 02/03/20 20:59 Pulse 97 02/03/20 22:59 Resp 12 02/03/20 22:59 BP 104/55 L 02/03/20 22:59 Pulse Ox 98 02/03/20 22:59 - Orders/Labs/Meds Orders: Active Orders 24 hr Category Date Time Status EKG Documentation Completion [RC] STAT Care 02/03/20 20:51 Active RT Aerosol Therapy [RC] ASDIRECTED Care 02/03/20 20:52 Active RT Aerosol Therapy [RC] ASDIRECTED Care 02/03/20 21:38 Active CULTURE BLOOD [BC] Stat Lab 02/03/20 21:40 Received CULTURE BLOOD [BC] Stat Lab 02/03/20 21:50 Received Blood Culture x2 Reflex Set [OM.PC] Stat Oth 02/03/20 20:51 Ordered Labs: Laboratory Tests 02/03/20 02/03/20 02/03/20 Range/Units 21:11 21:25 21:25 WBC 10.85 (4.0-11.0) K/uL RBC 3.60 L (4.30-5.90) M/uL Hgb 11.0 L (12.0-16.0) g/dL Hct 37.3 (36.0-46.0) % MCV 103.6 H (80.0-98.0) fL MCH 30.6 (27.0-32.0) pg MCHC 29.5 L (31.0-37.0) g/dL RDW Std Deviation 50.7 (28.0-62.0) fl RDW Coeff of Carmen 13 (11.0-15.0) % Plt Count 194 (150-400) K/uL MPV 12.60 H (7.40-12.00) fL Neut % (Auto) 89.5 H (48.0-80.0) % Lymph % (Auto) 5.1 L (16.0-40.0) % [place] % (Auto) 4.9 (0.0-15.0) % Eos % (Auto) 0.3 (0.0-7.0) % Baso % (Auto) 0.2 (0.0-1.5) % Neut # (Auto) 9.7 H (1.4-5.7) K/uL Lymph # (Auto) 0.6 (0.6-2.4) K/uL [place] # (Auto) 0.5 (0.0-0.8) K/uL Eos # (Auto) 0.0 (0.0-0.7) K/uL Baso # (Auto) 0.0 (0.0-0.1) K/uL Nucleated RBC % 0.0 /100WBC Nucleated RBCs # 0 K/uL ABG pH 7.272 L (7.35-7.45) ABG pCO2 93 H (35-45) mmHG ABG pO2 52 L (75-100) mmHG ABG HCO3 43 H (22-26) mEq/L ABG Total CO2 40.6 ABG Base Excess 12.6 H (-2.0-2.0) Lactate 1.8 (0.20-2.00) mmol/L Sodium (136-145) mmol/L Potassium (3.5-5.1) mmol/L Chloride (98-107) mmol/L Carbon Dioxide (21.0-32.0) mmol/L BUN (7.0-18.0) mg/dL Creatinine (0.6-1.0) mg/dL Est Cr Clr Drug Dosing Estimated GFR (MDRD) ml/min Glucose (74-106) mg/dL Calcium (8.5-10.1) mg/dL Total Bilirubin (0.2-1.0) mg/dL AST (15-37) IU/L ALT (14-63) IU/L Alkaline Phosphatase (46-116) U/L Troponin I (0.000-0.056) ng/mL B-Natriuretic Peptide (<100) PG/ML Total Protein (6.4-8.2) g/dL Albumin (3.4-5.0) g/dL Globulin (2.6-4.0) g/dL Albumin/Globulin Ratio (0.9-1.6) Urine Color Urine Appearance Urine pH (5.0-8.0) Ur Specific [place] (1.001-1.035) Urine Protein (NEGATIVE) mg/dL Urine Glucose (UA) (NEGATIVE) mg/dL Urine Ketones (NEGATIVE) mg/dL Urine Occult Blood (NEGATIVE) Urine Nitrite (NEGATIVE) Urine Bilirubin (NEGATIVE) Urine Urobilinogen (<2.0) EU/dL Ur Leukocyte Esterase (NEGATIVE) SARS-CoV-2 RNA (RT-PCR) (NEGATIVE) 02/03/20 02/03/20 02/03/20 Range/Units 21:25 21:25 22:00 WBC (4.0-11.0) K/uL RBC (4.30-5.90) M/uL Hgb (12.0-16.0) g/dL Hct (36.0-46.0) % MCV (80.0-98.0) fL MCH (27.0-32.0) pg MCHC (31.0-37.0) g/dL RDW Std Deviation (28.0-62.0) fl RDW Coeff of Carmen (11.0-15.0) % Plt Count (150-400) K/uL MPV (7.40-12.00) fL Neut % (Auto) (48.0-80.0) % Lymph % (Auto) (16.0-40.0) % [place] % (Auto) (0.0-15.0) % Eos % (Auto) (0.0-7.0) % Baso % (Auto) (0.0-1.5) % Neut # (Auto) (1.4-5.7) K/uL Lymph # (Auto) (0.6-2.4) K/uL [place] # (Auto) (0.0-0.8) K/uL Eos # (Auto) (0.0-0.7) K/uL Baso # (Auto) (0.0-0.1) K/uL Nucleated RBC % /100WBC Nucleated RBCs # K/uL ABG pH (7.35-7.45) ABG pCO2 (35-45) mmHG ABG pO2 (75-100) mmHG ABG HCO3 (22-26) mEq/L ABG Total CO2 ABG Base Excess (-2.0-2.0) Lactate (0.20-2.00) mmol/L Sodium 143 (136-145) mmol/L Potassium 4.3 (3.5-5.1) mmol/L Chloride 101 (98-107) mmol/L Carbon Dioxide 40.3 H (21.0-32.0) mmol/L BUN 44 H (7.0-18.0) mg/dL Creatinine 1.0 (0.6-1.0) mg/dL Est Cr Clr Drug Dosing TNP Estimated GFR (MDRD) 52.6 ml/min Glucose 301 H (74-106) mg/dL Calcium 9.3 (8.5-10.1) mg/dL Total Bilirubin 0.2 (0.2-1.0) mg/dL AST 22 (15-37) IU/L ALT 34 (14-63) IU/L Alkaline Phosphatase 72 (46-116) U/L Troponin I < 0.050 (0.000-0.056) ng/mL B-Natriuretic Peptide 42 (<100) PG/ML Total Protein 6.7 (6.4-8.2) g/dL Albumin 3.0 L (3.4-5.0) g/dL Globulin 3.7 (2.6-4.0) g/dL Albumin/Globulin Ratio 0.8 L (0.9-1.6) Urine Color Urine Appearance Urine pH (5.0-8.0) Ur Specific [place] (1.001-1.035) Urine Protein (NEGATIVE) mg/dL Urine Glucose (UA) (NEGATIVE) mg/dL Urine Ketones (NEGATIVE) mg/dL Urine Occult Blood (NEGATIVE) Urine Nitrite (NEGATIVE) Urine Bilirubin (NEGATIVE) Urine Urobilinogen (<2.0) EU/dL Ur Leukocyte Esterase (NEGATIVE) SARS-CoV-2 RNA (RT-PCR) NEGATIVE (NEGATIVE) 04/30/20 Range/Units 22:19 WBC (4.0-11.0) K/uL RBC (4.30-5.90) M/uL Hgb (12.0-16.0) g/dL Hct (36.0-46.0) % MCV (80.0-98.0) fL MCH (27.0-32.0) pg MCHC (31.0-37.0) g/dL RDW Std Deviation (28.0-62.0) fl RDW Coeff of Carmen (11.0-15.0) % Plt Count (150-400) K/uL MPV (7.40-12.00) fL Neut % (Auto) (48.0-80.0) % Lymph % (Auto) (16.0-40.0) % [place] % (Auto) (0.0-15.0) % Eos % (Auto) (0.0-7.0) % Baso % (Auto) (0.0-1.5) % Neut # (Auto) (1.4-5.7) K/uL Lymph # (Auto) (0.6-2.4) K/uL [place] # (Auto) (0.0-0.8) K/uL Eos # (Auto) (0.0-0.7) K/uL Baso # (Auto) (0.0-0.1) K/uL Nucleated RBC % /100WBC Nucleated RBCs # K/uL ABG pH (7.35-7.45) ABG pCO2 (35-45) mmHG ABG pO2 (75-100) mmHG ABG HCO3 (22-26) mEq/L ABG Total CO2 ABG Base Excess (-2.0-2.0) Lactate (0.20-2.00) mmol/L Sodium (136-145) mmol/L Potassium (3.5-5.1) mmol/L Chloride (98-107) mmol/L Carbon Dioxide (21.0-32.0) mmol/L BUN (7.0-18.0) mg/dL Creatinine (0.6-1.0) mg/dL Est Cr Clr Drug Dosing Estimated GFR (MDRD) ml/min Glucose (74-106) mg/dL Calcium (8.5-10.1) mg/dL Total Bilirubin (0.2-1.0) mg/dL AST (15-37) IU/L ALT (14-63) IU/L Alkaline Phosphatase (46-116) U/L Troponin I (0.000-0.056) ng/mL B-Natriuretic Peptide (<100) PG/ML Total Protein (6.4-8.2) g/dL Albumin (3.4-5.0) g/dL Globulin (2.6-4.0) g/dL Albumin/Globulin Ratio (0.9-1.6) Urine Color YELLOW Urine Appearance CLEAR Urine pH 6.0 (5.0-8.0) Ur Specific [place] 1.020 (1.001-1.035) Urine Protein NEGATIVE (NEGATIVE) mg/dL Urine Glucose (UA) NEGATIVE (NEGATIVE) mg/dL Urine Ketones NEGATIVE (NEGATIVE) mg/dL Urine Occult Blood NEGATIVE (NEGATIVE) Urine Nitrite NEGATIVE (NEGATIVE) Urine Bilirubin NEGATIVE (NEGATIVE) Urine Urobilinogen 0.2 (<2.0) EU/dL Ur Leukocyte Esterase NEGATIVE (NEGATIVE) SARS-CoV-2 RNA (RT-PCR) (NEGATIVE) Meds: Medications Discontinued Medications Generic Name Dose Route Start Last Admin Trade Name Freq PRN Reason Stop Dose Admin Albuterol 5 mg 02/03/20 21:37 02/03/20 21:56 Proventil Neb Soln [facility] 02/03/20 21:38 2.5 mg ONETIME ONE Administration Albuterol/Ipratropium 9 ml 02/03/20 20:52 02/03/20 21:12 Duoneb 3.0-0.5 Mg/3 Ml [facility] 02/03/20 20:53 3 ml ONETIME ONE Administration Levofloxacin/Dextrose 750 mg/ 150 mls @ 100 mls/hr 02/03/20 20:53 02/03/20 21 :13 Premix IV 02/03/20 22:22 100 mls/hr ONETIME ONE Administration Sodium Chloride 1,000 mls @ 1,000 mls/hr 02/03/20 21:58 02/03/20 22:00 Normal Saline IV 02/03/20 22:57 1,000 mls/hr .Bolus ONE Administration Methylprednisolone Sodium Succinate 125 mg 02/03/20 20:52 02/03/20 21:13 Solu-Medrol IVPUSH 02/03/20 20:53 125 mg ONETIME ONE Administration Departure - Departure Time of Disposition: 23:22 Disposition: Admitted As Inpatient 64 Condition: Fair Clinical Impression: COPD (chronic obstructive pulmonary disease) - Discharge Information Sepsis Event Note - Focused Exam Vital Signs: Vital Signs Temp Pulse Resp BP Pulse Ox 02/03/20 22:28 119 H 12 166/84 H 95 02/03/20 22:12 102 H 20 105/58 L 95 02/03/20 22:01 96 20 78/43 L 91 L 02/03/20 21:44 106 H 20 89/49 L 92 L 02/03/20 20:59 97.2 F 113 H 26 H 104/60 95 Date Exam was Performed: 02/03/20 Time Exam was Performed: 23:22 - My Orders Last 24 Hours: My Active Orders 02/03/20 20:51 EKG Documentation Completion [RC] STAT Blood Culture x2 Reflex Set [OM.PC] Stat 02/03/20 20:52 RT Aerosol Therapy [RC] ASDIRECTED 02/03/20 21:38 RT Aerosol Therapy [RC] ASDIRECTED 02/03/20 21:40 CULTURE BLOOD [BC] Stat 02/03/20 21:50 CULTURE BLOOD [BC] Stat - Assessment/Plan Last 24 Hours: My Active Orders 02/03/20 20:51 EKG Documentation Completion [RC] STAT Blood Culture x2 Reflex Set [OM.PC] Stat 02/03/20 20:52 RT Aerosol Therapy [RC] ASDIRECTED 02/03/20 21:38 RT Aerosol Therapy [RC] ASDIRECTED 02/03/20 21:40 CULTURE BLOOD [BC] Stat 02/03/20 21:50 CULTURE BLOOD [BC] Stat
[2020-02-03] MEDS ORDERED: Albuterol 0.083% 2.5 MG/3 ML Neb Soln NEB ONE (21:37)
[2020-02-03] MEDS ORDERED: Sodium Chloride 0.9% 1,000 ML IV ONE (21:58)
--- NOTE | 2020-02-03 21:59 | CR ---
CHEST 1 VIEW AP INDICATION: [id number]. Obstructive lung disease and decreased O2 saturation. COMPARISON: Portable chest 01/07/2020. IMPRESSION: Stable heart size and vascular pattern.There is a retrocardiac hiatal hernia with no change. Lungs are clear of new focal opacities. No new pulmonary consolidation. No effusions. Tortuous aorta. No pneumothorax. Dictated by Toni Blackmon MD @ Feb 03 2020 9:56PM Signed by Dr. Toni Blackmon @ Feb 03 2020 9:57PM
[2020-02-03 22:03] LABS: BLOOD UREA NITROGEN,BUN 44 mg/dL (7.0-18.0); CARBON DIOXIDE,CO2 40.3 mmol/L (21.0-32.0); CHLORIDE,CL 101 mmol/L (98-107); GLUCOSE RANDOM 301 mg/dL (74-106); POTASSIUM,K 4.3 mmol/L (3.5-5.1); SODIUM,NA 143 mmol/L (136-145)
--- NOTE | 2020-02-04 00:21 | PN ---
THC Physician - Brief Progress [id number]/01/2020 00:16[facility] Shauna Skinner, [place] [facility] - VIDAL PORTILLODate of Service 02/04/2020 00:16HPI/Events of Note Brief [id number] female was recently hospitalized 3 weeks ago most distant COVID negative , now readmitted for COPD exacerbation. Chest x-ray no evidence of pneumonia. WBC normal. On BiPAP . Data: from [facility]. ABG showing type II respiratory failure with pH of 7.29, PaCO2 82, PaO2 98. Bica rb 40. Sugar 301. Creatinine normal. Troponin 0.050. Hemoglobin 11. Urine analysis negative. BN P 42. Camera evaluationTolerating BiPAP 09/09/rate of 12 on 30% FiO2. Minute ventilation 14 L. Blood pressure 116/79. Heart rate 118. Sinus tachycardia.Discussed with bed side RN. Assessment and plan 1. COPD exacerbation without obvious pneumonia. Received over 3 L of normal saline, 1 L of Ringer l actate, Solu-Medrol, Zosyn, levofloxacin, nebulization. Continue Advair Diskus twice daily and Singu lair. Tolerating BiPAP. Aspiration precautions.- Duoneb q 6 hr and albuterol q4 hr prn ordered- Lesly umedrol 80 mg BID for now.- Levoflox daily should suffice. - watch for hypoxemia, drowsiness. 2. elev ated blood sugar. on steroids. ordered SSI aspart q6 hr . D50 25 gm prn for hypoglycemia.3. VTE:L ovenox 40 sq daily ordereddiscussed with bed side RN. Dr Hamm has seen her already.ordering duoneb qid, Advair BID, Lovenox sq as VTE via [facility] order. not suspecting new Covid as per bed side RN. no f ever or cough.Interventions Major-Hyperglycemia - active titration of insulin therapy, Respiratory fa ilure - evaluation and evmlhbhdmtKpzzwklyszyc-Ulbq-infxutuk therapies (e.g. VTE, beta grace, etc.)M inor-Communication with other healthcare providers and/or family
--- NOTE | 2020-02-04 00:25 | PCM.HP.2 ---
H&P History of Present Illness - General Date of Service: 02/03/20 Admit Problem/Dx: Admission Diagnosis/Problem Admission Diagnosis/Problem COPD, Moderate chronic obstructive pulmonary disease - History of Present Illness Initial Comments - Free Text/Narative: 84 yo female with pmh of COPD who was admitted three weeks ago for COPD exacerbation. PAtient was brought to the ED due to complaints of shortness of breath. Patient reports she just can't catch her breath. Patient denies any fevers or cough. - Related Data Allergies/Adverse Reactions: Allergies Allergy/AdvReac Type Severity Reaction Status Date / Time morphine Allergy Cannot Verified 02/03/20 21:06 Remember Home Medications: Home Meds Fluticasone/Salmeterol [Advair Diskus 100-50] 1 puff INH BID 10/09/17 [History] Ipratropium [Atrovent 0.06% Nasal [place]] 2 sprays NASBOTH Q8H PRN 10/09/17 [ History] Levalbuterol Tartrate [Xopenex Hfa] 2 inh INH QID 10/09/17 [History] Mirtazapine 45 mg PO BEDTIME 10/09/17 [History] Montelukast [Singulair] 10 mg PO BEDTIME 10/09/17 [History] Sertraline [Zoloft] 150 mg PO QAM 10/09/17 [History] Furosemide 20 mg PO QAM 04/10/19 [History] Ipratropium [Atrovent HFA] 2 puff INH Q6H 04/10/19 [History] Iron Polysaccharide Complex [Iferex 150] 150 mg PO QAM 04/10/19 [History] Loperamide [Imodium] 2 mg PO Q4H PRN 7 Days #42 cap 11/01/19 [Rx] Acetaminophen [Arthritis Pain Relief] 650 mg PO Q4H PRN 12/10/19 [History] Fluticasone Furoate [Flonase Sensimist] 1 spray NASBOTH BID 12/10/19 [History] Nut.Sup,Spec.Frm,L-Fr,Iron/Fos [Twocal HN] 3 oz PO BID 12/10/19 [History] lisinopriL [Zestril] 20 mg PO QAM 12/10/19 [History] Carbamide Peroxide [Debrox] 3 drop EARBOTH Q12H PRN 01/07/20 [History] Hypromellose [Genteal Mild] 1 drop EYEBOTH .ASNEEDED PRN 01/07/20 [History] Ipratropium/Albuterol Sulfate [Iprat-Albut 0.5-3(2.5) mg/3 ml] 3 ml INH QID 12/23 [History] diphenhydrAMINE [Benadryl] 50 mg PO Q6H PRN 01/07/20 [History] Loperamide HCl [Loperamide] 2 mg PO BID 01/08/20 [History] Azithromycin [Zithromax] 250 mg PO Q24H #3 tablet 01/09/20 [Rx] predniSONE [Prednisone] 40 mg PO DAILY #5 tablet 01/09/20 [Rx] Past Medical History HEENT History: Reports: Cataract, Impaired Vision Cardiovascular History: Reports: Hypertension Respiratory History: Reports: COPD, Pneumonia, Recurrent Other Respiratory History: on home 02 at 5liters/min via nasal cannula Gastrointestinal History: Reports: Diverticulosis, GERD Genitourinary History: Reports: UTI, Recurrent [employer] History: Reports: Neurological History: Reports: Other (See Below) Other Neuro History: "mini" stroke Psychiatric History: Reports: Depression Endocrine/Metabolic History: Reports: Diabetes, Type II Other Endocrine/Metabolic History: low blood sugar Immunologic History: Reports: None Oncologic (Cancer) History: Reports: Uterine Other Oncologic History: uterus Dermatologic History: Reports: Melanoma - Infectious Disease History Infectious Disease History: Reports: Chicken Pox, Measles - Past Surgical History HEENT Surgical History: Reports: Cataract Surgery Female Surgical History: Reports: Hysterectomy Neurological Surgical History: Reports: None Social & Family History - Family History Family Medical History: Noncontributory HEENT: Reports: Impaired Vision Cardiac: Reports: [place] Respiratory: Reports: None GI: Reports: None OBGYN: Reports: Musculoskeletal: Reports: Arthritis Neurological: Reports: Parkinson's Psychiatric: Reports: Depression Dermatologic: Reports: None Oncologic: Reports: Breast, Colon - Tobacco Use Smoking Status *Q: Never Smoker Second Hand Smoke Exposure: No - Caffeine Use Caffeine Use: Reports: None - Recreational Drug Use Recreational Drug Use: No - Living Situation & Occupation Living situation: Reports: Alone, Assisted Living Occupation: Retired H&P Review of Systems - Review of Systems: Review Of Systems: Comprehensive ROS is negative, except as noted in HPI. Exam - Exam Exam: See Below - Vital Signs Vital Signs: Last Vital Signs Temp 36.2 C 02/03/20 20:59 Pulse 97 02/03/20 22:59 Resp 12 02/03/20 22:59 BP 104/55 L 02/03/20 22:59 Pulse Ox 98 02/03/20 22:59 Weight: 37.195 kg - Exam General: Alert HEENT: Mucosa Moist & [place] Lungs: Decreased Breath Sounds, Wheezing, Other (increased accesory muscle use) Cardiovascular: Regular Rhythm, Tachycardia GI/Abdominal Exam: Normal Bowel Sounds, Soft, Non-Tender Extremities: Non-Tender, No Pedal Edema Skin: Warm, Dry, Intact Neurological: No: Focal Deficit - Patient Data Lab Results Last 24 hrs: Laboratory Results - last 24 hr 02/03/20 02/03/20 02/03/20 Range/Units 21:11 21:25 21:25 WBC 10.85 (4.0-11.0) K/uL RBC 3.60 L (4.30-5.90) M/uL Hgb 11.0 L (12.0-16.0) g/dL Hct 37.3 (36.0-46.0) % MCV 103.6 H (80.0-98.0) fL MCH 30.6 (27.0-32.0) pg MCHC 29.5 L (31.0-37.0) g/dL RDW Std Deviation 50.7 (28.0-62.0) fl RDW Coeff of Carmen 13 (11.0-15.0) % Plt Count 194 (150-400) K/uL MPV 12.60 H (7.40-12.00) fL Neut % (Auto) 89.5 H (48.0-80.0) % Lymph % (Auto) 5.1 L (16.0-40.0) % [place] % (Auto) 4.9 (0.0-15.0) % Eos % (Auto) 0.3 (0.0-7.0) % Baso % (Auto) 0.2 (0.0-1.5) % Neut # (Auto) 9.7 H (1.4-5.7) K/uL Lymph # (Auto) 0.6 (0.6-2.4) K/uL [place] # (Auto) 0.5 (0.0-0.8) K/uL Eos # (Auto) 0.0 (0.0-0.7) K/uL Baso # (Auto) 0.0 (0.0-0.1) K/uL Nucleated RBC % 0.0 /100WBC Nucleated RBCs # 0 K/uL ABG pH 7.272 L (7.35-7.45) ABG pCO2 93 H (35-45) mmHG ABG pO2 52 L (75-100) mmHG ABG HCO3 43 H (22-26) mEq/L ABG Total CO2 40.6 ABG Base Excess 12.6 H (-2.0-2.0) Lactate 1.8 (0.20-2.00) mmol/L Sodium (136-145) mmol/L Potassium (3.5-5.1) mmol/L Chloride (98-107) mmol/L Carbon Dioxide (21.0-32.0) mmol/L BUN (7.0-18.0) mg/dL Creatinine (0.6-1.0) mg/dL Est Cr Clr Drug Dosing Estimated GFR (MDRD) ml/min Glucose (74-106) mg/dL Calcium (8.5-10.1) mg/dL Total Bilirubin (0.2-1.0) mg/dL AST (15-37) IU/L ALT (14-63) IU/L Alkaline Phosphatase (46-116) U/L Troponin I (0.000-0.056) ng/mL B-Natriuretic Peptide (<100) PG/ML Total Protein (6.4-8.2) g/dL Albumin (3.4-5.0) g/dL Globulin (2.6-4.0) g/dL Albumin/Globulin Ratio (0.9-1.6) Urine Color Urine Appearance Urine pH (5.0-8.0) Ur Specific [place] (1.001-1.035) Urine Protein (NEGATIVE) mg/dL Urine Glucose (UA) (NEGATIVE) mg/dL Urine Ketones (NEGATIVE) mg/dL Urine Occult Blood (NEGATIVE) Urine Nitrite (NEGATIVE) Urine Bilirubin (NEGATIVE) Urine Urobilinogen (<2.0) EU/dL Ur Leukocyte Esterase (NEGATIVE) SARS-CoV-2 RNA (RT-PCR) (NEGATIVE) 02/03/20 02/03/20 02/03/20 Range/Units 21:25 21:25 22:00 WBC (4.0-11.0) K/uL RBC (4.30-5.90) M/uL Hgb (12.0-16.0) g/dL Hct (36.0-46.0) % MCV (80.0-98.0) fL MCH (27.0-32.0) pg MCHC (31.0-37.0) g/dL RDW Std Deviation (28.0-62.0) fl RDW Coeff of Carmen (11.0-15.0) % Plt Count (150-400) K/uL MPV (7.40-12.00) fL Neut % (Auto) (48.0-80.0) % Lymph % (Auto) (16.0-40.0) % [place] % (Auto) (0.0-15.0) % Eos % (Auto) (0.0-7.0) % Baso % (Auto) (0.0-1.5) % Neut # (Auto) (1.4-5.7) K/uL Lymph # (Auto) (0.6-2.4) K/uL [place] # (Auto) (0.0-0.8) K/uL Eos # (Auto) (0.0-0.7) K/uL Baso # (Auto) (0.0-0.1) K/uL Nucleated RBC % /100WBC Nucleated RBCs # K/uL ABG pH (7.35-7.45) ABG pCO2 (35-45) mmHG ABG pO2 (75-100) mmHG ABG HCO3 (22-26) mEq/L ABG Total CO2 ABG Base Excess (-2.0-2.0) Lactate (0.20-2.00) mmol/L Sodium 143 (136-145) mmol/L Potassium 4.3 (3.5-5.1) mmol/L Chloride 101 (98-107) mmol/L Carbon Dioxide 40.3 H (21.0-32.0) mmol/L BUN 44 H (7.0-18.0) mg/dL Creatinine 1.0 (0.6-1.0) mg/dL Est Cr Clr Drug Dosing TNP Estimated GFR (MDRD) 52.6 ml/min Glucose 301 H (74-106) mg/dL Calcium 9.3 (8.5-10.1) mg/dL Total Bilirubin 0.2 (0.2-1.0) mg/dL AST 22 (15-37) IU/L ALT 34 (14-63) IU/L Alkaline Phosphatase 72 (46-116) U/L Troponin I < 0.050 (0.000-0.056) ng/mL B-Natriuretic Peptide 42 (<100) PG/ML Total Protein 6.7 (6.4-8.2) g/dL Albumin 3.0 L (3.4-5.0) g/dL Globulin 3.7 (2.6-4.0) g/dL Albumin/Globulin Ratio 0.8 L (0.9-1.6) Urine Color Urine Appearance Urine pH (5.0-8.0) Ur Specific [place] (1.001-1.035) Urine Protein (NEGATIVE) mg/dL Urine Glucose (UA) (NEGATIVE) mg/dL Urine Ketones (NEGATIVE) mg/dL Urine Occult Blood (NEGATIVE) Urine Nitrite (NEGATIVE) Urine Bilirubin (NEGATIVE) Urine Urobilinogen (<2.0) EU/dL Ur Leukocyte Esterase (NEGATIVE) SARS-CoV-2 RNA (RT-PCR) NEGATIVE (NEGATIVE) 02/03/20 02/03/20 Range/Units 22:19 23:25 WBC (4.0-11.0) K/uL RBC (4.30-5.90) M/uL Hgb (12.0-16.0) g/dL Hct (36.0-46.0) % MCV (80.0-98.0) fL MCH (27.0-32.0) pg MCHC (31.0-37.0) g/dL RDW Std Deviation (28.0-62.0) fl RDW Coeff of Carmen (11.0-15.0) % Plt Count (150-400) K/uL MPV (7.40-12.00) fL Neut % (Auto) (48.0-80.0) % Lymph % (Auto) (16.0-40.0) % [place] % (Auto) (0.0-15.0) % Eos % (Auto) (0.0-7.0) % Baso % (Auto) (0.0-1.5) % Neut # (Auto) (1.4-5.7) K/uL Lymph # (Auto) (0.6-2.4) K/uL [place] # (Auto) (0.0-0.8) K/uL Eos # (Auto) (0.0-0.7) K/uL Baso # (Auto) (0.0-0.1) K/uL Nucleated RBC % /100WBC Nucleated RBCs # K/uL ABG pH 7.294 L (7.35-7.45) ABG pCO2 82 H (35-45) mmHG ABG pO2 98 (75-100) mmHG ABG HCO3 40 H (22-26) mEq/L ABG Total CO2 37.9 ABG Base Excess 10.8 H (-2.0-2.0) Lactate (0.20-2.00) mmol/L Sodium (136-145) mmol/L Potassium (3.5-5.1) mmol/L Chloride (98-107) mmol/L Carbon Dioxide (21.0-32.0) mmol/L BUN (7.0-18.0) mg/dL Creatinine (0.6-1.0) mg/dL Est Cr Clr Drug Dosing Estimated GFR (MDRD) ml/min Glucose (74-106) mg/dL Calcium (8.5-10.1) mg/dL Total Bilirubin (0.2-1.0) mg/dL AST (15-37) IU/L ALT (14-63) IU/L Alkaline Phosphatase (46-116) U/L Troponin I (0.000-0.056) ng/mL B-Natriuretic Peptide (<100) PG/ML Total Protein (6.4-8.2) g/dL Albumin (3.4-5.0) g/dL Globulin (2.6-4.0) g/dL Albumin/Globulin Ratio (0.9-1.6) Urine Color YELLOW Urine Appearance CLEAR Urine pH 6.0 (5.0-8.0) Ur Specific [place] 1.020 (1.001-1.035) Urine Protein NEGATIVE (NEGATIVE) mg/dL Urine Glucose (UA) NEGATIVE (NEGATIVE) mg/dL Urine Ketones NEGATIVE (NEGATIVE) mg/dL Urine Occult Blood NEGATIVE (NEGATIVE) Urine Nitrite NEGATIVE (NEGATIVE) Urine Bilirubin NEGATIVE (NEGATIVE) Urine Urobilinogen 0.2 (<2.0) EU/dL Ur Leukocyte Esterase NEGATIVE (NEGATIVE) SARS-CoV-2 RNA (RT-PCR) (NEGATIVE) Result Diagrams: 02/03/20 21:25 02/03/20 21:25 Sepsis Event Note - Evaluation Sepsis Screening Result: Possible Sepsis Risk - Focused Exam Vital Signs: Vital Signs Temp Pulse Resp BP Pulse Ox 02/03/20 22:59 97 12 104/55 L 98 02/03/20 22:28 119 H 12 166/84 H 95 02/03/20 22:12 102 H 20 105/58 L 95 02/03/20 22:01 96 20 78/43 L 91 L 02/03/20 21:44 106 H 20 89/49 L 92 L 02/03/20 20:59 36.2 C 113 H 26 H 104/60 95 Date Exam was Performed: 02/04/20 Time Exam was Performed: 00:26 Problem List Initiated/Reviewed/Updated: Yes Orders Last 24hrs: Active Orders 24 hr Category Date Time Status Admission Status [Patient Status] [ADT] Stat ADT 02/03/20 22:43 Active Antiembolic Devices [RC] PER UNIT ROUTINE Care 02/04/20 00:23 Ordered EKG Documentation Completion [RC] STAT Care 02/03/20 20:51 Active Oxygen Therapy [RC] PRN Care 02/04/20 00:22 Ordered RT Aerosol Therapy [RC] ASDIRECTED Care 02/03/20 20:52 Active RT Aerosol Therapy [RC] ASDIRECTED Care 02/03/20 21:38 Active Up ad [place] [RC] ASDIRECTED Care 02/04/20 00:22 Ordered VTE/DVT Education [RC] PER UNIT ROUTINE Care 02/04/20 00:22 Ordered Vital Signs [RC] Q4H Care 02/04/20 00:22 Ordered Regular Diet [DIET] Diet 02/04/20 Breakfast Ordered ABG [BLOOD GAS ARTERIAL] [BG] Routine Lab 02/04/20 03:00 Ordered BASIC METABOLIC PANEL,BMP [CHEM] AM Lab 02/04/20 05:11 Ordered CBC WITH AUTO DIFF [HEME] AM Lab 02/04/20 05:11 Ordered CULTURE BLOOD [BC] Stat Lab 02/03/20 21:40 Received CULTURE BLOOD [BC] Stat Lab 02/03/20 21:50 Received Fluticasone/Salmeterol [Advair Diskus 100-50] Med 02/04/20 09:00 Active 1 puff INH BID Heparin Sodium Med 02/04/20 00:30 Ordered 5,000 units SUBCUT Q8H Levofloxacin/Dextrose 5%-Water [Levaquin in D5W 750 MG/ Med 02/04/20 23:45 Pending 150 ML] 750 mg Premix Bag 1 bag IV Q24H Montelukast [Singulair] Med 02/04/20 21:00 Active 10 mg PO BEDTIME Sertraline [Zoloft] Med 02/04/20 09:00 Active 150 mg PO QAM methylPREDNISolone Sod Succ [Solu-MEDROL] Med 02/04/20 09:00 Active 125 mg IVPUSH Q12H Blood Culture x2 Reflex Set [OM.PC] Stat Oth 02/03/20 20:51 Ordered Sequential Compression Device [OM.PC] Per Unit Routine Oth 02/04/20 00:23 Ordered Resuscitation Status Routine Resus Stat 02/04/20 00:22 Ordered Medication Orders Levofloxacin/Dextrose 750 mg/ (Premix) 150 mls @ 100 mls/hr IV Q24H [place] Methylprednisolone Sodium Succinate (Solu-Medrol) 125 mg IVPUSH Q12H [place] Montelukast Sodium (Singulair) 10 mg PO BEDTIME [place] Fluticasone/Salmeterol (Advair Diskus 100-50) 1 puff INH BID [place] Sertraline HCl (Zoloft) 150 mg PO QAM [place] Assessment/Plan Comment:: 84 yo female admitted for acute on chronic hypercapnic/hypoxic respiratory failure from COPD exacerbation. Respiratory failure: tolerating BIPAP COPD exacerbation: will treat with solumedrol, duonebs, and Levaquin
[2020-02-04] MEDS: Heparin Sodium 5,000 Units/ML Vial SUBCUT SCH ×2 (01:28→08:52)
[2020-02-04] MEDS ORDERED: Albuterol 0.5% 5 MG/ML Neb Soln 20 ML Bottle NEB PRN (01:35)
[2020-02-04] MEDS ORDERED: 50% Dextrose in Water 50 ML Syringe IVPUSH PRN (01:38)
[2020-02-04] MEDS ORDERED: Sodium Chloride 0.9% 500 ML IV SCH (01:45)
--- NOTE | 2020-02-04 02:21 | PN ---
THC Physician - Brief Progress [id number]/01/2020 01:29[facility] Shauna Skinner, ASHLEY [facility] - VIDAL PORTILLODate of Service 02/04/2020 01:29HPI/Events of Note MAP soft.sats fine.discussed with bed side.Received 1 Lit saline from ED, not 3 Liters as I m entioned in my admission note.on Heparin sq as VTE. Plan:- NS 500 ml bolus once. watch urine out put , or for any fluid overload.Interventions Intermediate-Hypotension - evaluation and managementElectro nically Signed by: ABDULKADIR LANTIGUA) on 02/04/2020 01:31
[2020-02-04] MEDS: Albuterol/Ipratropium 3.0-0.5 MG/3 ML Neb Soln NEB SCH ×2 (02:55→06:00)
[2020-02-04] MEDS ORDERED: Albuterol/Ipratropium 3.0-0.5 MG/3 ML Neb Soln NEB PRN (03:00)
[2020-02-04 07:04] LABS: BLOOD UREA NITROGEN,BUN 35 mg/dL (7.0-18.0); CARBON DIOXIDE,CO2 39.2 mmol/L (21.0-32.0); CHLORIDE,CL 104 mmol/L (98-107); GLUCOSE RANDOM 128 mg/dL (74-106); POTASSIUM,K 5.1 mmol/L (3.5-5.1); SODIUM,NA 142 mmol/L (136-145)
[2020-02-04] MEDS: Insulin Aspart 100 Units/ML 3 ML Pen SUBCUT SCH ×2 (08:16→13:18)
[2020-02-04] MEDS: Fluticasone/Salmeterol 100-50 MCG Inhalation Powder 14/Diskus INH SCH ×2 (08:48→21:44)
[2020-02-04] MEDS: Sertraline 100 MG Tab PO SCH (08:54)
[2020-02-04] MEDS ORDERED: methylPREDNISolone Sodium Succinate 125 MG/2 ML SDV IVPUSH SCH (09:00)
[2020-02-04] MEDS ORDERED: fentaNYL 50 MCG/ML SDV IVPUSH PRN (10:00)
--- NOTE | 2020-02-04 10:07 | PCM.PN ---
- General Info Date of Service: 02/04/20 - Review of Systems Systems Review Comment:: patient told me today she does not want anymore treatment. She is ready to and wants to go comfortably - Patient Data Vitals - Most Recent: Last Vital Signs Temp 36.3 C 02/04/20 08:00 Pulse 96 02/04/20 07:00 Resp 19 02/04/20 09:00 BP 161/89 H 02/04/20 09:00 Pulse Ox 95 02/04/20 09:00 Weight - Most Recent: 39.463 kg I&O - Last 24 Hours: Intake & Output 02/03/20 02/04/20 02/04/20 22:59 06:59 14:59 Intake Total 1850 Output Total 250 Balance 1600 Lab Results Last 24 Hours: Laboratory Results - last 24 hr 02/03/20 02/03/20 02/03/20 Range/Units 21:11 21:25 21:25 WBC 10.85 (4.0-11.0) K/uL RBC 3.60 L (4.30-5.90) M/uL Hgb 11.0 L (12.0-16.0) g/dL Hct 37.3 (36.0-46.0) % MCV 103.6 H (80.0-98.0) fL MCH 30.6 (27.0-32.0) pg MCHC 29.5 L (31.0-37.0) g/dL RDW Std Deviation 50.7 (28.0-62.0) fl RDW Coeff of Carmen 13 (11.0-15.0) % Plt Count 194 (150-400) K/uL MPV 12.60 H (7.40-12.00) fL Neut % (Auto) 89.5 H (48.0-80.0) % Lymph % (Auto) 5.1 L (16.0-40.0) % [place] % (Auto) 4.9 (0.0-15.0) % Eos % (Auto) 0.3 (0.0-7.0) % Baso % (Auto) 0.2 (0.0-1.5) % Neut # (Auto) 9.7 H (1.4-5.7) K/uL Lymph # (Auto) 0.6 (0.6-2.4) K/uL [place] # (Auto) 0.5 (0.0-0.8) K/uL Eos # (Auto) 0.0 (0.0-0.7) K/uL Baso # (Auto) 0.0 (0.0-0.1) K/uL Nucleated RBC % 0.0 /100WBC Nucleated RBCs # 0 K/uL ABG pH 7.272 L (7.35-7.45) ABG pCO2 93 H (35-45) mmHG ABG pO2 52 L (75-100) mmHG ABG HCO3 43 H (22-26) mEq/L ABG Total CO2 40.6 ABG Base Excess 12.6 H (-2.0-2.0) Lactate 1.8 (0.20-2.00) mmol/L Sodium (136-145) mmol/L Potassium (3.5-5.1) mmol/L Chloride (98-107) mmol/L Carbon Dioxide (21.0-32.0) mmol/L BUN (7.0-18.0) mg/dL Creatinine (0.6-1.0) mg/dL Est Cr Clr Drug Dosing Estimated GFR (MDRD) ml/min Glucose (74-106) mg/dL POC Glucose (60-110) mg/dL Calcium (8.5-10.1) mg/dL Total Bilirubin (0.2-1.0) mg/dL AST (15-37) IU/L ALT (14-63) IU/L Alkaline Phosphatase (46-116) U/L Troponin I (0.000-0.056) ng/mL B-Natriuretic Peptide (<100) PG/ML Total Protein (6.4-8.2) g/dL Albumin (3.4-5.0) g/dL Globulin (2.6-4.0) g/dL Albumin/Globulin Ratio (0.9-1.6) Urine Color Urine Appearance Urine pH (5.0-8.0) Ur Specific [place] (1.001-1.035) Urine Protein (NEGATIVE) mg/dL Urine Glucose (UA) (NEGATIVE) mg/dL Urine Ketones (NEGATIVE) mg/dL Urine Occult Blood (NEGATIVE) Urine Nitrite (NEGATIVE) Urine Bilirubin (NEGATIVE) Urine Urobilinogen (<2.0) EU/dL Ur Leukocyte Esterase (NEGATIVE) SARS-CoV-2 RNA (RT-PCR) (NEGATIVE) 02/03/20 02/03/20 02/03/20 Range/Units 21:25 21:25 22:00 WBC (4.0-11.0) K/uL RBC (4.30-5.90) M/uL Hgb (12.0-16.0) g/dL Hct (36.0-46.0) % MCV (80.0-98.0) fL MCH (27.0-32.0) pg MCHC (31.0-37.0) g/dL RDW Std Deviation (28.0-62.0) fl RDW Coeff of Carmen (11.0-15.0) % Plt Count (150-400) K/uL MPV (7.40-12.00) fL Neut % (Auto) (48.0-80.0) % Lymph % (Auto) (16.0-40.0) % [place] % (Auto) (0.0-15.0) % Eos % (Auto) (0.0-7.0) % Baso % (Auto) (0.0-1.5) % Neut # (Auto) (1.4-5.7) K/uL Lymph # (Auto) (0.6-2.4) K/uL [place] # (Auto) (0.0-0.8) K/uL Eos # (Auto) (0.0-0.7) K/uL Baso # (Auto) (0.0-0.1) K/uL Nucleated RBC % /100WBC Nucleated RBCs # K/uL ABG pH (7.35-7.45) ABG pCO2 (35-45) mmHG ABG pO2 (75-100) mmHG ABG HCO3 (22-26) mEq/L ABG Total CO2 ABG Base Excess (-2.0-2.0) Lactate (0.20-2.00) mmol/L Sodium 143 (136-145) mmol/L Potassium 4.3 (3.5-5.1) mmol/L Chloride 101 (98-107) mmol/L Carbon Dioxide 40.3 H (21.0-32.0) mmol/L BUN 44 H (7.0-18.0) mg/dL Creatinine 1.0 (0.6-1.0) mg/dL Est Cr Clr Drug Dosing TNP Estimated GFR (MDRD) 52.6 ml/min Glucose 301 H (74-106) mg/dL POC Glucose (60-110) mg/dL Calcium 9.3 (8.5-10.1) mg/dL Total Bilirubin 0.2 (0.2-1.0) mg/dL AST 22 (15-37) IU/L ALT 34 (14-63) IU/L Alkaline Phosphatase 72 (46-116) U/L Troponin I < 0.050 (0.000-0.056) ng/mL B-Natriuretic Peptide 42 (<100) PG/ML Total Protein 6.7 (6.4-8.2) g/dL Albumin 3.0 L (3.4-5.0) g/dL Globulin 3.7 (2.6-4.0) g/dL Albumin/Globulin Ratio 0.8 L (0.9-1.6) Urine Color Urine Appearance Urine pH (5.0-8.0) Ur Specific [place] (1.001-1.035) Urine Protein (NEGATIVE) mg/dL Urine Glucose (UA) (NEGATIVE) mg/dL Urine Ketones (NEGATIVE) mg/dL Urine Occult Blood (NEGATIVE) Urine Nitrite (NEGATIVE) Urine Bilirubin (NEGATIVE) Urine Urobilinogen (<2.0) EU/dL Ur Leukocyte Esterase (NEGATIVE) SARS-CoV-2 RNA (RT-PCR) NEGATIVE (NEGATIVE) 02/03/20 02/03/20 02/04/20 Range/Units 22:19 23:25 00:23 WBC (4.0-11.0) K/uL RBC (4.30-5.90) M/uL Hgb (12.0-16.0) g/dL Hct (36.0-46.0) % MCV (80.0-98.0) fL MCH (27.0-32.0) pg MCHC (31.0-37.0) g/dL RDW Std Deviation (28.0-62.0) fl RDW Coeff of Carmen (11.0-15.0) % Plt Count (150-400) K/uL MPV (7.40-12.00) fL Neut % (Auto) (48.0-80.0) % Lymph % (Auto) (16.0-40.0) % [place] % (Auto) (0.0-15.0) % Eos % (Auto) (0.0-7.0) % Baso % (Auto) (0.0-1.5) % Neut # (Auto) (1.4-5.7) K/uL Lymph # (Auto) (0.6-2.4) K/uL [place] # (Auto) (0.0-0.8) K/uL Eos # (Auto) (0.0-0.7) K/uL Baso # (Auto) (0.0-0.1) K/uL Nucleated RBC % /100WBC Nucleated RBCs # K/uL ABG pH 7.294 L (7.35-7.45) ABG pCO2 82 H (35-45) mmHG ABG pO2 98 (75-100) mmHG ABG HCO3 40 H (22-26) mEq/L ABG Total CO2 37.9 ABG Base Excess 10.8 H (-2.0-2.0) Lactate (0.20-2.00) mmol/L Sodium (136-145) mmol/L Potassium (3.5-5.1) mmol/L Chloride (98-107) mmol/L Carbon Dioxide (21.0-32.0) mmol/L BUN (7.0-18.0) mg/dL Creatinine (0.6-1.0) mg/dL Est Cr Clr Drug Dosing Estimated GFR (MDRD) ml/min Glucose (74-106) mg/dL POC Glucose 144 H (60-110) mg/dL Calcium (8.5-10.1) mg/dL Total Bilirubin (0.2-1.0) mg/dL AST (15-37) IU/L ALT (14-63) IU/L Alkaline Phosphatase (46-116) U/L Troponin I (0.000-0.056) ng/mL B-Natriuretic Peptide (<100) PG/ML Total Protein (6.4-8.2) g/dL Albumin (3.4-5.0) g/dL Globulin (2.6-4.0) g/dL Albumin/Globulin Ratio (0.9-1.6) Urine Color YELLOW Urine Appearance CLEAR Urine pH 6.0 (5.0-8.0) Ur Specific [place] 1.020 (1.001-1.035) Urine Protein NEGATIVE (NEGATIVE) mg/dL Urine Glucose (UA) NEGATIVE (NEGATIVE) mg/dL Urine Ketones NEGATIVE (NEGATIVE) mg/dL Urine Occult Blood NEGATIVE (NEGATIVE) Urine Nitrite NEGATIVE (NEGATIVE) Urine Bilirubin NEGATIVE (NEGATIVE) Urine Urobilinogen 0.2 (<2.0) EU/dL Ur Leukocyte Esterase NEGATIVE (NEGATIVE) SARS-CoV-2 RNA (RT-PCR) (NEGATIVE) 02/04/20 02/04/20 02/04/20 Range/Units 05:49 06:38 06:38 WBC 7.52 (4.0-11.0) K/uL RBC 3.36 L (4.30-5.90) M/uL Hgb 10.1 L (12.0-16.0) g/dL Hct 34.3 L (36.0-46.0) % MCV 102.1 H (80.0-98.0) fL MCH 30.1 (27.0-32.0) pg MCHC 29.4 L (31.0-37.0) g/dL RDW Std Deviation 49.6 (28.0-62.0) fl RDW Coeff of Carmen 13 (11.0-15.0) % Plt Count 167 (150-400) K/uL MPV 12.30 H (7.40-12.00) fL Neut % (Auto) 88.3 H (48.0-80.0) % Lymph % (Auto) 9.2 L (16.0-40.0) % [place] % (Auto) 2.5 (0.0-15.0) % Eos % (Auto) 0.0 (0.0-7.0) % Baso % (Auto) 0.0 (0.0-1.5) % Neut # (Auto) 6.6 H (1.4-5.7) K/uL Lymph # (Auto) 0.7 (0.6-2.4) K/uL [place] # (Auto) 0.2 (0.0-0.8) K/uL Eos # (Auto) 0.0 (0.0-0.7) K/uL Baso # (Auto) 0.0 (0.0-0.1) K/uL Nucleated RBC % 0.0 /100WBC Nucleated RBCs # 0 K/uL ABG pH (7.35-7.45) ABG pCO2 (35-45) mmHG ABG pO2 (75-100) mmHG ABG HCO3 (22-26) mEq/L ABG Total CO2 ABG Base Excess (-2.0-2.0) Lactate (0.20-2.00) mmol/L Sodium 142 (136-145) mmol/L Potassium 5.1 (3.5-5.1) mmol/L Chloride 104 (98-107) mmol/L Carbon Dioxide 39.2 H (21.0-32.0) mmol/L BUN 35 H (7.0-18.0) mg/dL Creatinine 0.8 (0.6-1.0) mg/dL Est Cr Clr Drug Dosing 31.45 Estimated GFR (MDRD) > 60.0 ml/min Glucose 128 H (74-106) mg/dL POC Glucose 119 H (60-110) mg/dL Calcium 9.1 (8.5-10.1) mg/dL Total Bilirubin (0.2-1.0) mg/dL AST (15-37) IU/L ALT (14-63) IU/L Alkaline Phosphatase (46-116) U/L Troponin I (0.000-0.056) ng/mL B-Natriuretic Peptide (<100) PG/ML Total Protein (6.4-8.2) g/dL Albumin (3.4-5.0) g/dL Globulin (2.6-4.0) g/dL Albumin/Globulin Ratio (0.9-1.6) Urine Color Urine Appearance Urine pH (5.0-8.0) Ur Specific [place] (1.001-1.035) Urine Protein (NEGATIVE) mg/dL Urine Glucose (UA) (NEGATIVE) mg/dL Urine Ketones (NEGATIVE) mg/dL Urine Occult Blood (NEGATIVE) Urine Nitrite (NEGATIVE) Urine Bilirubin (NEGATIVE) Urine Urobilinogen (<2.0) EU/dL Ur Leukocyte Esterase (NEGATIVE) SARS-CoV-2 RNA (RT-PCR) (NEGATIVE) Med Orders - Current: Current Medications Albuterol (Proventil Neb Soln) 5 mg NEB Q4HRRT PRN PRN Reason: Shortness of Breath Albuterol/Ipratropium (Duoneb 3.0-0.5 Mg/3 Ml) 3 ml NEB Q6HRRT [facility] Last Admin: 02/04/20 06:00 Dose: 3 ml Dextrose/Water (Dextrose 50% In Water) 50 ml IVPUSH ONETIME PRN PRN Reason: Hypoglycemia Heparin Sodium (Porcine) (Heparin Sodium) 5,000 units SUBCUT Q8H [facility] Last Admin: 02/04/20 08:52 Dose: 5,000 units Levofloxacin/Dextrose 750 mg/ (Premix) 150 mls @ 100 mls/hr IV Q48H [facility] Sodium Chloride (Normal Saline) 500 mls @ 999 mls/hr IV .BOLUS [facility] Last Admin: 02/04/20 01:53 Dose: 999 mls/hr Insulin Aspart (Novolog) 0 unit SUBCUT TIDAC [facility]; Protocol Last Admin: 02/04/20 08:16 Dose: Not Given Lorazepam (Ativan) 1 mg PO Q6H PRN PRN Reason: Anxiety Methylprednisolone Sodium Succinate (Solu-Medrol) 125 mg IVPUSH Q12H [facility] Last Admin: 02/04/20 08:54 Dose: 125 mg Montelukast Sodium (Singulair) 10 mg PO BEDTIME [facility] Fluticasone/Salmeterol (Advair Diskus 100-50) 1 puff INH BID [facility] Last Admin: 02/04/20 08:48 Dose: 1 puff Sertraline HCl (Zoloft) 150 mg PO QAM [facility] Last Admin: 02/04/20 08:54 Dose: 150 mg Discontinued Medications Albuterol (Proventil Neb Soln) 5 mg NEB ONETIME ONE Stop: 02/03/20 21:38 Last Admin: 02/03/20 21:56 Dose: 2.5 mg Albuterol/Ipratropium (Duoneb 3.0-0.5 Mg/3 Ml) 9 ml NEB ONETIME ONE Stop: 02/03/20 20:53 Last Admin: 02/03/20 21:12 Dose: 3 ml Albuterol/Ipratropium (Duoneb 3.0-0.5 Mg/3 Ml) 3 ml NEB Q6HRRT PRN PRN Reason: Shortness of Breath Levofloxacin/Dextrose 750 mg/ (Premix) 150 mls @ 100 mls/hr IV ONETIME ONE Stop: 02/03/20 22:22 Last Admin: 02/03/20 21:13 Dose: 100 mls/hr Sodium Chloride (Normal Saline) 1,000 mls @ 1,000 mls/hr IV .Bolus ONE Stop: 02/03/20 22:57 Last Admin: 02/03/20 22:00 Dose: 1,000 mls/hr Methylprednisolone Sodium Succinate (Solu-Medrol) 125 mg IVPUSH ONETIME ONE Stop: 02/03/20 20:53 Last Admin: 02/03/20 21:13 Dose: 125 mg - Exam General: Alert, Oriented Neck: Supple Lungs: Decreased Breath Sounds, Wheezing Cardiovascular: Regular Rate, Regular Rhythm GI/Abdominal Exam: Soft, Non-Tender Extremities: Non-Tender Skin: Warm, Dry, Intact Neurological: No New Focal Deficit Sepsis Event Note - Evaluation Sepsis Screening Result: No Definite Risk - Focused Exam Vital Signs: Vital Signs Temp Pulse Resp BP Pulse Ox Pulse Ox 02/04/20 09:00 19 161/89 H 95 02/04/20 08:00 36.3 C 20 138/85 92 L 02/04/20 07:00 36.9 C 96 21 H 128/86 92 L 02/04/20 06:00 36.7 C 89 26 H 124/76 99 02/04/20 05:00 93 20 110/77 91 L 02/04/20 04:00 36.1 C 94 24 H 110/81 93 L 02/04/20 03:00 36.5 C 82 19 92/60 97 02/04/20 02:00 34.5 C L 81 20 117/71 90 L 02/04/20 00:22 90 L 02/03/20 22:59 97 12 104/55 L 98 02/03/20 22:28 119 H 12 166/84 H 95 02/03/20 22:12 102 H 20 105/58 L 95 Date Exam was Performed: 02/04/20 Time Exam was Performed: 10:01 - Problem List Review Problem List Initiated/Reviewed/Updated: Yes - My Orders Last 24 Hours: My Active Orders 02/04/20 00:22 Oxygen Therapy [RC] PRN Up ad Camilla [RC] ASDIRECTED VTE/DVT Education [RC] DAILY Vital Signs [RC] Q1H 02/04/20 00:23 Antiembolic Devices [RC] PER UNIT ROUTINE Sequential Compression Device [OM.PC] Per Unit Routine 02/04/20 00:30 Heparin Sodium 5,000 units SUBCUT Q8H 02/04/20 00:31 Blood Glucose Check, Bedside [RC] TIDAC 02/04/20 03:00 ABG [BLOOD GAS ARTERIAL] [BG] Routine 02/04/20 07:30 Insulin Aspart [NovoLOG] See Protocol SUBCUT TIDAC 02/04/20 09:00 Fluticasone/Salmeterol [Advair Diskus 100-50] 1 puff INH BID Sertraline [Zoloft] 150 mg PO QAM methylPREDNISolone Sod Succ [Solu-MEDROL] 125 mg IVPUSH Q12H 02/04/20 09:59 LORazepam [Ativan] 1 mg PO Q6H PRN Code Status [Resuscitation Status] Routine 02/04/20 10:00 fentaNYL 12.5 mcg IVPUSH Q4H PRN 02/04/20 21:00 Montelukast [Singulair] 10 mg PO BEDTIME 02/04/20 Breakfast Regular Diet [DIET] 02/05/20 21:00 Levofloxacin/Dextrose 5%-Water [Levaquin in D5W 750 MG/150 ML] 750 mg Premix Bag 1 bag IV Q48H - Plan Plan:: 84 yo female admitted for acute on chronic hypercapnic/hypoxic respiratory failure from COPD exacerbation. Respiratory failure: weaned of BIPAP COPD exacerbation: patient is requesting to stop treatment, does not want BIPAP , we will consult Hospice and place on comfort measures only. We will transfer to medical floor. Anticipate discharge to [place] tomorrow if she is still stable. I asked if I could call family or friend and patient has said not at this time.
[2020-02-04] MEDS: LORazepam 1 MG Tab PO PRN (10:14)
[2020-02-04] MEDS ORDERED: Montelukast 10 MG Tab PO SCH (21:00)
[2020-02-05 07:45] VITALS: BP 169/82; PULSE 73
[2020-02-05] MEDS: Fluticasone/Salmeterol 100-50 MCG Inhalation Powder 14/Diskus INH SCH (08:34)
[2020-02-05] MEDS: Sertraline 100 MG Tab PO SCH (08:34)
[2020-02-05] MEDS ORDERED: Acetaminophen 325 MG Tab PO ONE (08:48)
[2020-02-05] MEDS: LORazepam 1 MG Tab PO PRN (10:15)
--- NOTE | 2020-02-05 10:35 | PCM.DCSUM1 ---
Discharge Summary - Discharge Data Discharge Date: 02/05/20 Discharge Disposition: DC/Tfer to SNF 03 Condition: Fair - Referral to Home Health Primary Care Physician: Xander Vega MD - Patient Summary/Data Consults: Consultations 02/04/20 10:50 Consult to Hospice [CONS] Routine Hospital Course: 84 yo female who was admitted for COPD exacerbation. She presented to the ED with one day history of shortness of breath. In the ED she was found to be in moderate respiratory distress. ABG showed pH of 7.24, pO2 of 52 and pCO2 of 93. She was placed on Bipap, solumedrol, levaquin, and duonebs. She was weaned off the BIPAP the following morning and patient then stated her wished for comfort care only. Hospice was consulted. She was started on Ativan for palliative care. She is being discharged back to [place] today. - Patient Instructions Diet: Regular Diet as Tolerated Activity: As Tolerated Driving: Do Not Drive Showering/Bathing: May Shower Other/Special Instructions: Hospice consult - Discharge Plan *PRESCRIPTION DRUG MONITORING PROGRAM REVIEWED*: Not Applicable *COPY OF PRESCRIPTION DRUG MONITORING REPORT IN PATIENT MARELY: Not Applicable Prescriptions/Med Rec: LORazepam [Ativan] 1 mg PO Q6H PRN #20 tab PRN Reason: Anxiety Home Medications: Home Meds Fluticasone/Salmeterol [Advair Diskus 100-50] 1 puff INH BID 10/09/17 [History] Ipratropium [Atrovent 0.06% Nasal [place]] 2 sprays NASBOTH Q8H PRN 10/09/17 [ History] Levalbuterol Tartrate [Xopenex Hfa] 2 inh INH QID 10/09/17 [History] Mirtazapine 45 mg PO BEDTIME 10/09/17 [History] Montelukast [Singulair] 10 mg PO BEDTIME 10/09/17 [History] Sertraline [Zoloft] 150 mg PO QAM 10/09/17 [History] Furosemide 20 mg PO QAM 04/10/19 [History] Ipratropium [Atrovent HFA] 2 puff INH Q6H 04/10/19 [History] Iron Polysaccharide Complex [Iferex 150] 150 mg PO QAM 04/10/19 [History] Loperamide [Imodium] 2 mg PO Q4H PRN 7 Days #42 cap 11/01/19 [Rx] Acetaminophen [Arthritis Pain Relief] 650 mg PO Q4H PRN 12/10/19 [History] Fluticasone Furoate [Flonase Sensimist] 1 spray NASBOTH BID 12/10/19 [History] Nut.Sup,Spec.Frm,L-Fr,Iron/Fos [Twocal HN] 3 oz PO BID 12/10/19 [History] lisinopriL [Zestril] 20 mg PO QAM 12/10/19 [History] Carbamide Peroxide [Debrox] 3 drop EARBOTH Q12H PRN 01/07/20 [History] Hypromellose [Genteal Mild] 1 drop EYEBOTH .ASNEEDED PRN 01/07/20 [History] Ipratropium/Albuterol Sulfate [Iprat-Albut 0.5-3(2.5) mg/3 ml] 3 ml INH QID 12/23 [History] diphenhydrAMINE [Benadryl] 50 mg PO Q6H PRN 01/07/20 [History] Loperamide HCl [Loperamide] 2 mg PO BID 01/08/20 [History] LORazepam [Ativan] 1 mg PO Q6H PRN #20 tab 02/04/20 [Rx] Oxygen Therapy Mode: Nasal Cannula Oxygen Flow Rate (L/min): 2 Patient Handouts: Lorazepam tablets Referrals: Xander Vega MD [Primary Care Provider] - (Please have patient added to next Javier rounds. This was not able to be done, due to it being the weekend. ) - Discharge Summary/Plan Comment DC Time >30 min.: No - Patient Data Vitals - Most Recent: Last Vital Signs Temp 36.9 C 02/05/20 07:43 Pulse 73 02/05/20 07:43 Resp 19 02/05/20 07:43 BP 169/82 H 02/05/20 07:43 Pulse Ox 99 02/05/20 07:43 Weight - Most Recent: 37.195 kg I&O - Last 24 hours: Intake & Output 02/04/20 02/05/20 02/05/20 22:59 06:59 14:59 Intake Total 150 Output Total 600 Balance -450 ARIANA Results - Last 24 hrs: Microbiology 02/03/20 21:50 Aerobic Blood Culture - Preliminary Blood - Venous - Lab Draw NO GROWTH AFTER 1 DAY Anaerobic Blood Culture - Preliminary NO GROWTH AFTER 1 DAY 02/03/20 21:40 Aerobic Blood Culture - Preliminary Blood - Venous NO GROWTH AFTER 1 DAY Anaerobic Blood Culture - Preliminary NO GROWTH AFTER 1 DAY Med Orders - Current: Current Medications Albuterol (Proventil Neb Soln) 5 mg NEB Q4HRRT PRN PRN Reason: Shortness of Breath Dextrose/Water (Dextrose 50% In Water) 50 ml IVPUSH ONETIME PRN PRN Reason: Hypoglycemia Fentanyl (Fentanyl) 12.5 mcg IVPUSH Q4H PRN PRN Reason: Pain Sodium Chloride (Normal Saline) 500 mls @ 999 mls/hr IV .BOLUS [facility] Last Admin: 02/04/20 01:53 Dose: 999 mls/hr Lorazepam (Ativan) 1 mg PO Q6H PRN PRN Reason: Anxiety Last Admin: 02/05/20 10:15 Dose: 1 mg Montelukast Sodium (Singulair) 10 mg PO BEDTIME [facility] Last Admin: 02/04/20 21:43 Dose: 10 mg Fluticasone/Salmeterol (Advair Diskus 100-50) 1 puff INH BID [facility] Last Admin: 02/05/20 08:34 Dose: 1 puff Sertraline HCl (Zoloft) 150 mg PO QAM [facility] Last Admin: 02/05/20 08:34 Dose: 150 mg Discontinued Medications Acetaminophen (Tylenol) 650 mg PO NOW ONE Stop: 02/05/20 08:49 Last Admin: 02/05/20 08:58 Dose: 650 mg Albuterol (Proventil Neb Soln) 5 mg NEB ONETIME ONE Stop: 02/03/20 21:38 Last Admin: 02/03/20 21:56 Dose: 2.5 mg Albuterol/Ipratropium (Duoneb 3.0-0.5 Mg/3 Ml) 9 ml NEB ONETIME ONE Stop: 02/03/20 20:53 Last Admin: 02/03/20 21:12 Dose: 3 ml Albuterol/Ipratropium (Duoneb 3.0-0.5 Mg/3 Ml) 3 ml NEB Q6HRRT PRN PRN Reason: Shortness of Breath Albuterol/Ipratropium (Duoneb 3.0-0.5 Mg/3 Ml) 3 ml NEB Q6HRRT [facility] Last Admin: 02/04/20 06:00 Dose: 3 ml Heparin Sodium (Porcine) (Heparin Sodium) 5,000 units SUBCUT Q8H [facility] Last Admin: 02/04/20 08:52 Dose: 5,000 units Levofloxacin/Dextrose 750 mg/ (Premix) 150 mls @ 100 mls/hr IV ONETIME ONE Stop: 02/03/20 22:22 Last Admin: 02/03/20 21:13 Dose: 100 mls/hr Sodium Chloride (Normal Saline) 1,000 mls @ 1,000 mls/hr IV .Bolus ONE Stop: 02/03/20 22:57 Last Admin: 02/03/20 22:00 Dose: 1,000 mls/hr Levofloxacin/Dextrose 750 mg/ (Premix) 150 mls @ 100 mls/hr IV Q48H [facility] Insulin Aspart (Novolog) 0 unit SUBCUT TIDAC [facility]; Protocol Last Admin: 02/04/20 13:18 Dose: Not Given Methylprednisolone Sodium Succinate (Solu-Medrol) 125 mg IVPUSH ONETIME ONE Stop: 02/03/20 20:53 Last Admin: 02/03/20 21:13 Dose: 125 mg Methylprednisolone Sodium Succinate (Solu-Medrol) 125 mg IVPUSH Q12H [facility] Last Admin: 02/04/20 08:54 Dose: 125 mg
[2020-02-05] MEDS ORDERED: Levofloxacin/Dextrose 5%-Water 750 MG in Premix Bag 1 BAG IV SCH (21:00)
== END 2020-02-05 10:30 | DRG 189 ==
LOC: MW.ED 20:49 → MW.ICU 22:43 → MW.MS 02-04 14:25
PROVIDERS: ADMIT Internal Medicine; ATTEND Internal Medicine
PROC: 5A09357 Assistance with Respiratory Ventilation, Less than 24 Consecutive Hours, Continuous Positive Airway Pressure (ICD-10-PCS; principal; 2020-02-04)
DX: J44.9 Chronic obstructive pulmonary disease, unspecified (principal); Z99.81 Dependence on supplemental oxygen; J96.21 Acute and chronic respiratory failure with hypoxia; J44.1 Chronic obstructive pulmonary disease with (acute) exacerbation; J96.22 Acute and chronic respiratory failure with hypercapnia; Z51.5 Encounter for palliative care; I95.9 Hypotension, unspecified; H54.7 Unspecified visual loss; I10 Essential (primary) hypertension; K21.9 Gastro-esophageal reflux disease without esophagitis; F32.9 Major depressive disorder, single episode, unspecified; Z20.828 Contact with and (suspected) exposure to other viral communicable diseases; E11.9 Type 2 diabetes mellitus without complications; Z79.899 Other long term (current) drug therapy; Z87.01 Personal history of pneumonia (recurrent); Z87.440 Personal history of urinary (tract) infections; Z79.52 Long term (current) use of systemic steroids; Z88.5 Allergy status to narcotic agent; Z90.710 Acquired absence of both cervix and uterus; Z98.49 Cataract extraction status, unspecified eye; Z85.820 Personal history of malignant melanoma of skin
CPT/HCPCS: 36415; 36600; 51702; 71045; 80053; 81003; 82803; 83605; 83880; 84484; 85025; 87040 ×2; 93005; 94640; 96365; 96375; 99285; J1956; J2930; J7030; U0002; 80048; 82962; 94660; 99284; A9270-GY; J1644; J7040; J7620-GY